=== PATIENT | female | born 1970 | race American Indian/Alaskan Native ===

== ENCOUNTER 2017-03-15 08:51 | Inpatient (IN) | payer SELFPAY ==
[2017-03-15 09:26] LABS: Mean Corpuscular HGB Conc 29 % (30-34); Platelet Count 208 K/mm3 (140-440); Red Blood Count 5.31 M/mm3 (3.65-5.03); White Blood Count 13.1 K/mm3 (4.5-11.0)
[2017-03-15 09:45] LABS: Hemoglobin 8.7 gm/dl (10.1-14.3)
[2017-03-15 09:46] LABS: Hematocrit 30.6 % (30.3-42.9); Mean Corpuscular Hemoglobin 17 pg (28-32); Mean Corpuscular Volume 58 fl (79-97)
[2017-03-15 09:49] LABS: Red Cell Distribution Width 23.9 % (13.2-15.2)
[2017-03-15 09:59] LABS: BUN/Creatinine Ratio 11.42; Blood Urea Nitrogen 8 mg/dL (7-17); Calcium 8.8 mg/dL (8.4-10.2); Carbon Dioxide 26 mmol/L (22-30); Glucose 108 mg/dL (65-100)
[2017-03-15 10:00] LABS: Anion Gap 17 mmol/L; Chloride 102.7 mmol/L (98-107); Potassium 4.4 mmol/L (3.6-5.0); Sodium 141 mmol/L (137-145)
[2017-03-15 11:16] LABS: Anisocytosis 2+; Basophils % (Manual) 0 % (0.0-1.8); Blastocytes % (Manual) 0 %; Eosinophils % (Manual) 0 % (0.0-4.3)
[2017-03-15 11:17] LABS: Elliptocytes 1+; Hypochromasia 2+; Microcytosis 2+; Ovalocytes 2+; Polychromasia 1+
[2017-03-15 11:18] LABS: Diff Status Complete
--- NOTE | 2017-03-15 11:28 | XRay Report ---
ROUTINE CHEST, TWO VIEWS: HISTORY: Shortness of breath. The trachea, heart, mediastinal contour, lung walter and bony thorax are unremarkable. No significant change since 03/05/16. IMPRESSION: Unremarkable chest x-ray.
--- NOTE | 2017-03-15 14:24 | Emergency Department Report ---
ED Shortness of Breath HPI - General Chief Complaint: Dyspnea/Respdistress Stated Complaint: ASTHMA/HERNÁN/SOB Time Seen by Provider: 03/15/17 13:21 Source: patient Mode of arrival: Ambulatory Limitations: No Limitations - History of Present Illness Initial Comments: 46-year-old female presents to the emergency department complaining of difficulty breathing and fluid buildup. Patient states symptoms have been present for the past 2 days. She states that her legs, abdomen, and arms are swelling. She denies pain. She states she is unable to lie flat due to difficulty breathing. There are no other complaints. MD Complaint: shortness of breath -: Gradual, days(s) (2) Pain Scale: 0 Consistency: constant Improves With: nothing Worsens With: lying flat Known History Of: asthma Associated Symptoms: lower abdominal swelling, other (leg swelling) Treatments Prior to Arrival: none - Related Data Home Medications Medication Instructions Recorded Confirmed Last Taken amLODIPine [Norvasc] 10 mg PO DAILY 03/15/17 03/15/17 03/15/17 Previous Rx's Medication Instructions Recorded Last Taken Type Levothyroxine [Synthroid] 50 mcg PO QAM #30 tablet 01/04/16 03/15/17 Rx ALBUTEROL NEB's [Proventil 0.083% 1 neb IH Q4H PRN #1 box 03/09/16 Unknown Rx NEBS] Allergies Allergy/AdvReac Type Severity Reaction Status Date / Time No Known Allergies Allergy Verified 01/04/16 10:42 ED Review of Systems ROS: Stated complaint: ASTHMA/HERNÁN/SOB Other details as noted in HPI Comment: All other systems reviewed and negative Respiratory: orthopnea, shortness of breath Cardiovascular: edema ED Past Medical Hx - Past Medical History Previous Medical History?: Yes Hx Hypertension: Yes Hx Heart Attack/AMI: No Hx Congestive Heart Failure: No Hx Diabetes: No Hx Deep Vein Thrombosis: No Hx Pulmonary Embolism: No Hx Liver Disease: No Hx Renal Disease: No Hx Sickle Cell Disease: No Hx Arthritis: No Hx Seizures: No Hx Kidney Stones: No Hx Asthma: Yes Hx COPD: No Hx Tuberculosis: No Hx Dementia: No Hx HIV: No Additional medical history: hypothyroid, herniated disc, obstructive sleep apnea. OBESITY. RIGHT ROTATOR CUFF TEAR - Surgical History Past Surgical History?: Yes Hx Coronary Stent: No Hx Open Heart Surgery: No Hx Pacemaker: No Hx Internal Defibrillator: No Hx Cholecystectomy: No Hx Appendectomy: No Hx Breast Surgery: No Additional Surgical History: x 3, right shoulder rotator cuff repair - Family History Family history: no significant - Social History Smoking Status: Current Every Day Smoker Substance Use Type: None - Medications Home Medications: Home Medications Medication Instructions Recorded Confirmed Last Taken Type Levothyroxine [Synthroid] 50 mcg PO QAM #30 tablet 01/04/16 03/15/17 03/15/17 Rx ALBUTEROL NEB's [Proventil 0.083% 1 neb IH Q4H PRN #1 box 03/09/16 03/15/17 Unknown Rx NEBS] amLODIPine [Norvasc] 10 mg PO DAILY 03/15/17 03/15/17 03/15/17 History ED Physical Exam - General Limitations: No Limitations General appearance: alert, in no apparent distress, obese - Head Head exam: Present: atraumatic, normocephalic - Eye Eye exam: Present: normal appearance, PERRL, EOMI - ENT ENT exam: Present: normal exam, normal orophraynx, mucous membranes moist - Neck Neck exam: Present: normal inspection, full ROM. Absent: tenderness - Respiratory Respiratory exam: Present: normal lung sounds bilaterally. Absent: respiratory distress - Cardiovascular Cardiovascular Exam: Present: normal rhythm, tachycardia, normal heart sounds - GI/Abdominal GI/Abdominal exam: Present: soft, normal bowel sounds. Absent: distended, tenderness - Extremities Exam Extremities exam: Present: normal inspection, full ROM, other (2+ pitting edema bilateral lower extremities to the mid thigh) - Back Exam Back exam: Present: normal inspection, full ROM. Absent: tenderness - Neurological Exam Neurological exam: Present: alert, oriented X3. Absent: motor sensory deficit - Skin Skin exam: Present: warm, dry, intact ED Course Vital Signs 03/15/17 09:06 Temperature 98.2 F Pulse Rate 100 H Respiratory 24 Rate Blood Pressure 184/110 O2 Sat by Pulse 100 Oximetry ED Medical Decision Making - Lab Data Result diagrams: 03/15/17 09:15 03/15/17 09:15 - EKG Data -: EKG Interpreted by Me EKG shows normal: sinus rhythm, axis, intervals, QRS complexes, ST-T waves Rate: tachycardia - EKG Data When compared to previous EKG there are: no significant change Interpretation: other (pulmonary disease pattern) - Radiology Data Radiology results: report reviewed, image reviewed Chest x-ray shows no acute abnormality. - Medical Decision Making Lab and imaging results reviewed and discussed with the patient. Patient is moderate risk for PE, although clinical gestalt is low. CTA of the chest has been ordered, but the patient is refusing stating that she cannot lie flat. There is concern that the patient does have pulmonary hypertension and is having symptoms from this. Giving IV Lasix. Patient is to be admitted by the hospitalist. - Differential Diagnosis CHF, pleural effusion, PE Critical care attestation.: If time is entered above; I have spent that time in minutes in the direct care of this critically ill patient, excluding procedure time. ED Disposition Clinical Impression: Morbid obesity with body mass index (BMI) of 40.0 to 44.9 in adult, Obstructive sleep apnea Dyspnea Qualifiers: Dyspnea type: orthopnea Qualified Code(s): R06.01 - Orthopnea Disposition: -09 OP ADMIT IP TO THIS HOSP Is pt being admited?: Yes Condition: Stable Referrals: PRIMARY CAREMD [Primary Care Provider] - 3-5 Days Time of Disposition: 16:06
[2017-03-15] MEDS ORDERED: LASIX IV ONE ×2 (15:52→17:36)
--- NOTE | 2017-03-15 16:25 | Admit Criteria Form ---
Admission Criteria Documentation: PULMONARY DISEASE GRG Clinical Indications for Admission to Inpatient Care ( Place 'X' for any and all applicable criteria): Hospital admission is needed for appropriate care of the patient because of ANY ONE of the following(1): [ ]I. Impending or actual respiratory arrest ( Use Respiratory Failure Criteria for severe respiratory disease and long-term mechanical ventilation patients) (4) [ ]II. Severe airflow or ventilation abnormalities (not responsive to emergency and observation care treatment as appropriate) as indicated by ANY ONE of the following(5)(6)(7)(8) : [ ]a) PCO2 > 42 mm Hg (5.6 kPa) and pH < 7.35 (new) [ ]b) Documented PCO2 increase > 5 mm Hg (0.7 kPa) from disease baseline [ ]c) Airflow measurements[A] < 60% of previous best or predicted ( e.g., PEF <300 L/minute) despite intensive emergent treatment[B] [ ]d) Required respiratory treatments that are performable only in acute inpatient setting [X]III. Severe respiratory findings (not responsive to emergency and observation care treatment as appropriate) including ANY ONE of the following(5)(8)(9): []a) Respiratory distress as indicated by ALL of the following(5)(10): [ X]i) Patient with ANY ONE of the following: [X]1) Dyspnea (difficulty breathing) [ ]2) Abnormal breathing pattern (eg, chest retractions) []3) Tachypnea []4) Other evidence of difficulty breathing [ ]ii) Evidence of respiratory compromise indicated by ANY ONE of the following: [ ]1) Hypoxemia [ ]2) Altered mental status [ ]3) Other evidence of respiratory compromise (eg, pulmonary edema on chest x-ray) [ ]b) Stridor [ ]c) Gross hemoptysis(11) [ ]d) Acute cyanosis [ ]IV. High-risk pulmonary infection as indicated by ANY ONE of the following( 19)(20)(21)(22): [ ]a) Temperature less than 95 degrees F(35 degrees C) or greater than 103.1 degrees F(39.5 degrees C) [ ]b) Hemodynamic instability that remains after emergency or observation level care (as appropriate) [ ]c) Immunocompromised patient (eg, AIDS, post transplant, neutropenic) [ ]d) History of severe COPD [ ]e) History of severely symptomatic congestive heart failure [ ]f) Other high-risk comorbidity (eg, poorly controlled diabetes, cirrhosis, chronic renal insufficiency) [ ]g) Hypoxemia (new) [ ]h) Outpatient, observation, or recovery facility therapy has failed, is not appropriate, or is not feasible [ ]V. Severe atelectasis or lung collapse(15)(16) [ ]. Tuberculosis requiring inpatient treatment as indicated by ANY ONE of the following(17)(18): [ ]a) New positive acid-fast bacilli sputum smear [ ]b) Positive acid-fast bacilli smear (under current treatment), with ANY ONE of the following: [ ]i) Unexposed household contacts [ ]ii) Infants or immunosuppressed household contacts [ ]iii) Patient unable or unwilling to avoid exposing others [ ]iv) Severe immunocompromised patient (eg, AIDS, post transplant, neutropenic) [ ]VII. Empyema or lung abscess(13)(14) [ ]VIII. Severe pulmonary arterial hypertension or pulmonary vascular disease requiring inpatient care indicated by ANY ONE of the following(24)(25): [ ]a) Initiation or change of vasodilators (IV, subcutaneous, or inhaled) or other vasoactive medications needed [ ]b) IV anticoagulation needed (eg, immediate anticoagulation necessary, alternatives not appropriate) [ ]c) Arterial or pulmonary artery catheter monitoring needed due to infusion or other treatment [ ]IX. Chronic lung disease with severe deterioration (not responsive to emergency and observation care treatment as appropriate) as indicated by ANY ONE of the following (6)(12): [ ]a) SaO2 5% below baseline in patient with chronic hypoxemia [ ]b) New requirement for supplemental oxygen to keep SaO2 at baseline or acceptable level [ ]c) Required supplemental oxygen performable only in acute inpatient setting [ ]d) Severe airflow or ventilation abnormalities [ ]e) Rapid rate of exacerbation onset [ ]f) Previously mobile patient unable to walk between rooms [ ]g) Inability to eat or sleep due to dyspnea [ ]h) Altered mental status [ ]X. Cystic fibrosis with severe deterioration as indicated by ANY ONE of the following(26)(27): [ ]a) Severe exacerbation that does not respond to intensified home therapy [ ]b) Pneumonia [ ]c) Hemoptysis [ ]d) Atelectasis [ ]e) Pneumothorax [ ]f) Respiratory failure [ ]g) Severe exacerbation with patient unable to perform prescribed treatments at home [ ]XI. Severe right heart failure as indicated by ANY ONE of the following(24) (25): [ ]a) Increasing organ failure (eg, liver congestion with significant and worsening or new elevation of transaminases) [ ]b) Anasarca [ ]c) Angina that requires inpatient care (eg, not treatable in emergency or observation level of care) [ ]d) Respiratory distress [ ]e) Syncope [ ]f) SBP < 90 mm Hg (new) [ ]XII. Injury requiring inpatient care (medical) as indicated by ANY ONE of the following(28): [ ]a) Significant inhalation injury (eg, smoke inhalation, other toxic inhalation) (29)(30)(31) [ ]b) Airway obstruction that remains or is unstable after emergency or observation level care(32) [ ]c) Severe pain requiring acute inpatient management [ ]d) Lung contusion [ ]e) Bronchial tree injury [ ]f) Air or fat emboli(33) [ ]g) Other injury not treatable in emergency or observation level care (eg, hemothorax) (34) [ ]XIII. Pulmonary hemorrhage or significant hemoptysis(11)(35)(36) [ ]XIV. Inpatient palliative care needed[C](37)(38)(39)(40) [ ]XV. Complications of lung transplant (eg, rejection, failure, respiratory infection) (23) [ ]XVI. Pulmonary Disease and ANY ONE of the following: [ ]a) General Admission Criteria [ ]b) Pediatric General Admission Criteria The original [facility] [employer] content created by [facility] [employer] has been revised. The portions of the content which have been revised are identified through the use of italic text or in bold, and [facility] has neither reviewed nor approved the modified material. All other unmodified content is copyright [facility]. Please see references footnoted in the [facility] Admission Criteria Met: Yes
[2017-03-15] MEDS ORDERED: PROVENTIL IH PRN (21:05)
--- NOTE | 2017-03-15 21:30 | History and Physical Report ---
History of Present Illness Date of examination: 03/15/17 Date of admission: 03/15/17 16:06 Chief complaint: Increasing SOB for 2 days History of present illness: MINA Well known to me from office for last 10 years 46-year-old female presents to the emergency department complaining of difficulty breathing and fluid buildup. Patient states symptoms have been present for the past 2 days. She states that her legs, abdomen, and arms are swelling. She denies pain. She states she is unable to lie flat due to difficulty breathing. There are no other complaints.Being treated for Asthmatic bronchitis MD Complaint: shortness of breath -: Gradual, days(s) (2) Pain Scale: 0 Consistency: constant Improves With: nothing Worsens With: lying flat Known History Of: asthma Associated Symptoms: lower abdominal swelling, other (leg swelling) Treatments Prior to Arrival: none - Related Data Home Medications Medication Instructions Recorded Confirmed Last Taken amLODIPine [Norvasc] 10 mg PO DAILY 03/15/17 03/15/17 03/15/17 Previous Rx's Medication Instructions Recorded Last Taken Type Levothyroxine [Synthroid] 50 mcg PO QAM #30 tablet 01/04/16 03/15/17 Rx ALBUTEROL NEB's [Proventil 0.083% 1 neb IH Q4H PRN #1 box 03/09/16 Unknown Rx NEBS] Allergies Allergy/AdvReac Type Severity Reaction Status Date / Time No Known Allergies Allergy Verified 01/04/16 10:42 ED Review of Systems ROS: Stated complaint: ASTHMA/HERNÁN/SOB Other details as noted in HPI Comment: All other systems reviewed and negative Respiratory: orthopnea, shortness of breath Cardiovascular: edema ED Past Medical Hx - Past Medical History Previous Medical History?: Yes Hx Hypertension: Yes Hx Heart Attack/AMI: No Hx Congestive Heart Failure: No Hx Diabetes: No Hx Deep Vein Thrombosis: No Hx Pulmonary Embolism: No Hx Liver Disease: No Hx Renal Disease: No Hx Sickle Cell Disease: No Hx Arthritis: No Hx Seizures: No Hx Kidney Stones: No Hx Asthma: Yes Hx COPD: No Hx Tuberculosis: No Hx Dementia: No Hx HIV: No Additional medical history: hypothyroid, herniated disc, obstructive sleep apnea. OBESITY. RIGHT ROTATOR CUFF TEAR - Surgical History Past Surgical History?: Yes Hx Coronary Stent: No Hx Open Heart Surgery: No Hx Pacemaker: No Hx Internal Defibrillator: No Hx Cholecystectomy: No Hx Appendectomy: No Hx Breast Surgery: No Additional Surgical History: x 3, right shoulder rotator cuff repair - Family History Family history: no significant - Social History Smoking Status: Current Every Day Smoker Substance Use Type: None - Medications Home Medications: Home Medications Medication Instructions Recorded Confirmed Last Taken Type Levothyroxine [Synthroid] 50 mcg PO QAM #30 tablet 01/04/16 03/15/17 03/15/17 Rx ALBUTEROL NEB's [Proventil 0.083% 1 neb IH Q4H PRN #1 box 03/09/16 03/15/17 Unknown Rx NEBS] amLODIPine [Norvasc] 10 mg PO DAILY 03/15/17 03/15/17 03/15/17 History Medications and Allergies Allergies Allergy/AdvReac Type Severity Reaction Status Date / Time No Known Allergies Allergy Verified 01/04/16 10:42 Home Medications Medication Instructions Recorded Confirmed Last Taken Type Levothyroxine [Synthroid] 50 mcg PO QAM #30 tablet 01/04/16 03/15/17 03/15/17 Rx ALBUTEROL NEB's [Proventil 0.083% 1 neb IH Q4H PRN #1 box 03/09/16 03/15/17 Unknown Rx NEBS] amLODIPine [Norvasc] 10 mg PO DAILY 03/15/17 03/15/17 03/15/17 History Active Meds: Active Medications Albuterol (Proventil) 2.5 mg IH Q4HRT PRN PRN Reason: Shortness Of Breath Last Admin: 03/15/17 21:11 Dose: 2.5 mg Exam - Physical Exam Narrative exam: In slight resp distress - Constitutional Vitals: Temp Pulse Resp BP Pulse Ox 98.4 F 110 H 18 134/87 100 03/15/17 19:56 03/15/17 21:19 03/15/17 21:19 03/15/17 19:56 03/15/17 19:56 General appearance: Present: mild distress, well-nourished - EENT Eyes: Present: PERRL ENT: hearing intact, clear oral mucosa - Neck Neck: Present: supple, normal ROM - Respiratory Respiratory effort: normal Respiratory: bilateral: CTA, diminished - Cardiovascular Heart rate: 80 Rhythm: regular Heart Sounds: Present: S1 & S2. Absent: rub, click - Extremities Extremities: pulses symmetrical Extremity abnormal: edema, other (3 plus edema) Peripheral Pulses: within normal limits - Abdominal General gastrointestinal: Present: soft, non-tender, non-distended, normal bowel sounds Female genitourinary: Present: normal - Integumentary Integumentary: Present: clear, warm, dry - Musculoskeletal Musculoskeletal: gait normal, strength equal bilaterally - Psychiatric Psychiatric: appropriate mood/affect, intact judgment & insight - Neurologic Neurologic: CNII-XII intact, moves all extremities Results - Labs CBC & Chem 7: 03/15/17 09:15 03/15/17 09:15 Labs: Laboratory Last Values WBC 13.1 K/mm3 (4.5-11.0) H 03/15/17 09:15 RBC 5.31 M/mm3 (3.65-5.03) H 03/15/17 09:15 Hgb 8.7 gm/dl (10.1-14.3) L 03/15/17 09:15 Hct 30.6 % (30.3-42.9) 03/15/17 09:15 MCV 58 fl (79-97) L 03/15/17 09:15 MCH 17 pg (28-32) L 03/15/17 09:15 MCHC 29 % (30-34) L 03/15/17 09:15 RDW 23.9 % (13.2-15.2) H 03/15/17 09:15 Plt Count 208 K/mm3 (140-440) 03/15/17 09:15 Add Manual Diff Complete 03/15/17 09:15 Total Counted 100 03/15/17 09:15 Seg Neuts % (Manual) 78.0 % (40.0-70.0) H 03/15/17 09:15 Band Neutrophils % 1.0 % 03/15/17 09:15 Lymphocytes % (Manual) 12.0 % (13.4-35.0) L 03/15/17 09:15 Reactive Lymphs % (Man) 0 % 03/15/17 09:15 Monocytes % (Manual) 8.0 % (0.0-7.3) H 03/15/17 09:15 Eosinophils % (Manual) 0 % (0.0-4.3) 03/15/17 09:15 Basophils % (Manual) 0 % (0.0-1.8) 03/15/17 09:15 Metamyelocytes % 1.0 % 03/15/17 09:15 Myelocytes % 0 % 03/15/17 09:15 Promyelocytes % 0 % 03/15/17 09:15 Blast Cells % 0 % 03/15/17 09:15 Nucleated RBC % Not Reportable 03/15/17 09:15 Seg Neutrophils # Man 10.2 K/mm3 (1.8-7.7) H 03/15/17 09:15 Band Neutrophils # 0.1 K/mm3 03/15/17 09:15 Lymphocytes # (Manual) 1.6 K/mm3 (1.2-5.4) 03/15/17 09:15 Abs React Lymphs (Man) 0.0 K/mm3 03/15/17 09:15 Monocytes # (Manual) 1.0 K/mm3 (0.0-0.8) H 03/15/17 09:15 Eosinophils # (Manual) 0.0 K/mm3 (0.0-0.4) 03/15/17 09:15 Basophils # (Manual) 0.0 K/mm3 (0.0-0.1) 03/15/17 09:15 Metamyelocytes # 0.1 K/mm3 03/15/17 09:15 Myelocytes # 0.0 K/mm3 03/15/17 09:15 Promyelocytes # 0.0 K/mm3 03/15/17 09:15 Blast Cells # 0.0 K/mm3 03/15/17 09:15 WBC Morphology Not Reportable 03/15/17 09:15 Hypersegmented Neuts Not Reportable 03/15/17 09:15 Hyposegmented Neuts Not Reportable 03/15/17 09:15 Hypogranular Neuts Not Reportable 03/15/17 09:15 Smudge Cells Not Reportable 03/15/17 09:15 Toxic Granulation Not Reportable 03/15/17 09:15 Toxic Vacuolation Not Reportable 03/15/17 09:15 Dohle Bodies Not Reportable 03/15/17 09:15 Pelger-Huet Anomaly Not Reportable 03/15/17 09:15 Genesis Rods Not Reportable 03/15/17 09:15 Platelet Estimate Appears normal 03/15/17 09:15 Clumped Platelets Not Reportable 03/15/17 09:15 Plt Clumps, EDTA Not Reportable 03/15/17 09:15 Large Platelets Not Reportable 03/15/17 09:15 Giant Platelets Not Reportable 03/15/17 09:15 Platelet Satelliting Not Reportable 03/15/17 09:15 Plt Morphology Comment Not Reportable 03/15/17 09:15 RBC Morphology Not Reportable 03/15/17 09:15 Dimorphic RBCs Not Reportable 03/15/17 09:15 Polychromasia 1+ 03/15/17 09:15 Hypochromasia 2+ 03/15/17 09:15 Poikilocytosis Not Reportable 03/15/17 09:15 Anisocytosis 2+ 03/15/17 09:15 Microcytosis 2+ 03/15/17 09:15 Macrocytosis Not Reportable 03/15/17 09:15 Spherocytes Not Reportable 03/15/17 09:15 Pappenheimer Bodies Not Reportable 03/15/17 09:15 Sickle Cells Not Reportable 03/15/17 09:15 Target Cells Not Reportable 03/15/17 09:15 Tear Drop Cells Not Reportable 03/15/17 09:15 Ovalocytes 2+ 03/15/17 09:15 Helmet Cells Not Reportable 03/15/17 09:15 Zambrano-[place] Bodies Not Reportable 03/15/17 09:15 [place] Rings Not Reportable 03/15/17 09:15 Kevin Cells Not Reportable 03/15/17 09:15 Bite Cells Not Reportable 03/15/17 09:15 Crenated Cell Not Reportable 03/15/17 09:15 Elliptocytes 1+ 03/15/17 09:15 Acanthocytes (Spur) Not Reportable 03/15/17 09:15 Rouleaux Not Reportable 03/15/17 09:15 Hemoglobin C Crystals Not Reportable 03/15/17 09:15 Schistocytes Not Reportable 03/15/17 09:15 Malaria parasites Not Reportable 03/15/17 09:15 Guero Bodies Not Reportable 03/15/17 09:15 Hem Pathologist Commnt No 03/15/17 09:15 Carbon Dioxide 26 mmol/L (22-30) 03/15/17 09:15 BUN 8 mg/dL (7-17) 03/15/17 09:15 Creatinine 0.7 mg/dL (0.7-1.2) 03/15/17 09:15 Estimated GFR > 60 ml/min 03/15/17 09:15 BUN/Creatinine Ratio 11.42 % 03/15/17 09:15 Glucose 108 mg/dL (65-100) H 03/15/17 09:15 Calcium 8.8 mg/dL (8.4-10.2) 03/15/17 09:15 Troponin T < 0.010 ng/mL (0.00-0.029) 03/15/17 09:15 NT-Pro-B Natriuret Pep 27.15 pg/mL (0-450) 03/15/17 09:15 Short CBC 03/15/17 Range/Units 09:15 WBC 13.1 H (4.5-11.0) K/mm3 Hgb 8.7 L (10.1-14.3) gm/dl Hct 30.6 (30.3-42.9) % Plt Count 208 (140-440) K/mm3 BMP 03/15/17 09:15 Carbon Dioxide 26 BUN 8 Creatinine 0.7 Glucose 108 H Calcium 8.8 Cardiac Enzymes 03/15/17 Range/Units 09:15 Troponin T < 0.010 (0.00-0.029) ng/mL - Imaging and Cardiology EKG: report reviewed (NSR 100/min) Chest x-ray: report reviewed (NAF) Assessment and Plan Advance Directives: Yes (Full code) VTE prophylaxis?: Chemical Plan of care discussed with patient/family: Yes - Patient Problems (1) Acute asthma exacerbation Current Visit: No Status: Acute Qualifiers: Asthma severity: moderate persistent Qualified Code(s): J45.41 - Moderate persistent asthma with (acute) exacerbation Plan to address problem: Cont neb tx Solumedrol and Levaquin (2) Acute exacerbation of CHF (congestive heart failure) Current Visit: Yes Status: Acute Qualifiers: Congestive heart failure type: C (3) Acute exacerbation of CHF (congestive heart failure) Current Visit: Yes Status: Acute Qualifiers: Congestive heart failure type: combined Qualified Code(s): I50.43 - Acute on chronic combined systolic (congestive) and diastolic (congestive) heart failure Plan to address problem: Check ECHO for EF No Hx of CHF (4) HTN (hypertension) Current Visit: Yes Status: Chronic Qualifiers: Hypertension type: essential hypertension Qualified Code(s): I10 - Essential (primary) hypertension Plan to address problem: Will hold Amlodipine b/c of pedal edema. Initiate Losartan 100 mg po qd (5) Hypothyroidism Current Visit: Yes Status: Chronic Qualifiers: Hypothyroidism type: acquired Qualified Code(s): E03.9 - Hypothyroidism, unspecified Plan to address problem: Cont Synthyroid 50 mcg po qd (6) Obstructive sleep apnea Current Visit: Yes Status: Chronic Plan to address problem: Highly possible causing Pul HTN and swelling of legs. Consult pulmonary and w/u as outpatient (7) DVT prophylaxis Current Visit: Yes Status: Acute Plan to address problem: Lovenox 40 mg sq qd
[2017-03-15] MEDS: K-DUR PO SCH (22:35)
[2017-03-16] MEDS ORDERED: SYNTHROID PO SCH (06:00)
[2017-03-16] MEDS ORDERED: LASIX IV SCH (06:00)
[2017-03-16] MEDS ORDERED: DUONEB 0.5 MG-3 MG/3 ML SOLN IH PRN (07:17)
[2017-03-16] MEDS ORDERED: DUONEB 0.5 MG-3 MG/3 ML SOLN IH SCH (08:00)
[2017-03-16 08:40] VITALS: BP 147/90
[2017-03-16] MEDS ORDERED: LEVAQUIN 750MG/150ML 750 MG/150 ML BAG IV SCH (10:00)
[2017-03-16] MEDS ORDERED: COZAAR PO SCH (10:00)
[2017-03-16] MEDS: K-DUR PO SCH (11:18)
--- NOTE | 2017-03-16 11:24 | Discharge Summary ---
Providers - Providers Date of Admission: 03/15/17 16:06 Date of discharge: 03/16/17 Attending physician: LYNDA SHANKS MD 03/16/17 07:20 Consult to Physician [CONS] Routine Consulting Provider: TETO GRAYSON Reason For Exam: NAYELY/Asthma exacebation Place consult to:: Dr. Perales Notified:: Andra IBANEZ Phone number called:: Was contact made?: Yes If yes, spoke with:: Luis Angel-answering service Time called:: 09:20 Primary care physician: [employer]BUTOR Hospitalization Reason for admission: CHF exacerbation Condition: Stable Hospital course: 46-year-old female presents to the emergency department complaining of difficulty breathing and fluid buildup. Patient states symptoms have been present for the past 2 days. She states that her legs, abdomen, and arms are swelling. She denies pain. She states she is unable to lie flat due to difficulty breathing. There are no other complaints. Being treated for Asthmatic bronchitis. Patient was admitted and started treatment for asthma exacerbation and acute and chronic diastolic CHF exacerbation. Patient was put on Solu-Medrol, IV antibiotics, IV Lasix and continued her home medications. This morning the patient is breathing well, swelling is markedly decreased. Echo was ordered yesterday but it was not done this morning and the plan is to do tomorrow. Patient doesn't want to stay till tomorrow, she stated her primary care is Dr. Rendon and we will see him on Saturday and wants to schedule echo as an outpatient. Patient was discharged with by mouth antibiotics, steroids, Lasix. Patient was hemodynamically stable at the time of discharge. Disposition: DC- TO HOME OR SELFCARE Time spent for discharge: 31 minutes - Discharge Diagnoses (1) Acute exacerbation of CHF (congestive heart failure) Status: Acute Qualifiers: Congestive heart failure type: C (2) HTN (hypertension) Status: Chronic Qualifiers: Hypertension type: essential hypertension Qualified Code(s): I10 - Essential (primary) hypertension (3) Obstructive sleep apnea Status: Chronic (4) Acute asthma exacerbation Status: Acute Qualifiers: Asthma severity: moderate persistent Qualified Code(s): J45.41 - Moderate persistent asthma with (acute) exacerbation Core Measure Documentation - Palliative Care Palliative Care/ Comfort Measures: Not Applicable - Core Measures Any of the following diagnoses?: none Exam - Physical Exam Narrative exam: Not in cardiopulmonary distress. The patient is morbidly obese. Vital signs as documented. Head exam is unremarkable. No scleral icterus . Neck is without jugular venous distension, thyromegaly, or carotid bruits. Lungs are clear to auscultation. Cardiac exam reveals regular rate and Rhythm. First and second heart sounds normal. No murmurs, rubs or gallops. Abdominal exam reveals normal bowel sounds, no masses, no organomegaly and no aortic enlargement. Extremities trace pedal edema. RECREATIONAL SPORTS DIRECTOR: Alert and oriented 3. No focal weakness. - Constitutional Vitals: Temp Pulse Resp BP Pulse Ox 98.8 F 87 18 147/90 92 03/16/17 08:39 03/16/17 08:39 03/16/17 08:39 03/16/17 08:39 03/16/17 08:39 Plan Activity: no restrictions Weight Bearing Status: Full Weight Bearing Diet: low fat, low cholesterol, low salt Follow up with: PRIMARY CARE, [Primary Care Provider] - 3-5 Days Prescriptions: Azithromycin [Zithromax TAB] 500 mg PO QDAY #5 tablet Furosemide [Lasix TAB] 40 mg PO QDAY #30 tablet Losartan [Cozaar] 100 mg PO QDAY #30 tablet Prednisone [predniSONE 5 mg (6-Day Pack, 21 Tabs)] 5 mg PO .TAPER #1 tab.ds.pk
== END 2017-03-16 12:35 | disposition home or self-care (01) | DRG 292 ==
LOC: ED 08:51 → 4A 16:06
PROVIDERS: ADMIT Internal Medicine; ATTEND Internal Medicine
PROC: 3E0234Z Introduction of Serum, Toxoid and Vaccine into Muscle, Percutaneous Approach (ICD-10-PCS; principal; 2017-03-15)
DX: I11.0 Hypertensive heart disease with heart failure (principal); Z68.43 Body mass index [BMI] 50.0-59.9, adult; J45.41 Moderate persistent asthma with (acute) exacerbation; G47.33 Obstructive sleep apnea (adult) (pediatric); E66.01 Morbid (severe) obesity due to excess calories; E03.9 Hypothyroidism, unspecified; I50.43 Acute on chronic combined systolic (congestive) and diastolic (congestive) heart failure; Z23 Encounter for immunization
CPT/HCPCS: 36415; 71020; 80048; 83880; 84484; 85007; 85025; 93005; 93010; 94640; 96374; J1940; J1956; J2930

== ENCOUNTER 2017-09-25 20:00 | Emergency (ER) | payer OTHER ==
--- NOTE | 2017-09-25 20:34 | Emergency Department Report ---
ED General Adult HPI - General Chief complaint: Dyspnea/Respdistress Stated complaint: HERNÁN Time Seen by Provider: 09/25/17 20:25 Source: patient, EMS (verbal report received from EMS.ems notes not available at time of chart dictation), RN notes reviewed, old records reviewed Mode of arrival: Stretcher Limitations: No Limitations - History of Present Illness Initial comments: Primary care DrDylan: Trena Rendon Past medical history: Hypothyroidism, obesity, hypertension, asthma, tobacco dependency, chronic pain, asthma, obstructive sleep apnea, noncompliant with treatment, reports 3 to 4M admissions for asthma, denies intubations This is a 47-year-old female. The patient is previously on known to this provider. Patient brought to the hospital by EMS for wheezing, cough, mucus production. Patient reports symptoms have been going on since . They're intermittent. They worse with physical exertion. They decrease with rest. There is no chest pain. There is no leg pain, leg swelling, patient reports not taking control tablets, she reports not having given for the past 20 years, there is no recent travel, no recent surgery. She reports tobacco consumption, and reports that multiple people at home are smoking tobacco as well. There is no chest pain. EMS gave the patient magnesium, 2 g, 125 mg of Solu-Medrol, and 5 mg of albuterol. These have improved her symptoms. -: Gradual, week(s) Consistency: intermittent Improves with: medication, rest Worsens with: movement Associated Symptoms: cough, malaise, shortness of breath, weakness. denies: confusion, chest pain - Related Data Previous Rx's Medication Instructions Recorded Last Taken Type ALBUTEROL NEB's [Proventil 0.083% 1 neb IH Q4H PRN #1 box 09/25/17 Unknown Rx NEBS] Albuterol Sulfate [Proair 90 mcg IH Q4HR PRN #2 aer.pow.ba 09/25/17 Unknown Rx Respiclick] Furosemide [Lasix TAB] 40 mg PO QDAY #30 tablet 09/25/17 Unknown Rx Levothyroxine [Synthroid] 50 mcg PO QAM #30 tablet 09/25/17 Unknown Rx Losartan [Cozaar] 100 mg PO QDAY #30 tablet 09/25/17 Unknown Rx Prednisone [predniSONE 5 mg (6-Day 5 mg PO .TAPER #1 tab.ds.pk 09/25/17 Unknown Rx Pack, 21 Tabs)] amLODIPine [Norvasc] 10 mg PO DAILY #30 tablet 09/25/17 Unknown Rx Allergies Allergy/AdvReac Type Severity Reaction Status Date / Time No Known Allergies Allergy Verified 01/04/16 10:42 ED Review of Systems ROS: Stated complaint: HERNÁN Other details as noted in HPI Constitutional: malaise. denies: fever Eyes: denies: eye discharge Respiratory: shortness of breath, wheezing Cardiovascular: denies: chest pain Gastrointestinal: denies: abdominal pain Genitourinary: as per HPI Musculoskeletal: as per HPI Skin: as per HPI Neurological: as per HPI Psychiatric: as per HPI ED Past Medical Hx - Past Medical History Previous Medical History?: Yes Hx Hypertension: Yes Hx Heart Attack/AMI: No Hx Congestive Heart Failure: Yes Hx Diabetes: No Hx Deep Vein Thrombosis: No Hx Pulmonary Embolism: No Hx Liver Disease: No Hx Renal Disease: No Hx Sickle Cell Disease: No Hx Arthritis: No Hx Seizures: No Hx Kidney Stones: No Hx Asthma: Yes Hx COPD: No Hx Tuberculosis: No Hx Dementia: No Hx HIV: No Additional medical history: hypothyroid, herniated disc, obstructive sleep apnea. OBESITY. RIGHT ROTATOR CUFF TEAR - Surgical History Past Surgical History?: Yes Hx Coronary Stent: No Hx Open Heart Surgery: No Hx Pacemaker: No Hx Internal Defibrillator: No Hx Cholecystectomy: No Hx Appendectomy: No Hx Breast Surgery: No Additional Surgical History: x 3, right shoulder rotator cuff repair - Social History Smoking Status: Current Some Day Smoker Substance Use Type: None - Medications Home Medications: Home Medications Medication Instructions Recorded Confirmed Last Taken Type ALBUTEROL NEB's [Proventil 0.083% 1 neb IH Q4H PRN #1 box 09/25/17 Unknown Rx NEBS] Albuterol Sulfate [Proair 90 mcg IH Q4HR PRN #2 aer.pow.ba 09/25/17 Unknown Rx Respiclick] Furosemide [Lasix TAB] 40 mg PO QDAY #30 tablet 09/25/17 Unknown Rx Levothyroxine [Synthroid] 50 mcg PO QAM #30 tablet 09/25/17 Unknown Rx Losartan [Cozaar] 100 mg PO QDAY #30 tablet 09/25/17 Unknown Rx Prednisone [predniSONE 5 mg (6-Day 5 mg PO .TAPER #1 tab.ds.pk 09/25/17 Unknown Rx Pack, 21 Tabs)] amLODIPine [Norvasc] 10 mg PO DAILY #30 tablet 09/25/17 Unknown Rx ED Physical Exam - General Limitations: No Limitations General appearance: alert, in no apparent distress - Head Head exam: Present: atraumatic, normocephalic - Eye Eye exam: Present: normal appearance - ENT ENT exam: Present: normal exam, normal orophraynx, mucous membranes moist - Neck Neck exam: Present: normal inspection - Respiratory Respiratory exam: Present: decreased breath sounds. Absent: respiratory distress - Cardiovascular Cardiovascular Exam: Present: normal rhythm, tachycardia, normal heart sounds. Absent: systolic murmur, diastolic murmur, rubs, gallop - GI/Abdominal GI/Abdominal exam: Present: soft, normal bowel sounds. Absent: distended, tenderness, guarding, rebound, rigid, pulsatile mass - Extremities Exam Extremities exam: Present: normal inspection, full ROM, normal capillary refill. Absent: pedal edema, joint swelling, calf tenderness - Back Exam Back exam: Present: normal inspection, full ROM. Absent: tenderness, CVA tenderness (R), paraspinal tenderness, vertebral tenderness - Neurological Exam Neurological exam: Present: alert, oriented X3, CN II-XII intact, normal gait, other (Extraocular movements intact. Tongue midline. No facial droop. Facial sensation intact to light touch in the V1, V2, V3 distribution bilaterally. 5 and 5 strength in 4 extremities.. Sensation is intact to light touch in 4 extremities.). Absent: motor sensory deficit - Psychiatric Psychiatric exam: Present: normal affect, normal mood - Skin Skin exam: Present: warm, dry, intact, normal color. Absent: rash ED Course Vital Signs 09/25/17 09/25/17 09/25/17 20:10 20:19 20:30 Temperature 97.7 F Pulse Rate 112 H 110 H Pulse Rate [ Posterior Bilateral Throughout] Respiratory 20 22 Rate Respiratory Rate [Posterior Bilateral Throughout] Blood Pressure 178/114 Blood Pressure 187/116 [Right] O2 Sat by Pulse 99 97 95 Oximetry 09/25/17 09/25/17 09/25/17 21:15 21:16 21:30 Temperature Pulse Rate 106 H Pulse Rate [ 104 H 108 H Posterior Bilateral Throughout] Respiratory 22 Rate Respiratory 18 20 Rate [Posterior Bilateral Throughout] Blood Pressure 185/108 Blood Pressure [Right] O2 Sat by Pulse 98 Oximetry 09/25/17 22:12 Temperature Pulse Rate Pulse Rate [ Posterior Bilateral Throughout] Respiratory Rate Respiratory Rate [Posterior Bilateral Throughout] Blood Pressure 185/108 Blood Pressure [Right] O2 Sat by Pulse 99 Oximetry - Reevaluation(s) Reevaluation #1: 09/25/17 21:13 Differential diagnosis, including without limited to: Asthma, COPD, bronchitis, pneumonia, obesity hypoventilation syndrome, obstructive sleep apnea, pulmonary hypertension Assessment and plan: 47-year-old female with cough, history of wheezing and mucus production and tobacco consumption. Head and ejection fraction of 60-65% last year. No pulmonary embolus or DVT risk factors, low risk by well's criteria. Patient is not wheezing at this time, and when resting is saturating at 96, 97% on room air. However, when the patient walks and is ambulated, she desaturates to 84, 86%, and becomes very symptomatic. I would expect some degree of VQ mismatch from her underlying lung pathology, therefore we we'll give the patient additional albuterol, Atrovent. Laboratory studies are pending, x-ray of the chest is pending, EKG appears grossly unchanged from prior. Reevaluation #2: 09/25/17 22:14 X-ray the chest is negative. Leukocytosis appreciated, this is most likely stress emargination reaction. Patient not in any obvious respiratory distress at this time, and is noted to be speaking in full sentences on a side with phone. Reevaluation #3: 09/25/17 22:47 Patient feels much improved. Patient able to walk, desaturates to 91, 92%. V/ Q mismatch is expected, wheezing resolved, reports that she feels improved. She is noted to be playing and speaking on a cellular phone. When not walking she is saturating at 96, 97%. Elevated blood pressure is appreciated, this is a chronic problem, I will refill her medications, and she is instructed to follow-up in outpatient primary care doctor for her elevated blood pressure. Patient will be discharged at this time, return precautions reviewed. Tachycardia appreciated, this is likely secondary to a quantity of albuterol the patient received. ED Medical Decision Making - Lab Data Result diagrams: 09/25/17 20:38 09/25/17 20:38 Vital Signs 09/25/17 20:19 Temperature 97.7 F Pulse Rate 112 H Respiratory 20 Rate Blood Pressure 187/116 [Right] O2 Sat by Pulse 97 Oximetry - EKG Data -: EKG Interpreted by Me Rate: tachycardia - EKG Data 09/25/17 21:15 Sinus tachycardia, 105 beats for minute, borderline left axis deviation, poor R- wave progression, abnormal EKG, motion artifact, not consistent with ST elevation myocardial infarction, appears unchanged from prior EKG from February 2017. - Radiology Data Radiology results: pending, report reviewed, image reviewed X-ray of the chest, interpreted by myself and radiology: Negative for acute disease Critical care attestation.: If time is entered above; I have spent that time in minutes in the direct care of this critically ill patient, excluding procedure time. ED Disposition Clinical Impression: HTN (hypertension), Dyspnea Disposition: DC-01 TO HOME OR SELFCARE Is pt being admited?: No Does the pt Need Aspirin: No Condition: Good Instructions: Hypertension (ED) Additional Instructions: Discontinue consumption of tobacco products. Tobacco products are not healthy for the patient, and they will exacerbate symptoms. Please note that blood pressure was elevated. This needs to be followed up by a primary care doctor within the next 2 weeks. Follow up with the primary care doctor within the next 2 weeks. Please note that long-term complications of hypertension and elevated blood pressure includes stroke, heart attack, disability, , paralysis, loss of quality of life. Therefore, it is very important to follow-up in outpatient primary care doctor as recommended. Take the medications and outpatient prescribed medications as directed/needed. Return to the ER right away with new pain, worsened pain, migration of pain, fevers, chills, lethargy, irritability, projectile vomiting, change in mental status, confusion, inability to tolerate liquid feeds. Prescriptions: ALBUTEROL NEB's [Proventil 0.083% NEBS] 1 neb IH Q4H PRN #1 box PRN Reason: Wheezing Albuterol Sulfate [Proair Respiclick] 90 mcg IH Q4HR PRN #2 aer.pow.ba PRN Reason: Wheezing amLODIPine [Norvasc] 10 mg PO DAILY #30 tablet Furosemide [Lasix TAB] 40 mg PO QDAY #30 tablet Levothyroxine [Synthroid] 50 mcg PO QAM #30 tablet Losartan [Cozaar] 100 mg PO QDAY #30 tablet Prednisone [predniSONE 5 mg (6-Day Pack, 21 Tabs)] 5 mg PO .TAPER #1 tab.ds.pk Referrals: PRIMARY CARE, [Primary Care Provider] - 3-5 Days KERI GONSALES MD [Staff Physician] - 3-5 Days MELINA JEREZ MD [Staff Physician] - 3-5 Days [facility] [Provider Group] - 3-5 Days
[2017-09-25] MEDS ORDERED: PROVENTIL IH ONE (20:54)
[2017-09-25] MEDS ORDERED: ATROVENT IH ONE (20:54)
[2017-09-25 21:07] LABS: Mean Corpuscular HGB Conc 30 % (30-34); Platelet Count 251 K/mm3 (140-440); Red Blood Count 5.03 M/mm3 (3.65-5.03); White Blood Count 18.4 K/mm3 (4.5-11.0)
[2017-09-25] MEDS ORDERED: NACL 0.9% 1000 ML 1,000 ML IV ONE (21:16)
[2017-09-25 21:24] LABS: Hematocrit 30.8 % (30.3-42.9); Hemoglobin 9.1 gm/dl (10.1-14.3); INR 0.89 (0.87-1.13); Mean Corpuscular Hemoglobin 18 pg (28-32); Mean Corpuscular Volume 61 fl (79-97); Partial Thromboplastin Time 27.1 Sec. (24.2-36.6)
[2017-09-25 21:28] LABS: Anion Gap 17 mmol/L; BUN/Creatinine Ratio 15; Blood Urea Nitrogen 9 mg/dL (7-17); Calcium 8.4 mg/dL (8.4-10.2); Carbon Dioxide 25 mmol/L (22-30); Chloride 96.8 mmol/L (98-107); Glucose 177 mg/dL (65-100); Potassium 3.9 mmol/L (3.6-5.0); Sodium 135 mmol/L (137-145)
--- NOTE | 2017-09-25 22:05 | XRay Report ---
FINAL REPORT EXAM: XR CHEST 1V AP HISTORY: Dyspnea TECHNIQUE: upright single view chest PRIORS: None. FINDINGS: Cardiac and mediastinal contours are unremarkable. No focal pulmonary infiltrate is identified. No pleural fluid collection seen. Pulmonary vasculature is unremarkable. IMPRESSION: Negative single-view chest
[2017-09-25 22:38] VITALS: BP 185/108
[2017-09-25 22:59] LABS: Anisocytosis 1+; Basophils % (Manual) 0 % (0.0-1.8); Blastocytes % (Manual) 0 %
[2017-09-25 23:00] LABS: Microcytosis 1+
[2017-09-25 23:01] LABS: Diff Status Complete; Elliptocytes 1+; Hypochromasia 1+; Platelet Estimate Consistent w Auto; Tear Drop Cells Few
== END 2017-09-25 23:15 | disposition home or self-care (01) ==
LOC: ED 20:00
DX: R06.00 Dyspnea, unspecified (principal); I10 Essential (primary) hypertension; I50.9 Heart failure, unspecified; J45.909 Unspecified asthma, uncomplicated; F17.200 Nicotine dependence, unspecified, uncomplicated; E03.9 Hypothyroidism, unspecified; G47.33 Obstructive sleep apnea (adult) (pediatric); R53.81 Other malaise
CPT/HCPCS: 36415; 71010; 80048; 82140; 83735; 83880; 84443; 84702; 85007; 85025; 85610; 85730; 93005; 93010; 94640; 96360; 99285; J7030

== ENCOUNTER 2018-06-19 14:52 | Emergency (ER) | payer SELFPAY ==
--- NOTE | 2018-06-19 16:45 | XRay Report ---
FINAL REPORT PROCEDURE: Left foot. TECHNIQUE: Three views. HISTORY: Sharp pain. COMPARISON: No prior studies are available for comparison. FINDINGS: The bones appear intact without fracture or dislocation. The joint spaces appear normal. The soft tissues are unremarkable. IMPRESSION: Normal study.
[2018-06-19] MEDS ORDERED: MOTRIN PO ONE (21:57)
--- NOTE | 2018-06-19 22:01 | Emergency Department Report ---
ED Lower Extremity HPI - General Chief Complaint: Extremity Problem,Nontraumatic Stated Complaint: LEFT FOOT PAIN Time Seen by Provider: 06/19/18 21:24 Source: patient Mode of arrival: Ambulatory Limitations: No Limitations - History of Present Illness Initial Comments: This is a 48-year-old female nontoxic, well nourished in appearance, no acute signs of distress presents to the ED with c/o of left foot pain 3 weeks. Patient stated that this pain is intermittent. Patient denies any trauma. Patient denies any numbness, tingling, fever, chills, nausea, vomiting, chest pain, shortness of breath, headache, stiff neck. Patient denies any joint swelling or joint redness. Patient denies decreased range of motion. Patient denies any decreased gait due to pain. Patient denies any allergies. PMH includes asthma, CHF, hypertension. MD Complaint: foot injury -: week(s) (3) Injury: Foot: Left Severity: mild Severity scale (0 -10): 8 Improves With: immobilization Worsens With: palpation Associated Symptoms: ambulatory. denies: snap/pop sensation, swelling, numbness , tingling, unable to bear weight, able to partially bear weight - Related Data Previous Rx's Medication Instructions Recorded Last Taken Type ALBUTEROL NEB's [Proventil 0.083% 1 neb IH Q4H PRN #1 box 09/25/17 Unknown Rx NEBS] Albuterol Sulfate [Proair 90 mcg IH Q4HR PRN #2 aer.pow.ba 09/25/17 Unknown Rx Respiclick] Furosemide [Lasix TAB] 40 mg PO QDAY #30 tablet 09/25/17 Unknown Rx Levothyroxine [Synthroid] 50 mcg PO QAM #30 tablet 09/25/17 Unknown Rx Losartan [Cozaar] 100 mg PO QDAY #30 tablet 09/25/17 Unknown Rx Prednisone [predniSONE 5 mg (6-Day 5 mg PO .TAPER #1 tab.ds.pk 09/25/17 Unknown Rx Pack, 21 Tabs)] amLODIPine [Norvasc] 10 mg PO DAILY #30 tablet 09/25/17 Unknown Rx Ibuprofen [Motrin] 600 mg PO Q8H PRN #30 tablet 06/19/18 Unknown Rx Allergies Allergy/AdvReac Type Severity Reaction Status Date / Time No Known Allergies Allergy Verified 01/04/16 10:42 ED Review of Systems ROS: Stated complaint: LEFT FOOT PAIN Other details as noted in HPI Constitutional: denies: chills, fever Eyes: denies: eye pain, eye discharge, vision change ENT: denies: ear pain, throat pain Respiratory: denies: cough, shortness of breath, wheezing Cardiovascular: denies: chest pain, palpitations Endocrine: no symptoms reported Gastrointestinal: denies: abdominal pain, nausea, diarrhea Genitourinary: denies: urgency, dysuria, discharge Musculoskeletal: arthralgia. denies: back pain, joint swelling Skin: denies: rash, lesions Neurological: denies: headache, weakness, paresthesias Psychiatric: denies: anxiety, depression Hematological/Lymphatic: denies: easy bleeding, easy bruising ED Past Medical Hx - Past Medical History Hx Hypertension: Yes Hx Heart Attack/AMI: No Hx Congestive Heart Failure: Yes Hx Diabetes: No Hx Deep Vein Thrombosis: No Hx Pulmonary Embolism: No Hx Liver Disease: No Hx Renal Disease: No Hx Sickle Cell Disease: No Hx Arthritis: No Hx Seizures: No Hx Kidney Stones: No Hx Asthma: Yes Hx COPD: No Hx Tuberculosis: No Hx Dementia: No Hx HIV: No Additional medical history: hypothyroid, herniated disc, obstructive sleep apnea. OBESITY. RIGHT ROTATOR CUFF TEAR - Surgical History Hx Coronary Stent: No Hx Open Heart Surgery: No Hx Pacemaker: No Hx Internal Defibrillator: No Hx Cholecystectomy: No Hx Appendectomy: No Hx Breast Surgery: No Additional Surgical History: x 3, right shoulder rotator cuff repair - Social History Smoking Status: Current Every Day Smoker Substance Use Type: None - Medications Home Medications: Home Medications Medication Instructions Recorded Confirmed Last Taken Type ALBUTEROL NEB's [Proventil 0.083% 1 neb IH Q4H PRN #1 box 09/25/17 Unknown Rx NEBS] Albuterol Sulfate [Proair 90 mcg IH Q4HR PRN #2 aer.pow.ba 09/25/17 Unknown Rx Respiclick] Furosemide [Lasix TAB] 40 mg PO QDAY #30 tablet 09/25/17 Unknown Rx Levothyroxine [Synthroid] 50 mcg PO QAM #30 tablet 09/25/17 Unknown Rx Losartan [Cozaar] 100 mg PO QDAY #30 tablet 09/25/17 Unknown Rx Prednisone [predniSONE 5 mg (6-Day 5 mg PO .TAPER #1 tab.ds.pk 09/25/17 Unknown Rx Pack, 21 Tabs)] amLODIPine [Norvasc] 10 mg PO DAILY #30 tablet 09/25/17 Unknown Rx Ibuprofen [Motrin] 600 mg PO Q8H PRN #30 tablet 06/19/18 Unknown Rx ED Physical Exam - General Limitations: No Limitations General appearance: alert, in no apparent distress - Head Head exam: Present: atraumatic, normocephalic - Eye Eye exam: Present: normal appearance Pupils: Present: normal accommodation - ENT ENT exam: Present: normal exam, mucous membranes moist - Neck Neck exam: Present: normal inspection, full ROM. Absent: tenderness, meningismus, lymphadenopathy - Respiratory Respiratory exam: Present: normal lung sounds bilaterally. Absent: respiratory distress, wheezes, rales, rhonchi, stridor, chest wall tenderness, accessory muscle use, decreased breath sounds, prolonged expiratory - Cardiovascular Cardiovascular Exam: Present: regular rate, normal rhythm, normal heart sounds. Absent: bradycardia, tachycardia, irregular rhythm, systolic murmur, diastolic murmur, rubs, gallop - GI/Abdominal GI/Abdominal exam: Present: soft, normal bowel sounds. Absent: distended, tenderness, guarding, rebound, rigid, diminished bowel sounds - Rectal Rectal exam: Present: deferred - Extremities Exam Extremities exam: Present: normal inspection, full ROM, tenderness, normal capillary refill. Absent: joint swelling, calf tenderness - Expanded Lower Extremity Exam Left Hip exam: Present: normal inspection, full ROM. Absent: tenderness, swelling Upper Leg exam: Present: normal inspection, full ROM. Absent: tenderness, swelling Knee exam: Present: normal inspection, full ROM, full knee extension. Absent: tenderness, swelling Lower Leg exam: Present: normal inspection, full ROM. Absent: tenderness, swelling, abrasion, laceration, ecchymosis, deformity, crepidus, dislocation, erythema, palpable cord, Vikram's sign Ankle exam: Present: normal inspection, full ROM. Absent: tenderness, swelling , abrasion, laceration, ecchymosis, deformity, crepidus, dislocation, erythema, anterior draw sign Foot/Toe exam: Present: normal inspection, full ROM, tenderness. Absent: swelling, abrasion, laceration, ecchymosis, deformity, crepidus, dislocation, erythema, amputation, puncture wound, foreign body, calcaneal tenderness, tenderness at base of 5th metatarsal, nail avulsion, subungual hematoma Neuro vascular tendon exam: Present: no vascular compromise. Absent: pulse deficit, abnormal cap refill, motor deficit, sensory deficit, tendon deficit, extremity cold to touch, pallor, abnormal 2-point discrimination, decreased fine /light touch, foot drop, peroneal nerve deficit, significant pain with passive ROM of distal joint Gait: Positive: observed and normal 1 - pain here - Back Exam Back exam: Present: normal inspection, full ROM - Neurological Exam Neurological exam: Present: alert, oriented X3, normal gait - Psychiatric Psychiatric exam: Present: normal affect, normal mood - Skin Skin exam: Present: warm, dry, intact, normal color. Absent: rash ED Course Vital Signs 06/19/18 15:34 Temperature 98.9 F Pulse Rate 86 Respiratory 20 Rate Blood Pressure 147/100 O2 Sat by Pulse 98 Oximetry - Reevaluation(s) Reevaluation #1: 06/19/18 22:06 Patient is speaking in full sentences with no signs of distress noted. ED Lower Extremity MDM - Medical Decision Making This is a 48-year-old female that presents with left foot strain. Patient is stable and was examined by me. I referred patient to an orthopedic doctor for further evaluation for possible MRI. X-ray has been obtained and dictated by the radiologist. Patient is notified of the x-ray report with noted by the patient. Patient does have normal gait with no tenderness and no joint swelling. No ecchymosis. no joint redness or swelling. Not warm to touch. No signs of cellulites present. Patient received radha wrap. Patient was instructed to RICE therapy. Patient received Motrin for pain. Patient is discharged with Motrin. At time of discharge, the patient does not seem toxic or ill in appearance. No acute signs of distress noted. Patient agrees to discharge treatment plan of care. No further questions noted by the patient. Critical care attestation.: If time is entered above; I have spent that time in minutes in the direct care of this critically ill patient, excluding procedure time. ED Disposition Clinical Impression: Strain of left foot Qualifiers: Encounter type: initial encounter Qualified Code(s): S96.912A - Strain of unspecified muscle and tendon at ankle and foot level, left foot, initial encounter Disposition: TO HOME OR SELFCARE Is pt being admited?: No Does the pt Need Aspirin: No Condition: Stable Instructions: RICE Therapy (ED), Ibuprofen (By mouth) Additional Instructions: Follow-up with a orthopedic doctor in 3-5 days or if symptoms worsen and continue return to emergency room as soon as possible. Prescriptions: Ibuprofen [Motrin] 600 mg PO Q8H PRN #30 tablet PRN Reason: Pain Referrals: PRIMARY CAREMD [Primary Care Provider] - 3-5 Days CLAUS MILLER MD [Staff Physician] - 3-5 Days [facility] [Outside] - 3-5 Days Forms: Work/School Release Form(ED)
[2018-06-19 22:24] VITALS: BP 152/96
== END 2018-06-19 22:24 | disposition home or self-care (01) ==
LOC: ED 14:52
DX: S96.912A Strain of unspecified muscle and tendon at ankle and foot level, left foot, initial encounter (principal); I10 Essential (primary) hypertension; I50.9 Heart failure, unspecified; J45.909 Unspecified asthma, uncomplicated; E03.9 Hypothyroidism, unspecified; F17.200 Nicotine dependence, unspecified, uncomplicated; X58.XXXA Exposure to other specified factors, initial encounter; Y93.89 Activity, other specified; Y92.89 Other specified places as the place of occurrence of the external cause; Y99.8 Other external cause status
CPT/HCPCS: 82962; 99284

== ENCOUNTER 2018-10-28 11:50 | Outpatient (CLI) | payer OTHER ==
[2018-10-28] MEDS ORDERED: PROVENTIL IH ONE (12:40)
== END 2018-10-28 11:51 | disposition home or self-care (01) ==
LOC: PF 11:50
PROVIDERS: ATTEND Internal Medicine
DX: G47.30 Sleep apnea, unspecified (principal); J44.9 Chronic obstructive pulmonary disease, unspecified; E66.01 Morbid (severe) obesity due to excess calories; I50.9 Heart failure, unspecified; F17.200 Nicotine dependence, unspecified, uncomplicated; E03.9 Hypothyroidism, unspecified
CPT/HCPCS: 94060; 94640; 94729

== ENCOUNTER 2019-11-30 16:04 | Emergency (ER) | payer SELFPAY ==
[2019-11-30] MEDS ORDERED: ALBUTEROL 2.5 MG/3 ML NEBU IH ONE (16:38)
[2019-11-30] MEDS ORDERED: IPRATROPIUM 0.02% NEBU 2.5 ML IH ONE (16:38)
[2019-11-30] MEDS ORDERED: dexAMETHasone 20 MG/5 ML VIAL IV ONE (16:38)
--- NOTE | 2019-11-30 16:38 | Event Note ---
ED Screening Note ED Screening Note: cold symptoms began a week ago +wheezing +dry cough +generalized body aches +chills today began having n/v/d PMHx CHF, HTN, COPD, hypothyroid +smoking does not have any medications for her COPD This initial assessment/diagnostic orders/clinical plan/treatment(s) is/are subject to change based on patients health status, clinical progression and re- assessment by fellow clinical providers in the ED. Further treatment and workup at subsequent clinical providers discretion. Patient/guardian urged not to elope from the ED as their condition may be serious if not clinically assessed and managed. Initial orders include: labs, CXR neb tx, steroids
[2019-11-30 17:18] LABS: Mean Corpuscular HGB Conc 30 % (30-34)
[2019-11-30 17:24] LABS: Hematocrit 34.1 % (30.3-42.9); Hemoglobin 10.1 gm/dl (10.1-14.3); Mean Corpuscular Volume 63 fl (79-97); Platelet Count 210 K/mm3 (140-440); Red Cell Distribution Width 21.7 % (13.2-15.2)
[2019-11-30 17:36] LABS: Alanine Aminotransferase 9 units/L (7-56); BUN/Creatinine Ratio 18; Blood Urea Nitrogen 11 mg/dL (7-17); Calcium 8.3 mg/dL (8.4-10.2); Hemolysis Index 3
--- NOTE | 2019-11-30 18:35 | XRay Report ---
CHEST 2 VIEWS INDICATION / CLINICAL INFORMATION: SOB, cough. COMPARISON: None available FINDINGS: SUPPORT DEVICES: None. HEART / MEDIASTINUM: No significant abnormality. LUNGS / PLEURA: No significant pulmonary or pleural abnormality. No pneumothorax. ADDITIONAL FINDINGS: No significant additional findings. IMPRESSION: 1. No acute findings. Signer Name: Bud Preston MD Signed: 11/30/2019 6:31 PM Workstation Name: [id number]
[2019-11-30] MEDS ORDERED: KETOROLAC 30 MG/1 ML INJ IV ONE (18:53)
[2019-11-30] MEDS ORDERED: ONDANSETRON 4 MG/2 ML INJ IV ONE (18:53)
[2019-11-30] MEDS ORDERED: diphenhydrAMINE 50 MG/ML VIAL IV ONE (18:54)
--- NOTE | 2019-11-30 19:35 | Emergency Department Report ---
Minor Respiratory - HPI Chief Complaint: Dyspnea/Respdistress Stated Complaint: ASTHMA Time Seen by Provider: 11/30/19 16:35 Minor Respiratory: Yes Able to Tolerate Fluids, Yes Cough, Yes Chest Pain, No Ear Pain, No Sick Contacts, No Hemoptysis, No Shortness of Breath, No Fever Other History: This is a 49-year-old female with a history of COPD and asthma who presents the ED complaining of ED Review of Systems ROS: Stated complaint: ASTHMA Other details as noted in HPI Comment: All other systems reviewed and negative ED Past Medical Hx - Past Medical History Previous Medical History?: Yes Hx Hypertension: Yes Hx Heart Attack/AMI: No Hx Congestive Heart Failure: Yes Hx Diabetes: No Hx Deep Vein Thrombosis: No Hx Pulmonary Embolism: No Hx Liver Disease: No Hx Renal Disease: No Hx Sickle Cell Disease: No Hx Arthritis: No Hx Seizures: No Hx Kidney Stones: No Hx Asthma: Yes Hx COPD: No Hx Tuberculosis: No Hx Dementia: No Hx HIV: No Additional medical history: hypothyroid, herniated disc, obstructive sleep apnea. OBESITY. RIGHT ROTATOR CUFF TEAR - Surgical History Hx Coronary Stent: No Hx Open Heart Surgery: No Hx Pacemaker: No Hx Internal Defibrillator: No Hx Cholecystectomy: No Hx Appendectomy: No Hx Breast Surgery: No Additional Surgical History: x 3, right shoulder rotator cuff repair - Social History Smoking Status: Never Smoker - Medications Home Medications: Home Medications Medication Instructions Recorded Confirmed Last Taken Type Levothyroxine [Synthroid] 50 mcg PO QAM #30 tablet 09/25/17 Unknown Rx Losartan [Cozaar] 100 mg PO QDAY #30 tablet 09/25/17 Unknown Rx Prednisone [predniSONE 5 mg (6-Day 5 mg PO .TAPER #1 tab.ds.pk 09/25/17 Unknown Rx Pack, 21 Tabs)] Ibuprofen [Motrin] 600 mg PO Q8H PRN #30 tablet 06/19/18 Unknown Rx HYDROcodone/APAP 5-325 [Elkin 1 each PO Q6HR PRN #10 tablet 07/31/18 Unknown Rx 5/325] Azithromycin [Zithromax Tri-Zuhair] 500 mg PO QDAY #3 tablet 01/19/19 Unknown Rx Furosemide [Lasix TAB] 40 mg PO QDAY #30 tablet 01/19/19 Unknown Rx predniSONE [Prednisone] 50 mg PO DAILY #5 tablet 01/19/19 Unknown Rx ALBUTEROL NEB's [Proventil 0.083% 1 neb IH Q4H PRN #1 box 11/30/19 Unknown Rx NEBS] Albuterol Sulfate [Proair 90 mcg IH Q4HR PRN #2 aer.pow.ba 11/30/19 Unknown Rx Respiclick] Benzonatate [Tessalon Perles] 100 mg PO Q8HR #20 capsule 11/30/19 Unknown Rx amLODIPine 10 mg PO DAILY #30 tablet 11/30/19 Unknown Rx predniSONE [Deltasone] 20 mg PO BID #10 tab 11/30/19 Unknown Rx Minor Respiratory Exam - Exam General: Vital signs noted. No distress. Alert and acting appropriately. HEENT: Yes Moist Mucous Membranes, No Pharyngeal Erythema, No Pharyngeal Exudates, No Rhinorrhea, No Conjuctival Injection, No Frontal Tenderness, No Maxillary Tenderness Ear: Neither TM Bulge, Neither TM Erythema, Neither EAC Pain, Neither EAC Discharge Neck: Yes Supple, No Adenopathy Lungs: Yes Good Air Exchange, No Wheezes, No Ronchi, No Stridor, No Cough, No Labored Respirations, No Retractions, No Use of Accessory Muscles, No Other Abnormal Lung Sounds Heart: Yes Regular, No Murmur Abdomen: Yes Normal Bowel Sounds, No Tenderness, No Peritoneal Signs Skin: No Rash, No Edema Neurologic: Alert and oriented, no deficits. Musculoskeletal: Unremarkable. ED Course Vital Signs 11/30/19 16:09 Temperature 99.3 F Pulse Rate 124 H Respiratory 24 Rate Blood Pressure 181/113 [Right] O2 Sat by Pulse 100 Oximetry ED Medical Decision Making - Lab Data Result diagrams: 11/30/19 16:55 11/30/19 16:55 Laboratory Last Values WBC 14.0 K/mm3 (4.5-11.0) H 11/30/19 16:55 RBC 5.40 M/mm3 (3.65-5.03) H 11/30/19 16:55 Hgb 10.1 gm/dl (10.1-14.3) 11/30/19 16:55 Hct 34.1 % (30.3-42.9) 11/30/19 16:55 MCV 63 fl (79-97) L 11/30/19 16:55 MCH 19 pg (28-32) L 11/30/19 16:55 MCHC 30 % (30-34) 11/30/19 16:55 RDW 21.7 % (13.2-15.2) H 11/30/19 16:55 Plt Count 210 K/mm3 (140-440) 11/30/19 16:55 Sodium 137 mmol/L (137-145) 11/30/19 16:55 Potassium 4.4 mmol/L (3.6-5.0) 11/30/19 16:55 Chloride 102.3 mmol/L (98-107) 11/30/19 16:55 Carbon Dioxide 19 mmol/L (22-30) L 11/30/19 16:55 Anion Gap 20 mmol/L 11/30/19 16:55 BUN 11 mg/dL (7-17) 11/30/19 16:55 Creatinine 0.6 mg/dL (0.7-1.2) L 11/30/19 16:55 Estimated GFR > 60 ml/min 11/30/19 16:55 BUN/Creatinine Ratio 18 % 11/30/19 16:55 Glucose 107 mg/dL (65-100) H 11/30/19 16:55 Calcium 8.3 mg/dL (8.4-10.2) L 11/30/19 16:55 Total Bilirubin 0.40 mg/dL (0.1-1.2) 11/30/19 16:55 AST 11 units/L (5-40) 11/30/19 16:55 ALT 9 units/L (7-56) 11/30/19 16:55 Alkaline Phosphatase 91 units/L (35-129) 11/30/19 16:55 Troponin T < 0.010 ng/mL (0.00-0.029) 11/30/19 16:55 NT-Pro-B Natriuret Pep 88.67 pg/mL (0-450) 11/30/19 16:55 Total Protein 7.8 g/dL (6.3-8.2) 11/30/19 16:55 Albumin 4.0 g/dL (3.9-5) 11/30/19 16:55 Albumin/Globulin Ratio 1.1 % 11/30/19 16:55 - EKG Data EKG shows normal: sinus rhythm Rate: tachycardia - EKG Data Interpretation: no acute changes - Radiology Data Radiology results: report reviewed, image reviewed Fluoro Time In Minutes: CHEST 2 VIEWS INDICATION / CLINICAL INFORMATION: SOB, cough. COMPARISON: None available FINDINGS: SUPPORT DEVICES: None. HEART / MEDIASTINUM: No significant abnormality. LUNGS / PLEURA: No significant pulmonary or pleural abnormality. No p neumothorax. ADDITIONAL FINDINGS: No significant additional findings. IMPRESSION: 1. No acute findings. Signer Name: Bud Preston MD Signed: 11/30/2019 6:31 PM Workstation Name: [id number] Transcribed By: GA Dictated By: Bud Preston MD Electronically Authenticated By: Bud Preston MD Signed Date/Time: 11/30/19 1831 Critical care attestation.: If time is entered above; I have spent that time in minutes in the direct care of this critically ill patient, excluding procedure time. ED Disposition Clinical Impression: Viral syndrome, Asthma exacerbation Is pt being admited?: No Does the pt Need Aspirin: No Condition: Stable Instructions: Asthma (ED), Viral Syndrome (ED) Additional Instructions: Make sure to follow up with the primary care physician as discussed. Take all your medications as you've been prescribed. If you have any worsening symptoms or develop new symptoms please return to ED immediately. Prescriptions: amLODIPine 10 mg PO DAILY #30 tablet predniSONE [Deltasone] 20 mg PO BID #10 tab Albuterol Sulfate [Proair Respiclick] 90 mcg IH Q4HR PRN #2 aer.pow.ba PRN Reason: Wheezing ALBUTEROL NEB's [Proventil 0.083% NEBS] 1 neb IH Q4H PRN #1 box PRN Reason: Wheezing Benzonatate [Tessalon Perles] 100 mg PO Q8HR #20 capsule Referrals: PRIMARY CARE, [Primary Care Provider] - 3-5 Days [facility] [Outside] - 3-5 Days [facility] [Outside] - 3-5 Days Forms: Accompanied Note, Work/School Release Form(ED) Time of Disposition: 19:57
[2019-11-30 19:57] VITALS: BP 156/96
[2019-11-30 20:02] LABS: Anisocytosis 2+; Basophils % (Manual) 0 % (0.0-1.8); Eosinophils % (Manual) 0 % (0.0-4.3); Hypochromasia 1+; Total Cells Counted 100
[2019-11-30 20:03] LABS: Ovalocytes 1+
== END 2019-11-30 20:05 | disposition home or self-care (01) ==
LOC: ED 16:04
DX: J45.901 Unspecified asthma with (acute) exacerbation (principal); B34.9 Viral infection, unspecified; I11.0 Hypertensive heart disease with heart failure; I50.9 Heart failure, unspecified; E03.9 Hypothyroidism, unspecified; M75.101 Unspecified rotator cuff tear or rupture of right shoulder, not specified as traumatic; G47.30 Sleep apnea, unspecified; E66.9 Obesity, unspecified; Z68.43 Body mass index [BMI] 50.0-59.9, adult; Z98.890 Other specified postprocedural states; Z79.1 Long term (current) use of non-steroidal anti-inflammatories (NSAID); Z79.899 Other long term (current) drug therapy
CPT/HCPCS: 36415; 71046; 80053; 83880; 84484; 85007; 85025; 93005; 93010; 94640; 96374; 96375; 99284; J1100; J1200; J1885; J2405

== ENCOUNTER 2019-12-08 07:17 | Inpatient (IN) | payer OTHER ==
[2019-12-08] MEDS ORDERED: IPRATROPIUM/ALBUTEROL SULFATE 3 ML AMPUL.NEB IH ONE (07:35)
--- NOTE | 2019-12-08 08:52 | XRay Report ---
CHEST 2 VIEWS INDICATION: SOB, CHF, asthma, dx flu. COMPARISON: 11/30/2019 FINDINGS: Support devices: None. Heart: Within normal limits. Pulmonary vasculature: Normal. Lungs/pleura: The lungs are normally expanded and clear. No pleural effusion. No pneumothorax. Additional findings: None. IMPRESSION: 1. Normal chest. 2. No CHF or pneumonia. Signer Name: Josh Bernal MD Signed: 12/08/2019 8:48 AM Workstation Name: [id number]
[2019-12-08] MEDS ORDERED: predniSONE 50 MG TAB PO STA (10:08)
[2019-12-08] MEDS ORDERED: ALBUTEROL 2.5 MG/3 ML NEBU IH ONE (10:08)
--- NOTE | 2019-12-08 11:59 | Emergency Department Report ---
ED Asthma HPI - General Chief Complaint: Dyspnea/Respdistress Stated Complaint: FLU, COUGH Time Seen by Provider: 12/08/19 09:48 Source: patient Mode of arrival: Wheelchair Limitations: No Limitations - History of Present Illness MD Complaint: "asthma attack", shortness of breath, wheezing -: Gradual, days(s) (5) Asthma History: history of prior ED visit Severity: mild, moderate Context: recent URI (Was recently diagnosed with influenza at this previous ER visit but reports worsening symptoms), ran out of meds, medication non- compliance Associated Symptoms: productive cough. denies: fever, chest pain, hemoptysis, syncope - Related Data Previous Rx's Medication Instructions Recorded Last Taken Type Levothyroxine [Synthroid] 50 mcg PO QAM #30 tablet 09/25/17 Unknown Rx Losartan [Cozaar] 100 mg PO QDAY #30 tablet 09/25/17 Unknown Rx Prednisone [predniSONE 5 mg (6-Day 5 mg PO .TAPER #1 tab.ds.pk 09/25/17 Unknown Rx Pack, 21 Tabs)] Ibuprofen [Motrin] 600 mg PO Q8H PRN #30 tablet 06/19/18 Unknown Rx HYDROcodone/APAP 5-325 [[place] 1 each PO Q6HR PRN #10 tablet 07/31/18 Unknown Rx 5/325] Azithromycin [Zithromax Tri-Zuhair] 500 mg PO QDAY #3 tablet 01/19/19 Unknown Rx Furosemide [Lasix TAB] 40 mg PO QDAY #30 tablet 01/19/19 Unknown Rx predniSONE [Prednisone] 50 mg PO DAILY #5 tablet 01/19/19 Unknown Rx ALBUTEROL NEB's [Proventil 0.083% 1 neb IH Q4H PRN #1 box 11/30/19 Unknown Rx NEBS] Albuterol Sulfate [Proair 90 mcg IH Q4HR PRN #2 aer.pow.ba 11/30/19 Unknown Rx Respiclick] Benzonatate [Tessalon Perles] 100 mg PO Q8HR #20 capsule 11/30/19 Unknown Rx amLODIPine 10 mg PO DAILY #30 tablet 11/30/19 Unknown Rx predniSONE [Deltasone] 20 mg PO BID #10 tab 11/30/19 Unknown Rx ALBUTEROL NEB's [Proventil 0.083% 2.5 mg IH Q4HR PRN #30 nebu 12/08/19 Unknown Rx NEBS] Albuterol INH(or & Nicu Only) 2 puff IH QID PRN #8.5 gram 12/08/19 Unknown Rx [ProAir HFA Inhaler] guaiFENesin/CODEINE [Robitussin AC] 5 ml PO Q6HR PRN #120 oral.liqd 12/08/19 Unknown Rx predniSONE [Deltasone] 50 mg PO QDAY #7 tab 12/08/19 Unknown Rx Allergies Allergy/AdvReac Type Severity Reaction Status Date / Time No Known Allergies Allergy Verified 07/31/18 10:17 ED Review of Systems ROS: Stated complaint: FLU, COUGH Other details as noted in HPI Comment: All other systems reviewed and negative ED Past Medical Hx - Past Medical History Previous Medical History?: Yes Hx Hypertension: Yes Hx Heart Attack/AMI: No Hx Congestive Heart Failure: Yes Hx Diabetes: No Hx Deep Vein Thrombosis: No Hx Pulmonary Embolism: No Hx Liver Disease: No Hx Renal Disease: No Hx Sickle Cell Disease: No Hx Arthritis: No Hx Seizures: No Hx Kidney Stones: No Hx Asthma: Yes Hx COPD: No Hx Tuberculosis: No Hx Dementia: No Hx HIV: No Additional medical history: hypothyroid, herniated disc, obstructive sleep apnea. OBESITY. RIGHT ROTATOR CUFF TEAR - Surgical History Past Surgical History?: Yes Hx Coronary Stent: No Hx Open Heart Surgery: No Hx Pacemaker: No Hx Internal Defibrillator: No Hx Cholecystectomy: No Hx Appendectomy: No Hx Breast Surgery: No Additional Surgical History: x 3, right shoulder rotator cuff repair - Social History Smoking Status: Never Smoker - Medications Home Medications: Home Medications Medication Instructions Recorded Confirmed Last Taken Type Levothyroxine [Synthroid] 50 mcg PO QAM #30 tablet 09/25/17 Unknown Rx Losartan [Cozaar] 100 mg PO QDAY #30 tablet 09/25/17 Unknown Rx Prednisone [predniSONE 5 mg (6-Day 5 mg PO .TAPER #1 tab.ds.pk 09/25/17 Unknown Rx Pack, 21 Tabs)] Ibuprofen [Motrin] 600 mg PO Q8H PRN #30 tablet 06/19/18 Unknown Rx HYDROcodone/APAP 5-325 [[place] 1 each PO Q6HR PRN #10 tablet 07/31/18 Unknown Rx 5/325] Azithromycin [Zithromax Tri-Zuhair] 500 mg PO QDAY #3 tablet 01/19/19 Unknown Rx Furosemide [Lasix TAB] 40 mg PO QDAY #30 tablet 01/19/19 Unknown Rx predniSONE [Prednisone] 50 mg PO DAILY #5 tablet 01/19/19 Unknown Rx ALBUTEROL NEB's [Proventil 0.083% 1 neb IH Q4H PRN #1 box 11/30/19 Unknown Rx NEBS] Albuterol Sulfate [Proair 90 mcg IH Q4HR PRN #2 aer.pow.ba 11/30/19 Unknown Rx Respiclick] Benzonatate [Tessalon Perles] 100 mg PO Q8HR #20 capsule 11/30/19 Unknown Rx amLODIPine 10 mg PO DAILY #30 tablet 11/30/19 Unknown Rx predniSONE [Deltasone] 20 mg PO BID #10 tab 11/30/19 Unknown Rx ALBUTEROL NEB's [Proventil 0.083% 2.5 mg IH Q4HR PRN #30 nebu 12/08/19 Unknown Rx NEBS] Albuterol INH(or & Nicu Only) 2 puff IH QID PRN #8.5 gram 12/08/19 Unknown Rx [ProAir HFA Inhaler] guaiFENesin/CODEINE [Robitussin AC] 5 ml PO Q6HR PRN #120 oral.liqd 12/08/19 Unknown Rx predniSONE [Deltasone] 50 mg PO QDAY #7 tab 12/08/19 Unknown Rx ED Physical Exam - General Limitations: No Limitations General appearance: alert, in no apparent distress - Head Head exam: Present: atraumatic, normocephalic - Eye Eye exam: Present: normal appearance, PERRL, EOMI Pupils: Present: normal accommodation - ENT ENT exam: Present: mucous membranes moist, other (Nasal congestion noted to the right nare. No sinus tenderness to percussion. Ears with no effusion.) - Neck Neck exam: Present: normal inspection - Respiratory Respiratory exam: Present: normal lung sounds bilaterally, wheezes, rhonchi. Absent: respiratory distress, chest wall tenderness, accessory muscle use - Cardiovascular Cardiovascular Exam: Present: regular rate, normal rhythm. Absent: systolic murmur, diastolic murmur, rubs, gallop - GI/Abdominal GI/Abdominal exam: Present: soft, normal bowel sounds - Extremities Exam Extremities exam: Present: normal inspection - Back Exam Back exam: Present: normal inspection - Neurological Exam Neurological exam: Present: alert, oriented X3, CN II-XII intact, normal gait - Psychiatric Psychiatric exam: Present: normal affect, normal mood - Skin Skin exam: Present: warm, dry, intact, normal color. Absent: rash ED Course Vital Signs 12/08/19 12/08/19 07:30 07:50 Temperature 98.9 F Pulse Rate 105 H Pulse Rate [ 18 L Bilateral] Respiratory 22 Rate Blood Pressure 150/81 O2 Sat by Pulse 94 Oximetry ED Medical Decision Making - Radiology Data Radiology results: report reviewed Referring Physician:ED DOCPatient Name:JOE BYERSPatient ID:[id number] of :[id number]:FemaleAccession:[id number] Date:[id number] Status:Finalized Findings [facility] [address] [place] [address] XRay Report Signed Patient: JOE BYERS MR#: [id number] : 1970 Acct:[id number] Age/Sex: 49 / F ADM Date: 12/08/19 Loc: ED Attending Dr: Ordering Physician: LEE MAYEN MD Date of Service: 12/08/19 Procedure(s): XR chest routine 2V Accession Number(s): [id number] cc: LEE MAYEN MD Fluoro Time In Minutes: CHEST 2 VIEWS INDICATION: SOB, CHF, asthma, dx flu. COMPARISON: 11/30/2019 FINDINGS: Support devices: None. Heart: Within normal limits. Pulmonary vasculature: Normal. Lungs/pleura: The lungs are normally expanded and clear. No pleural effusion. No pneumothorax. Additional findings: None. IMPRESSION: 1. Normal chest. 2. No CHF or pneumonia. Signer Name: Ollie Castillo MD Signed: 12/08/2019 8:48 AM Workstation Name: [id number] Transcribed By: REF Dictated By: OLLIE CASTILLO MD Electronically Authenticated By: OLLIE CASTILLO MD Signed Date/Time: 12/08/19847 DD/ 4 TD/TT: - Medical Decision Making This patient presents with acute cough, most consistent with asthma bronchitis. Differential diagnosis includes pneumonia/influenza/hyperreactive airway disease. Presentation is consistent but low probability with acute bacterial pneumonia, influenza, asthma, transient airway hyperresponsiveness. Presentation not consistent with chronic causes of cough (including GERD, medication side effect, CHF, lung cancer or mass). Plan: Normal CXR, supportive care, reassess Wheezing has improved with utilization of steroids and bronchodilators encourage patient to maintain her compliance with her home medications to avoid these exacerbations in the future Critical care attestation.: If time is entered above; I have spent that time in minutes in the direct care of this critically ill patient, excluding procedure time. ED Disposition Clinical Impression: Asthma exacerbation, Bronchitis Disposition: DC-01 TO HOME OR SELFCARE Is pt being admited?: No Does the pt Need Aspirin: No Condition: Stable Instructions: Acute Bronchitis (ED), Asthma (ED), Chronic Bronchitis (ED) Prescriptions: predniSONE [Deltasone] 50 mg PO QDAY #7 tab Albuterol INH(or & Nicu Only) [ProAir HFA Inhaler] 2 puff IH QID PRN #8.5 gram PRN Reason: Shortness Of Breath ALBUTEROL NEB's [Proventil 0.083% NEBS] 2.5 mg IH Q4HR PRN #30 nebu PRN Reason: Wheezing guaiFENesin/CODEINE [Robitussin AC] 5 ml PO Q6HR PRN #120 oral.liqd PRN Reason: Cough Referrals: LIDYA ROLON MD [Primary Care Provider] - 3-5 Days
[2019-12-08] MEDS ORDERED: EPINEPHrine/PF (1:1,000) 1 MG/1 ML INJ SUB-Q STA (12:17)
[2019-12-08] MEDS ORDERED: ALBUTEROL 2.5 MG/3 ML NEBU IH STA (12:17)
[2019-12-08] MEDS ORDERED: MAGNESIUM SULFATE 2 GM/50 ML BAG IV ONE (14:14)
[2019-12-08] MEDS ORDERED: ALBUTEROL 2.5 MG/3 ML NEBU IH PRN (19:59)
[2019-12-08] MEDS ORDERED: NON-FORMULARY EACH (Albuterol Sulfate [Proair Respiclick] 90 MCG) IH PRN (19:59)
[2019-12-08] MEDS: FUROSEMIDE 40 MG TAB PO SCH ×2 (20:00→21:46)
--- NOTE | 2019-12-08 20:11 | History and Physical Report ---
History of Present Illness Date of examination: 12/08/19 Date of admission: 12/08/19 16:05 Chief complaint: Severe wheezing with low sats in ED of 86 percent History of present illness: 49 y/o AAF with history of Asthma,Hypothyroidism and HTN comes in for increasing wheezing and SOB for one week.Not responding to outpatient treatment.NO fever or chills.Recently ran out of her [facility] [employer].No recent travel.Cough productive of Mucoid sputum.Did not respond to ED treatment.No exacerbating or relieving factors.Sats were in mid 80's without oxygen.Asked the ER staff to document . Past Medical History Previous Medical History?: Yes Hypertension: Yes Congestive Heart Failure Asthma: Yes Additional medical history: hypothyroid, herniated disc, obstructive sleep apnea. OBESITY. RIGHT ROTATOR CUFF TEAR - Surgical History Past Surgical History?: Yes Additional Surgical History: x 3, right shoulder rotator cuff repair Social History Smoking Status: Never Smoker FAmily History Htn - Medications Home Medications: Home Medications Medication Instructions Recorded Confirmed Last Taken Type Levothyroxine [Synthroid] 50 mcg PO QAM #30 tablet 09/25/17 Unknown Rx Losartan [Cozaar] 100 mg PO QDAY #30 tablet 09/25/17 Unknown Rx Prednisone [predniSONE 5 mg (6-Day 5 mg PO .TAPER #1 tab.ds.pk 09/25/17 Unknown Rx Pack, 21 Tabs)] Ibuprofen [Motrin] 600 mg PO Q8H PRN #30 tablet 06/19/18 Unknown Rx HYDROcodone/APAP 5-325 [[place] 1 each PO Q6HR PRN #10 tablet 07/31/18 Unknown Rx 5/325] Azithromycin [Zithromax Tri-Zuhair] 500 mg PO QDAY #3 tablet 01/19/19 Unknown Rx Furosemide [Lasix TAB] 40 mg PO QDAY #30 tablet 01/19/19 Unknown Rx predniSONE [Prednisone] 50 mg PO DAILY #5 tablet 01/19/19 Unknown Rx ALBUTEROL NEB's [Proventil 0.083% 1 neb IH Q4H PRN #1 box 11/30/19 Unknown Rx NEBS] Albuterol Sulfate [Proair 90 mcg IH Q4HR PRN #2 aer.pow.ba 11/30/19 Unknown Rx Respiclick] Benzonatate [Tessalon Perles] 100 mg PO Q8HR #20 capsule 11/30/19 Unknown Rx amLODIPine 10 mg PO DAILY #30 tablet 11/30/19 Unknown Rx predniSONE [Deltasone] 20 mg PO BID #10 tab 11/30/19 Unknown Rx ALBUTEROL NEB's [Proventil 0.083% 2.5 mg IH Q4HR PRN #30 nebu 12/08/19 Unknown Rx NEBS] Albuterol INH(or & Nicu Only) 2 puff IH QID PRN #8.5 gram 12/08/19 Unknown Rx [ProAir HFA Inhaler] guaiFENesin/CODEINE [Robitussin AC] 5 ml PO Q6HR PRN #120 oral.liqd 12/08/19 Unknown Rx predniSONE [Deltasone] 50 mg PO QDAY #7 tab 12/08/19 Unknown Rx Review of Systems ROS: Stated complaint: FLU, COUGH Other details as noted in HPI Comment: All other systems reviewed and negative Medications and Allergies Allergies Allergy/AdvReac Type Severity Reaction Status Date / Time No Known Allergies Allergy Verified 07/31/18 10:17 Home Medications Medication Instructions Recorded Confirmed Last Taken Type Levothyroxine [Synthroid] 50 mcg PO QAM #30 tablet 09/25/17 12/08/19 Unknown Rx HYDROcodone/APAP 5-325 [[place] 1 each PO Q6HR PRN #10 tablet 07/31/18 12/08/19 Unknown Rx 5/325] Furosemide [Lasix TAB] 40 mg PO QDAY #30 tablet 01/19/19 12/08/19 Unknown Rx predniSONE [Prednisone] 50 mg PO DAILY #5 tablet 01/19/19 12/08/19 Unknown Rx ALBUTEROL NEB's [Proventil 0.083% 1 neb IH Q4H PRN #1 box 11/30/19 12/08/19 Unknown Rx NEBS] Albuterol Sulfate [Proair 90 mcg IH Q4HR PRN #2 aer.pow.ba 11/30/19 12/08/19 Unknown Rx Respiclick] amLODIPine 10 mg PO DAILY #30 tablet 11/30/19 12/08/19 Unknown Rx ALBUTEROL NEB's [Proventil 0.083% 2.5 mg IH Q4HR PRN #30 nebu 12/08/19 Unknown Rx NEBS] Albuterol INH(or & Nicu Only) 2 puff IH QID PRN #8.5 gram 12/08/19 Unknown Rx [ProAir HFA Inhaler] guaiFENesin/CODEINE [Robitussin AC] 5 ml PO Q6HR PRN #120 oral.liqd 12/08/19 Unknown Rx predniSONE [Deltasone] 50 mg PO QDAY #7 tab 12/08/19 Unknown Rx Exam - Constitutional Vitals: Temp Pulse Resp BP Pulse Ox 97.6 F 89 20 124/91 95 12/08/19 19:18 12/08/19 19:18 12/08/19 19:34 12/08/19 19:18 12/08/19 19:34 General appearance: Present: severe distress - Cardiovascular Heart rate: 88 Rhythm: regular - Extremities Extremities: no ischemia, pulses intact Peripheral Pulses: within normal limits - Abdominal General gastrointestinal: Present: non-tender, non-distended - Rectal Rectal Exam: deferred - Integumentary Integumentary: Present: clear, warm, dry - Musculoskeletal Musculoskeletal: strength equal bilaterally - Neurologic Neurologic: CNII-XII intact - Allied Health Allied health notes reviewed: nursing, case management Results - Imaging and Cardiology EKG: report reviewed Assessment and Plan Advance Directives: Yes (Full abhijeet) VTE prophylaxis?: Chemical Plan of care discussed with patient/family: Yes - Patient Problems (1) Acute respiratory failure with hypoxia Current Visit: Yes Status: Acute Plan to address problem: patient was hypoxic without O2 IV abx IV SOlumedrol and Bronchodilators Bipap if necessary Intubation if necessary (2) Asthma exacerbation Current Visit: Yes Status: Acute Qualifiers: Asthma severity: severe Plan to address problem: patient was hypoxic without O2 IV abx IV SOlumedrol and Bronchodilators Bipap if necessary Intubation if necessary (3) Hypothyroidism Current Visit: No Status: Chronic Qualifiers: Hypothyroidism type: acquired Qualified Code(s): E03.9 - Hypothyroidism, unspecified Plan to address problem: Cont synthyroid Check TSH (4) Obstructive sleep apnea Current Visit: No Status: Chronic Plan to address problem: CPAP as necessary (5) HTN (hypertension) Current Visit: Yes Status: Chronic Qualifiers: Hypertension type: essential hypertension Qualified Code(s): I10 - Essential (primary) hypertension Plan to address problem: Cont antihypertensives Monitor BP (6) DVT prophylaxis Current Visit: No Status: Acute Plan to address problem: On Heparin and Gi prophylaxis
[2019-12-08] MEDS: amLODIPine 10 MG TAB PO SCH (21:41)
[2019-12-08] MEDS: methylPREDNISolone Sod Succinate 125 MG/2 ML INJ IV SCH (21:41)
[2019-12-08] MEDS: predniSONE 50 MG TAB PO SCH (21:46)
[2019-12-08] MEDS: HYDROcodone/ACETAMINOPHEN 5-325 MG TAB PO PRN (22:00)
[2019-12-09] MEDS: FUROSEMIDE 40 MG TAB PO SCH ×2 (01:34→06:21)
[2019-12-09] MEDS: methylPREDNISolone Sod Succinate 125 MG/2 ML INJ IV SCH ×3 (06:21→22:00)
[2019-12-09] MEDS: LEVOTHYROXINE 50 MCG TAB PO SCH (06:21)
[2019-12-09 07:31] LABS: Mean Corpuscular HGB Conc 30 % (30-34); Platelet Count 300 K/mm3 (140-440)
[2019-12-09 07:38] LABS: Hemoglobin 9.9 gm/dl (10.1-14.3); Mean Corpuscular Volume 62 fl (79-97); Red Cell Distribution Width 21.7 % (13.2-15.2)
[2019-12-09 07:53] LABS: Alanine Aminotransferase 12 units/L (7-56); BUN/Creatinine Ratio 24; Blood Urea Nitrogen 17 mg/dL (7-17); Calcium 8.9 mg/dL (8.4-10.2); Hemolysis Index 2
[2019-12-09 08:36] LABS: Band Neutrophils # (Manual) 0.4 K/mm3; Monocytes % (Manual) 0 % (0.0-7.3); Total Cells Counted 100
[2019-12-09 08:40] LABS: Basophils % (Manual) 0 % (0.0-1.8); Eosinophils % (Manual) 0 % (0.0-4.3)
[2019-12-09 08:41] LABS: Anisocytosis 2+; Hypochromasia 2+; Ovalocytes 2+; Poikilocytosis 3+
[2019-12-09 08:42] LABS: Tear Drop Cells Rare
[2019-12-09 08:43] LABS: Platelet Estimate Consistent w Auto
[2019-12-09] MEDS: IPRATROPIUM/ALBUTEROL SULFATE 3 ML AMPUL.NEB IH SCH ×4 (08:59→20:36)
--- NOTE | 2019-12-09 09:28 | Consultation ---
History of Present Illness Consult date: 12/09/19 Reason for consult: dyspnea, cough, asthma, COPD, obstructive sleep apnea History of present illness: PULMONARY AND CRITICAL CARE CONSULTATION. DR. ROLON THANK YOU FOR ASKING US TO PARTICIPATE IN THE CARE OF THIS PATIENT. 49 y/o AAF with history of Asthma,Hypothyroidism, NAYELY, CHF, and HTN comes in for increasing wheezing and SOB for one week.Not responding to outpatient treatment.NO fever or chills.Recently ran out of her [facility] [employer].No recent travel.Cough productive of Mucoid sputum.Did not respond to ED treatment.No exacerbating or relieving factors.Sats were in mid 80's without oxygen. Patient came in with Shortness of breath, wheezing, and cough nonproductive of sputum. SHe is a current smoker with 5 pack year history. 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 Patient denies any known drug allergies. Patient is not and has adult-aged children. Patient is alert and awake. She is in no acute respiratory distress. She is on 4L O2 per nasal cannula with an O2 saturation of 96%. She is afebrile with leukocytosis. Chest X ray 12/08/19 showed Normal chest without CHF or pneumonia. Past History Past Medical History: COPD, heart failure, hypertension, hypothyroidism, other (NAYELY, Asthma) Social history: smoking. denies: alcohol abuse, prescription drug abuse, IV drug use Medications and Allergies Allergies Allergy/AdvReac Type Severity Reaction Status Date / Time No Known Allergies Allergy Verified 07/31/18 10:17 Home Medications Medication Instructions Recorded Confirmed Last Taken Type Levothyroxine [Synthroid] 50 mcg PO QAM #30 tablet 09/25/17 12/08/19 Unknown Rx HYDROcodone/APAP 5-325 [[place] 1 each PO Q6HR PRN #10 tablet 07/31/18 12/08/19 Unknown Rx 5/325] Furosemide [Lasix TAB] 40 mg PO QDAY #30 tablet 01/19/19 12/08/19 Unknown Rx predniSONE [Prednisone] 50 mg PO DAILY #5 tablet 01/19/19 12/08/19 Unknown Rx ALBUTEROL NEB's [Proventil 0.083% 1 neb IH Q4H PRN #1 box 11/30/19 12/08/19 Unknown Rx NEBS] Albuterol Sulfate [Proair 90 mcg IH Q4HR PRN #2 aer.pow.ba 11/30/19 12/08/19 Unknown Rx Respiclick] amLODIPine 10 mg PO DAILY #30 tablet 11/30/19 12/08/19 Unknown Rx ALBUTEROL NEB's [Proventil 0.083% 2.5 mg IH Q4HR PRN #30 nebu 12/08/19 Unknown Rx NEBS] Albuterol INH(or & Nicu Only) 2 puff IH QID PRN #8.5 gram 12/08/19 Unknown Rx [ProAir HFA Inhaler] guaiFENesin/CODEINE [Robitussin AC] 5 ml PO Q6HR PRN #120 oral.liqd 12/08/19 Unknown Rx predniSONE [Deltasone] 50 mg PO QDAY #7 tab 12/08/19 Unknown Rx Active Meds: Active Medications Acetaminophen/Hydrocodone Bitart ([place] 5/325) 1 each PO Q6HR PRN PRN Reason: PAIN Last Admin: 12/08/19 22:00 Dose: 1 each Documented by: Albuterol (Proventil) 2.5 mg IH Q4H PRN PRN Reason: Wheezing Last Admin: 12/09/19 04:33 Dose: 2.5 mg Documented by: Albuterol/Ipratropium (Duoneb *Not For Prn Use*) 1 ampul IH QIDRT [facility] Last Admin: 12/09/19 08:59 Dose: 1 ampul Documented by: Amlodipine Besylate (Amlodipine) 10 mg PO DAILY [facility] Last Admin: 12/08/19 21:41 Dose: 10 mg Documented by: Furosemide (Lasix) 40 mg PO DAILY@0600 [facility] Last Admin: 12/09/19 06:21 Dose: 40 mg Documented by: Heparin Sodium (Porcine) (Heparin) 5,000 unit SUB-Q Q12HR [facility] Levofloxacin/Dextrose (Levaquin 750mg/150ml) 750 mg in 150 mls @ 100 mls/hr IV Q24HR [facility]; Protocol Last Infusion: 12/09/19 01:27 Dose: Infused Documented by: Levothyroxine Sodium (Synthroid) 50 mcg PO DAILY@0600 [facility] Last Admin: 12/09/19 06:21 Dose: 50 mcg Documented by: Methylprednisolone Sodium Succinate (Solu-Medrol) 80 mg IV Q8HR [facility] Last Admin: 12/09/19 06:21 Dose: 80 mg Documented by: Prednisone (Deltasone) 50 mg PO DAILY [facility] Last Admin: 12/08/19 21:46 Dose: 50 mg Documented by: Review of Systems All systems: negative Physical Examination Vital signs: Vital Signs Temp Pulse Resp BP Pulse Ox 98.9 F 105 H 22 150/81 94 12/08/19 07:30 12/08/19 07:30 12/08/19 07:30 12/08/19 07:30 12/08/19 07:30 General appearance: no acute distress, alert Eyes: non-icteric ENT: oropharynx moist Neck: supple, no lymphadenopathy Ascultation: Bilateral: wheezes, rhonchi Cardiovascular: regular rate and rhythm Gastrointestinal: normoactive bowel sounds Integumentary: normal Extremities: no cyanosis Musculoskeletal: no deformities normal mental status mood appropriate, affect normal Results - Laboratory Findings CBC and BMP: 12/09/19 06:42 12/09/19 06:42 Abnormal lab findings: Abnormal Labs 12/09/19 12/09/19 06:42 06:42 WBC 18.4 H RBC 5.30 H Hgb 9.9 L MCV 62 L MCH 19 L RDW 21.7 H Seg Neuts % (Manual) 88.0 H Lymphocytes % (Manual) 6.0 L Seg Neutrophils # Man 16.2 H Lymphocytes # (Manual) 1.1 L Sodium 136 L Carbon Dioxide 20 L Glucose 159 H - Diagnostic Findings Chest x-ray: report reviewed, image reviewed Additional studies: CHEST 2 VIEWS 11/1019 INDICATION: SOB, CHF, asthma, dx flu. COMPARISON: 11/30/2019 FINDINGS: Support devices: None. Heart: Within normal limits. Pulmonary vasculature: Normal. Lungs/pleura: The lungs are normally expanded and clear. No pleural effusion. No pneumothorax. Additional findings: None. IMPRESSION: 1. Normal chest. 2. No CHF or pneumonia. Assessment and Plan 49 y/o AAF with history of Asthma,Hypothyroidism, NAYELY, CHF, and HTN comes in for increasing wheezing and SOB for one week.Not responding to outpatient treatment.NO fever or chills.Recently ran out of her [employer].No recent travel.Cough productive of Mucoid sputum.Did not respond to ED treatment.No exacerbating or relieving factors.Sats were in mid 80's without oxygen. Patient came in with Shortness of breath, wheezing, and cough nonproductive of sputum. SHe is a current smoker with 5 pack year history. 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 Patient denies any known drug allergies. Patient is not and has adult-aged children. Patient is alert and awake. She is in no acute respiratory distress. She is on 4L O2 per nasal cannula with an O2 saturation of 96%. She is afebrile with leukocytosis. Chest X ray 12/08/19 showed Normal chest without CHF or pneumonia. Recommend ABG on room air. - Patient Problems (1) Acute respiratory failure with hypoxia Current Visit: Yes Status: Acute Plan to address problem: Continue O2 supplementation (4L) Continue Albuterol and Atrovent Aerosol treatments Q6 PRN for shortness of breath Continue Methylprednisolone Patient is on Subcutaneous Heparin Patient is on Levaquin Recommend GI Prophylaxis ABG on Room air (2) Asthma exacerbation Current Visit: Yes Status: Acute Qualifiers: Asthma severity: severe Plan to address problem: Continue O2 supplementation (4L) Continue Albuterol and Atrovent Aerosol treatments Q6 PRN for shortness of breath Continue Methylprednisolone Patient is on Subcutaneous Heparin Patient is on Levaquin Recommend GI Prophylaxis ABG on Room air (3) Bronchitis Current Visit: Yes Status: Acute Plan to address problem: Patient is on Levaquin (4) HTN (hypertension) Current Visit: Yes Status: Chronic Qualifiers: Hypertension type: essential hypertension Qualified Code(s): I10 - Essential (primary) hypertension Plan to address problem: management per Primary team (5) Morbid obesity with body mass index (BMI) of 40.0 to 44.9 in adult Current Visit: No Status: Acute Plan to address problem: Recommend to Lose weight Consult Dietitian for weight reduction diet (6) Hypothyroidism Current Visit: No Status: Chronic Qualifiers: Hypothyroidism type: acquired Qualified Code(s): E03.9 - Hypothyroidism, unspecified Plan to address problem: Management per primary care team (7) Obstructive sleep apnea Current Visit: No Status: Chronic Plan to address problem: use CPAP as she is using at home
--- NOTE | 2019-12-09 09:39 | Progress Note ---
Assessment and Plan Assessment and plan: -- Acute respiratory failure with hypoxia Current Visit: Yes Status: Acute patient was hypoxic without O2 IV abx IV SOlumedrol and Bronchodilators Bipap if necessary Intubation if necessary -- Asthma exacerbation Current Visit: Yes Status: Acute patient was hypoxic without O2 IV abx IV SOlumedrol and Bronchodilators Bipap if necessary Intubation if necessary -- Hypothyroidism Current Visit: No Status: Chronic Cont synthyroid Check TSH -- Obstructive sleep apnea Current Visit: No Status: Chronic CPAP as necessary -- HTN (hypertension) Current Visit: Yes Status: Chronic . Cont antihypertensives Monitor BP --Morbid obesity BMI 49.8 Advised diet modification exercise as tolerated and weight reduction when medically stable --Ongoing tobacco use; Smoking cessation counseling, nicotine patch as needed - DVT prophylaxis Current Visit: No Status: Acute. On Heparin and Gi prophylaxis Plan of care reviewed with the patient and her nurse Consults and recommendations noted and appreciated History Interval history: Patient seen and examined at the bedside this morning Patient's chart, medications and other documents reviewed Patient complains of severe shortness of breath and wheezing Cough productive, denies chest pain denies nausea vomiting Patient is alert and awake,In mild distress Vital signs reviewed Hospitalist Physical - Constitutional Vitals: Temp Pulse Resp BP Pulse Ox 97.9 F 108 H 20 149/92 97 12/09/19 04:19 12/09/19 08:59 12/09/19 08:59 12/09/19 04:19 12/09/19 09:03 General appearance: Present: mild distress, obese (Morbidly obese) - EENT Eyes: Present: PERRL, EOM intact - Neck Neck: Present: supple, normal ROM - Respiratory Respiratory effort: labored Respiratory: bilateral: diminished, rhonchi, wheezing, negative: rales - Cardiovascular Rhythm: regular Heart Sounds: Present: S1 & S2 - Extremities Extremities: no ischemia, No edema, abnormal (Obese) - Abdominal General gastrointestinal: soft, non-tender, non-distended, normal bowel sounds, other (Obese) - Integumentary Integumentary: Present: clear, warm - Psychiatric Psychiatric: appropriate mood/affect, cooperative - Neurologic Neurologic: CNII-XII intact, moves all extremities Results - Labs CBC & Chem 7: 12/09/19 06:42 12/09/19 06:42 Labs: Laboratory Last Values WBC 18.4 K/mm3 (4.5-11.0) H 12/09/19 06:42 RBC 5.30 M/mm3 (3.65-5.03) H 12/09/19 06:42 Hgb 9.9 gm/dl (10.1-14.3) L 12/09/19 06:42 Hct 33.0 % (30.3-42.9) 12/09/19 06:42 MCV 62 fl (79-97) L 12/09/19 06:42 MCH 19 pg (28-32) L 12/09/19 06:42 MCHC 30 % (30-34) 12/09/19 06:42 RDW 21.7 % (13.2-15.2) H 12/09/19 06:42 Plt Count 300 K/mm3 (140-440) 12/09/19 06:42 Add Manual Diff Complete 12/09/19 06:42 Total Counted 100 12/09/19 06:42 Seg Neutrophils % Agricultural Commodities Inspector 12/09/19 06:42 Seg Neuts % (Manual) 88.0 % (40.0-70.0) H 12/09/19 06:42 Band Neutrophils % 2.0 % 12/09/19 06:42 Lymphocytes % (Manual) 6.0 % (13.4-35.0) L 12/09/19 06:42 Reactive Lymphs % (Man) 0 % 12/09/19 06:42 Monocytes % (Manual) 0 % (0.0-7.3) 12/09/19 06:42 Eosinophils % (Manual) 0 % (0.0-4.3) 12/09/19 06:42 Basophils % (Manual) 0 % (0.0-1.8) 12/09/19 06:42 Metamyelocytes % 4.0 % 12/09/19 06:42 Myelocytes % 0 % 12/09/19 06:42 Promyelocytes % 0 % 12/09/19 06:42 Blast Cells % 0 % 12/09/19 06:42 Nucleated RBC % Not Reportable 12/09/19 06:42 Seg Neutrophils # Man 16.2 K/mm3 (1.8-7.7) H 12/09/19 06:42 Band Neutrophils # 0.4 K/mm3 12/09/19 06:42 Lymphocytes # (Manual) 1.1 K/mm3 (1.2-5.4) L 12/09/19 06:42 Abs React Lymphs (Man) 0.0 K/mm3 12/09/19 06:42 Monocytes # (Manual) 0.0 K/mm3 (0.0-0.8) 12/09/19 06:42 Eosinophils # (Manual) 0.0 K/mm3 (0.0-0.4) 12/09/19 06:42 Basophils # (Manual) 0.0 K/mm3 (0.0-0.1) 12/09/19 06:42 Metamyelocytes # 0.7 K/mm3 12/09/19 06:42 Myelocytes # 0.0 K/mm3 12/09/19 06:42 Promyelocytes # 0.0 K/mm3 12/09/19 06:42 Blast Cells # 0.0 K/mm3 12/09/19 06:42 WBC Morphology Not Reportable 12/09/19 06:42 Hypersegmented Neuts Not Reportable 12/09/19 06:42 Hyposegmented Neuts Not Reportable 12/09/19 06:42 Hypogranular Neuts Not Reportable 12/09/19 06:42 Smudge Cells Not Reportable 12/09/19 06:42 Toxic Granulation Not Reportable 12/09/19 06:42 Toxic Vacuolation Not Reportable 12/09/19 06:42 Dohle Bodies Not Reportable 12/09/19 06:42 Pelger-Huet Anomaly Not Reportable 12/09/19 06:42 Genesis Rods Not Reportable 12/09/19 06:42 Platelet Estimate Consistent w auto 12/09/19 06:42 Clumped Platelets Not Reportable 12/09/19 06:42 Plt Clumps, EDTA Not Reportable 12/09/19 06:42 Large Platelets Not Reportable 12/09/19 06:42 Giant Platelets Not Reportable 12/09/19 06:42 Platelet Satelliting Not Reportable 12/09/19 06:42 Plt Morphology Comment Not Reportable 12/09/19 06:42 RBC Morphology Not Reportable 12/09/19 06:42 Dimorphic RBCs Not Reportable 12/09/19 06:42 Polychromasia Not Reportable 12/09/19 06:42 Hypochromasia 2+ 12/09/19 06:42 Poikilocytosis 3+ 12/09/19 06:42 Anisocytosis 2+ 12/09/19 06:42 Microcytosis 2+ 12/09/19 06:42 Macrocytosis Not Reportable 12/09/19 06:42 Spherocytes Not Reportable 12/09/19 06:42 Pappenheimer Bodies Not Reportable 12/09/19 06:42 Sickle Cells Not Reportable 12/09/19 06:42 Target Cells Not Reportable 12/09/19 06:42 Tear Drop Cells Rare 12/09/19 06:42 Ovalocytes 2+ 12/09/19 06:42 Helmet Cells Not Reportable 12/09/19 06:42 Zambrano-[place] Bodies Not Reportable 12/09/19 06:42 [place] Rings Not Reportable 12/09/19 06:42 [place] Cells Not Reportable 12/09/19 06:42 Bite Cells Not Reportable 12/09/19 06:42 Crenated Cell Not Reportable 12/09/19 06:42 Elliptocytes 1+ 12/09/19 06:42 Acanthocytes (Spur) Not Reportable 12/09/19 06:42 Rouleaux Not Reportable 12/09/19 06:42 Hemoglobin C Crystals Not Reportable 12/09/19 06:42 Schistocytes Not Reportable 12/09/19 06:42 Malaria parasites Not Reportable 12/09/19 06:42 Guero Bodies Not Reportable 12/09/19 06:42 Hem Pathologist Commnt No 12/09/19 06:42 Sodium 136 mmol/L (137-145) L 12/09/19 06:42 Potassium 4.8 mmol/L (3.6-5.0) 12/09/19 06:42 Chloride 99.7 mmol/L (98-107) 12/09/19 06:42 Carbon Dioxide 20 mmol/L (22-30) L 12/09/19 06:42 Anion Gap 21 mmol/L 12/09/19 06:42 BUN 17 mg/dL (7-17) 12/09/19 06:42 Creatinine 0.7 mg/dL (0.7-1.2) 12/09/19 06:42 Estimated GFR > 60 ml/min 12/09/19 06:42 BUN/Creatinine Ratio 24 % 12/09/19 06:42 Glucose 159 mg/dL (65-100) H 12/09/19 06:42 Calcium 8.9 mg/dL (8.4-10.2) 12/09/19 06:42 Total Bilirubin 0.30 mg/dL (0.1-1.2) 12/09/19 06:42 AST 10 units/L (5-40) 12/09/19 06:42 ALT 12 units/L (7-56) 12/09/19 06:42 Alkaline Phosphatase 75 units/L (35-129) 12/09/19 06:42 Total Protein 7.6 g/dL (6.3-8.2) 12/09/19 06:42 Albumin 4.0 g/dL (3.9-5) 12/09/19 06:42 Albumin/Globulin Ratio 1.1 % 12/09/19 06:42 TSH 1.460 mlU/mL (0.270-4.200) 12/09/19 06:42 Active Medications - Current Medications Current Medications: Generic Name Dose Route Start Last Admin Trade Name Freq PRN Reason Stop Dose Admin Acetaminophen/Hydrocodone Bitart 1 each 12/08/19 19:59 12/08/19 22:00 [place] 5/325 PO 1 each Q6HR PRN Administration PAIN Albuterol 2.5 mg 12/08/19 19:59 12/09/19 04:33 Proventil IH 2.5 mg Q4H PRN Administration Wheezing Albuterol/Ipratropium 1 ampul 12/09/19 08:00 12/09/19 08:59 Duoneb *Not For Prn Use* IH 1 ampul QIDRT CASE Administration Amlodipine Besylate 10 mg 12/08/19 20:00 12/08/19 21:41 Amlodipine PO 10 mg DAILY CASE Administration Furosemide 40 mg 12/08/19 20:00 12/09/19 06:21 Lasix PO 40 mg DAILY@0600 CASE Administration Heparin Sodium (Porcine) 5,000 unit 12/09/19 10:00 Heparin SUB-Q Q12HR CASE Levofloxacin/Dextrose 750 mg in 150 mls @ 100 mls/hr 12/08/19 21:00 12/09/19 01:27 Levaquin 750mg/150ml IV Infused Q24HR CASE Infusion Protocol Levothyroxine Sodium 50 mcg 12/09/19 06:00 12/09/19 06:21 Synthroid PO 50 mcg DAILY@0600 CASE Administration Methylprednisolone Sodium Succinate 80 mg 12/08/19 22:00 12/09/19 06:21 Solu-Medrol IV 80 mg Q8HR CASE Administration Prednisone 50 mg 12/08/19 21:00 12/08/19 21:46 Deltasone PO 50 mg DAILY CASE Administration
[2019-12-09] MEDS: HYDROcodone/ACETAMINOPHEN 5-325 MG TAB PO PRN ×3 (10:24→22:33)
[2019-12-09] MEDS: predniSONE 50 MG TAB PO SCH (10:24)
[2019-12-09] MEDS: amLODIPine 10 MG TAB PO SCH (10:35)
[2019-12-09] MEDS: HEPARIN 5,000 UNIT/1 ML VIAL SUB-Q SCH ×2 (10:50→22:00)
[2019-12-09 21:07] LABS: Creatine Kinase MB < 1.0 ng/mL (0.0-4.0)
[2019-12-10] MEDS: HYDROcodone/ACETAMINOPHEN 5-325 MG TAB PO PRN ×2 (04:28→13:11)
[2019-12-10 05:55] LABS: Mean Corpuscular HGB Conc 29 % (30-34); Platelet Count 318 K/mm3 (140-440); Red Blood Count 5.16 M/mm3 (3.65-5.03)
[2019-12-10 06:01] LABS: Hematocrit 33.2 % (30.3-42.9); Hemoglobin 9.6 gm/dl (10.1-14.3); Mean Corpuscular Volume 64 fl (79-97)
[2019-12-10] MEDS: methylPREDNISolone Sod Succinate 125 MG/2 ML INJ IV SCH ×3 (06:09→22:53)
[2019-12-10] MEDS: FUROSEMIDE 40 MG TAB PO SCH (06:09)
[2019-12-10] MEDS: LEVOTHYROXINE 50 MCG TAB PO SCH (06:09)
[2019-12-10 06:12] LABS: BUN/Creatinine Ratio 26; Blood Urea Nitrogen 18 mg/dL (7-17); Calcium 8.8 mg/dL (8.4-10.2); Hemolysis Index 17
[2019-12-10 06:42] LABS: Anisocytosis 1+; Band Neutrophils # (Manual) 0.2 K/mm3; Basophils % (Manual) 0 % (0.0-1.8); Eosinophils % (Manual) 0 % (0.0-4.3); Monocytes % (Manual) 1.5 % (0.0-7.3); Nucleated Red Blood Cells 0.5 % (0.0-0.9); Total Cells Counted 200
[2019-12-10 06:43] LABS: Hypochromasia 1+; Ovalocytes 2+; Platelet Estimate Consistent w Auto
[2019-12-10] MEDS: IPRATROPIUM/ALBUTEROL SULFATE 3 ML AMPUL.NEB IH SCH ×4 (08:00→21:11)
--- NOTE | 2019-12-10 09:25 | Progress Note ---
Assessment and Plan Assessment and plan: -- Acute respiratory failure with hypoxia Current Visit: Yes Status: Acute patient was hypoxic without O2 Titrate O2 sats to more than 90% Bipap if necessary Treat the underlying cause of bronchial asthma exacerbation --Acute asthma exacerbation Current Visit: Yes Status: Acute patient was hypoxic without O2 IV abx IV SOlumedrol and Bronchodilators Supportive care --Leukocytosis; Partly secondary to steroid use, due to acute bronchitis - Hypothyroidism Current Visit: No Status: Chronic . Cont synthyroid -- Obstructive sleep apnea Current Visit: No Status: Chronic CPAP at bedtime, and during daytime as needed Patient needs outpatient sleep study to rule out NAYELY -- HTN (hypertension) Current Visit: Yes Status: Chronic . Cont antihypertensives, Monitor BP --Morbid obesity BMI 49.8 Advised diet modification exercise as tolerated and weight reduction when medically stable --Ongoing tobacco use; Smoking cessation counseling, nicotine patch as needed - DVT prophylaxis Current Visit: No Status: Acute. On Heparin and Gi prophylaxis Plan of care reviewed with the patient and her nurse Pulmonary consult and recommendations noted and appreciated Ambulate as tolerated Evaluation for home oxygen Possible discharge in 1 to 2 days if stable History Interval history: I have seen and examined the patient at bedside in her room this morning Patient's chart medications and medical records reviewed Patient feels slightly better continues to have diffuse wheeze And severe shortness of breath, In mild distress Vital signs reviewed Hospitalist Physical - Constitutional Vitals: Temp Pulse Resp BP Pulse Ox 98.2 F 88 18 157/92 96 12/10/19 04:42 12/10/19 04:42 12/10/19 04:42 12/10/19 04:42 12/10/19 08:00 General appearance: Present: mild distress, well-nourished, obese (Morbidly obese) - EENT Eyes: Present: PERRL, EOM intact - Neck Neck: Present: supple, normal ROM - Respiratory Respiratory effort: labored Respiratory: bilateral: diminished, wheezing, negative: rales, rhonchi - Cardiovascular Rhythm: regular Heart Sounds: Present: S1 & S2 - Extremities Extremities: no ischemia, No edema - Abdominal General gastrointestinal: soft, non-tender, non-distended, normal bowel sounds - Integumentary Integumentary: Present: clear, warm - Psychiatric Psychiatric: appropriate mood/affect, cooperative - Neurologic Neurologic: CNII-XII intact, moves all extremities Results - Labs CBC & Chem 7: 12/10/19 04:55 12/10/19 04:55 Labs: Laboratory Last Values WBC 21.3 K/mm3 (4.5-11.0) H 12/10/19 04:55 RBC 5.16 M/mm3 (3.65-5.03) H 12/10/19 04:55 Hgb 9.6 gm/dl (10.1-14.3) L 12/10/19 04:55 Hct 33.2 % (30.3-42.9) 12/10/19 04:55 MCV 64 fl (79-97) L 12/10/19 04:55 MCH 19 pg (28-32) L 12/10/19 04:55 MCHC 29 % (30-34) L 12/10/19 04:55 RDW 22.0 % (13.2-15.2) H 12/10/19 04:55 Plt Count 318 K/mm3 (140-440) 12/10/19 04:55 Add Manual Diff Complete 12/10/19 04:55 Total Counted 200 12/10/19 04:55 Seg Neutrophils % Loan Counselor 12/10/19 04:55 Seg Neuts % (Manual) 90.5 % (40.0-70.0) H 12/10/19 04:55 Band Neutrophils % 1.0 % 12/10/19 04:55 Lymphocytes % (Manual) 6.0 % (13.4-35.0) L 12/10/19 04:55 Reactive Lymphs % (Man) 1.0 % 12/10/19 04:55 Monocytes % (Manual) 1.5 % (0.0-7.3) 12/10/19 04:55 Eosinophils % (Manual) 0 % (0.0-4.3) 12/10/19 04:55 Basophils % (Manual) 0 % (0.0-1.8) 12/10/19 04:55 Metamyelocytes % 0 % 12/10/19 04:55 Myelocytes % 0 % 12/10/19 04:55 Promyelocytes % 0 % 12/10/19 04:55 Blast Cells % 0 % 12/10/19 04:55 Nucleated RBC % 0.5 % (0.0-0.9) 12/10/19 04:55 Seg Neutrophils # Man 19.3 K/mm3 (1.8-7.7) H 12/10/19 04:55 Band Neutrophils # 0.2 K/mm3 12/10/19 04:55 Lymphocytes # (Manual) 1.3 K/mm3 (1.2-5.4) 12/10/19 04:55 Abs React Lymphs (Man) 0.2 K/mm3 12/10/19 04:55 Monocytes # (Manual) 0.3 K/mm3 (0.0-0.8) 12/10/19 04:55 Eosinophils # (Manual) 0.0 K/mm3 (0.0-0.4) 12/10/19 04:55 Basophils # (Manual) 0.0 K/mm3 (0.0-0.1) 12/10/19 04:55 Metamyelocytes # 0.0 K/mm3 12/10/19 04:55 Myelocytes # 0.0 K/mm3 12/10/19 04:55 Promyelocytes # 0.0 K/mm3 12/10/19 04:55 Blast Cells # 0.0 K/mm3 12/10/19 04:55 WBC Morphology Not Reportable 12/10/19 04:55 Hypersegmented Neuts Not Reportable 12/10/19 04:55 Hyposegmented Neuts Not Reportable 12/10/19 04:55 Hypogranular Neuts Not Reportable 12/10/19 04:55 Smudge Cells Not Reportable 12/10/19 04:55 Toxic Granulation Not Reportable 12/10/19 04:55 Toxic Vacuolation Not Reportable 12/10/19 04:55 Dohle Bodies Not Reportable 12/10/19 04:55 Pelger-Huet Anomaly Not Reportable 12/10/19 04:55 Genesis Rods Not Reportable 12/10/19 04:55 Platelet Estimate Consistent w auto 12/10/19 04:55 Clumped Platelets Not Reportable 12/10/19 04:55 Plt Clumps, EDTA Not Reportable 12/10/19 04:55 Large Platelets Not Reportable 12/10/19 04:55 Giant Platelets Not Reportable 12/10/19 04:55 Platelet Satelliting Not Reportable 12/10/19 04:55 Plt Morphology Comment Not Reportable 12/10/19 04:55 RBC Morphology Not Reportable 12/10/19 04:55 Dimorphic RBCs Not Reportable 12/10/19 04:55 Polychromasia Not Reportable 12/10/19 04:55 Hypochromasia 1+ 12/10/19 04:55 Poikilocytosis Not Reportable 12/10/19 04:55 Anisocytosis 1+ 12/10/19 04:55 Microcytosis 1+ 12/10/19 04:55 Macrocytosis Not Reportable 12/10/19 04:55 Spherocytes Not Reportable 12/10/19 04:55 Pappenheimer Bodies Not Reportable 12/10/19 04:55 Sickle Cells Not Reportable 12/10/19 04:55 Target Cells Not Reportable 12/10/19 04:55 Tear Drop Cells Not Reportable 12/10/19 04:55 Ovalocytes 2+ 12/10/19 04:55 Helmet Cells Not Reportable 12/10/19 04:55 Zambrano-[place] Bodies Not Reportable 12/10/19 04:55 [place] Rings Not Reportable 12/10/19 04:55 [place] Cells Not Reportable 12/10/19 04:55 Bite Cells Not Reportable 12/10/19 04:55 Crenated Cell Not Reportable 12/10/19 04:55 Elliptocytes Not Reportable 12/10/19 04:55 Acanthocytes (Spur) Not Reportable 12/10/19 04:55 Rouleaux Not Reportable 12/10/19 04:55 Hemoglobin C Crystals Not Reportable 12/10/19 04:55 Schistocytes Not Reportable 12/10/19 04:55 Malaria parasites Not Reportable 12/10/19 04:55 Guero Bodies Not Reportable 12/10/19 04:55 Hem Pathologist Commnt No 12/10/19 04:55 Sodium 138 mmol/L (137-145) 12/10/19 04:55 Potassium 4.6 mmol/L (3.6-5.0) 12/10/19 04:55 Chloride 99.0 mmol/L (98-107) 12/10/19 04:55 Carbon Dioxide 24 mmol/L (22-30) 12/10/19 04:55 Anion Gap 20 mmol/L 12/10/19 04:55 BUN 18 mg/dL (7-17) H 12/10/19 04:55 Creatinine 0.7 mg/dL (0.7-1.2) 12/10/19 04:55 Estimated GFR > 60 ml/min 12/10/19 04:55 BUN/Creatinine Ratio 26 % 12/10/19 04:55 Glucose 235 mg/dL (65-100) H 12/10/19 04:55 Calcium 8.8 mg/dL (8.4-10.2) 12/10/19 04:55 Total Bilirubin 0.30 mg/dL (0.1-1.2) 12/09/19 06:42 AST 10 units/L (5-40) 12/09/19 06:42 ALT 12 units/L (7-56) 12/09/19 06:42 Alkaline Phosphatase 75 units/L (35-129) 12/09/19 06:42 Total Creatine Kinase 50 units/L (30-135) 12/09/19 20:23 CK-MB (CK-2) < 1.0 ng/mL (0.0-4.0) 12/09/19 20:23 CK-MB (CK-2) Rel Index 2.0 (0-4) 12/09/19 20:23 Total Protein 7.6 g/dL (6.3-8.2) 12/09/19 06:42 Albumin 4.0 g/dL (3.9-5) 12/09/19 06:42 Albumin/Globulin Ratio 1.1 % 12/09/19 06:42 TSH 1.460 mlU/mL (0.270-4.200) 12/09/19 06:42 Ware/IV: Voiding Method Toilet IV Catheter Type [Left Hand] INT / Saline Lock IV Catheter Type [Left Peripheral IV Antecubital] Active Medications - Current Medications Current Medications: Generic Name Dose Route Start Last Admin Trade Name Freq PRN Reason Stop Dose Admin Acetaminophen/Hydrocodone Bitart 1 each 12/08/19 19:59 12/10/19 04:28 [place] 5/325 PO 1 each Q6HR PRN Administration PAIN Albuterol 2.5 mg 12/08/19 19:59 12/09/19 04:33 Proventil IH 2.5 mg Q4H PRN Administration Wheezing Albuterol/Ipratropium 1 ampul 12/09/19 08:00 12/10/19 08:00 Duoneb *Not For Prn Use* IH 1 ampul QIDRT CASE Administration Amlodipine Besylate 10 mg 12/08/19 20:00 12/09/19 10:35 Amlodipine PO 10 mg DAILY CASE Administration Furosemide 40 mg 12/08/19 20:00 12/10/19 06:09 Lasix PO 40 mg DAILY@0600 CASE Administration Heparin Sodium (Porcine) 5,000 unit 12/09/19 10:00 12/09/19 22:00 Heparin SUB-Q 5,000 unit Q12HR CASE Administration Levofloxacin/Dextrose 750 mg in 150 mls @ 100 mls/hr 12/08/19 21:00 12/09/19 10:25 Levaquin 750mg/150ml IV 100 mls/hr Q24HR CASE Administration Protocol Levothyroxine Sodium 50 mcg 12/09/19 06:00 12/10/19 06:09 Synthroid PO 50 mcg DAILY@0600 CASE Administration Methylprednisolone Sodium Succinate 80 mg 12/08/19 22:00 12/10/19 06:09 Solu-Medrol IV 80 mg Q8HR CASE Administration Prednisone 50 mg 12/08/19 21:00 12/09/19 10:24 Deltasone PO 50 mg DAILY CASE Administration
[2019-12-10] MEDS: predniSONE 50 MG TAB PO SCH (09:26)
[2019-12-10] MEDS: HEPARIN 5,000 UNIT/1 ML VIAL SUB-Q SCH ×2 (09:26→22:53)
[2019-12-10] MEDS: amLODIPine 10 MG TAB PO SCH (09:30)
[2019-12-10] MEDS ORDERED: MAGNESIUM HYDROXIDE (MOM) ORAL LIQD UDC PO NR (10:00)
[2019-12-10 10:12] LABS: ABG Base Excess 1.7 mmol/L (-2.0-3.0); ABG HCO3 26.7 mmol/L (20.0-26.0); ABG Methemoglobin 0.6 % (0.0-1.5); ABG Oxygen Saturation 96.9 % (95.0-99.0); ABG PCO2 43.7 mm Hg; ABG PH 7.403 pH Units (7.350-7.450); ABG PO2 81.9 mm Hg (80.0-90.0)
[2019-12-10] MEDS: guaiFENesin DM 200/20 MG ORAL LIQD 10 ML PO PRN (10:41)
[2019-12-10] MEDS: INSULIN LISPRO 100 UNIT/ML SUB-Q SCH ×4 (13:06→23:01)
--- NOTE | 2019-12-10 13:36 | Progress Note ---
Assessment and Plan Acute hypoxemic respiratory failure Acute asthma exacerbation Leukocytosis Hypothyroidism Obstructive sleep apnea HTN (hypertension) Morbid obesity BMI 49.8 Ongoing tobacco use DVT prophylaxis (? steroid leuicocytosis) - get Procalcitonin - continue to wean supplemental oxygen to keep O2 sats > 90% - continue Bronchodilators (JORGE) with pulmonary hygiene per RT - continue systemic steroids with slow taper - continue inhaled corticosterooids - continue to avoid nephrotoxins, renally dose all medications - continue mobility protocols to prevent pressure ulcers - PT/OT as tolerated - accuchecks with glycemic control per SSI for target blood glucose < 180 mg/dL - Smoking cessation strongly counseled at the bedside - weight loss counseled at bedside - NIV qhs / while asleep for NAYELY - home oxygen evaluation at discharge - GI & VTE prophylaxis - Flu & pneumovax per protocol - Pulmonary out patient follow up for PFTs and optimization of respiratory status - continue other care per attending / other consultants - prn analgesia per pain score Subjective Date of service: 12/10/19 Principal diagnosis: Ac hypoxemic resp failure; AE-Asthma; NAYELY; HTN; Morbid obesity Interval history: Patient is seen today for: Acute hypoxemic respiratory failure; Acute asthma exacerbation; Leukocytosis; Hypothyroidism; Obstructive sleep apnea; HTN (hypertension); Morbid obesity BMI 49.8; Ongoing tobacco use Seen and examined at bedside; 24hour events reviewed; nursing and respiratory care staff consulted; no adverse overnight events reported to me; sitting up in bed; getting breathing treatment at time of my evaluation; less SOB; denies chest pains; No N/V/F/C Objective Vital Signs - 12hr 12/10/19 12/10/19 12/10/19 02:45 04:42 08:00 Temperature 98.2 F Pulse Rate 88 Pulse Rate [ Bilateral] Respiratory 18 Rate Respiratory Rate [Bilateral ] Blood Pressure 157/92 O2 Sat by Pulse 96 98 96 Oximetry 12/10/19 12/10/19 12/10/19 08:20 09:30 09:33 Temperature Pulse Rate 81 Pulse Rate [ 84 Bilateral] Respiratory Rate Respiratory 18 Rate [Bilateral ] Blood Pressure 149/88 O2 Sat by Pulse 96 Oximetry 12/10/19 12/10/19 12:43 12:46 Temperature 98.1 F Pulse Rate 97 H Pulse Rate [ Bilateral] Respiratory 16 Rate Respiratory Rate [Bilateral ] Blood Pressure 158/89 O2 Sat by Pulse 97 Oximetry Constitutional: no acute distress, alert, other (middle aged obese AAF, normocephalic with mildly increased respiratory effort at rest) Eyes: non-icteric ENT: oropharynx moist, other (Mallampati 3) Neck: supple, no lymphadenopathy, no JVD Effort: mildly labored Ascultation: Bilateral: diminished breath sounds, wheezes (faint expiratory), other (prolonged exp phase) Percussion: Bilateral: not dull Cardiovascular: regular rate and rhythm Gastrointestinal: normoactive bowel sounds, soft, non-tender, non-distended (protuberant) Integumentary: normal Extremities: no cyanosis, no edema, pulses normal, no ischemia or petechiae Neurologic: normal mental status, non-focal exam, pupils equal and round, motor strength normal and Psychiatric: mood appropriate, affect normal CBC and BMP: 12/11/19 08:07 12/10/19 04:55 ABG, PT/INR, D-dimer: ABG ABG pH 7.403 pH Units (7.350-7.450) 12/10/19 10:05 ABG pCO2 43.7 mm Hg 12/10/19 10:05 ABG pO2 81.9 mm Hg (80.0-90.0) 12/10/19 10:05 ABG O2 Saturation 96.9 % (95.0-99.0) 12/10/19 10:05 Abnormal lab findings: Abnormal Labs 12/09/19 12/09/19 12/10/19 06:42 06:42 04:55 WBC 18.4 H 21.3 H RBC 5.30 H 5.16 H Hgb 9.9 L 9.6 L MCV 62 L 64 L MCH 19 L 19 L MCHC 29 L RDW 21.7 H 22.0 H Seg Neuts % (Manual) 88.0 H 90.5 H Lymphocytes % (Manual) 6.0 L 6.0 L Seg Neutrophils # Man 16.2 H 19.3 H Lymphocytes # (Manual) 1.1 L ABG HCO3 ABG Hemoglobin Oxyhemoglobin Sodium 136 L Carbon Dioxide 20 L BUN Glucose 159 H POC Glucose 12/10/19 12/10/19 12/10/19 04:55 10:05 12:53 WBC RBC Hgb MCV MCH MCHC RDW Seg Neuts % (Manual) Lymphocytes % (Manual) Seg Neutrophils # Man Lymphocytes # (Manual) ABG HCO3 26.7 H ABG Hemoglobin 10.1 L Oxyhemoglobin 94.9 L Sodium Carbon Dioxide BUN 18 H Glucose 235 H POC Glucose 191 H Chest x-ray: image reviewed (no foical infiltrate) Allied health notes reviewed: nursing
[2019-12-11] MEDS: LEVOTHYROXINE 50 MCG TAB PO SCH (05:54)
[2019-12-11] MEDS: methylPREDNISolone Sod Succinate 125 MG/2 ML INJ IV SCH ×2 (05:54→15:43)
[2019-12-11] MEDS: FUROSEMIDE 40 MG TAB PO SCH (05:54)
[2019-12-11] MEDS: guaiFENesin DM 200/20 MG ORAL LIQD 10 ML PO PRN ×2 (06:04→21:26)
[2019-12-11] MEDS: HYDROcodone/ACETAMINOPHEN 5-325 MG TAB PO PRN ×2 (06:05→21:26)
[2019-12-11 08:33] LABS: Mean Corpuscular HGB Conc 29 % (30-34); Platelet Count 347 K/mm3 (140-440); Red Blood Count 5.14 M/mm3 (3.65-5.03)
[2019-12-11 08:42] LABS: Hematocrit 32.5 % (30.3-42.9); Hemoglobin 9.5 gm/dl (10.1-14.3); Mean Corpuscular Volume 63 fl (79-97); Red Cell Distribution Width 22.1 % (13.2-15.2)
[2019-12-11] MEDS: IPRATROPIUM/ALBUTEROL SULFATE 3 ML AMPUL.NEB IH SCH ×4 (08:45→20:05)
[2019-12-11] MEDS: INSULIN LISPRO 100 UNIT/ML SUB-Q SCH ×4 (08:47→21:22)
[2019-12-11 10:09] LABS: Basophils % (Manual) 0 % (0.0-1.8); Eosinophils % (Manual) 0 % (0.0-4.3); Total Cells Counted 100
[2019-12-11 10:10] LABS: Anisocytosis 1+; Hypochromasia 1+
[2019-12-11 10:11] LABS: Ovalocytes 2+; Platelet Estimate Consistent w Auto
[2019-12-11] MEDS: amLODIPine 10 MG TAB PO SCH (11:08)
[2019-12-11] MEDS: HEPARIN 5,000 UNIT/1 ML VIAL SUB-Q SCH ×2 (11:09→21:21)
[2019-12-11] MEDS ORDERED: MAGNESIUM HYDROXIDE (MOM) ORAL LIQD UDC PO ONE ×2 (12:00→16:00)
--- NOTE | 2019-12-11 13:42 | Progress Note ---
Assessment and Plan Acute hypoxemic respiratory failure Acute asthma exacerbation Leukocytosis Hypothyroidism Obstructive sleep apnea HTN (hypertension) Morbid obesity BMI 49.8 Ongoing tobacco use DVT prophylaxis - taper solumedrol to 40 mg IV q12h - de-escalate to p[.o. Levaquin - follow Procalcitonin - continue to wean supplemental oxygen to keep O2 sats > 90% - continue Bronchodilators (JORGE) with pulmonary hygiene per RT - continue systemic steroids with slow taper - continue inhaled corticosterooids - continue to avoid nephrotoxins, renally dose all medications - continue mobility protocols to prevent pressure ulcers - PT/OT as tolerated - accuchecks with glycemic control per SSI for target blood glucose < 180 mg/dL - Smoking cessation strongly counseled at the bedside - weight loss counseled at bedside - NIV qhs / while asleep for NAYELY - home oxygen evaluation at discharge - GI & VTE prophylaxis - Flu & pneumovax per protocol - Pulmonary out patient follow up for PFTs and optimization of respiratory statu s - continue other care per attending / other consultants - prn analgesia per pain score .... re-evaluate in am & prn Subjective Date of service: 12/11/19 Principal diagnosis: Ac hypoxemic resp failure; AE-Asthma; NAYELY; HTN; Morbid obesity Interval history: Patient is seen today for: Acute hypoxemic respiratory failure; Acute asthma exacerbation; Leukocytosis; Hypothyroidism; Obstructive sleep apnea; HTN (hypertension); Morbid obesity BMI 49.8; Ongoing tobacco use Seen and examined at bedside; 24hour events reviewed; nursing and respiratory care staff consulted; no adverse overnight events reported to me; sitting up in bed; Objective Vital Signs - 12hr 12/11/19 12/11/19 12/11/19 05:58 08:45 11:08 Temperature 97.8 F Pulse Rate 92 H 92 H Pulse Rate [ 82 Bilateral] Respiratory 22 Rate Respiratory 20 Rate [Bilateral ] Blood Pressure 144/87 144/87 O2 Sat by Pulse 95 99 Oximetry 12/11/19 12/11/19 11:30 12:06 Temperature 98.4 F Pulse Rate 94 H Pulse Rate [ 95 H Bilateral] Respiratory 22 Rate Respiratory 20 Rate [Bilateral ] Blood Pressure 163/97 O2 Sat by Pulse 98 Oximetry Constitutional: no acute distress, alert, other (middle aged obese AAF, normocephalic with mildly increased respiratory effort at rest) Eyes: non-icteric ENT: oropharynx moist, other (Mallampati 3) Neck: supple, no lymphadenopathy, no JVD Effort: mildly labored Ascultation: Bilateral: diminished breath sounds, wheezes (faint expiratory), rhonchi, other (prolonged exp phase) Percussion: Bilateral: not dull Cardiovascular: regular rate and rhythm Gastrointestinal: normoactive bowel sounds, soft, non-tender, non-distended (protuberant) Integumentary: normal Extremities: no cyanosis, no edema, pulses normal, no ischemia or petechiae Neurologic: normal mental status, non-focal exam, pupils equal and round, motor strength normal and Psychiatric: mood appropriate, affect normal CBC and BMP: 12/11/19 08:07 12/10/19 04:55 ABG, PT/INR, D-dimer: ABG ABG pH 7.403 pH Units (7.350-7.450) 12/10/19 10:05 ABG pCO2 43.7 mm Hg 12/10/19 10:05 ABG pO2 81.9 mm Hg (80.0-90.0) 12/10/19 10:05 ABG O2 Saturation 96.9 % (95.0-99.0) 12/10/19 10:05 Abnormal lab findings: Abnormal Labs 12/09/19 12/09/19 12/10/19 06:42 06:42 04:55 WBC 18.4 H 21.3 H RBC 5.30 H 5.16 H Hgb 9.9 L 9.6 L MCV 62 L 64 L MCH 19 L 19 L MCHC 29 L RDW 21.7 H 22.0 H Seg Neuts % (Manual) 88.0 H 90.5 H Lymphocytes % (Manual) 6.0 L 6.0 L Seg Neutrophils # Man 16.2 H 19.3 H Lymphocytes # (Manual) 1.1 L Monocytes # (Manual) ABG HCO3 ABG Hemoglobin Oxyhemoglobin Sodium 136 L Carbon Dioxide 20 L BUN Glucose 159 H POC Glucose 12/10/19 12/10/19 12/10/19 04:55 10:05 12:53 WBC RBC Hgb MCV MCH MCHC RDW Seg Neuts % (Manual) Lymphocytes % (Manual) Seg Neutrophils # Man Lymphocytes # (Manual) Monocytes # (Manual) ABG HCO3 26.7 H ABG Hemoglobin 10.1 L Oxyhemoglobin 94.9 L Sodium Carbon Dioxide BUN 18 H Glucose 235 H POC Glucose 191 H 12/10/19 12/10/19 12/11/19 17:47 22:14 08:07 WBC 29.5 H RBC 5.14 H Hgb 9.5 L MCV 63 L MCH 19 L MCHC 29 L RDW 22.1 H Seg Neuts % (Manual) 92.0 H Lymphocytes % (Manual) 4.0 L Seg Neutrophils # Man 27.1 H Lymphocytes # (Manual) Monocytes # (Manual) 1.2 H ABG HCO3 ABG Hemoglobin Oxyhemoglobin Sodium Carbon Dioxide BUN Glucose POC Glucose 214 H 178 H 12/11/19 12/11/19 08:46 12:18 WBC RBC Hgb MCV MCH MCHC RDW Seg Neuts % (Manual) Lymphocytes % (Manual) Seg Neutrophils # Man Lymphocytes # (Manual) Monocytes # (Manual) ABG HCO3 ABG Hemoglobin Oxyhemoglobin Sodium Carbon Dioxide BUN Glucose POC Glucose 126 H 146 H Allied health notes reviewed: nursing
--- NOTE | 2019-12-11 15:49 | Progress Note ---
Assessment and Plan Assessment and plan: -- Acute respiratory failure with hypoxia Current Visit: Yes Status: Acute patient was hypoxic without O2 Titrate O2 sats to more than 90% Bipap if necessary Treat the underlying cause of bronchial asthma exacerbation --Constipation; Current Visit: Yes Status: Acute MOM,Dulcolax Enema as needed --Acute asthma exacerbation Current Visit: Yes Status: Acute patient was hypoxic without O2 IV abx IV SOlumedrol and Bronchodilators. Supportive care --Leukocytosis; Partly secondary to steroid use, due to acute bronchitis - Hypothyroidism Current Visit: No Status: Chronic . Cont synthyroid -- Obstructive sleep apnea Current Visit: No Status: Chronic CPAP at bedtime, and during daytime as needed Patient needs outpatient sleep study to rule out NAYELY -- HTN (hypertension) Current Visit: Yes Status: Chronic . Cont antihypertensives, Monitor BP --Morbid obesity BMI 49.8 Advised diet modification exercise as tolerated and weight reduction when medically stable --Ongoing tobacco use; Smoking cessation counseling, nicotine patch as needed - DVT prophylaxis Current Visit: No Status: Acute. On Heparin and Gi prophylaxis Plan of care reviewed with the patient and her nurse Pulmonary consult and recommendations noted and appreciated Ambulate as tolerated Evaluation for home oxygen Possible discharge in 1 to 2 days if stable History Interval history: I have seen the patient this morning at the bedside and examined Patient's chart medications overnight events reviewed Patient feels slightly better complains of constipation Mild wheeze and in mild distress Alert awake oriented Morbidly obese Vital signs reviewed Hospitalist Physical - Constitutional Vitals: Temp Pulse Resp BP Pulse Ox 98.4 F 94 H 22 163/97 98 12/11/19 12:06 12/11/19 12:06 12/11/19 12:06 12/11/19 12:06 12/11/19 12:06 General appearance: Present: mild distress, well-nourished, obese (Morbidly obese) - EENT Eyes: Present: PERRL, EOM intact - Neck Neck: Present: supple, normal ROM - Respiratory Respiratory effort: normal Respiratory: bilateral: diminished, wheezing, negative: rales, rhonchi - Cardiovascular Rhythm: regular Heart Sounds: Present: S1 & S2 - Extremities Extremities: no ischemia, No edema - Abdominal General gastrointestinal: soft, non-tender, non-distended, normal bowel sounds - Integumentary Integumentary: Present: clear, warm - Psychiatric Psychiatric: appropriate mood/affect, cooperative - Neurologic Neurologic: moves all extremities Results - Labs CBC & Chem 7: 12/11/19 08:07 12/10/19 04:55 Labs: Laboratory Last Values WBC 29.5 K/mm3 (4.5-11.0) H 12/11/19 08:07 RBC 5.14 M/mm3 (3.65-5.03) H 12/11/19 08:07 Hgb 9.5 gm/dl (10.1-14.3) L 12/11/19 08:07 Hct 32.5 % (30.3-42.9) 12/11/19 08:07 MCV 63 fl (79-97) L 12/11/19 08:07 MCH 19 pg (28-32) L 12/11/19 08:07 MCHC 29 % (30-34) L 12/11/19 08:07 RDW 22.1 % (13.2-15.2) H 12/11/19 08:07 Plt Count 347 K/mm3 (140-440) 12/11/19 08:07 Add Manual Diff Complete 12/11/19 08:07 Total Counted 100 12/11/19 08:07 Seg Neutrophils % Reception 12/11/19 08:07 Seg Neuts % (Manual) 92.0 % (40.0-70.0) H 12/11/19 08:07 Band Neutrophils % 0 % 12/11/19 08:07 Lymphocytes % (Manual) 4.0 % (13.4-35.0) L 12/11/19 08:07 Reactive Lymphs % (Man) 0 % 12/11/19 08:07 Monocytes % (Manual) 4.0 % (0.0-7.3) 12/11/19 08:07 Eosinophils % (Manual) 0 % (0.0-4.3) 12/11/19 08:07 Basophils % (Manual) 0 % (0.0-1.8) 12/11/19 08:07 Metamyelocytes % 0 % 12/11/19 08:07 Myelocytes % 0 % 12/11/19 08:07 Promyelocytes % 0 % 12/11/19 08:07 Blast Cells % 0 % 12/11/19 08:07 Nucleated RBC % Not Reportable 12/11/19 08:07 Seg Neutrophils # Man 27.1 K/mm3 (1.8-7.7) H 12/11/19 08:07 Band Neutrophils # 0.0 K/mm3 12/11/19 08:07 Lymphocytes # (Manual) 1.2 K/mm3 (1.2-5.4) 12/11/19 08:07 Abs React Lymphs (Man) 0.0 K/mm3 12/11/19 08:07 Monocytes # (Manual) 1.2 K/mm3 (0.0-0.8) H 12/11/19 08:07 Eosinophils # (Manual) 0.0 K/mm3 (0.0-0.4) 12/11/19 08:07 Basophils # (Manual) 0.0 K/mm3 (0.0-0.1) 12/11/19 08:07 Metamyelocytes # 0.0 K/mm3 12/11/19 08:07 Myelocytes # 0.0 K/mm3 12/11/19 08:07 Promyelocytes # 0.0 K/mm3 12/11/19 08:07 Blast Cells # 0.0 K/mm3 12/11/19 08:07 WBC Morphology Not Reportable 12/11/19 08:07 Hypersegmented Neuts Not Reportable 12/11/19 08:07 Hyposegmented Neuts Not Reportable 12/11/19 08:07 Hypogranular Neuts Not Reportable 12/11/19 08:07 Smudge Cells Not Reportable 12/11/19 08:07 Toxic Granulation Not Reportable 12/11/19 08:07 Toxic Vacuolation Not Reportable 12/11/19 08:07 Dohle Bodies Not Reportable 12/11/19 08:07 Pelger-Huet Anomaly Not Reportable 12/11/19 08:07 Genesis Rods Not Reportable 12/11/19 08:07 Platelet Estimate Consistent w auto 12/11/19 08:07 Clumped Platelets Not Reportable 12/11/19 08:07 Plt Clumps, EDTA Not Reportable 12/11/19 08:07 Large Platelets Not Reportable 12/11/19 08:07 Giant Platelets Not Reportable 12/11/19 08:07 Platelet Satelliting Not Reportable 12/11/19 08:07 Plt Morphology Comment Not Reportable 12/11/19 08:07 RBC Morphology Not Reportable 12/11/19 08:07 Dimorphic RBCs Not Reportable 12/11/19 08:07 Polychromasia Not Reportable 12/11/19 08:07 Hypochromasia 1+ 12/11/19 08:07 Poikilocytosis Not Reportable 12/11/19 08:07 Anisocytosis 1+ 12/11/19 08:07 Microcytosis 2+ 12/11/19 08:07 Macrocytosis Not Reportable 12/11/19 08:07 Spherocytes Not Reportable 12/11/19 08:07 Pappenheimer Bodies Not Reportable 12/11/19 08:07 Sickle Cells Not Reportable 12/11/19 08:07 Target Cells Not Reportable 12/11/19 08:07 Tear Drop Cells Not Reportable 12/11/19 08:07 Ovalocytes 2+ 12/11/19 08:07 Helmet Cells Not Reportable 12/11/19 08:07 [place] Bodies Not Reportable 12/11/19 08:07 [place] Rings Not Reportable 12/11/19 08:07 Kevin Cells Not Reportable 12/11/19 08:07 Bite Cells Not Reportable 12/11/19 08:07 Crenated Cell Not Reportable 12/11/19 08:07 Elliptocytes Not Reportable 12/11/19 08:07 Acanthocytes (Spur) Not Reportable 12/11/19 08:07 Rouleaux Not Reportable 12/11/19 08:07 Hemoglobin C Crystals Not Reportable 12/11/19 08:07 Schistocytes Not Reportable 12/11/19 08:07 Malaria parasites Not Reportable 12/11/19 08:07 Guero Bodies Not Reportable 12/11/19 08:07 Hem Pathologist Commnt No 12/11/19 08:07 ABG pH 7.403 pH Units (7.350-7.450) 12/10/19 10:05 ABG pCO2 43.7 mm Hg 12/10/19 10:05 ABG pO2 81.9 mm Hg (80.0-90.0) 12/10/19 10:05 ABG HCO3 26.7 mmol/L (20.0-26.0) H 12/10/19 10:05 ABG O2 Saturation 96.9 % (95.0-99.0) 12/10/19 10:05 ABG O2 Content 13.5 (0.0-44) 12/10/19 10:05 ABG Base Excess 1.7 mmol/L (-2.0-3.0) 12/10/19 10:05 ABG Hemoglobin 10.1 gm/dl (12.0-16.0) L 12/10/19 10:05 ABG Carboxyhemoglobin 1.6 % (0.0-5.0) 12/10/19 10:05 ABG Methemoglobin 0.6 % (0.0-1.5) 12/10/19 10:05 Oxyhemoglobin 94.9 % (95.0-99.0) L 12/10/19 10:05 FiO2 28 % 12/10/19 10:05 Sodium 138 mmol/L (137-145) 12/10/19 04:55 Potassium 4.6 mmol/L (3.6-5.0) 12/10/19 04:55 Chloride 99.0 mmol/L (98-107) 12/10/19 04:55 Carbon Dioxide 24 mmol/L (22-30) 12/10/19 04:55 Anion Gap 20 mmol/L 12/10/19 04:55 BUN 18 mg/dL (7-17) H 12/10/19 04:55 Creatinine 0.7 mg/dL (0.7-1.2) 12/10/19 04:55 Estimated GFR > 60 ml/min 12/10/19 04:55 BUN/Creatinine Ratio 26 % 12/10/19 04:55 Glucose 235 mg/dL (65-100) H 12/10/19 04:55 POC Glucose 146 (70-105) H 12/11/19 12:18 Hemoglobin A1c 5.3 % (4-6) 12/10/19 09:30 Calcium 8.8 mg/dL (8.4-10.2) 12/10/19 04:55 Total Bilirubin 0.30 mg/dL (0.1-1.2) 12/09/19 06:42 AST 10 units/L (5-40) 12/09/19 06:42 ALT 12 units/L (7-56) 12/09/19 06:42 Alkaline Phosphatase 75 units/L (35-129) 12/09/19 06:42 Total Creatine Kinase 50 units/L (30-135) 12/09/19 20:23 CK-MB (CK-2) < 1.0 ng/mL (0.0-4.0) 12/09/19 20:23 CK-MB (CK-2) Rel Index 2.0 (0-4) 12/09/19 20:23 Total Protein 7.6 g/dL (6.3-8.2) 12/09/19 06:42 Albumin 4.0 g/dL (3.9-5) 12/09/19 06:42 Albumin/Globulin Ratio 1.1 % 12/09/19 06:42 TSH 1.460 mlU/mL (0.270-4.200) 12/09/19 06:42 Ware/IV: Voiding Method Toilet IV Catheter Type [Left Hand] INT / Saline Lock IV Catheter Type [Left Peripheral IV Antecubital] Active Medications - Current Medications Current Medications: Generic Name Dose Route Start Last Admin Trade Name Freq PRN Reason Stop Dose Admin Acetaminophen/Hydrocodone Bitart 1 each 12/08/19 19:59 12/11/19 06:05 [place] 5/325 PO 1 each Q6HR PRN Administration PAIN Albuterol 2.5 mg 12/08/19 19:59 12/09/19 04:33 Proventil IH 2.5 mg Q4H PRN Administration Wheezing Albuterol/Ipratropium 1 ampul 12/09/19 08:00 12/11/19 11:30 Duoneb *Not For Prn Use* IH 1 ampul QIDRT CASE Administration Amlodipine Besylate 10 mg 12/08/19 20:00 12/11/19 11:08 Amlodipine PO 10 mg DAILY CASE Administration Bisacodyl 10 mg 12/11/19 16:00 Dulcolax [place] 12/11/19 16:01 ONCE ONE Furosemide 40 mg 12/08/19 20:00 12/11/19 05:54 Lasix PO 40 mg DAILY@0600 CASE Administration Guaifenesin 10 ml 12/10/19 09:39 12/11/19 06:04 Guaifenesin Dm Syrup PO 10 ml Q4H PRN Administration Cough Heparin Sodium (Porcine) 5,000 unit 12/09/19 10:00 12/11/19 11:09 Heparin SUB-Q 5,000 unit Q12HR CASE Administration Insulin Human Lispro 0 unit 12/10/19 11:30 12/11/19 12:33 Humalog SUB-Q Not Given ACHS [facility] Protocol Levothyroxine Sodium 50 mcg 12/09/19 06:00 12/11/19 05:54 Synthroid PO 50 mcg DAILY@0600 CASE Administration Magnesium Hydroxide 30 ml 12/11/19 16:00 Milk Of Magnesia PO 12/11/19 16:01 ONCE ONE Methylprednisolone Sodium Succinate 40 mg 12/11/19 14:00 12/11/19 15:43 Solu-Medrol IV 40 mg Q12H CASE Administration
[2019-12-12] MEDS: methylPREDNISolone Sod Succinate 125 MG/2 ML INJ IV SCH (01:50)
[2019-12-12 05:02] LABS: Mean Corpuscular HGB Conc 30 % (30-34); Platelet Count 333 K/mm3 (140-440); Red Blood Count 5.24 M/mm3 (3.65-5.03)
[2019-12-12 05:16] LABS: Hematocrit 33.1 % (30.3-42.9); Hemoglobin 9.8 gm/dl (10.1-14.3); Mean Corpuscular Volume 63 fl (79-97); Red Cell Distribution Width 22.1 % (13.2-15.2)
[2019-12-12 05:53] VITALS: BP 170/95
[2019-12-12 05:57] LABS: Band Neutrophils # (Manual) 5.1 K/mm3; Basophils % (Manual) 0 % (0.0-1.8); Eosinophils % (Manual) 0 % (0.0-4.3); Ovalocytes 1+; Total Cells Counted 100
[2019-12-12 05:58] LABS: Anisocytosis 1+; Hypochromasia Few; Platelet Estimate Consistent w Auto
[2019-12-12] MEDS: FUROSEMIDE 40 MG TAB PO SCH (06:41)
[2019-12-12] MEDS: LEVOTHYROXINE 50 MCG TAB PO SCH (06:41)
[2019-12-12] MEDS: IPRATROPIUM/ALBUTEROL SULFATE 3 ML AMPUL.NEB IH SCH ×2 (08:47→11:23)
[2019-12-12] MEDS: INSULIN LISPRO 100 UNIT/ML SUB-Q SCH ×2 (09:56→12:19)
[2019-12-12] MEDS: amLODIPine 10 MG TAB PO SCH (09:57)
[2019-12-12] MEDS: HEPARIN 5,000 UNIT/1 ML VIAL SUB-Q SCH (09:57)
[2019-12-12] MEDS: guaiFENesin DM 200/20 MG ORAL LIQD 10 ML PO PRN (10:00)
--- NOTE | 2019-12-12 12:01 | Discharge Summary ---
Providers - Providers Date of Admission: 12/10/19 09:22 Date of discharge: 12/12/19 Attending physician: MATEO DELAROSA 12/09/19 06:27 Consult to Physician [CONS] Routine Comment: Consulting Provider: RAUL ATKINSON Physician Instructions: Reason For Exam: Asthma exacerbation Primary care physician: LIDYA ROLON Hospitalization Condition: Stable Disposition: DC-01 TO HOME OR SELFCARE Time spent for discharge: 32 min Core Measure Documentation - Palliative Care Palliative Care/ Comfort Measures: Not Applicable - Core Measures Any of the following diagnoses?: none Exam - Constitutional Vitals: Temp Pulse Resp BP Pulse Ox 97.1 F L 99 H 20 170/95 99 12/12/19 05:11 12/12/19 08:47 12/12/19 08:47 12/12/19 05:10 12/12/19 08:47 General appearance: Present: no acute distress, well-nourished - EENT Eyes: Present: PERRL, EOM intact - Neck Neck: Present: supple, normal ROM - Respiratory Respiratory effort: normal Respiratory: bilateral: diminished, negative: rales, rhonchi, wheezing - Cardiovascular Rhythm: regular Heart Sounds: Present: S1 & S2 - Extremities Extremities: no ischemia, No edema - Abdominal General gastrointestinal: Present: soft, non-tender, non-distended, normal bowel sounds - Integumentary Integumentary: Present: clear, warm - Musculoskeletal Musculoskeletal: strength equal bilaterally - Psychiatric Psychiatric: appropriate mood/affect, cooperative - Neurologic Neurologic: CNII-XII intact, moves all extremities Plan Activity: advance as tolerated Diet: regular Special Instructions: smoking cessation Additional Instructions: Advised weight reduction when medically stable. Advised smoking cessation. Follow primary care physician, match up worker per schedule. If you have worsening symptoms contact MD or go to emergency room Follow up with: LIDYA ROLON MD [Primary Care Provider] - 3-5 Days RAUL ATKINSON MD [Staff Physician] - 7 Days Prescriptions: amLODIPine 10 mg PO DAILY #30 tablet amLODIPine 10 mg PO DAILY #30 tablet guaiFENesin DM [Guaifenesin Dm Syrup] 10 ml PO Q4H PRN #1 bottle PRN Reason: Cough Furosemide [Lasix TAB] 40 mg PO QDAY #30 tablet HYDROcodone/APAP 5-325 [[place] 5-325 mg TAB] 1 each PO BID PRN #6 tablet PRN Reason: Pain Prednisone [predniSONE 10 mg (6-Day Pack, 21 Tabs)] 10 mg PO .TAPER #1 tab.ds.pk Albuterol INH(or & Nicu Only) [ProAir HFA Inhaler] 2 puff IH QID PRN #8.5 gram PRN Reason: Shortness Of Breath ALBUTEROL NEB's [Proventil 0.083% NEBS] 2.5 mg IH Q4HR PRN #30 nebu PRN Reason: Wheezing ALBUTEROL NEB's [Proventil 0.083% NEBS] 1 neb IH Q4H PRN #1 box PRN Reason: Wheezing guaiFENesin/CODEINE [Robitussin AC] 5 ml PO Q6HR PRN #120 oral.liqd PRN Reason: Cough Levothyroxine [Synthroid] 50 mcg PO QAM #30 tablet Azithromycin [Zithromax Z-CLAUDETTE] 0 mg PO DAILY #1 packet
[2019-12-12] MEDS: HYDROcodone/ACETAMINOPHEN 5-325 MG TAB PO PRN (12:20)
== END 2019-12-12 15:07 | disposition home or self-care (01) | DRG 189 ==
LOC: ED 07:17 → 3A 16:05 → OBSVTOIN 12-10 09:22
PROVIDERS: ADMIT Internal Medicine; ATTEND Internal Medicine
PROC: 4A033R1 Measurement of Arterial Saturation, Peripheral, Percutaneous Approach (ICD-10-PCS; principal; 2019-12-10)
DX: J96.01 Acute respiratory failure with hypoxia (principal); J45.901 Unspecified asthma with (acute) exacerbation; Z68.41 Body mass index [BMI] 40.0-44.9, adult; I50.9 Heart failure, unspecified; I11.0 Hypertensive heart disease with heart failure; E03.9 Hypothyroidism, unspecified; D72.829 Elevated white blood cell count, unspecified; E66.01 Morbid (severe) obesity due to excess calories; G47.33 Obstructive sleep apnea (adult) (pediatric); K59.00 Constipation, unspecified; F17.200 Nicotine dependence, unspecified, uncomplicated; Z71.6 Tobacco abuse counseling; Z71.3 Dietary counseling and surveillance
CPT/HCPCS: 36415; 36600; 71046; 80048; 80053; 82550; 82553; 82803; 82962; 83036; 84145; 84443; 85007; 85025; 93005; 93010; 94640; 94644; 94760; 96365; G0378; J0171; J1644; J1815; J1956; J2930; J3475; J7512

== ENCOUNTER 2020-05-24 12:41 | Inpatient (IN) | payer OTHER, SELFPAY ==
[2020-05-24] MEDS ORDERED: FUROSEMIDE 40 MG/4 ML INJ IV ONE (13:16)
[2020-05-24] MEDS ORDERED: MORPHINE 4 MG/1 ML INJ IV ONE ×2 (13:16→17:41)
[2020-05-24] MEDS ORDERED: ONDANSETRON 4 MG/2 ML INJ IV ONE (13:16)
[2020-05-24] MEDS ORDERED: ALBUTEROL 2.5 MG/3 ML NEBU IH ONE (13:16)
[2020-05-24] MEDS ORDERED: IPRATROPIUM 0.02% NEBU 2.5 ML IH ONE (13:16)
[2020-05-24] MEDS ORDERED: methylPREDNISolone Sod Succinate 125 MG/2 ML INJ IV ONE (13:16)
--- NOTE | 2020-05-24 13:20 | Emergency Department Report ---
ED Shortness of Breath HPI - General Chief Complaint: Dyspnea/Respdistress Stated Complaint: HERNÁN Time Seen by Provider: 05/24/20 13:06 Source: EMS Mode of arrival: Stretcher Limitations: No Limitations - History of Present Illness Initial Comments: Patient is 50 years old female with history of congestive heart failure, asthma and hypertension. Patient brought to the emergency room via EMS from home for evaluation of shortness of breath for the last few days. Patient stated that she is out of all her medication due to insurance issues. Patient presented with moderate respiratory distress slightly tachypneic with significantly swollen legs. Patient denied any chest pain, fever or chills. Patient also denied any nausea or vomiting. MD Complaint: shortness of breath, cough -: days(s) Known History Of: COPD, congestive heart failure - Related Data Previous Rx's Medication Instructions Recorded Last Taken Type ALBUTEROL NEB's [Proventil 0.083% 2.5 mg IH Q4HR PRN #30 nebu 12/08/19 Unknown Rx NEBS] Albuterol Mdi (or & Nicu Only) 2 puff IH QID PRN #8.5 gram 12/08/19 Unknown Rx [ProAir HFA Inhaler] guaiFENesin/CODEINE [Robitussin AC] 5 ml PO Q6HR PRN #120 oral.liqd 12/08/19 Unknown Rx ALBUTEROL NEB's [Proventil 0.083% 1 neb IH Q4H PRN #1 box 12/12/19 Unknown Rx NEBS] Azithromycin [Zithromax Z-CLAUDETTE] 0 mg PO DAILY #1 packet 12/12/19 Unknown Rx Furosemide [Lasix TAB] 40 mg PO QDAY #30 tablet 12/12/19 Unknown Rx HYDROcodone/APAP 5-325 [[place] 1 each PO BID PRN #6 tablet 12/12/19 Unknown Rx 5-325 mg TAB] Levothyroxine [Synthroid] 50 mcg PO QAM #30 tablet 12/12/19 Unknown Rx Prednisone [predniSONE 10 mg 10 mg PO .TAPER #1 tab.ds.pk 12/12/19 Unknown Rx (6-Day Pack, 21 Tabs)] amLODIPine 10 mg PO DAILY #30 tablet 12/12/19 Unknown Rx amLODIPine 10 mg PO DAILY #30 tablet 12/12/19 Unknown Rx guaiFENesin DM [Guaifenesin Dm 10 ml PO Q4H PRN #1 bottle 12/12/19 Unknown Rx Syrup] Allergies Allergy/AdvReac Type Severity Reaction Status Date / Time No Known Allergies Allergy Verified 07/31/18 10:17 ED Review of Systems ROS: Stated complaint: HERNÁN Other details as noted in HPI Comment: All other systems reviewed and negative Constitutional: denies: chills, fever Respiratory: cough, orthopnea, shortness of breath, SOB with exertion, SOB at rest, wheezing. denies: stridor Cardiovascular: dyspnea on exertion, orthopnea, paroxysmal nocturnal dyspnea. denies: chest pain, palpitations Gastrointestinal: denies: abdominal pain, nausea, vomiting Neurological: denies: headache, weakness ED Past Medical Hx - Past Medical History Hx Hypertension: Yes Hx Heart Attack/AMI: No Hx Congestive Heart Failure: Yes Hx Diabetes: No Hx Deep Vein Thrombosis: No Hx Pulmonary Embolism: No Hx Liver Disease: No Hx Renal Disease: No Hx Sickle Cell Disease: No Hx Arthritis: Yes Hx Seizures: No Hx Kidney Stones: No Hx Asthma: Yes Hx COPD: No Hx Tuberculosis: No Hx Dementia: No Hx HIV: No Additional medical history: hypothyroid, herniated disc, obstructive sleep apnea. OBESITY. RIGHT ROTATOR CUFF TEAR - Surgical History Hx Coronary Stent: No Hx Open Heart Surgery: No Hx Pacemaker: No Hx Internal Defibrillator: No Hx Cholecystectomy: No Hx Appendectomy: No Hx Breast Surgery: No Additional Surgical History: x 3, right shoulder rotator cuff repair - Social History Smoking Status: Unknown if ever smoked - Medications Home Medications: Home Medications Medication Instructions Recorded Confirmed Last Taken Type ALBUTEROL NEB's [Proventil 0.083% 2.5 mg IH Q4HR PRN #30 nebu 12/08/19 Unknown Rx NEBS] Albuterol Mdi (or & Nicu Only) 2 puff IH QID PRN #8.5 gram 12/08/19 Unknown Rx [ProAir HFA Inhaler] guaiFENesin/CODEINE [Robitussin AC] 5 ml PO Q6HR PRN #120 oral.liqd 12/08/19 Unknown Rx ALBUTEROL NEB's [Proventil 0.083% 1 neb IH Q4H PRN #1 box 12/12/19 Unknown Rx NEBS] Azithromycin [Zithromax Z-CLAUDETTE] 0 mg PO DAILY #1 packet 03/14/20 Unknown Rx Furosemide [Lasix TAB] 40 mg PO QDAY #30 tablet 12/12/19 Unknown Rx HYDROcodone/APAP 5-325 [[place] 1 each PO BID PRN #6 tablet 12/12/19 Unknown Rx 5-325 mg TAB] Levothyroxine [Synthroid] 50 mcg PO QAM #30 tablet 12/12/19 Unknown Rx Prednisone [predniSONE 10 mg 10 mg PO .TAPER #1 tab.ds.pk 12/12/19 Unknown Rx (6-Day Pack, 21 Tabs)] amLODIPine 10 mg PO DAILY #30 tablet 12/12/19 Unknown Rx amLODIPine 10 mg PO DAILY #30 tablet 12/12/19 Unknown Rx guaiFENesin DM [Guaifenesin Dm 10 ml PO Q4H PRN #1 bottle 12/12/19 Unknown Rx Syrup] ED Physical Exam - General Limitations: No Limitations General appearance: alert, in distress - Head Head exam: Present: atraumatic, normocephalic, normal inspection - Eye Eye exam: Present: normal appearance - ENT ENT exam: Present: normal exam, normal orophraynx, mucous membranes moist - Neck Neck exam: Present: normal inspection, full ROM. Absent: tenderness, meningismus, lymphadenopathy, thyromegaly - Respiratory Respiratory exam: Present: respiratory distress, wheezes, rales, rhonchi, decreased breath sounds, prolonged expiratory. Absent: stridor, accessory muscle use - Cardiovascular Cardiovascular Exam: Present: regular rate, normal rhythm, normal heart sounds - GI/Abdominal GI/Abdominal exam: Present: soft, normal bowel sounds. Absent: distended, tenderness, guarding, rebound, rigid, organomegaly, mass, bruit, pulsatile mass, hernia - Extremities Exam Extremities exam: Present: normal inspection, full ROM, normal capillary refill, pedal edema. Absent: calf tenderness - Back Exam Back exam: Present: normal inspection, full ROM. Absent: CVA tenderness (R), CVA tenderness (L) - Neurological Exam Neurological exam: Present: alert, oriented X3, CN II-XII intact, normal gait, reflexes normal - Psychiatric Psychiatric exam: Present: normal mood, anxious - Skin Skin exam: Present: warm, intact, normal color ED Course Vital Signs 05/24/20 05/24/20 05/24/20 12:48 12:54 13:01 Temperature 98.1 F Pulse Rate 103 H 101 H Pulse Rate [ Bilateral] Respiratory 22 21 Rate Respiratory Rate [Bilateral ] Blood Pressure Blood Pressure 139/99 [Left] O2 Sat by Pulse 95 93 98 Oximetry 05/24/20 05/24/20 05/24/20 13:05 13:15 13:31 Temperature Pulse Rate 101 H 101 H Pulse Rate [ Bilateral] Respiratory 26 H 22 16 Rate Respiratory Rate [Bilateral ] Blood Pressure 139/99 139/99 Blood Pressure [Left] O2 Sat by Pulse 95 100 100 Oximetry 05/24/20 05/24/20 05/24/20 13:33 13:38 13:45 Temperature Pulse Rate 97 H 94 H Pulse Rate [ 93 H Bilateral] Respiratory 26 H Rate Respiratory 20 Rate [Bilateral ] Blood Pressure 139/99 Blood Pressure [Left] O2 Sat by Pulse 97 Oximetry 05/24/20 05/24/20 05/24/20 14:01 14:31 15:01 Temperature Pulse Rate 99 H 102 H 102 H Pulse Rate [ Bilateral] Respiratory 14 16 14 Rate Respiratory Rate [Bilateral ] Blood Pressure 139/99 137/100 137/100 Blood Pressure [Left] O2 Sat by Pulse 100 98 99 Oximetry 05/24/20 05/24/20 05/24/20 15:18 15:24 15:55 Temperature Pulse Rate 103 H 107 H Pulse Rate [ Bilateral] Respiratory 20 21 Rate Respiratory Rate [Bilateral ] Blood Pressure 137/100 137/100 137/100 Blood Pressure [Left] O2 Sat by Pulse 95 96 79 L Oximetry 05/24/20 05/24/20 05/24/20 16:11 16:12 16:20 Temperature Pulse Rate Pulse Rate [ Bilateral] Respiratory Rate Respiratory Rate [Bilateral ] Blood Pressure 137/100 137/100 137/100 Blood Pressure [Left] O2 Sat by Pulse 80 L 79 L 79 L Oximetry 05/24/20 05/24/20 05/24/20 16:21 16:26 16:27 Temperature Pulse Rate Pulse Rate [ Bilateral] Respiratory Rate Respiratory Rate [Bilateral ] Blood Pressure 137/100 137/100 137/100 Blood Pressure [Left] O2 Sat by Pulse 80 L 79 L 79 L Oximetry 05/24/20 05/24/20 05/24/20 16:29 16:30 16:35 Temperature Pulse Rate Pulse Rate [ Bilateral] Respiratory Rate Respiratory Rate [Bilateral ] Blood Pressure 137/100 137/100 137/100 Blood Pressure [Left] O2 Sat by Pulse 78 L 80 L Oximetry 05/24/20 05/24/20 05/24/20 16:36 16:38 16:58 Temperature Pulse Rate Pulse Rate [ Bilateral] Respiratory Rate Respiratory Rate [Bilateral ] Blood Pressure 137/100 137/100 137/100 Blood Pressure [Left] O2 Sat by Pulse 81 L 80 L 80 L Oximetry 05/24/20 05/24/20 05/24/20 17:11 17:15 17:16 Temperature Pulse Rate Pulse Rate [ Bilateral] Respiratory Rate Respiratory Rate [Bilateral ] Blood Pressure 137/100 137/100 137/100 Blood Pressure [Left] O2 Sat by Pulse 79 L 80 L 78 L Oximetry 05/24/20 05/24/20 05/24/20 17:22 17:25 17:26 Temperature Pulse Rate 104 H 105 H Pulse Rate [ Bilateral] Respiratory 18 16 Rate Respiratory Rate [Bilateral ] Blood Pressure 137/100 134/87 134/87 Blood Pressure [Left] O2 Sat by Pulse 78 L 93 Oximetry 05/24/20 05/24/20 05/24/20 17:27 17:29 17:31 Temperature Pulse Rate 112 H 108 H 109 H Pulse Rate [ Bilateral] Respiratory 13 15 20 Rate Respiratory Rate [Bilateral ] Blood Pressure 134/87 134/87 134/87 Blood Pressure 134/87 [Left] O2 Sat by Pulse 98 95 95 Oximetry 05/24/20 05/24/20 05/24/20 17:33 17:35 17:37 Temperature Pulse Rate 108 H 107 H 104 H Pulse Rate [ Bilateral] Respiratory 24 22 17 Rate Respiratory Rate [Bilateral ] Blood Pressure 134/87 134/87 134/87 Blood Pressure [Left] O2 Sat by Pulse 90 99 95 Oximetry 05/24/20 05/24/20 05/24/20 17:39 17:41 17:43 Temperature Pulse Rate 106 H 104 H 105 H Pulse Rate [ Bilateral] Respiratory 16 13 15 Rate Respiratory Rate [Bilateral ] Blood Pressure 134/87 134/87 134/87 Blood Pressure [Left] O2 Sat by Pulse 97 94 98 Oximetry 05/24/20 05/24/20 05/24/20 17:45 17:47 17:49 Temperature Pulse Rate 109 H 101 H 106 H Pulse Rate [ Bilateral] Respiratory 15 12 12 Rate Respiratory Rate [Bilateral ] Blood Pressure 134/87 134/87 134/87 Blood Pressure [Left] O2 Sat by Pulse 98 98 91 Oximetry 05/24/20 05/24/20 05/24/20 17:51 17:53 17:55 Temperature Pulse Rate 108 H 120 H Pulse Rate [ Bilateral] Respiratory 11 L 12 Rate Respiratory Rate [Bilateral ] Blood Pressure 134/87 134/87 134/87 Blood Pressure [Left] O2 Sat by Pulse 97 98 95 Oximetry 05/24/20 05/24/20 05/24/20 17:57 17:59 18:01 Temperature Pulse Rate Pulse Rate [ Bilateral] Respiratory Rate Respiratory Rate [Bilateral ] Blood Pressure 134/87 134/87 134/87 Blood Pressure [Left] O2 Sat by Pulse 95 97 97 Oximetry 05/24/20 05/24/20 05/24/20 18:03 18:05 18:07 Temperature Pulse Rate Pulse Rate [ Bilateral] Respiratory Rate Respiratory Rate [Bilateral ] Blood Pressure 134/87 134/87 134/87 Blood Pressure [Left] O2 Sat by Pulse 97 94 95 Oximetry 05/24/20 05/24/20 05/24/20 18:09 18:11 18:13 Temperature Pulse Rate Pulse Rate [ Bilateral] Respiratory Rate Respiratory Rate [Bilateral ] Blood Pressure 134/87 134/87 134/87 Blood Pressure [Left] O2 Sat by Pulse 92 88 89 Oximetry 05/24/20 05/24/20 05/24/20 18:15 18:17 18:19 Temperature Pulse Rate Pulse Rate [ Bilateral] Respiratory Rate Respiratory Rate [Bilateral ] Blood Pressure 134/87 134/87 134/87 Blood Pressure [Left] O2 Sat by Pulse 87 97 92 Oximetry 05/24/20 18:21 Temperature Pulse Rate Pulse Rate [ Bilateral] Respiratory Rate Respiratory Rate [Bilateral ] Blood Pressure 134/87 Blood Pressure [Left] O2 Sat by Pulse 89 Oximetry ED Medical Decision Making - Lab Data Result diagrams: 05/24/20 13:08 05/24/20 14:59 - EKG Data -: EKG Interpreted by Me EKG shows normal: sinus rhythm - EKG Data Interpretation: no acute changes - Radiology Data Radiology results: report reviewed - Medical Decision Making Patient is 50 years old female with history of congestive heart failure, asthma and hypertension. Patient brought to the emergency room via EMS from home for evaluation of shortness of breath for the last few days. Patient stated that she is out of all her medication due to insurance issues. Patient presented with moderate respiratory distress slightly tachypneic with significantly swollen legs. Patient denied any chest pain, fever or chills. Patient also denied any nausea or vomiting. EKG shows sinus rhythm no ST elevation. Chest x-ray is unremarkable. CTA is negative for acute finding. Labs reviewed and showed a white count of 20,000. Patient abdomen is soft and nontender. UA still pending. Patient received Zosyn. I discussed the patient with Dr. Bonner, he agreed to admit the patient to medical service for further management. Critical Care Time: Yes Critical care time in (mins) excluding proc time.: 30 Critical care attestation.: If time is entered above; I have spent that time in minutes in the direct care of this critically ill patient, excluding procedure time. ED Disposition Clinical Impression: Acute respiratory distress, Acute exacerbation of CHF (congestive heart failure), Acute asthma exacerbation Disposition: OP ADMIT IP TO THIS HOSP Is pt being admited?: Yes Condition: Stable
[2020-05-24 13:37] LABS: Mean Corpuscular HGB Conc 30 % (30-34); Red Blood Count 5.44 M/mm3 (3.65-5.03)
[2020-05-24 13:40] LABS: Hematocrit 35.8 % (30.3-42.9); Hemoglobin 10.9 gm/dl (10.1-14.3); Mean Corpuscular Volume 66 fl (79-97); Red Cell Distribution Width 24.3 % (13.2-15.2)
[2020-05-24 13:50] LABS: Partial Thromboplastin Time 24.3 Sec. (24.2-36.6)
--- NOTE | 2020-05-24 13:57 | XRay Report ---
CHEST 1 VIEW 05/24/2020 1:30 PM INDICATION / CLINICAL INFORMATION: Dyspnea. COMPARISON: 2 views of the chest from 12/08/2019. FINDINGS: Portable technique limits this exam. SUPPORT DEVICES: None. HEART / MEDIASTINUM: No significant abnormality. LUNGS / PLEURA: No significant pulmonary or pleural abnormality. No pneumothorax. ADDITIONAL FINDINGS: No significant additional findings. IMPRESSION: Limited exam due to portable technique without an acute abnormality of the chest. Signer Name: Pepe Stephens MD Signed: 05/24/2020 1:53 PM Workstation Name: [id number]
[2020-05-24 14:01] LABS: Alanine Aminotransferase 12 units/L (7-56); Albumin 3.8 g/dL (3.9-5)
[2020-05-24] MEDS ORDERED: PIPERACILLIN/TAZOBACTAM 3.375 3.375 GM/50 ML BAG IV ONE (14:10)
[2020-05-24 14:14] LABS: BUN/Creatinine Ratio TNR
[2020-05-24 14:16] LABS: Bilirubin,Direct < 0.2 mg/dL (0-0.2)
[2020-05-24 14:27] LABS: Blood Urea Nitrogen TNR mg/dL (7-17); Calcium TNR mg/dL (8.4-10.2)
[2020-05-24 14:28] LABS: Hemolysis Index TNR
[2020-05-24 14:30] LABS: Anisocytosis 2+; Band Neutrophils # (Manual) 1.7 K/mm3; Hypochromasia 2+; Poikilocytosis 2+; Total Cells Counted 100
[2020-05-24 14:31] LABS: Ovalocytes 1+; Platelet Count 220 K/mm3 (140-440); Platelet Estimate Consistent w Auto
[2020-05-24 15:36] LABS: Alanine Aminotransferase 12 units/L (7-56); Albumin 4.2 g/dL (3.9-5); Blood Urea Nitrogen 12 mg/dL (7-17); Calcium 9.2 mg/dL (8.4-10.2); Hemolysis Index 8
[2020-05-24 15:37] LABS: BUN/Creatinine Ratio 17
[2020-05-24] MEDS ORDERED: MORPHINE 2 MG/1 ML INJ ONE (17:33)
--- NOTE | 2020-05-24 18:20 | Cat Scan Report ---
CT angio chest INDICATION / CLINICAL INFORMATION: SOB. TECHNIQUE: Axial CT images were obtained after injection of 100 cc of Omnipaque 350 IV contrast using CTA protoc ol. 3 plane MIP / 3D reconstructions were produced. All CT scans at this location are performed using CT dose reduction for ALARA by means of automated exposure control. COMPARISON: None available. FINDINGS: Following the injection of intravenous contrast, a suboptimal bolus was obtained. No definite filling defects are seen in the main pulmonary arteries or their branches. Mild diffuse interstitial disease is seen in both lungs. Mild cardiomegaly is present. No enlarged mediastinal or hilar lymph nodes ar e seen. No significant skeletal abnormality is present. IMPRESSION: 1. No evidence of pulmonary embolus. 2. Cardiomegaly with mild diffuse interstitial prominence Signer Name: Tip Parkinson MD FACR Signed: 05/24/2020 6:16 PM Workstation Name: [id number]
[2020-05-24] MEDS ORDERED: ACETAMINOPHEN 325 MG TAB PO PRN (19:43)
[2020-05-24] MEDS ORDERED: ONDANSETRON 4 MG/2 ML INJ IV PRN (19:43)
[2020-05-24] MEDS ORDERED: DEXTROSE 50% IN WATER (25GM) 50 ML SYRINGE IV PRN (19:43)
[2020-05-24] MEDS ORDERED: SODIUM CHLORIDE 0.9% 1000 ML 1,000 ML IV SCH (19:45)
[2020-05-24 20:02] LABS: C-Reactive Protein 1.6 mg/dL (0.00-1.30)
--- NOTE | 2020-05-24 21:20 | History and Physical Report ---
History of Present Illness Date of examination: 05/24/20 Date of admission: 05/24/20 19:44 Chief complaint: Complaints of increasing leg edema and shortness of breath for 2 weeks History of present illness: Patient is a 50-year-old morbidly obese -I[place]ian female with history of asthma, COPD, obstructive sleep apnea, hypertension and hypothyroidism presented to the ED with complaints of increasing shortness of breath and leg edema for the past 2 weeks. She states that she has not taken any medication for any of her medical conditions since November of this year as she has had no insurance. She is alert and oriented. She denies coming in contact with any COVID persons. She is a current smoker. She was found to be hypoxic. With mild leukocytosis although she denies any fever or chills. She does complain of dry cough for the past 2 weeks. Patient is being admitted for COPD exacerbation Past History Past Medical History: COPD, heart failure, hypertension, hypothyroidism Past Surgical History: Social history: smoking Family history: diabetes, hypertension Medications and Allergies Allergies Allergy/AdvReac Type Severity Reaction Status Date / Time No Known Allergies Allergy Verified 07/31/18 10:17 Home Medications Medication Instructions Recorded Confirmed Last Taken Type ALBUTEROL NEB's [Proventil 0.083% 2.5 mg IH Q4HR PRN #30 nebu 12/08/19 Unknown Rx NEBS] Albuterol Mdi (or & Nicu Only) 2 puff IH QID PRN #8.5 gram 12/08/19 Unknown Rx [ProAir HFA Inhaler] guaiFENesin/CODEINE [Robitussin AC] 5 ml PO Q6HR PRN #120 oral.liqd 12/08/19 Unknown Rx ALBUTEROL NEB's [Proventil 0.083% 1 neb IH Q4H PRN #1 box 12/12/19 Unknown Rx NEBS] Azithromycin [Zithromax Z-CLAUDETTE] 0 mg PO DAILY #1 packet 12/12/19 Unknown Rx Furosemide [Lasix TAB] 40 mg PO QDAY #30 tablet 12/12/19 Unknown Rx HYDROcodone/APAP 5-325 [[place] 1 each PO BID PRN #6 tablet 12/12/19 Unknown Rx 5-325 mg TAB] Levothyroxine [Synthroid] 50 mcg PO QAM #30 tablet 12/12/19 Unknown Rx Prednisone [predniSONE 10 mg 10 mg PO .TAPER #1 tab.ds.pk 12/12/19 Unknown Rx (6-Day Pack, 21 Tabs)] amLODIPine 10 mg PO DAILY #30 tablet 12/12/19 Unknown Rx amLODIPine 10 mg PO DAILY #30 tablet 12/12/19 Unknown Rx guaiFENesin DM [Guaifenesin Dm 10 ml PO Q4H PRN #1 bottle 12/12/19 Unknown Rx Syrup] Active Meds: Active Medications Acetaminophen (Tylenol) 650 mg PO Q4H PRN PRN Reason: Pain MILD(1-3)/Fever >100.5/DUFFY Acetaminophen/Hydrocodone Bitart ([place] 5/325) 1 each PO Q6H PRN PRN Reason: Pain, Moderate (4-6) Albuterol/Ipratropium (Duoneb *Not For Prn Use*) 1 ampul IH Q6HRT ON LICENSE OF [facility] Amlodipine Besylate (Amlodipine) 10 mg PO DAILY ON LICENSE OF [facility] Arformoterol Tartrate (Brovana Nebu) 15 mcg IH Q12HRT ON LICENSE OF [facility] Budesonide (Pulmicort) 0.5 mg IH Q12HRT ON LICENSE OF [facility] Dextrose (D50w (25gm) Syringe) 50 ml IV Q30MIN PRN; Protocol PRN Reason: Hypoglycemia Heparin Sodium (Porcine) (Heparin) 5,000 unit SUB-Q Q8HR ON LICENSE OF [facility] Ceftriaxone Sodium (Rocephin/Ns 1 Gm/50 Ml) 1 gm in 50 mls @ 100 mls/hr IV Q24H CASE; Protocol Insulin Human Lispro (Humalog) 0 unit SUB-Q ACHS CASE; Protocol Levothyroxine Sodium (Synthroid) 50 mcg PO DAILY@0600 ON LICENSE OF [facility] Methylprednisolone Sodium Succinate (Solu-Medrol) 40 mg IV Q8H ON LICENSE OF [facility] Ondansetron HCl (Zofran) 4 mg IV Q8H PRN PRN Reason: Nausea And Vomiting Sodium Chloride (Sodium Chloride Flush Syringe 10 Ml) 10 ml IV BID ON LICENSE OF [facility] Sodium Chloride (Sodium Chloride Flush Syringe 10 Ml) 10 ml IV PRN PRN PRN Reason: LINE FLUSH Review of Systems Constitutional: no weight loss, no weight gain, no fever, no chills, no fatigue Ears, nose, mouth and throat: no ear pain, no nasal congestion, no hoarseness, no sore throat Cardiovascular: shortness of breath, high blood pressure, no chest pain, no orthopnea, no syncope Respiratory: cough (Dry), shortness of breath, no congestion Gastrointestinal: no abdominal pain, no nausea, no vomiting, no diarrhea, no constipation, no melena Genitourinary Female: no dysuria Rectal: no pain Musculoskeletal: no neck stiffness Integumentary: no rash Neurological: no head injury, no vertigo Psychiatric: no anxiety, no depression Exam - Constitutional Vitals: Temp Pulse Resp BP Pulse Ox 98.1 F 77 22 132/90 96 05/24/20 12:54 05/24/20 20:06 05/24/20 20:06 05/24/20 20:06 05/24/20 20:06 General appearance: Present: no acute distress, well-nourished, obese - EENT Eyes: Present: PERRL, EOM intact ENT: hearing intact, clear oral mucosa - Neck Neck: Present: supple, normal ROM. Absent: masses or JVD - Respiratory Respiratory effort: normal Respiratory: bilateral: CTA, diminished, negative: rales, rhonchi - Cardiovascular Rhythm: regular Heart Sounds: Present: S1 & S2 - Extremities Extremity abnormal: edema (2-3+ bilateral leg edema) - Abdominal General gastrointestinal: Present: soft, non-tender. Absent: hepatomegaly, splenomegaly - Rectal Rectal Exam: deferred - Integumentary Integumentary: Present: clear - Musculoskeletal Musculoskeletal: strength equal bilaterally - Psychiatric Psychiatric: appropriate mood/affect - Neurologic Neurologic: no focal deficits HEART Score - HEART Score Troponin: Troponin T < 0.010 ng/mL (0.00-0.029) 05/24/20 14:59 Results - Labs CBC & Chem 7: 05/24/20 13:08 05/24/20 18:53 Labs: Abnormal lab results 05/24/20 05/24/20 05/24/20 Range/Units 13:08 13:09 14:59 WBC 20.7 H (4.5-11.0) K/mm3 RBC 5.44 H (3.65-5.03) M/mm3 MCV 66 L (79-97) fl MCH 20 L (28-32) pg RDW 24.3 H (13.2-15.2) % Lymphocytes % (Manual) 7.0 L (13.4-35.0) % Nucleated RBC % 2.0 H (0.0-0.9) % Seg Neutrophils # Man 14.3 H (1.8-7.7) K/mm3 Monocytes # (Manual) 1.2 H (0.0-0.8) K/mm3 Basophils # (Manual) 0.2 H (0.0-0.1) K/mm3 Chloride 97.3 L (98-107) mmol/L Glucose 169 H (65-100) mg/dL Lactate Dehydrogenase (91-180) units/L C-Reactive Protein (0.00-1.30) mg/dL Total Protein 8.6 H (6.3-8.2) g/dL Albumin 3.8 L (3.9-5) g/dL 05/24/20 Range/Units 18:53 WBC (4.5-11.0) K/mm3 RBC (3.65-5.03) M/mm3 MCV (79-97) fl MCH (28-32) pg RDW (13.2-15.2) % Lymphocytes % (Manual) (13.4-35.0) % Nucleated RBC % (0.0-0.9) % Seg Neutrophils # Man (1.8-7.7) K/mm3 Monocytes # (Manual) (0.0-0.8) K/mm3 Basophils # (Manual) (0.0-0.1) K/mm3 Chloride (98-107) mmol/L Glucose 191 H (65-100) mg/dL Lactate Dehydrogenase 311 H (91-180) units/L C-Reactive Protein 1.60 H (0.00-1.30) mg/dL Total Protein (6.3-8.2) g/dL Albumin (3.9-5) g/dL Assessment and Plan - Patient Problems (1) COPD exacerbation Current Visit: Yes Status: Acute Plan to address problem: start on aggressive neb treatments with duoneb solution, brovana and pulmicort solutions and IV solumedrol cont. Oxygen via [place] Pulmonary consult will order covid 19 test check d dimer (2) Hypoxia Current Visit: Yes Status: Acute Plan to address problem: ABG ordered but pending cont. O2 via nasal canula (3) Neutrophilic leukocytosis Current Visit: Yes Status: Acute Plan to address problem: unclear etiology blood cultures were obtained no focus of infection Reactive empiric IV antibiotics (4) Morbid obesity with body mass index (BMI) of 40.0 to 44.9 in adult Current Visit: No Status: Chronic Plan to address problem: due to excess calories counseling done reg. weight loss, diet control and exercise (5) HTN (hypertension) Current Visit: No Status: Chronic Qualifiers: Hypertension type: essential hypertension Qualified Code(s): I10 - Essential (primary) hypertension Plan to address problem: started on medication adjust medication as needed (6) Hypothyroidism Current Visit: No Status: Chronic Qualifiers: Hypothyroidism type: acquired Qualified Code(s): E03.9 - Hypothyroidism, unspecified Plan to address problem: check TSH she has not taken medication in 5 months (7) Obstructive sleep apnea Current Visit: No Status: Chronic Plan to address problem: await pulmonary consult out patient sleep study (8) Tobacco abuse Current Visit: Yes Status: Chronic Plan to address problem: cessation counseling was done
[2020-05-24] MEDS: methylPREDNISolone Sod Succinate 40 MG/1 ML INJ IV SCH (23:00)
[2020-05-24] MEDS: HEPARIN 5,000 UNIT/1 ML VIAL SUB-Q SCH (23:00)
[2020-05-24] MEDS: BUDESONIDE 0.5 MG/2 ML NEBU IH SCH (23:07)
[2020-05-24] MEDS: IPRATROPIUM/ALBUTEROL SULFATE 3 ML AMPUL.NEB IH SCH (23:07)
[2020-05-24] MEDS: ARFORMOTEROL 15 MCG/2 ML NEBU IH SCH (23:07)
[2020-05-24] MEDS: INSULIN LISPRO 100 UNIT/ML VIAL 3 mL SUB-Q SCH (23:15)
[2020-05-25] MEDS: HYDROcodone/ACETAMINOPHEN 5-325 MG TAB PO PRN ×4 (00:04→18:55)
[2020-05-25] MEDS: cefTRIAXone/NS 1 GM/50 ML 1 GM/50 ML BAG IV SCH ×2 (00:06→21:39)
[2020-05-25] MEDS: IPRATROPIUM/ALBUTEROL SULFATE 3 ML AMPUL.NEB IH SCH ×4 (03:00→21:33)
[2020-05-25] MEDS: methylPREDNISolone Sod Succinate 40 MG/1 ML INJ IV SCH ×3 (05:18→21:39)
[2020-05-25] MEDS: HEPARIN 5,000 UNIT/1 ML VIAL SUB-Q SCH ×3 (05:18→21:42)
[2020-05-25] MEDS: LEVOTHYROXINE 50 MCG TAB PO SCH (05:19)
[2020-05-25 08:02] LABS: Mean Corpuscular HGB Conc 30 % (30-34); Red Blood Count 5.58 M/mm3 (3.65-5.03)
[2020-05-25 08:04] LABS: Hematocrit 37.1 % (30.3-42.9); Hemoglobin 11.1 gm/dl (10.1-14.3)
[2020-05-25 08:05] LABS: Mean Corpuscular Volume 67 fl (79-97); Red Cell Distribution Width 23.7 % (13.2-15.2)
[2020-05-25] MEDS: INSULIN LISPRO 100 UNIT/ML VIAL 3 mL SUB-Q SCH ×4 (08:26→22:50)
[2020-05-25 08:28] LABS: Blood Urea Nitrogen 14 mg/dL (7-17); Calcium 9.1 mg/dL (8.4-10.2); Hemolysis Index 6
[2020-05-25 08:34] LABS: BUN/Creatinine Ratio 20
[2020-05-25] MEDS: BUDESONIDE 0.5 MG/2 ML NEBU IH SCH ×2 (08:46→21:19)
[2020-05-25] MEDS: ARFORMOTEROL 15 MCG/2 ML NEBU IH SCH ×2 (08:46→21:19)
[2020-05-25 09:32] LABS: Band Neutrophils # (Manual) 1.9 K/mm3; Basophils % (Manual) 0 % (0.0-1.8); Eosinophils % (Manual) 0 % (0.0-4.3); Total Cells Counted 100
[2020-05-25 09:33] LABS: Anisocytosis 2+; Ovalocytes 1+; Platelet Estimate Consistent w Auto; Poikilocytosis 2+
[2020-05-25] MEDS: amLODIPine 10 MG TAB PO SCH (09:38)
[2020-05-25 09:40] LABS: Platelet Count 240 K/mm3 (140-440)
--- NOTE | 2020-05-25 09:53 | Progress Note ---
Assessment and Plan Assessment and plan: --COPD acute exacerbation Current Visit: Yes Status: Acute Plan to address problem: start on aggressive neb treatments with duoneb solution, brovana and pulmicort solutions and IV solumedrol cont. Oxygen via NC, Pulmonary consult will order covid 19 test, check d dimer -- Hypoxia Current Visit: Yes Status: Acute Plan to address problem: Nebulizers IV steroids IV antibiotics, oxygen --Neutrophilic leukocytosis Current Visit: Yes Status: Acute Plan to address problem: unclear etiology blood cultures were obtained no focus of infection Reactive, empiric IV antibiotics -- Morbid obesity (BMI) of 59.8 Current Visit: No Status: Chronic Plan to address problem: s counseling diet modification, exercise as tolerated and weight reduction When medically stable -- HTN (hypertension) Current Visit: No Status: Chronic Plan to address problem: started on medication adjust medication as needed --Hypothyroidism Current Visit: No Status: Chronic Plan to address problem: check TSH she has not taken medication in 5 months --Obstructive sleep apnea Current Visit: No Status: Chronic Plan to address problem: await pulmonary consult out patient sleep study --Tobacco abuse Current Visit: Yes Status: Chronic Plan to address problem: cessation counseling was done We will closely monitor the patient and adjust management as needed. Plan of care reviewed with the patient and her nurse History Interval history: I have seen and examined the patient at the bedside Patient's chart and medications reviewed Complains of worsening shortness of breath Denies chest pain Patient in mild distress Vital signs noted Hospitalist Physical - Constitutional Vitals: Temp Pulse Resp BP Pulse Ox 98.8 F 110 H 20 118/89 91 05/25/20 04:16 05/25/20 04:16 05/25/20 07:20 05/25/20 04:16 05/25/20 04:16 General appearance: Present: no acute distress, well-nourished, obese - EENT Eyes: Present: PERRL, EOM intact - Neck Neck: Present: supple, normal ROM - Respiratory Respiratory effort: normal Respiratory: bilateral: diminished, negative: rales, rhonchi, wheezing - Cardiovascular Rhythm: regular Heart Sounds: Present: S1 & S2 - Extremities Extremities: no ischemia, No edema - Abdominal General gastrointestinal: soft, non-tender, non-distended, normal bowel sounds - Integumentary Integumentary: Present: clear, warm - Psychiatric Psychiatric: appropriate mood/affect - Neurologic Neurologic: CNII-XII intact HEART Score - HEART Score Troponin: Troponin T < 0.010 ng/mL (0.00-0.029) 05/24/20 14:59 Results - Labs CBC & Chem 7: 05/25/20 07:20 05/25/20 07:20 Labs: Laboratory Last Values WBC 31.5 K/mm3 (4.5-11.0) H 05/25/20 07:20 RBC 5.58 M/mm3 (3.65-5.03) H 05/25/20 07:20 Hgb 11.1 gm/dl (10.1-14.3) 05/25/20 07:20 Hct 37.1 % (30.3-42.9) 05/25/20 07:20 MCV 67 fl (79-97) L 05/25/20 07:20 MCH 20 pg (28-32) L 05/25/20 07:20 MCHC 30 % (30-34) 05/25/20 07:20 RDW 23.7 % (13.2-15.2) H 05/25/20 07:20 Plt Count 240 K/mm3 (140-440) 05/25/20 07:20 Add Manual Diff Complete 05/25/20 07:20 Total Counted 100 05/25/20 07:20 Seg Neutrophils % Agriculture Consultant 05/25/20 07:20 Seg Neuts % (Manual) 85.0 % (40.0-70.0) H 05/25/20 07:20 Band Neutrophils % 6.0 % 05/25/20 07:20 Lymphocytes % (Manual) 1.0 % (13.4-35.0) L 05/25/20 07:20 Reactive Lymphs % (Man) 0 % 05/25/20 07:20 Monocytes % (Manual) 3.0 % (0.0-7.3) 05/25/20 07:20 Eosinophils % (Manual) 0 % (0.0-4.3) 05/25/20 07:20 Basophils % (Manual) 0 % (0.0-1.8) 05/25/20 07:20 Metamyelocytes % 5.0 % 05/25/20 07:20 Myelocytes % 0 % 05/25/20 07:20 Promyelocytes % 0 % 05/25/20 07:20 Blast Cells % 0 % 05/25/20 07:20 Nucleated RBC % Not Reportable 05/25/20 07:20 Seg Neutrophils # Man 26.8 K/mm3 (1.8-7.7) H 05/25/20 07:20 Band Neutrophils # 1.9 K/mm3 05/25/20 07:20 Lymphocytes # (Manual) 0.3 K/mm3 (1.2-5.4) L 05/25/20 07:20 Abs React Lymphs (Man) 0.0 K/mm3 05/25/20 07:20 Monocytes # (Manual) 0.9 K/mm3 (0.0-0.8) H 05/25/20 07:20 Eosinophils # (Manual) 0.0 K/mm3 (0.0-0.4) 05/25/20 07:20 Basophils # (Manual) 0.0 K/mm3 (0.0-0.1) 05/25/20 07:20 Metamyelocytes # 1.6 K/mm3 05/25/20 07:20 Myelocytes # 0.0 K/mm3 05/25/20 07:20 Promyelocytes # 0.0 K/mm3 05/25/20 07:20 Blast Cells # 0.0 K/mm3 05/25/20 07:20 WBC Morphology Not Reportable 05/25/20 07:20 Hypersegmented Neuts Not Reportable 05/25/20 07:20 Hyposegmented Neuts Not Reportable 05/25/20 07:20 Hypogranular Neuts Not Reportable 05/25/20 07:20 Smudge Cells Not Reportable 05/25/20 07:20 Toxic Granulation Not Reportable 05/25/20 07:20 Toxic Vacuolation Not Reportable 05/25/20 07:20 Dohle Bodies Not Reportable 05/25/20 07:20 Pelger-Huet Anomaly Not Reportable 05/25/20 07:20 Genesis Rods Not Reportable 05/25/20 07:20 Platelet Estimate Consistent w auto 05/25/20 07:20 Clumped Platelets Not Reportable 05/25/20 07:20 Plt Clumps, EDTA Not Reportable 05/25/20 07:20 Large Platelets Not Reportable 05/25/20 07:20 Giant Platelets Not Reportable 05/25/20 07:20 Platelet Satelliting Not Reportable 05/25/20 07:20 Plt Morphology Comment Not Reportable 05/25/20 07:20 RBC Morphology Not Reportable 05/25/20 07:20 Dimorphic RBCs Not Reportable 05/25/20 07:20 Polychromasia Not Reportable 05/25/20 07:20 Hypochromasia Not Reportable 05/25/20 07:20 Poikilocytosis 2+ 05/25/20 07:20 Anisocytosis 2+ 05/25/20 07:20 Microcytosis Few 05/25/20 07:20 Macrocytosis Not Reportable 05/25/20 07:20 Spherocytes Not Reportable 05/25/20 07:20 Pappenheimer Bodies Not Reportable 05/25/20 07:20 Sickle Cells Not Reportable 05/25/20 07:20 Target Cells Not Reportable 05/25/20 07:20 Tear Drop Cells Not Reportable 05/25/20 07:20 Ovalocytes 1+ 05/25/20 07:20 Helmet Cells Not Reportable 05/25/20 07:20 [place] Bodies Not Reportable 05/25/20 07:20 [place] Rings Not Reportable 05/25/20 07:20 Kevin Cells Not Reportable 05/25/20 07:20 Bite Cells Not Reportable 05/25/20 07:20 Crenated Cell Not Reportable 05/25/20 07:20 Elliptocytes 2+ 05/25/20 07:20 Acanthocytes (Spur) Not Reportable 05/25/20 07:20 Rouleaux Not Reportable 05/25/20 07:20 Hemoglobin C Crystals Not Reportable 05/25/20 07:20 Schistocytes Not Reportable 05/25/20 07:20 Malaria parasites Not Reportable 05/25/20 07:20 Guero Bodies Not Reportable 05/25/20 07:20 Hem Pathologist Commnt No 05/25/20 07:20 PT 13.4 Sec. (12.2-14.9) 05/24/20 13:08 INR 1.00 (0.87-1.13) 05/24/20 13:08 APTT 24.3 Sec. (24.2-36.6) 05/24/20 13:08 D-Dimer 137.78 ng/mlDDU (0-234) 05/24/20 18:53 Sodium 138 mmol/L (137-145) 05/25/20 07:20 Potassium 4.9 mmol/L (3.6-5.0) 05/25/20 07:20 Chloride 95.8 mmol/L (98-107) L 05/25/20 07:20 Carbon Dioxide 27 mmol/L (22-30) 05/25/20 07:20 Anion Gap 20 mmol/L 05/25/20 07:20 BUN 14 mg/dL (7-17) 05/25/20 07:20 Creatinine 0.7 mg/dL (0.6-1.2) 05/25/20 07:20 Estimated GFR > 60 ml/min 05/25/20 07:20 BUN/Creatinine Ratio 20 % 05/25/20 07:20 Glucose 173 mg/dL (65-100) H 05/25/20 07:20 POC Glucose 154 (70-105) H 05/25/20 07:52 Hemoglobin A1c 5.9 % (4-6) 05/24/20 13:08 Calcium 9.1 mg/dL (8.4-10.2) 05/25/20 07:20 Ferritin 38.1 ng/mL (10.0-200.0) 05/24/20 18:53 Total Bilirubin 0.20 mg/dL (0.1-1.2) 05/24/20 14:59 Direct Bilirubin < 0.2 mg/dL (0-0.2) 05/24/20 13:09 Indirect Bilirubin 0.0 mg/dL 05/24/20 13:09 AST 15 units/L (5-40) 05/24/20 14:59 ALT 12 units/L (7-56) 05/24/20 14:59 Alkaline Phosphatase 106 units/L (35-129) 05/24/20 14:59 Lactate Dehydrogenase 311 units/L (91-180) H 05/24/20 18:53 Troponin T < 0.010 ng/mL (0.00-0.029) 05/24/20 14:59 C-Reactive Protein 1.60 mg/dL (0.00-1.30) H 05/24/20 18:53 NT-Pro-B Natriuret Pep 27.59 pg/mL (0-450) 05/24/20 13:09 Total Protein 8.6 g/dL (6.3-8.2) H 05/24/20 14:59 Albumin 4.2 g/dL (3.9-5) 05/24/20 14:59 Albumin/Globulin Ratio 1.0 % 05/24/20 14:59 TSH 12.710 mlU/mL (0.270-4.200) H 05/24/20 21:44 Microbiology: Microbiology 05/24/20 14:38 Peripheral/Venous Blood Culture - Preliminary Culture in Progress 05/24/20 14:38 Peripheral/Venous Blood Culture - Preliminary Culture in Progress [place]/IV: IV Catheter Type [Right INT / Saline Lock Antecubital] Active Medications - Current Medications Current Medications: Generic Name Dose Route Start Last Admin Trade Name Freq PRN Reason Stop Dose Admin Acetaminophen 650 mg 05/24/20 19:43 Tylenol PO Q4H PRN Pain MILD(1-3)/Fever >100.5/DUFFY Acetaminophen/Hydrocodone Bitart 1 each 05/24/20 19:43 05/25/20 06:20 [place] 5/325 PO 1 each Q6H PRN Administration Pain, Moderate (4-6) Albuterol/Ipratropium 1 ampul 05/24/20 20:00 05/25/20 08:46 Duoneb *Not For Prn Use* IH 1 ampul Q6HRT CASE Administration Amlodipine Besylate 10 mg 05/25/20 10:00 05/25/20 09:38 Amlodipine PO 10 mg DAILY CASE Administration Arformoterol Tartrate 15 mcg 05/24/20 20:00 05/25/20 08:46 Brovana Nebu IH 15 mcg Q12HRT CASE Administration Budesonide 0.5 mg 05/24/20 20:00 05/25/20 08:46 Pulmicort IH 0.5 mg Q12HRT CASE Administration Dextrose 50 ml 05/24/20 19:43 D50w (25gm) Syringe IV Q30MIN PRN Hypoglycemia Protocol Heparin Sodium (Porcine) 5,000 unit 05/24/20 22:00 05/25/20 05:18 Heparin SUB-Q 5,000 unit Q8HR CASE Administration Ceftriaxone Sodium 1 gm in 50 mls @ 100 mls/hr 05/24/20 21:00 05/25/20 00:06 Rocephin/Ns 1 Gm/50 Ml IV 100 mls/hr Q24H CASE Administration Protocol Insulin Human Lispro 0 unit 05/24/20 22:00 05/25/20 08:26 Humalog SUB-Q 2 unit ACHS CASE Administration Protocol Levothyroxine Sodium 50 mcg 05/25/20 06:00 05/25/20 05:19 Synthroid PO 50 mcg DAILY@0600 CASE Administration Methylprednisolone Sodium Succinate 40 mg 05/24/20 20:00 05/25/20 05:18 Solu-Medrol IV 40 mg Q8H CASE Administration Ondansetron HCl 4 mg 05/24/20 19:43 Zofran IV Q8H PRN Nausea And Vomiting Sodium Chloride 10 ml 05/24/20 22:00 05/25/20 09:38 Sodium Chloride Flush Syringe 10 Ml IV 10 ml BID CASE Administration Sodium Chloride 10 ml 05/24/20 19:43 Sodium Chloride Flush Syringe 10 Ml IV PRN PRN LINE FLUSH
--- NOTE | 2020-05-25 13:24 | Event Note ---
Date: 05/25/[address] Mcneil in November, please consult him.
[2020-05-25] MEDS ORDERED: FUROSEMIDE 40 MG/4 ML INJ IV ONE (16:47)
[2020-05-26] MEDS: HYDROcodone/ACETAMINOPHEN 5-325 MG TAB PO PRN ×4 (00:32→18:50)
[2020-05-26] MEDS: IPRATROPIUM/ALBUTEROL SULFATE 3 ML AMPUL.NEB IH SCH ×4 (01:55→21:43)
[2020-05-26] MEDS: methylPREDNISolone Sod Succinate 40 MG/1 ML INJ IV SCH ×3 (04:59→22:23)
[2020-05-26] MEDS: HEPARIN 5,000 UNIT/1 ML VIAL SUB-Q SCH ×3 (05:03→22:23)
[2020-05-26] MEDS: LEVOTHYROXINE 50 MCG TAB PO SCH (05:03)
[2020-05-26] MEDS: INSULIN LISPRO 100 UNIT/ML VIAL 3 mL SUB-Q SCH ×4 (07:40→22:27)
[2020-05-26] MEDS: amLODIPine 10 MG TAB PO SCH (09:33)
[2020-05-26] MEDS: FUROSEMIDE 40 MG TAB PO SCH (09:33)
[2020-05-26] MEDS: cefTRIAXone/NS 2 GM/100 ML 2 GM/100 ML BAG IV SCH (09:34)
[2020-05-26] MEDS: ARFORMOTEROL 15 MCG/2 ML NEBU IH SCH ×2 (10:01→21:40)
[2020-05-26] MEDS: BUDESONIDE 0.5 MG/2 ML NEBU IH SCH ×2 (10:06→21:40)
--- NOTE | 2020-05-26 11:38 | Consultation ---
History of Present Illness Consult date: 05/26/20 Requesting physician: MATEO DELAROSA Reason for consult: COPD, other (NAYELY; Morbid Obesity) [facility] (Full dictation # [id number]) Please see dictated notes for full details Past History Past Medical History: COPD, heart failure, hypertension, hypothyroidism Past Surgical History: Social history: smoking Family history: diabetes, hypertension Medications and Allergies Allergies Allergy/AdvReac Type Severity Reaction Status Date / Time No Known Allergies Allergy Verified 07/31/18 10:17 Home Medications Medication Instructions Recorded Confirmed Last Taken Type ALBUTEROL NEB's [Proventil 0.083% 2.5 mg IH Q4HR PRN #30 nebu 12/08/19 05/25/20 Unknown Rx NEBS] Albuterol Mdi (or & Nicu Only) 2 puff IH QID PRN #8.5 gram 12/08/19 05/25/20 U nknown Rx [ProAir HFA Inhaler] guaiFENesin/CODEINE [Robitussin AC] 5 ml PO Q6HR PRN #120 oral.liqd 12/08/19 05/25/20 Unknown Rx ALBUTEROL NEB's [Proventil 0.083% 1 neb IH Q4H PRN #1 box 12/12/19 05/25/20 Unknown Rx NEBS] Azithromycin [Zithromax Z-CLAUDETTE] 0 mg PO DAILY #1 packet 12/12/19 05/25/20 Unknown Rx Furosemide [Lasix TAB] 40 mg PO QDAY #30 tablet 12/12/19 05/25/20 Unknown Rx HYDROcodone/APAP 5-325 [[place] 1 each PO BID PRN #6 tablet 12/12/19 05/25/20 Unknown Rx 5-325 mg TAB] Levothyroxine [Synthroid] 50 mcg PO QAM #30 tablet 12/12/19 05/25/20 Unknown Rx Prednisone [predniSONE 10 mg 10 mg PO .TAPER #1 tab.ds.pk 12/12/19 05/25/20 Unknown Rx (6-Day Pack, 21 Tabs)] amLODIPine 10 mg PO DAILY #30 tablet 12/12/19 05/25/20 Unknown Rx amLODIPine 10 mg PO DAILY #30 tablet 12/12/19 05/25/20 Unknown Rx guaiFENesin DM [Guaifenesin Dm 10 ml PO Q4H PRN #1 bottle 12/12/19 05/25/20 Unknown Rx Syrup] Active Meds: Active Medications Acetaminophen (Tylenol) 650 mg PO Q4H PRN PRN Reason: Pain MILD(1-3)/Fever >100.5/DUFFY Acetaminophen/Hydrocodone Bitart ([place] 5/325) 1 each PO Q6H PRN PRN Reason: Pain, Moderate (4-6) Last Admin: 05/26/20 06:25 Dose: 1 each Documented by: Albuterol/Ipratropium (Duoneb *Not For Prn Use*) 1 ampul IH Q6HRT [facility] Last Admin: 05/26/20 10:01 Dose: 1 ampul Documented by: Amlodipine Besylate (Amlodipine) 10 mg PO DAILY [facility] Last Admin: 05/26/20 09:33 Dose: 10 mg Documented by: Arformoterol Tartrate (Brovana Nebu) 15 mcg IH Q12HRT [facility] Last Admin: 05/26/20 10:01 Dose: 15 mcg Documented by: Budesonide (Pulmicort) 0.5 mg IH Q12HRT [facility] Last Admin: 05/26/20 10:06 Dose: 0.5 mg Documented by: Dextrose (D50w (25gm) Syringe) 50 ml IV Q30MIN PRN; Protocol PRN Reason: Hypoglycemia Furosemide (Lasix) 40 mg PO QDAY [facility] Last Admin: 05/26/20 09:33 Dose: 40 mg Documented by: Heparin Sodium (Porcine) (Heparin) 5,000 unit SUB-Q Q8HR [facility] Last Admin: 05/26/20 05:03 Dose: 5,000 unit Documented by: Ceftriaxone Sodium (Rocephin/Ns 2 Gm/100 Ml) 2 gm in 100 mls @ 200 mls/hr IV Q24HR [facility] Stop: 05/30/20 12:00 Last Admin: 05/26/20 09:34 Dose: 200 mls/hr Documented by: Insulin Human Lispro (Humalog) 0 unit SUB-Q ACHS [facility]; Protocol Last Admin: 05/26/20 07:40 Dose: 8 unit Documented by: Levothyroxine Sodium (Synthroid) 50 mcg PO DAILY@0600 [facility] Last Admin: 08/27/20 05:03 Dose: 50 mcg Documented by: Methylprednisolone Sodium Succinate (Solu-Medrol) 40 mg IV Q8H [facility] Last Admin: 05/26/20 04:59 Dose: 40 mg Documented by: Ondansetron HCl (Zofran) 4 mg IV Q8H PRN PRN Reason: Nausea And Vomiting Sodium Chloride (Sodium Chloride Flush Syringe 10 Ml) 10 ml IV BID [facility] Last Admin: 05/25/20 21:45 Dose: 10 ml Documented by: Sodium Chloride (Sodium Chloride Flush Syringe 10 Ml) 10 ml IV PRN PRN PRN Reason: LINE FLUSH Physical Examination Vital signs: Vital Signs Pulse Ox 95 05/24/20 12:48 Results - Laboratory Findings CBC and BMP: 05/25/20 07:20 05/25/20 07:20 PT/INR, D-dimer PT 13.4 Sec. (12.2-14.9) 05/24/20 13:08 INR 1.00 (0.87-1.13) 05/24/20 13:08 D-Dimer 137.78 ng/mlDDU (0-234) 05/24/20 18:53 Abnormal lab findings: Abnormal Labs 05/24/20 05/24/20 05/24/20 13:08 13:09 14:59 WBC 20.7 H RBC 5.44 H MCV 66 L MCH 20 L RDW 24.3 H Seg Neuts % (Manual) Lymphocytes % (Manual) 7.0 L Nucleated RBC % 2.0 H Seg Neutrophils # Man 14.3 H Lymphocytes # (Manual) Monocytes # (Manual) 1.2 H Basophils # (Manual) 0.2 H Chloride 97.3 L Glucose 169 H POC Glucose Lactate Dehydrogenase C-Reactive Protein Total Protein 8.6 H Albumin 3.8 L TSH 05/24/20 05/24/20 05/25/20 18:53 21:44 00:26 WBC RBC MCV MCH RDW Seg Neuts % (Manual) Lymphocytes % (Manual) Nucleated RBC % Seg Neutrophils # Man Lymphocytes # (Manual) Monocytes # (Manual) Basophils # (Manual) Chloride Glucose 191 H POC Glucose 203 H Lactate Dehydrogenase 311 H C-Reactive Protein 1.60 H Total Protein Albumin TSH 12.710 H 05/25/20 05/25/20 05/25/20 07:20 07:20 07:52 WBC 31.5 H RBC 5.58 H MCV 67 L MCH 20 L RDW 23.7 H Seg Neuts % (Manual) 85.0 H Lymphocytes % (Manual) 1.0 L Nucleated RBC % Seg Neutrophils # Man 26.8 H Lymphocytes # (Manual) 0.3 L Monocytes # (Manual) 0.9 H Basophils # (Manual) Chloride 95.8 L Glucose 173 H POC Glucose 154 H Lactate Dehydrogenase C-Reactive Protein Total Protein Albumin TSH 05/25/20 05/25/20 05/25/20 12:20 17:06 22:38 WBC RBC MCV MCH RDW Seg Neuts % (Manual) Lymphocytes % (Manual) Nucleated RBC % Seg Neutrophils # Man Lymphocytes # (Manual) Monocytes # (Manual) Basophils # (Manual) Chloride Glucose POC Glucose 192 H 136 H 164 H Lactate Dehydrogenase C-Reactive Protein Total Protein Albumin TSH
--- NOTE | 2020-05-26 14:32 | Progress Note ---
Assessment and Plan Assessment and plan: -- Hypoxia Current Visit: Yes Status: Acute Plan to address problem: Nebulizers IV steroids IV antibiotics, oxygen --COPD acute exacerbation Current Visit: Yes Status: Acute Plan to address problem: start on aggressive neb treatments with duoneb solution, brovana and pulmicort solutions and IV solumedrol cont. Oxygen via NC, Pulmonary consult will order covid 19 test, check d dimer --Neutrophilic leukocytosis Current Visit: Yes Status: Acute Plan to address problem: unclear etiology blood cultures were obtained no focus of infection Reactive, empiric IV antibiotics -- Morbid obesity (BMI) of 59.8 Current Visit: No Status: Chronic Plan to address problem: s counseling diet modification, exercise as tolerated and weight reduction When medically stable -- HTN (hypertension) Current Visit: No Status: Chronic Plan to address problem: started on medication adjust medication as needed --Hypothyroidism Current Visit: No Status: Chronic Plan to address problem: check TSH she has not taken medication in 5 months --Obstructive sleep apnea Current Visit: No Status: Chronic Plan to address problem: await pulmonary consult out patient sleep study --Tobacco abuse Current Visit: Yes Status: Chronic Plan to address problem: cessation counseling was done We will closely monitor the patient and adjust management as needed. Plan of care reviewed with the patient and her nurse History Interval history: I have seen and examined the patient at the bedside in her room this morning Patient's chart and medications reviewed Patient feels slightly better still has shortness of breath Hospitalist Physical - Constitutional Vitals: Temp Pulse Resp BP Pulse Ox 98.4 F 110 H 22 137/86 97 05/26/20 11:32 05/26/20 11:32 05/26/20 11:32 05/26/20 11:32 05/26/20 11:32 General appearance: Present: no acute distress, well-nourished, obese HEART Score - HEART Score Troponin: Troponin T < 0.010 ng/mL (0.00-0.029) 05/24/20 14:59 Results - Labs CBC & Chem 7: 05/25/20 07:20 05/25/20 07:20 Labs: Laboratory Last Values WBC 31.5 K/mm3 (4.5-11.0) H 05/25/20 07:20 RBC 5.58 M/mm3 (3.65-5.03) H 05/25/20 07:20 Hgb 11.1 gm/dl (10.1-14.3) 05/25/20 07:20 Hct 37.1 % (30.3-42.9) 05/25/20 07:20 MCV 67 fl (79-97) L 05/25/20 07:20 MCH 20 pg (28-32) L 05/25/20 07:20 MCHC 30 % (30-34) 05/25/20 07:20 RDW 23.7 % (13.2-15.2) H 05/25/20 07:20 Plt Count 240 K/mm3 (140-440) 05/25/20 07:20 Add Manual Diff Complete 05/25/20 07:20 Total Counted 100 05/25/20 07:20 Seg Neutrophils % Balance Assembler 05/25/20 07:20 Seg Neuts % (Manual) 85.0 % (40.0-70.0) H 05/25/20 07:20 Band Neutrophils % 6.0 % 05/25/20 07:20 Lymphocytes % (Manual) 1.0 % (13.4-35.0) L 05/25/20 07:20 Reactive Lymphs % (Man) 0 % 05/25/20 07:20 Monocytes % (Manual) 3.0 % (0.0-7.3) 05/25/20 07:20 Eosinophils % (Manual) 0 % (0.0-4.3) 05/25/20 07:20 Basophils % (Manual) 0 % (0.0-1.8) 05/25/20 07:20 Metamyelocytes % 5.0 % 05/25/20 07:20 Myelocytes % 0 % 05/25/20 07:20 Promyelocytes % 0 % 05/25/20 07:20 Blast Cells % 0 % 05/25/20 07:20 Nucleated RBC % Not Reportable 05/25/20 07:20 Seg Neutrophils # Man 26.8 K/mm3 (1.8-7.7) H 05/25/20 07:20 Band Neutrophils # 1.9 K/mm3 05/25/20 07:20 Lymphocytes # (Manual) 0.3 K/mm3 (1.2-5.4) L 05/25/20 07:20 Abs React Lymphs (Man) 0.0 K/mm3 05/25/20 07:20 Monocytes # (Manual) 0.9 K/mm3 (0.0-0.8) H 05/25/20 07:20 Eosinophils # (Manual) 0.0 K/mm3 (0.0-0.4) 05/25/20 07:20 Basophils # (Manual) 0.0 K/mm3 (0.0-0.1) 05/25/20 07:20 Metamyelocytes # 1.6 K/mm3 05/25/20 07:20 Myelocytes # 0.0 K/mm3 05/25/20 07:20 Promyelocytes # 0.0 K/mm3 05/25/20 07:20 Blast Cells # 0.0 K/mm3 05/25/20 07:20 WBC Morphology Not Reportable 05/25/20 07:20 Hypersegmented Neuts Not Reportable 05/25/20 07:20 Hyposegmented Neuts Not Reportable 05/25/20 07:20 Hypogranular Neuts Not Reportable 05/25/20 07:20 Smudge Cells Not Reportable 05/25/20 07:20 Toxic Granulation Not Reportable 05/25/20 07:20 Toxic Vacuolation Not Reportable 05/25/20 07:20 Dohle Bodies Not Reportable 05/25/20 07:20 Pelger-Huet Anomaly Not Reportable 05/25/20 07:20 Genesis Rods Not Reportable 05/25/20 07:20 Platelet Estimate Consistent w auto 05/25/20 07:20 Clumped Platelets Not Reportable 05/25/20 07:20 Plt Clumps, EDTA Not Reportable 05/25/20 07:20 Large Platelets Not Reportable 05/25/20 07:20 Giant Platelets Not Reportable 05/25/20 07:20 Platelet Satelliting Not Reportable 05/25/20 07:20 Plt Morphology Comment Not Reportable 05/25/20 07:20 RBC Morphology Not Reportable 05/25/20 07:20 Dimorphic RBCs Not Reportable 05/25/20 07:20 Polychromasia Not Reportable 05/25/20 07:20 Hypochromasia Not Reportable 05/25/20 07:20 Poikilocytosis 2+ 05/25/20 07:20 Anisocytosis 2+ 05/25/20 07:20 Microcytosis Few 05/25/20 07:20 Macrocytosis Not Reportable 05/25/20 07:20 Spherocytes Not Reportable 05/25/20 07:20 Pappenheimer Bodies Not Reportable 05/25/20 07:20 Sickle Cells Not Reportable 05/25/20 07:20 Target Cells Not Reportable 05/25/20 07:20 Tear Drop Cells Not Reportable 05/25/20 07:20 Ovalocytes 1+ 05/25/20 07:20 Helmet Cells Not Reportable 05/25/20 07:20 Zambrano-Largo Bodies Not Reportable 05/25/20 07:20 [place] Rings Not Reportable 05/25/20 07:20 Kevin Cells Not Reportable 05/25/20 07:20 Bite Cells Not Reportable 05/25/20 07:20 Crenated Cell Not Reportable 05/25/20 07:20 Elliptocytes 2+ 05/25/20 07:20 Acanthocytes (Spur) Not Reportable 05/25/20 07:20 Rouleaux Not Reportable 05/25/20 07:20 Hemoglobin C Crystals Not Reportable 05/25/20 07:20 Schistocytes Not Reportable 05/25/20 07:20 Malaria parasites Not Reportable 05/25/20 07:20 Guero Bodies Not Reportable 05/25/20 07:20 Hem Pathologist Commnt No 05/25/20 07:20 PT 13.4 Sec. (12.2-14.9) 05/24/20 13:08 INR 1.00 (0.87-1.13) 05/24/20 13:08 APTT 24.3 Sec. (24.2-36.6) 05/24/20 13:08 D-Dimer 137.78 ng/mlDDU (0-234) 05/24/20 18:53 Sodium 138 mmol/L (137-145) 05/25/20 07:20 Potassium 4.9 mmol/L (3.6-5.0) 05/25/20 07:20 Chloride 95.8 mmol/L (98-107) L 05/25/20 07:20 Carbon Dioxide 27 mmol/L (22-30) 05/25/20 07:20 Anion Gap 20 mmol/L 05/25/20 07:20 BUN 14 mg/dL (7-17) 05/25/20 07:20 Creatinine 0.7 mg/dL (0.6-1.2) 05/25/20 07:20 Estimated GFR > 60 ml/min 05/25/20 07:20 BUN/Creatinine Ratio 20 % 05/25/20 07:20 Glucose 173 mg/dL (65-100) H 05/25/20 07:20 POC Glucose 177 (70-105) H 05/26/20 11:47 Hemoglobin A1c 5.9 % (4-6) 05/24/20 13:08 Calcium 9.1 mg/dL (8.4-10.2) 05/25/20 07:20 Ferritin 38.1 ng/mL (10.0-200.0) 05/24/20 18:53 Total Bilirubin 0.20 mg/dL (0.1-1.2) 05/24/20 14:59 Direct Bilirubin < 0.2 mg/dL (0-0.2) 05/24/20 13:09 Indirect Bilirubin 0.0 mg/dL 05/24/20 13:09 AST 15 units/L (5-40) 05/24/20 14:59 ALT 12 units/L (7-56) 05/24/20 14:59 Alkaline Phosphatase 106 units/L (35-129) 05/24/20 14:59 Lactate Dehydrogenase 311 units/L (91-180) H 05/24/20 18:53 Troponin T < 0.010 ng/mL (0.00-0.029) 05/24/20 14:59 C-Reactive Protein 1.60 mg/dL (0.00-1.30) H 05/24/20 18:53 NT-Pro-B Natriuret Pep 27.59 pg/mL (0-450) 05/24/20 13:09 Total Protein 8.6 g/dL (6.3-8.2) H 05/24/20 14:59 Albumin 4.2 g/dL (3.9-5) 05/24/20 14:59 Albumin/Globulin Ratio 1.0 % 05/24/20 14:59 Procalcitonin < 0.05 ng/mL (<0.15) 05/24/20 18:53 TSH 12.710 mlU/mL (0.270-4.200) H 05/24/20 21:44 Coronavirus (PCR) Negative (Negative) 05/24/20 18:44 Microbiology: Microbiology 05/24/20 14:38 Peripheral/Venous Blood Culture - Preliminary NO GROWTH AFTER 24 HOURS 05/24/20 14:38 Peripheral/Venous Blood Culture - Preliminary NO GROWTH AFTER 24 HOURS Ware/IV: Voiding Method Toilet IV Catheter Type [Right INT / Saline Lock Antecubital] Active Medications - Current Medications Current Medications: Generic Name Dose Route Start Last Admin Trade Name Freq PRN Reason Stop Dose Admin Acetaminophen 650 mg 05/24/20 19:43 Tylenol PO Q4H PRN Pain MILD(1-3)/Fever >100.5/DUFFY Acetaminophen/Hydrocodone Bitart 1 each 05/24/20 19:43 05/26/20 12:42 [place] 5/325 PO 1 each Q6H PRN Administration Pain, Moderate (4-6) Albuterol/Ipratropium 1 ampul 05/24/20 20:00 05/26/20 10:01 Duoneb *Not For Prn Use* IH 1 ampul Q6HRT CASE Administration Amlodipine Besylate 10 mg 05/25/20 10:00 05/26/20 09:33 Amlodipine PO 10 mg DAILY CASE Administration Arformoterol Tartrate 15 mcg 05/24/20 20:00 05/26/20 10:01 Brovana Nebu IH 15 mcg Q12HRT CASE Administration Budesonide 0.5 mg 05/24/20 20:00 05/26/20 10:06 Pulmicort IH 0.5 mg Q12HRT CASE Administration Dextrose 50 ml 05/24/20 19:43 D50w (25gm) Syringe IV Q30MIN PRN Hypoglycemia Protocol Furosemide 40 mg 05/26/20 10:00 05/26/20 09:33 Lasix PO 40 mg QDAY CASE Administration Heparin Sodium (Porcine) 5,000 unit 05/24/20 22:00 05/26/20 13:18 Heparin SUB-Q 5,000 unit Q8HR CASE Administration Ceftriaxone Sodium 2 gm in 100 mls @ 200 mls/hr 05/26/20 10:00 05/26/20 09:34 Rocephin/Ns 2 Gm/100 Ml IV 05/30/20 12:00 200 mls/hr Q24HR CASE Administration Insulin Human Lispro 0 unit 05/24/20 22:00 05/26/20 07:40 Humalog SUB-Q 8 unit ACHS CASE Administration Protocol Levothyroxine Sodium 50 mcg 05/25/20 06:00 05/26/20 05:03 Synthroid PO 50 mcg DAILY@0600 CASE Administration Methylprednisolone Sodium Succinate 40 mg 05/24/20 20:00 05/26/20 04:59 Solu-Medrol IV 40 mg Q8H CASE Administration Ondansetron HCl 4 mg 05/24/20 19:43 Zofran IV Q8H PRN Nausea And Vomiting Sodium Chloride 10 ml 05/24/20 22:00 05/25/20 21:45 Sodium Chloride Flush Syringe 10 Ml IV 10 ml BID CASE Administration Sodium Chloride 10 ml 05/24/20 19:43 Sodium Chloride Flush Syringe 10 Ml IV PRN PRN LINE FLUSH
--- NOTE | 2020-05-26 21:37 | Consultation ---
PULMONARY CRITICAL CARE CONSULTATION NOTE CONSULTING PHYSICIAN: Dr. Regan. REASON FOR CONSULTATION: Shortness of breath, COPD, obstructive sleep apnea. CHIEF COMPLAINT AND HISTORY OF PRESENT ILLNESS: The patient is a middle-aged 50-year-old morbidly obese female with past medical history significant amongst other things both for a diagnosis of obstructive sleep apnea, but also congestive heart failure for which she should be on diuretics at home. She states she ran out of her medications a few months ago. She uses inhalers whenever she finds any around her. She has not been able to keep up with outpatient followup secondary to logistics and I believe insurance/financial issues, came into the Emergency Room complaining of increasing shortness of breath including pedal edema in the preceding 2 weeks. She denied chest pain or palpitations. She states she does not have a CPAP machine and she does not really sleep at night for fear of dying in her sleep. She was evaluated in the Emergency Room, she had denied any contact with known COVID-19 positive patient. She does have about a definite 5+ pack year tobacco smoking history, but it was difficult to pin her down to exactly how much she smokes except to say that she continues to smoke. She was admitted with COPD exacerbation. We are asked to assist with management. When I stopped by to see her, she was sitting up in bed, feeling better. She stated that she had been urinating a lot more since she came in than while she was at home and that her swelling in her lower extremities, in particular and her feeling of bloating was much better. She denied nausea, vomiting, or overt aspiration. She denied any current fevers or chills. She denies any chest pain. She denies any hemoptysis streaky or otherwise. This really is as much of the history of presentation as I have. PAST MEDICAL HISTORY: COPD, congestive heart failure, hypertension, hypothyroidism and obstructive sleep apnea, morbid obesity. PAST SURGICAL HISTORY: She has had a section in the past. MEDICATIONS: She was on at the time I stopped by to see were reviewed, pertinent medications include the following: Tylenol 650 mg p.o. q. 4 hours p.r.n. mild pain or fevers, [place] 5/325 one tablet p.o. q. 6 hours p.r.n. moderate pain, DuoNeb nebulizer treatments scheduled q. 6 hours, amlodipine 10 mg p.o. daily, Brovana 15 mcg inhaled q. 12 hours, Pulmicort 0.5 mg nebulized q. 12 hours, Rocephin 2 g IV daily, Lasix 40 mg p.o. daily, heparin 5000 units subcutaneous q. 8 hours, insulin via sliding scale, Levoxyl 50 mcg p.o. daily, Solu-Medrol 40 mg IV q. 8 hours, Zofran 4 mg IV q. 8 hours p.r.n. nausea and vomiting. ALLERGIES: No known drug allergies. DIET: Morbidly obese, BMI 60. No significant weight loss or gain in the preceding few weeks to months. FAMILY AND SOCIAL HISTORY: Lives in the community, has a 5+ pack year tobacco smoking history. Denies alcohol or illicit drug use or abuse. Family history is otherwise significant for diabetes and hypertension. REVIEW OF SYSTEMS: No loss of consciousness. No new onset focal weakness. No new onset seizures. Denies gross hematochezia or melena. Denies gross hematuria or dysuria. Denies hematemesis. Denies hemoptysis. Denies periods of unexplained sadness and/or elation as may be consistent with psychiatric type disorders. Denies heat or cold intolerance. Denies polydipsia or polyuria. Complete 13-system review of systems was obtained. Pertinent positives and/or negatives as in body of history above, otherwise noncontributory. PHYSICAL EXAMINATION: VITAL SIGNS: At presentation, she was afebrile, temperature 98.1 degrees Fahrenheit. She has remained afebrile too. On presentation, pulse 103, respiratory rate 26, blood pressure 139/99, O2 sats were 95%, inspired oxygen concentration at that time was not recorded. GENERAL: Morbidly obese, middle-aged female, normocephalic, atraumatic, talking to me in full sentences with mildly increased respiratory effort at rest. HEAD, EYES, EARS, NOSE AND THROAT: Anicteric. No conjunctival erythema. Oropharynx was moist. Mallampati #4 oropharynx. No gross jugular venous distention, no thyromegaly. She does have a large neck circumference. Grossly, there were no palpable lymph nodes in the supraclavicular or submandibular lymph node chains. LUNGS: Auscultation of both lung walter significant for diminished bilateral breath sounds, prolonged expiratory phase. No active wheezing at the time of my evaluation. HEART: Heart sounds 1 and 2 are heard. They were regular in rate and rhythm without overt rubs or murmurs. ABDOMEN: Soft, full, protuberant. Bowel sounds are positive, nontender, no palpable hepatosplenomegaly. EXTREMITIES: Without overt digital clubbing, no cyanosis, no pedal edema. Pedal pulses were 2+ bilaterally. NEUROLOGIC: Pupils were equal, round, about 3 mm, reactive to light. Extraocular muscle movements were intact. She moved all 4 extremities spontaneously. SKIN: Normal turgor without overt cellulitis or rash in the areas examined. PSYCHIATRIC: Her mood was normal. Affect was appropriate. LABORATORY DATA: From my review were as follows: White cell count on admission 20,700, hemoglobin 10.9, hematocrit 35.8, platelet count 220, 8% band neutrophils. D-dimer was within normal limits. INR 1.0. Serum sodium was 137, potassium 4.3, chloride 97, bicarbonate 27, BUN 12, creatinine 0.7, glucose 169. Hemoglobin A1c within normal limits. Liver function tests essentially within normal limits. LDH was slightly elevated at 311. CRP slightly elevated at 1.6. TSH elevated at 12.71. Procalcitonin within normal limits. Coronavirus PCR was negative. Two sets of blood cultures are no growth to date at 48 hours. Chest x-ray shows gross cardiomegaly and some mediastinal widening. A CT angio; however, is without significant dissection and no gross or higher order filling defects consistent with central pulmonary emboli, contrast face timing was not the best. She does have evidence of increased interstitial edema with areas of ground glass opacification and some evidence of air trapping. ASSESSMENT: 1. Acute hypoxemic respiratory failure. 2. Acute chronic obstructive pulmonary disease exacerbation. 3. Acute congestive heart failure exacerbation. 4. Tobacco use disorder. 5. Morbid obesity. 6. Obstructive sleep apnea, untreated. 7. Hypertension. 8. Hypothyroidism. I have taken the time to counseling specialist her strongly about tobacco cessation and explained to her that is the major part of her treatment, especially with her not being able to get medications as prescribed. In the meantime, we will agree with gentle diuresis. Keep an eye on her electrolytes as well as inputs and outputs as well as BUN and creatinine, continue systemic steroids, but I will reduce the dose to 40 mg IV q. 12 and taper quickly to oral steroids. Continue long-acting bronchodilators with inhaled corticosteroids. I will reduce the frequency of short-acting bronchodilators to b.i.d. and ultimately p.r.n. Weight loss has been counseled. Again, tobacco abstinence has been suggested, counseled. I note the leukocytosis, CRP and procalcitonin levels are unremarkable. There is probably also a steroid leukocytosis component. She is appropriately on DVT prophylaxis. I will hydrate her on GI prophylaxis, especially with her on systemic steroids and anticoagulation. Flu and pneumonia vaccination will be addressed per protocol. Thank you very much for the consult. We will follow along and make further recommendations as picture progresses/becomes clearer. She will need home oxygen evaluation at discharge. JOB# [id number] DADA/WILDER
[2020-05-27] MEDS: HYDROcodone/ACETAMINOPHEN 5-325 MG TAB PO PRN ×3 (00:33→15:20)
[2020-05-27] MEDS: HEPARIN 5,000 UNIT/1 ML VIAL SUB-Q SCH ×2 (05:48→14:14)
[2020-05-27] MEDS: LEVOTHYROXINE 50 MCG TAB PO SCH (05:50)
[2020-05-27] MEDS: BUDESONIDE 0.5 MG/2 ML NEBU IH SCH (07:58)
[2020-05-27] MEDS: ARFORMOTEROL 15 MCG/2 ML NEBU IH SCH (07:58)
[2020-05-27] MEDS: IPRATROPIUM/ALBUTEROL SULFATE 3 ML AMPUL.NEB IH SCH ×2 (07:59→14:48)
[2020-05-27] MEDS: methylPREDNISolone Sod Succinate 40 MG/1 ML INJ IV SCH (08:49)
[2020-05-27] MEDS: amLODIPine 10 MG TAB PO SCH (09:04)
[2020-05-27] MEDS: FUROSEMIDE 40 MG TAB PO SCH (09:06)
[2020-05-27] MEDS: INSULIN LISPRO 100 UNIT/ML VIAL 3 mL SUB-Q SCH ×2 (09:07→12:05)
[2020-05-27] MEDS ORDERED: FAMOTIDINE 20 MG TAB PO SCH (10:00)
[2020-05-27] MEDS: cefTRIAXone/NS 2 GM/100 ML 2 GM/100 ML BAG IV SCH (10:05)
--- NOTE | 2020-05-27 11:35 | Progress Note ---
Assessment and Plan Acute hypoxemic respiratory failure Acute CHF exacerbation Leukocytosis Hypothyroidism Obstructive sleep apnea HTN (hypertension) Morbid obesity BMI 49.8 Ongoing tobacco use DVT prophylaxis - continue to wean supplemental oxygen to keep O2 sats > 90% - continue Bronchodilators (LABA & JORGE) with pulmonary hygiene per RT - continue systemic steroids with slow taper - continue inhaled corticosteroids - gentle diuresis - continue to avoid nephrotoxins, renally dose all medications - continue mobility protocols to prevent pressure ulcers - PT/OT as tolerated - accuchecks with glycemic control per SSI for target blood glucose < 180 mg/dL - Smoking cessation strongly counseled at the bedside - weight loss counseled at bedside - NIV qhs / while asleep for NAYELY - home oxygen evaluation at discharge - GI & VTE prophylaxis - Flu & pneumovax per protocol - Pulmonary out patient follow up for PFTs and optimization of respiratory status - continue other care per attending / other consultants - prn analgesia per pain score .... re-evaluate in am & prn Subjective Date of service: 05/27/20 Principal diagnosis: Ac hypoxemic resp failure; AE-Asthma; NAYELY; HTN; Morbid obesity Interval history: Patient is seen today for: Acute hypoxemic respiratory failure; Acute CHF exacerbation; Leukocytosis; Hypothyroidism; Obstructive sleep apnea; HTN (hypertension); Morbid obesity BMI 49.8; Ongoing tobacco use Seen and examined at bedside; 24hour events reviewed; nursing and respiratory care staff consulted; no adverse overnight events reported to me; sitting up in bed; Objective Vital Signs - 12hr 05/27/20 05/27/20 05/27/20 05:44 08:00 09:04 Temperature 98.4 F Pulse Rate 85 85 Pulse Rate [ 85 Bilateral] Respiratory 20 Rate Respiratory 20 Rate [Bilateral ] Blood Pressure 149/92 149/92 O2 Sat by Pulse 98 Oximetry Constitutional: no acute distress, other (middle aged morbidly obese female with mildly increased respiratory effort at rest) Eyes: non-icteric ENT: oropharynx moist, other (mallampati 4) Neck: supple, no lymphadenopathy, no JVD Effort: mildly labored Ascultation: Bilateral: clear, diminished breath sounds Percussion: Bilateral: not dull Cardiovascular: regular rate and rhythm Gastrointestinal: normoactive bowel sounds, soft, non-tender, non-distended Integumentary: normal Extremities: no cyanosis, no edema, pulses normal, no ischemia or petechiae Neurologic: normal mental status, non-focal exam, pupils equal and round, motor strength normal and Psychiatric: mood appropriate, affect normal CBC and BMP: 05/25/20 07:20 05/25/20 07:20 ABG, PT/INR, D-dimer: PT/INR, D-dimer PT 13.4 Sec. (12.2-14.9) 05/24/20 13:08 INR 1.00 (0.87-1.13) 05/24/20 13:08 D-Dimer 137.78 ng/mlDDU (0-234) 05/24/20 18:53 Abnormal lab findings: Abnormal Labs 05/24/20 05/24/20 05/24/20 13:08 13:09 14:59 WBC 20.7 H RBC 5.44 H MCV 66 L MCH 20 L RDW 24.3 H Seg Neuts % (Manual) Lymphocytes % (Manual) 7.0 L Nucleated RBC % 2.0 H Seg Neutrophils # Man 14.3 H Lymphocytes # (Manual) Monocytes # (Manual) 1.2 H Basophils # (Manual) 0.2 H Chloride 97.3 L Glucose 169 H POC Glucose Lactate Dehydrogenase C-Reactive Protein Total Protein 8.6 H Albumin 3.8 L TSH 05/24/20 05/24/20 05/25/20 18:53 21:44 00:26 WBC RBC MCV MCH RDW Seg Neuts % (Manual) Lymphocytes % (Manual) Nucleated RBC % Seg Neutrophils # Man Lymphocytes # (Manual) Monocytes # (Manual) Basophils # (Manual) Chloride Glucose 191 H POC Glucose 203 H Lactate Dehydrogenase 311 H C-Reactive Protein 1.60 H Total Protein Albumin TSH 12.710 H 05/25/20 05/25/20 05/25/20 07:20 07:20 07:52 WBC 31.5 H RBC 5.58 H MCV 67 L MCH 20 L RDW 23.7 H Seg Neuts % (Manual) 85.0 H Lymphocytes % (Manual) 1.0 L Nucleated RBC % Seg Neutrophils # Man 26.8 H Lymphocytes # (Manual) 0.3 L Monocytes # (Manual) 0.9 H Basophils # (Manual) Chloride 95.8 L Glucose 173 H POC Glucose 154 H Lactate Dehydrogenase C-Reactive Protein Total Protein Albumin TSH 05/25/20 05/25/20 05/25/20 12:20 17:06 22:38 WBC RBC MCV MCH RDW Seg Neuts % (Manual) Lymphocytes % (Manual) Nucleated RBC % Seg Neutrophils # Man Lymphocytes # (Manual) Monocytes # (Manual) Basophils # (Manual) Chloride Glucose POC Glucose 192 H 136 H 164 H Lactate Dehydrogenase C-Reactive Protein Total Protein Albumin TSH 05/26/20 05/26/20 05/26/20 08:07 11:47 16:57 WBC RBC MCV MCH RDW Seg Neuts % (Manual) Lymphocytes % (Manual) Nucleated RBC % Seg Neutrophils # Man Lymphocytes # (Manual) Monocytes # (Manual) Basophils # (Manual) Chloride Glucose POC Glucose 134 H 177 H 107 H Lactate Dehydrogenase C-Reactive Protein Total Protein Albumin TSH 05/27/20 07:51 WBC RBC MCV MCH RDW Seg Neuts % (Manual) Lymphocytes % (Manual) Nucleated RBC % Seg Neutrophils # Man Lymphocytes # (Manual) Monocytes # (Manual) Basophils # (Manual) Chloride Glucose POC Glucose 114 H Lactate Dehydrogenase C-Reactive Protein Total Protein Albumin TSH Chest x-ray: image reviewed Allied health notes reviewed: nursing
[2020-05-27 13:20] VITALS: BP 144/91
--- NOTE | 2020-05-27 15:29 | Discharge Summary ---
Providers - Providers Date of Admission: 05/24/20 19:44 Date of discharge: 05/27/20 Attending physician: MATEO DELAROSA 05/25/20 16:10 Consult to Physician [CONS] Routine Comment: Consulting Provider: TETO GRAYSON Physician Instructions: Reason For Exam: Acute exacerbation COPD/NAYELY/morbid obesity Primary care physician: ERLIN ROLON Hospitalization Condition: Stable Disposition: DC-01 TO HOME OR SELFCARE Time spent for discharge: 32 min Core Measure Documentation - Palliative Care Palliative Care/ Comfort Measures: Not Applicable - Core Measures Any of the following diagnoses?: none Exam - Constitutional Vitals: Temp Pulse Resp BP Pulse Ox 98.0 F 97 H 22 144/91 94 05/27/20 11:51 05/27/20 14:51 05/27/20 14:51 05/27/20 11:51 05/27/20 11:51 Plan Activity: advance as tolerated (cardiac) Diet: other (Cardiac diet) Additional Instructions: O2 sats resting room air, ambulatory room air more than 94%. No indication for home oxygen. If you have worsening symptoms contact MD or go to emergency room. Advise exercise as tolerated and weight reduction when you are medically stable Follow up with: ERLIN ROLON [Primary Care Provider] - 3-5 Days TETO GRAYSON MD [Staff Physician] - 7 Days Prescriptions: amLODIPine 10 mg PO DAILY #30 tablet amLODIPine 10 mg PO DAILY #30 tablet guaiFENesin DM [Guaifenesin Dm Syrup] 10 ml PO Q4H PRN #1 bottle PRN Reason: Cough Furosemide [Lasix TAB] 40 mg PO QDAY #30 tablet Prednisone [predniSONE 10 mg (6-Day Pack, 21 Tabs)] 10 mg PO .TAPER #1 tab.ds.pk Albuterol Mdi (or & Nicu Only) [ProAir HFA Inhaler] 2 puff IH QID PRN #8.5 gram PRN Reason: Shortness Of Breath Levothyroxine [Synthroid] 50 mcg PO QAM #30 tablet Azithromycin [Zithromax Z-CLAUDETTE] 0 mg PO DAILY #1 packet
== END 2020-05-27 17:25 | disposition home or self-care (01) | DRG 291 ==
LOC: ED 12:41 → 3A 19:44
PROVIDERS: ADMIT Internal Medicine; ATTEND Internal Medicine
DX: I11.0 Hypertensive heart disease with heart failure (principal); J96.01 Acute respiratory failure with hypoxia; Z68.43 Body mass index [BMI] 50.0-59.9, adult; J44.1 Chronic obstructive pulmonary disease with (acute) exacerbation; J45.901 Unspecified asthma with (acute) exacerbation; I50.9 Heart failure, unspecified; E03.9 Hypothyroidism, unspecified; G47.33 Obstructive sleep apnea (adult) (pediatric); E66.01 Morbid (severe) obesity due to excess calories; F17.200 Nicotine dependence, unspecified, uncomplicated; M19.90 Unspecified osteoarthritis, unspecified site; D72.828 Other elevated white blood cell count; Z03.818 Encounter for observation for suspected exposure to other biological agents ruled out; Z71.6 Tobacco abuse counseling; Z82.49 Family history of ischemic heart disease and other diseases of the circulatory system; Z83.3 Family history of diabetes mellitus; Z79.899 Other long term (current) drug therapy
CPT/HCPCS: 36415; 71045; 71275; 80048; 80053; 80076; 82728; 82947; 82962; 83036; 83615; 83880; 84145; 84443; 84484; 85007; 85025; 85379; 85610; 85730; 86140; 87040; 93005; 94640; 94644; 96374; 96375; 96376; 99406; G0378; J0696; J1644; J1940; J2270; J2405; J2543; J2920; J2930; Q9967; U0003-CS

== ENCOUNTER 2020-06-24 09:37 | Inpatient (IN) | payer OTHER, SELFPAY ==
[2020-06-24] MEDS ORDERED: IPRATROPIUM/ALBUTEROL SULFATE 3 ML AMPUL.NEB IH ONE (09:45)
[2020-06-24] MEDS ORDERED: ALBUTEROL 2.5 MG/3 ML NEBU IH ONE (10:06)
[2020-06-24] MEDS ORDERED: FUROSEMIDE 40 MG/4 ML INJ IV ONE (10:06)
[2020-06-24] MEDS ORDERED: MAGNESIUM SULFATE 2 GM/50 ML BAG IV ONE (10:06)
[2020-06-24] MEDS ORDERED: IPRATROPIUM 0.02% NEBU 2.5 ML IH ONE (10:06)
[2020-06-24] MEDS ORDERED: methylPREDNISolone Sod Succinate 125 MG/2 ML INJ IV ONE (10:06)
[2020-06-24] MEDS ORDERED: ACETAMINOPHEN 325 MG TAB PO STA (10:07)
--- NOTE | 2020-06-24 10:08 | Emergency Department Report ---
ED General Adult HPI - General Chief complaint: Dyspnea/Respdistress Stated complaint: DIFFICULTY BREATHING PUI?: No Time Seen by Provider: 06/24/20 09:54 Source: patient, EMS ( EMS documentation not available at time of chart dictation ), RN notes reviewed, old records reviewed Mode of arrival: Stretcher Limitations: No Limitations - History of Present Illness Initial comments: The patient was evaluated in the emergency department for symptoms described in the history of present illness. He/she was evaluated in the context of the global COVID-19 pandemic, which necessitated consideration that the patient might be at risk for infection with the virus that causes COVID-19. Institutional protocols and algorithms that pertain to the evaluation of patients at risk for COVID-19 are in a state of rapid change based on info rmation released by regulatory bodies including the CDC and federal and state organizations. These policies and algorithms were followed during the patient's care in the emergency department. Please note that these policies, procedures and recommendations changed on a rapid basis. During the entire history and physical examination, I am packaging engineer and escorted by nurse DAWIT HART The patient is a 50-year-old female. She has a history of morbid obesity, asthma, COPD, obstructive sleep apnea, hypertension and hypothyroidism, noncompliant with CPAP as she does not have a CPAP. The patient was admitted to this hospital last month for COPD exacerbation, and was found to have a leukocytosis, and was seen in consultation with pulmonology. 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 Lemus Today, the patient presents to the ER with a complaint shortness of breath, cough, wheezing, lower extremity swelling. This is similar to last month's presentation. The patient has not been entirely compliant with her medications. Denies headache, neck pain, chest pain, has mild abdominal tightness, denies , denies oral contraceptive use, denies travel. Her symptoms are improved in the emergency room with albuterol, Atrovent, st eroids and Lasix. -: Gradual, days(s) (7) Location: left, right, lower extremity Severity scale (0 -10): 7 Quality: aching Consistency: intermittent Improves with: rest Worsens with: movement - Related Data Previous Rx's Medication Instructions Recorded Last Taken Type ALBUTEROL NEB's [Proventil 0.083% 2.5 mg IH Q4HR PRN #30 nebu 12/08/19 Unknown Rx NEBS] Albuterol Mdi (or & Nicu Only) 2 puff IH QID PRN #8.5 gram 05/27/20 Unknown Rx [ProAir HFA Inhaler] Azithromycin [Zithromax Z-CLAUDETTE] 0 mg PO DAILY #1 packet 05/27/20 Unknown Rx Furosemide [Lasix TAB] 40 mg PO QDAY #30 tablet 05/27/20 Unknown Rx Levothyroxine [Synthroid] 50 mcg PO QAM #30 tablet 05/27/20 Unknown Rx Prednisone [predniSONE 10 mg 10 mg PO .TAPER #1 tab.ds.pk 05/27/20 Unknown Rx (6-Day Pack, 21 Tabs)] amLODIPine 10 mg PO DAILY #30 tablet 05/27/20 Unknown Rx guaiFENesin DM [Guaifenesin Dm 10 ml PO Q4H PRN #1 bottle 05/27/20 Unknown Rx Syrup] Allergies Allergy/AdvReac Type Severity Reaction Status Date / Time No Known Allergies Allergy Verified 07/31/18 10:17 ED Review of Systems ROS: Stated complaint: DIFFICULTY BREATHING Other details as noted in HPI Constitutional: malaise. denies: fever Eyes: denies: eye discharge ENT: congestion Respiratory: cough, shortness of breath, SOB with exertion, SOB at rest Cardiovascular: edema. denies: chest pain Gastrointestinal: denies: nausea, vomiting, diarrhea Genitourinary: denies: dysuria Musculoskeletal: arthralgia, myalgia Neurological: weakness ED Past Medical Hx - Past Medical History Previous Medical History?: Yes Hx Hypertension: Yes Hx Heart Attack/AMI: No Hx Congestive Heart Failure: Yes Hx Diabetes: No Hx Deep Vein Thrombosis: No Hx Pulmonary Embolism: No Hx Liver Disease: No Hx Renal Disease: No Hx Sickle Cell Disease: No Hx Arthritis: Yes Hx Seizures: No Hx Kidney Stones: No Hx Asthma: Yes Hx COPD: Yes Hx Tuberculosis: No Hx Dementia: No Hx HIV: No Additional medical history: hypothyroid, herniated disc, obstructive sleep apnea. OBESITY. RIGHT ROTATOR CUFF TEAR - Surgical History Past Surgical History?: No Hx Coronary Stent: No Hx Open Heart Surgery: No Hx Pacemaker: No Hx Internal Defibrillator: No Hx Cholecystectomy: No Hx Appendectomy: No Hx Breast Surgery: No Additional Surgical History: x 3, right shoulder rotator cuff repair - Social History Smoking Status: Current Every Day Smoker Substance Use Type: None - Medications Home Medications: Home Medications Medication Instructions Recorded Confirmed Last Taken Type ALBUTEROL NEB's [Proventil 0.083% 2.5 mg IH Q4HR PRN #30 nebu 12/08/19 05/25/20 Unknown Rx NEBS] Albuterol Mdi (or & Nicu Only) 2 puff IH QID PRN #8.5 gram 05/27/20 Unknown Rx [ProAir HFA Inhaler] Azithromycin [Zithromax Z-CLAUDETTE] 0 mg PO DAILY #1 packet 05/27/20 Unknown Rx Furosemide [Lasix TAB] 40 mg PO QDAY #30 tablet 05/27/20 Unknown Rx Levothyroxine [Synthroid] 50 mcg PO QAM #30 tablet 05/27/20 Unknown Rx Prednisone [predniSONE 10 mg 10 mg PO .TAPER #1 tab.ds.pk 05/27/20 Unknown Rx (6-Day Pack, 21 Tabs)] amLODIPine 10 mg PO DAILY #30 tablet 05/27/20 Unknown Rx guaiFENesin DM [Guaifenesin Dm 10 ml PO Q4H PRN #1 bottle 05/27/20 Unknown Rx Syrup] ED Physical Exam - General Limitations: No Limitations General appearance: alert, anxious, in distress, obese - Head Head exam: Present: atraumatic, normocephalic - Eye Eye exam: Present: normal appearance, EOMI. Absent: nystagmus - ENT ENT exam: Present: normal exam, normal orophraynx, mucous membranes moist, normal external ear exam - Neck Neck exam: Present: normal inspection, full ROM. Absent: tenderness, meningismus - Respiratory Respiratory exam: Present: rhonchi. Absent: respiratory distress, wheezes, rales, stridor - Cardiovascular Cardiovascular Exam: Present: regular rate, normal rhythm, normal heart sounds. Absent: bradycardia, tachycardia, irregular rhythm, systolic murmur, diastolic murmur, rubs, gallop - GI/Abdominal GI/Abdominal exam: Present: soft. Absent: distended, tenderness, guarding, rebound, rigid, pulsatile mass - Extremities Exam Extremities exam: Present: normal inspection, full ROM, pedal edema (3+ edema in the bilateral lower extremities), calf tenderness, other (2+ pulses noted in the bilateral upper and lower extremities. There is no palpable cord. negative Homans sign. Muscular compartments are soft. The pelvis is stable.) - Back Exam Back exam: Present: normal inspection, full ROM. Absent: tenderness, CVA tenderness (R), CVA tenderness (L), paraspinal tenderness, vertebral tenderness - Neurological Exam Neurological exam: Present: alert, other (No facial droop. Tongue midline. Extraocular movements intact bilaterally. Facial sensation intact to light touch in V1, V2, V3 distribution bilaterally. 5 and a 5 strength in 4 extre mities. Sensation intact to light touch in 4 extremities.) - Psychiatric Psychiatric exam: Present: anxious - Skin Skin exam: Present: warm, dry, intact, normal color. Absent: rash ED Course Vital Signs 06/24/20 06/24/20 06/24/20 09:46 09:48 09:50 Temperature 97.9 F Pulse Rate 97 H Respiratory 20 20 Rate Blood Pressure Blood Pressure 119/86 [Left] O2 Sat by Pulse 98 99 99 Oximetry 06/24/20 06/24/20 06/24/20 10:00 10:31 10:32 Temperature Pulse Rate 113 H 95 H Respiratory 14 19 20 Rate Blood Pressure 130/88 131/96 Blood Pressure [Left] O2 Sat by Pulse 92 99 Oximetry 06/24/20 11:26 Temperature Pulse Rate Respiratory 16 Rate Blood Pressure Blood Pressure [Left] O2 Sat by Pulse Oximetry - Reevaluation(s) Reevaluation #1: 06/24/20 11:25 Differential diagnosis, including but not limited to: COPD, CHF, asthma, react sharri airway disease, lower extremity DVT, fluid overload, noncompliance, obstructive sleep apnea, pulmonary hypertension Assessment and plan: 50-year-old female who is morbidly obese, known history of CHF and COPD, noncompliant with CPAP, presenting with 1 week of shortness of breath, lower extremity swelling and pain. Leukocytosis appears to be chronic, this is most likely a stress reaction. Lower extremity DVT studies obtained. EKG unchanged from prior, troponin negative x1, as per the [employer] clinical policy, myocardial infarction may be ruled out with 1 set of cardiac enzymes if symptoms present for greater than 8 hours. I suspect the patient's presentation is likely secondary to her multiple medical comorbidities, including obesity, COPD, noncompliance with CPAP, probable pulmonary hypertension, obstructive sleep apnea, and reported history of CHF. She is currently saturating at 99% on room air. X-ray of her chest is pending at this time, lower extremity DVT interpretation is pending at this time. Reevaluation #2: 06/24/20 12:25 DVT study negative for acute findings. Laboratory studies reviewed and appreciated. X-ray of the chest negative for acute findings, leukocytosis is chronic, this is likely a stress reaction. However, patient's arterial blood gas does demonstrate acute hypoxemic respiratory failure, likely secondary to obesity, sleep apnea, CHF and COPD. Thus, the patient meets criteria for hospitalization and admission. She does have evidence of fluid overload, manifest by her symptomatology and lower extremity findings, therefore, she will not benefit from aggressive fluid resuscitation. Supplemental oxygen will be ordered, patient is amenable to hospitalization, hospital physician, Dr. Ashley Pagan to admit ED Medical Decision Making - Lab Data Result diagrams: 06/24/20 10:28 06/24/20 10:28 Vital Signs 06/24/20 06/24/20 06/24/20 09:48 09:50 10:32 Temperature 97.9 F Pulse Rate 97 H Respiratory 20 20 20 Rate Blood Pressure 119/86 [Left] O2 Sat by Pulse 99 99 Oximetry Lab Results 06/24/20 06/24/20 06/24/20 Range/Units 10:28 10:28 10:28 WBC 20.1 H (4.5-11.0) K/mm3 RBC 5.58 H (3.65-5.03) M/mm3 Hgb 11.7 (10.1-14.3) gm/dl Hct 38.1 (30.3-42.9) % MCV 68 L (79-97) fl MCH 21 L (28-32) pg MCHC 31 (30-34) % RDW 25.6 H (13.2-15.2) % Plt Count 227 (140-440) K/mm3 PT 12.9 (12.2-14.9) Sec. INR 0.96 (0.87-1.13) Sodium 139 (137-145) mmol/L Potassium 4.4 (3.6-5.0) mmol/L Chloride 100.1 (98-107) mmol/L Carbon Dioxide 25 (22-30) mmol/L Anion Gap 18 mmol/L BUN 12 (7-17) mg/dL Creatinine 0.7 (0.6-1.2) mg/dL Estimated GFR > 60 ml/min BUN/Creatinine Ratio 17 % Glucose 121 H (65-100) mg/dL Calcium 8.9 (8.4-10.2) mg/dL Magnesium 2.00 (1.7-2.3) mg/dL Total Bilirubin 0.30 (0.1-1.2) mg/dL AST 13 (5-40) units/L ALT 10 (7-56) units/L Alkaline Phosphatase 98 (35-129) units/L Total Creatine Kinase (30-135) units/L Troponin T < 0.010 (0.00-0.029) ng/mL Total Protein 7.7 (6.3-8.2) g/dL Albumin 3.7 L (3.9-5) g/dL Albumin/Globulin Ratio 0.9 % HCG, Quant (0-4) mIU/mL 06/24/20 06/24/20 Range/Units 10:28 10:28 WBC (4.5-11.0) K/mm3 RBC (3.65-5.03) M/mm3 Hgb (10.1-14.3) gm/dl Hct (30.3-42.9) % MCV (79-97) fl MCH (28-32) pg MCHC (30-34) % RDW (13.2-15.2) % Plt Count (140-440) K/mm3 PT (12.2-14.9) Sec. INR (0.87-1.13) Sodium (137-145) mmol/L Potassium (3.6-5.0) mmol/L Chloride (98-107) mmol/L Carbon Dioxide (22-30) mmol/L Anion Gap mmol/L BUN (7-17) mg/dL Creatinine (0.6-1.2) mg/dL Estimated GFR ml/min BUN/Creatinine Ratio % Glucose (65-100) mg/dL Calcium (8.4-10.2) mg/dL Magnesium (1.7-2.3) mg/dL Total Bilirubin (0.1-1.2) mg/dL AST (5-40) units/L ALT (7-56) units/L Alkaline Phosphatase (35-129) units/L Total Creatine Kinase 58 (30-135) units/L Troponin T (0.00-0.029) ng/mL Total Protein (6.3-8.2) g/dL Albumin (3.9-5) g/dL Albumin/Globulin Ratio % HCG, Quant 1.10 (0-4) mIU/mL Vital Signs 06/24/20 06/24/20 06/24/20 09:46 09:48 09:50 Temperature 97.9 F Pulse Rate 97 H Respiratory 20 20 Rate Blood Pressure Blood Pressure 119/86 [Left] O2 Sat by Pulse 98 99 99 Oximetry 06/24/20 06/24/20 06/24/20 10:00 10:31 10:32 Temperature Pulse Rate 113 H 95 H Respiratory 14 19 20 Rate Blood Pressure 130/88 131/96 Blood Pressure [Left] O2 Sat by Pulse 92 99 Oximetry 06/24/20 11:26 Temperature Pulse Rate Respiratory 16 Rate Blood Pressure Blood Pressure [Left] O2 Sat by Pulse Oximetry Lab Results 06/24/20 06/24/20 06/24/20 Range/Units 10:28 10:28 10:28 WBC 20.1 H (4.5-11.0) K/mm3 RBC 5.58 H (3.65-5.03) M/mm3 Hgb 11.7 (10.1-14.3) gm/dl Hct 38.1 (30.3-42.9) % MCV 68 L (79-97) fl MCH 21 L (28-32) pg MCHC 31 (30-34) % RDW 25.6 H (13.2-15.2) % Plt Count 227 (140-440) K/mm3 Add Manual Diff Complete Total Counted 100 Seg Neuts % (Manual) 66.0 (40.0-70.0) % Band Neutrophils % 5.0 % Lymphocytes % (Manual) 12.0 L (13.4-35.0) % Reactive Lymphs % (Man) 0 % Monocytes % (Manual) 6.0 (0.0-7.3) % Eosinophils % (Manual) 3.0 (0.0-4.3) % Basophils % (Manual) 1.0 (0.0-1.8) % Metamyelocytes % 6.0 % Myelocytes % 1.0 % Promyelocytes % 0 % Blast Cells % 0 % Nucleated RBC % Not Reportable Seg Neutrophils # Man 13.3 H (1.8-7.7) K/mm3 Band Neutrophils # 1.0 K/mm3 Lymphocytes # (Manual) 2.4 (1.2-5.4) K/mm3 Abs React Lymphs (Man) 0.0 K/mm3 Monocytes # (Manual) 1.2 H (0.0-0.8) K/mm3 Eosinophils # (Manual) 0.6 H (0.0-0.4) K/mm3 Basophils # (Manual) 0.2 H (0.0-0.1) K/mm3 Metamyelocytes # 1.2 K/mm3 Myelocytes # 0.2 K/mm3 Promyelocytes # 0.0 K/mm3 Blast Cells # 0.0 K/mm3 WBC Morphology Not Reportable Hypersegmented Neuts Not Reportable Hyposegmented Neuts Not Reportable Hypogranular Neuts Not Reportable Smudge Cells Not Reportable Toxic Granulation Not Reportable Toxic Vacuolation Not Reportable Dohle Bodies Not Reportable Pelger-Huet Anomaly Not Reportable Genesis Rods Not Reportable Platelet Estimate Consistent w auto Clumped Platelets Not Reportable Plt Clumps, EDTA Not Reportable Large Platelets Not Reportable Giant Platelets Not Reportable Platelet Satelliting Not Reportable Plt Morphology Comment Not Reportable RBC Morphology Not Reportable Dimorphic RBCs Not Reportable Polychromasia Not Reportable Hypochromasia Few Poikilocytosis 2+ Anisocytosis 2+ Microcytosis 1+ Macrocytosis Not Reportable Spherocytes Not Reportable Pappenheimer Bodies Not Reportable Sickle Cells Not Reportable Target Cells Not Reportable Tear Drop Cells Not Reportable Ovalocytes 1+ Helmet Cells Not Reportable Zambrano-Stanberry Bodies Not Reportable [place] Rings Not Reportable Kevin Cells Not Reportable Bite Cells Not Reportable Crenated Cell Not Reportable Elliptocytes 2+ Acanthocytes (Spur) Not Reportable Rouleaux Not Reportable Hemoglobin C Crystals Not Reportable Schistocytes Not Reportable Malaria parasites Not Reportable Guero Bodies Not Reportable Hem Pathologist Commnt No PT 12.9 (12.2-14.9) Sec. INR 0.96 (0.87-1.13) ABG pH (7.350-7.450) pH Units ABG pCO2 mm Hg ABG pO2 (80.0-90.0) mm Hg ABG HCO3 (20.0-26.0) mmol/L ABG O2 Saturation (95.0-99.0) % ABG O2 Content (0.0-44) ABG Base Excess (-2.0-3.0) mmol/L ABG Hemoglobin (12.0-16.0) gm/dl ABG Carboxyhemoglobin (0.0-5.0) % ABG Methemoglobin (0.0-1.5) % Oxyhemoglobin (95.0-99.0) % FiO2 % Sodium 139 (137-145) mmol/L Potassium 4.4 (3.6-5.0) mmol/L Chloride 100.1 (98-107) mmol/L Carbon Dioxide 25 (22-30) mmol/L Anion Gap 18 mmol/L BUN 12 (7-17) mg/dL Creatinine 0.7 (0.6-1.2) mg/dL Estimated GFR > 60 ml/min BUN/Creatinine Ratio 17 % Glucose 121 H (65-100) mg/dL Calcium 8.9 (8.4-10.2) mg/dL Magnesium 2.00 (1.7-2.3) mg/dL Total Bilirubin 0.30 (0.1-1.2) mg/dL AST 13 (5-40) units/L ALT 10 (7-56) units/L Alkaline Phosphatase 98 (35-129) units/L Total Creatine Kinase (30-135) units/L Troponin T < 0.010 (0.00-0.029) ng/mL Total Protein 7.7 (6.3-8.2) g/dL Albumin 3.7 L (3.9-5) g/dL Albumin/Globulin Ratio 0.9 % HCG, Quant (0-4) mIU/mL 06/24/20 06/24/20 06/24/20 Range/Units 10:28 10:28 12:05 WBC (4.5-11.0) K/mm3 RBC (3.65-5.03) M/mm3 Hgb (10.1-14.3) gm/dl Hct (30.3-42.9) % MCV (79-97) fl MCH (28-32) pg MCHC (30-34) % RDW (13.2-15.2) % Plt Count (140-440) K/mm3 Add Manual Diff Total Counted Seg Neuts % (Manual) (40.0-70.0) % Band Neutrophils % % Lymphocytes % (Manual) (13.4-35.0) % Reactive Lymphs % (Man) % Monocytes % (Manual) (0.0-7.3) % Eosinophils % (Manual) (0.0-4.3) % Basophils % (Manual) (0.0-1.8) % Metamyelocytes % % Myelocytes % % Promyelocytes % % Blast Cells % % Nucleated RBC % Seg Neutrophils # Man (1.8-7.7) K/mm3 Band Neutrophils # K/mm3 Lymphocytes # (Manual) (1.2-5.4) K/mm3 Abs React Lymphs (Man) K/mm3 Monocytes # (Manual) (0.0-0.8) K/mm3 Eosinophils # (Manual) (0.0-0.4) K/mm3 Basophils # (Manual) (0.0-0.1) K/mm3 Metamyelocytes # K/mm3 Myelocytes # K/mm3 Promyelocytes # K/mm3 Blast Cells # K/mm3 WBC Morphology Hypersegmented Neuts Hyposegmented Neuts Hypogranular Neuts Smudge Cells Toxic Granulation Toxic Vacuolation Dohle Bodies Pelger-Huet Anomaly Genesis Rods Platelet Estimate Clumped Platelets Plt Clumps, EDTA Large Platelets Giant Platelets Platelet Satelliting Plt Morphology Comment RBC Morphology Dimorphic RBCs Polychromasia Hypochromasia Poikilocytosis Anisocytosis Microcytosis Macrocytosis Spherocytes Pappenheimer Bodies Sickle Cells Target Cells Tear Drop Cells Ovalocytes Helmet Cells Zambrano-Stanberry Bodies [place] Rings Alpine Cells Bite Cells Crenated Cell Elliptocytes Acanthocytes (Spur) Rouleaux Hemoglobin C Crystals Schistocytes Malaria parasites Guero Bodies Hem Pathologist Commnt PT (12.2-14.9) Sec. INR (0.87-1.13) ABG pH 7.396 (7.350-7.450) pH Units ABG pCO2 46.2 mm Hg ABG pO2 59.9 L (80.0-90.0) mm Hg ABG HCO3 27.7 H (20.0-26.0) mmol/L ABG O2 Saturation 91.8 L (95.0-99.0) % ABG O2 Content 14.2 (0.0-44) ABG Base Excess 2.4 (-2.0-3.0) mmol/L ABG Hemoglobin 11.4 L (12.0-16.0) gm/dl ABG Carboxyhemoglobin 3.3 (0.0-5.0) % ABG Methemoglobin 0.5 (0.0-1.5) % Oxyhemoglobin 88.3 L (95.0-99.0) % FiO2 21 % Sodium (137-145) mmol/L Potassium (3.6-5.0) mmol/L Chloride (98-107) mmol/L Carbon Dioxide (22-30) mmol/L Anion Gap mmol/L BUN (7-17) mg/dL Creatinine (0.6-1.2) mg/dL Estimated GFR ml/min BUN/Creatinine Ratio % Glucose (65-100) mg/dL Calcium (8.4-10.2) mg/dL Magnesium (1.7-2.3) mg/dL Total Bilirubin (0.1-1.2) mg/dL AST (5-40) units/L ALT (7-56) units/L Alkaline Phosphatase (35-129) units/L Total Creatine Kinase 58 (30-135) units/L Troponin T (0.00-0.029) ng/mL Total Protein (6.3-8.2) g/dL Albumin (3.9-5) g/dL Albumin/Globulin Ratio % HCG, Quant 1.10 (0-4) mIU/mL - EKG Data -: EKG Interpreted by Ms EKG shows normal: sinus rhythm - EKG Data When compared to previous EKG there are: no significant change Interpretation: unchanged when compared t 06/24/20 11:25 Sinus rhythm, 99 bpm, there is a left axis deviation, there are Q waves noted in the anteroseptal leads and lateral leads, this EKG is abnormal, the EKG is not a STEMI, the QTC is prolonged, the EKG is unchanged from prior EKG from April 2020 - Radiology Data Radiology results: pending, report reviewed, image reviewed Print Report Referring Physician: ALISA CHOPRA Patient Name: JOE BYERS Date of : 1970 Sex: Female Report Date: 2020-06-24 Report Status: Finalized Findings [facility] [address] [place] [address] Vascular Lab Report Signed Patient: JOE BYERS MR#: [id number] : 1970 Acct:[id number] Age/Sex: 50 / F ADM Date: 06/24/20 Loc: ED Attending Dr: Ordering Physician: ALISA CHOPRA MD Date of Service: 06/24/20 Procedure(s): VL venous duplex LE BILAT Accession Number(s): [id number] cc: ALISA CHOPRA MD DUPLEX DOPPLER LOWER EXTREMITY VEINS, BILATERAL INDICATION / CLINICAL INFORMATION: lower ext pain swelling. Bilateral lower extremity swelling TECHNIQUE: Duplex doppler imaging was performed through the veins of both lower extremities using venous compression and other maneuvers. COMPARISON: None available. FINDINGS: RIGHT COMMON FEMORAL VEIN: Negative. RIGHT FEMORAL VEIN: Negative. RIGHT POPLITEAL VEIN: Negative. RIGHT CALF VEINS: Negative. LEFT COMMON FEMORAL VEIN: Negative. LEFT FEMORAL VEIN: Negative. LEFT POPLITEAL VEIN: Negative. LEFT CALF VEINS: Negative. ADDITIONAL FINDINGS: None. IMPRESSION: 1. No sonographic evidence for DVT in either lower extremity. Signer Name: Ashley Gan MD Signed: 06/24/2020 11:21 AM Workstation Name: [id number] Transcribed By: DT Dictated By: Ronan Gan MD Electronically Authenticated By: Ronan Gan MD Signed Date/Time: 06/24/20 112 DD/ 1121 TD/TT: Print Report Referring Physician: ALISA CHOPRA Patient Name: JOE BYERS Date of : 1970 Sex: Female Report Date: 2020-06-24 Report Status: Finalized Findings [facility] [address] [place] [address] XRay Report Signed Patient: JOE BYERS MR#: [id number] : [birth year] Acct:[id number] Age/Sex: 50 / F ADM Date: 06/24/20 Loc: ED Attending Dr: Ordering Physician: ALISA CHOPRA MD Date of Service: 06/24/20 Procedure(s): XR chest 1V ap Accession Number(s): [id number] cc: ALISA CHOPRA MD Fluoro Time In Minutes: CHEST 1 VIEW INDICATION / CLINICAL INFORMATION: Dyspnea. COMPARISON: 05/24/2020 FINDINGS: SUPPORT DEVICES: None. HEART / MEDIASTINUM: No significant abnormality. LUNGS / PLEURA: No significant pulmonary or pleural abnormality.. No pneumothorax. ADDITIONAL FINDINGS: No significant additional findings. IMPRESSION: 1. No acute findings. Signer Name: Oskar Gomes MD Signed: 06/24/2020 11:43 AM Workstation Name: [id number] Transcribed By: SS Dictated By: Oskar Gomes MD Electronically Authenticated By: Oskar Gomes MD Signed Date/Time: 06/24/20 1143 DD/ 114 TD/TT: Critical care attestation.: If time is entered above; I have spent that time in minutes in the direct care of this critically ill patient, excluding procedure time. ED Disposition Clinical Impression: Acute respiratory failure with hypoxia, Morbid obesity with body mass index (BMI) of 40.0 to 44.9 in adult, COPD exacerbation, Acute exacerbation of CHF (congestive heart failure), Leukocytosis Disposition: OP ADMIT IP TO THIS HOSP Is pt being admited?: Yes Does the pt Need Aspirin: No Condition: Fair Instructions: Chronic Bronchitis (ED), Chronic Obstructive Pulmonary Disease (ED) Referrals: PRIMARY CARE, [Primary Care Provider] - 3-5 Days
[2020-06-24 10:59] LABS: Mean Corpuscular HGB Conc 31 % (30-34); Platelet Count 227 K/mm3 (140-440); Red Blood Count 5.58 M/mm3 (3.65-5.03)
[2020-06-24 11:00] LABS: Hematocrit 38.1 % (30.3-42.9); Hemoglobin 11.7 gm/dl (10.1-14.3); Mean Corpuscular Volume 68 fl (79-97); Red Cell Distribution Width 25.6 % (13.2-15.2)
[2020-06-24 11:09] LABS: INR 0.96 (0.87-1.13)
[2020-06-24 11:19] LABS: Alanine Aminotransferase 10 units/L (7-56); Albumin 3.7 g/dL (3.9-5); Blood Urea Nitrogen 12 mg/dL (7-17); Calcium 8.9 mg/dL (8.4-10.2); Hemolysis Index 12
[2020-06-24 11:20] LABS: BUN/Creatinine Ratio 17
--- NOTE | 2020-06-24 11:26 | Vascular Lab Report ---
DUPLEX DOPPLER LOWER EXTREMITY VEINS, BILATERAL INDICATION / CLINICAL INFORMATION: lower ext pain swelling. Bilateral lower extremity swelling TECHNIQUE: Duplex doppler imaging was performed through the veins of both lower extremities using venous tyrel quoc and other maneuvers. COMPARISON: None available. FINDINGS: RIGHT COMMON FEMORAL VEIN: Negative. RIGHT FEMORAL VEIN: Negative. RIGHT POPLITEAL VEIN: Negative. RIGHT CALF VEINS: Negative. LEFT COMMON FEMORAL VEIN: Negative. LEFT FEMORAL VEIN: Negative. LEFT POPLITEAL VEIN: Negative. LEFT CALF VEINS: Negative. ADDITIONAL FINDINGS: None. IMPRESSION: 1. No sonographic evidence for DVT in either lower extremity. Signer Name: Ashley Gan MD Signed: 06/24/2020 11:21 AM Workstation Name: [id number]
[2020-06-24 11:38] LABS: Myelocytes # (Manual) 0.2 K/mm3; Total Cells Counted 100
[2020-06-24 11:39] LABS: Anisocytosis 2+; Poikilocytosis 2+
[2020-06-24 11:40] LABS: Hypochromasia Few; Ovalocytes 1+; Platelet Estimate Consistent w Auto
--- NOTE | 2020-06-24 11:48 | XRay Report ---
CHEST 1 VIEW INDICATION / CLINICAL INFORMATION: Dyspnea. COMPARISON: 05/24/2020 FINDINGS: SUPPORT DEVICES: None. HEART / MEDIASTINUM: No significant abnormality. LUNGS / PLEURA: No significant pulmonary or pleural abnormality.. No pneumothorax. ADDITIONAL FINDINGS: No significant additional findings. IMPRESSION: 1. No acute findings. Signer Name: Oskar Gomes MD Signed: 06/24/2020 11:43 AM Workstation Name: [id number]
[2020-06-24 12:12] LABS: ABG Base Excess 2.4 mmol/L (-2.0-3.0); ABG HCO3 27.7 mmol/L (20.0-26.0); ABG Methemoglobin 0.5 % (0.0-1.5); ABG Oxygen Saturation 91.8 % (95.0-99.0); ABG PCO2 46.2 mm Hg; ABG PH 7.396 pH Units (7.350-7.450); ABG PO2 59.9 mm Hg (80.0-90.0)
[2020-06-24] MEDS ORDERED: DOXYCYCLINE 100 MG CAP PO ONE (12:27)
[2020-06-24] MEDS ORDERED: MORPHINE 4 MG/1 ML INJ IV ONE (13:01)
[2020-06-24 13:19] LABS: Bacteria,Urine 1+ /HPF (Negative); Bilirubin,Urine NEG (Negative); Blood,Urine NEG (Negative); Color,Urine Straw (Yellow); Protein,Urine <15 mg/dL mg/dL (Negative); Urobilinogen,Urine < 2.0 mg/dL (<2.0)
[2020-06-24] MEDS ORDERED: MORPHINE 2 MG/1 ML INJ ONE (14:25)
[2020-06-24] MEDS ORDERED: DOXYCYCLINE 100 MG CAP ONE (14:26)
[2020-06-24] MEDS ORDERED: ONDANSETRON 4 MG/2 ML INJ IV PRN (14:35)
[2020-06-24] MEDS ORDERED: ACETAMINOPHEN 325 MG TAB PO PRN (14:35)
--- NOTE | 2020-06-24 15:06 | History and Physical Report ---
History of Present Illness Date of examination: 06/24/20 Date of admission: 06/24/20 12:29 Chief complaint: Shortness of breath History of present illness: 50-year-old female with a medical history of hypertension, obstructive sleep apnea, congestive heart failure, COPD, hypothyroidism admitted with a chief complaint of shortness of breath. Patient was recently discharged from the hospital about a month ago after being hospitalized with CHF exacerbation. She states that for the past 2 weeks, she has been getting progressively short of breath on exertion and noted increased swelling of her legs. She also feels like her heart is beating irregularly. She denies any dietary noncompliance or medication noncompliance. She also complains of pain on bilateral lower extremities. She denies any cough, chest pain, contact with anyone with respiratory illness/COVID 19. For above problems, she presented to the hospital for evaluation. Past History Past Medical History: hypertension, hypothyroidism, other (NAYELY) Medications and Allergies Allergies Allergy/AdvReac Type Severity Reaction Status Date / Time No Known Allergies Allergy Verified 07/31/18 10:17 Home Medications Medication Instructions Recorded Confirmed Last Taken Type ALBUTEROL NEB's [Proventil 0.083% 2.5 mg IH Q4HR PRN #30 nebu 12/08/19 05/25/20 Unknown Rx NEBS] Albuterol Mdi (or & Nicu Only) 2 puff IH QID PRN #8.5 gram 05/27/20 Unknown Rx [ProAir HFA Inhaler] Azithromycin [Zithromax Z-CLAUDETTE] 0 mg PO DAILY #1 packet 05/27/20 Unknown Rx Furosemide [Lasix TAB] 40 mg PO QDAY #30 tablet 05/27/20 Unknown Rx Levothyroxine [Synthroid] 50 mcg PO QAM #30 tablet 05/27/20 Unknown Rx Prednisone [predniSONE 10 mg 10 mg PO .TAPER #1 tab.ds.pk 05/27/20 Unknown Rx (6-Day Pack, 21 Tabs)] amLODIPine 10 mg PO DAILY #30 tablet 05/27/20 Unknown Rx guaiFENesin DM [Guaifenesin Dm 10 ml PO Q4H PRN #1 bottle 05/27/20 Unknown Rx Syrup] Active Meds: Active Medications Acetaminophen (Tylenol) 650 mg PO Q4H PRN PRN Reason: Pain MILD(1-3)/Fever >100.5/DUFFY Albuterol (Proventil) 2.5 mg I[facility] Q6HRT [facility] Budesonide (Pulmicort) 0.5 mg IH Q12HRT [facility] Furosemide (Lasix) 40 mg IV 0600,1800 [facility] Methylprednisolone Sodium Succinate 40 mg/ Sodium Chloride 100 mls @ 200 mls/hr IV Q8HR [facility] Ceftriaxone Sodium (Rocephin/Ns 1 Gm/50 Ml) 1 gm in 50 mls @ 100 mls/hr IV Q24HR [facility]; Protocol Ondansetron HCl (Zofran) 4 mg IV Q8H PRN PRN Reason: Nausea And Vomiting Sodium Chloride (Sodium Chloride Flush Syringe 10 Ml) 10 ml IV BID CASE Sodium Chloride (Sodium Chloride Flush Syringe 10 Ml) 10 ml IV PRN PRN PRN Reason: LINE FLUSH Review of Systems Respiratory: other (Dyspnea on exertion) Exam - Constitutional Vitals: Temp Pulse Resp BP Pulse Ox 97.9 F 109 H 19 156/86 95 06/24/20 09:48 06/24/20 14:34 06/24/20 14:34 06/24/20 14:34 06/24/20 14:34 General appearance: Present: no acute distress, well-nourished - EENT Eyes: Present: PERRL ENT: hearing intact, clear oral mucosa - Neck Neck: Present: supple, normal ROM - Respiratory Respiratory effort: normal Respiratory: bilateral: rales, wheezing (Trace) - Cardiovascular Heart Sounds: Present: S1 & S2. Absent: rub, click - Extremities Extremities: pulses symmetrical Extremity abnormal: edema (Slight) Peripheral Pulses: within normal limits - Abdominal General gastrointestinal: Present: soft, non-tender, non-distended, normal bowel sounds Female genitourinary: Present: normal - Integumentary Integumentary: Present: clear, warm, dry - Musculoskeletal Musculoskeletal: gait normal, strength equal bilaterally - Psychiatric Psychiatric: appropriate mood/affect, intact judgment & insight - Neurologic Neurologic: CNII-XII intact, moves all extremities HEART Score - HEART Score Troponin: Troponin T < 0.010 ng/mL (0.00-0.029) 06/24/20 10:28 Results - Labs CBC & Chem 7: 06/24/20 10:28 06/24/20 10:28 Labs: Laboratory Last Values WBC 20.1 K/mm3 (4.5-11.0) H 06/24/20 10:28 RBC 5.58 M/mm3 (3.65-5.03) H 06/24/20 10:28 Hgb 11.7 gm/dl (10.1-14.3) 06/24/20 10: Hct 38.1 % (30.3-42.9) 06/24/20 10:28 MCV 68 fl (79-97) L 06/24/20 10: MCH 21 pg (28-32) L 06/24/20 10:28 MCHC 31 % (30-34) 06/24/20 10: RDW 25.6 % (13.2-15.2) H 06/24/20 10:28 Plt Count 227 K/mm3 (140-440) 06/24/20 10:28 Add Manual Diff Complete 06/24/20 10:28 Total Counted 100 06/24/20 10:28 Seg Neuts % (Manual) 66.0 % (40.0-70.0) 06/24/20 10:28 Band Neutrophils % 5.0 % 06/24/20 10:28 Lymphocytes % (Manual) 12.0 % (13.4-35.0) L 06/24/20 10:28 Reactive Lymphs % (Man) 0 % 06/24/20 10: Monocytes % (Manual) 6.0 % (0.0-7.3) 06/24/20 10: Eosinophils % (Manual) 3.0 % (0.0-4.3) 06/24/20 10:28 Basophils % (Manual) 1.0 % (0.0-1.8) 06/24/20 10:28 Metamyelocytes % 6.0 % 06/24/20 10:28 Myelocytes % 1.0 % 06/24/20 10:28 Promyelocytes % 0 % 06/24/20 10:28 Blast Cells % 0 % 06/24/20 10:28 Nucleated RBC % Not Reportable 06/24/20 10:28 Seg Neutrophils # Man 13.3 K/mm3 (1.8-7.7) H 06/24/20 10:28 Band Neutrophils # 1.0 K/mm3 06/24/20 10:28 Lymphocytes # (Manual) 2.4 K/mm3 (1.2-5.4) 06/24/20 10:28 Abs React Lymphs (Man) 0.0 K/mm3 06/24/20 10:28 Monocytes # (Manual) 1.2 K/mm3 (0.0-0.8) H 06/24/20 10:28 Eosinophils # (Manual) 0.6 K/mm3 (0.0-0.4) H 06/24/20 10:28 Basophils # (Manual) 0.2 K/mm3 (0.0-0.1) H 06/24/20 10:28 Metamyelocytes # 1.2 K/mm3 06/24/20 10:28 Myelocytes # 0.2 K/mm3 06/24/20 10:28 Promyelocytes # 0.0 K/mm3 06/24/20 10:28 Blast Cells # 0.0 K/mm3 06/24/20 10:28 WBC Morphology Not Reportable 06/24/20 10:28 Hypersegmented Neuts Not Reportable 06/24/20 10:28 Hyposegmented Neuts Not Reportable 06/24/20 10:28 Hypogranular Neuts Not Reportable 06/24/20 10:28 Smudge Cells Not Reportable 06/24/20 10:28 Toxic Granulation Not Reportable 06/24/20 10:28 Toxic Vacuolation Not Reportable 06/24/20 10:28 Dohle Bodies Not Reportable 06/24/20 10:28 Pelger-Huet Anomaly Not Reportable 06/24/20 10:28 Genesis Rods Not Reportable 06/24/20 10:28 Platelet Estimate Consistent w auto 06/24/20 10:28 Clumped Platelets Not Reportable 06/24/20 10:28 Plt Clumps, EDTA Not Reportable 06/24/20 10:28 Large Platelets Not Reportable 06/24/20 10:28 Giant Platelets Not Reportable 06/24/20 10:28 Platelet Satelliting Not Reportable 06/24/20 10:28 Plt Morphology Comment Not Reportable 06/24/20 10:28 RBC Morphology Not Reportable 06/24/20 10:28 Dimorphic RBCs Not Reportable 06/24/20 10:28 Polychromasia Not Reportable 06/24/20 10:28 Hypochromasia Few 06/24/20 10:28 Poikilocytosis 2+ 06/24/20 10:28 Anisocytosis 2+ 06/24/20 10:28 Microcytosis 1+ 06/24/20 10:28 Macrocytosis Not Reportable 06/24/20 10:28 Spherocytes Not Reportable 06/24/20 10:28 Pappenheimer Bodies Not Reportable 06/24/20 10:28 Sickle Cells Not Reportable 06/24/20 10:28 Target Cells Not Reportable 06/24/20 10:28 Tear Drop Cells Not Reportable 06/24/20 10:28 Ovalocytes 1+ 06/24/20 10:28 Helmet Cells Not Reportable 06/24/20 10:28 Zambrano-[place] Bodies Not Reportable 06/24/20 10:28 [place] Rings Not Reportable 06/24/20 10:28 [place] Cells Not Reportable 06/24/20 10:28 Bite Cells Not Reportable 06/24/20 10:28 Crenated Cell Not Reportable 06/24/20 10:28 Elliptocytes 2+ 06/24/20 10:28 Acanthocytes (Spur) Not Reportable 06/24/20 10:28 Rouleaux Not Reportable 06/24/20 10:28 Hemoglobin C Crystals Not Reportable 06/24/20 10:28 Schistocytes Not Reportable 06/24/20 10:28 Malaria parasites Not Reportable 06/24/20 10:28 Guero Bodies Not Reportable 06/24/20 10:28 Hem Pathologist Commnt No 06/24/20 10:28 PT 12.9 Sec. (12.2-14.9) 06/24/20 10:28 INR 0.96 (0.87-1.13) 06/24/20 10:28 ABG pH 7.396 pH Units (7.350-7.450) 06/24/20 12:05 ABG pCO2 46.2 mm Hg 06/24/20 12:05 ABG pO2 59.9 mm Hg (80.0-90.0) L 06/24/20 12:05 ABG HCO3 27.7 mmol/L (20.0-26.0) H 06/24/20 12:05 ABG O2 Saturation 91.8 % (95.0-99.0) L 06/24/20 12:05 ABG O2 Content 14.2 (0.0-44) 06/24/20 12:05 ABG Base Excess 2.4 mmol/L (-2.0-3.0) 06/24/20 12:05 ABG Hemoglobin 11.4 gm/dl (12.0-16.0) L 06/24/20 12:05 ABG Carboxyhemoglobin 3.3 % (0.0-5.0) 06/24/20 12:05 ABG Methemoglobin 0.5 % (0.0-1.5) 06/24/20 12:05 Oxyhemoglobin 88.3 % (95.0-99.0) L 06/24/20 12:05 FiO2 21 % 06/24/20 12:05 Sodium 139 mmol/L (137-145) 06/24/20 10:28 Potassium 4.4 mmol/L (3.6-5.0) 06/24/20 10:28 Chloride 100.1 mmol/L (98-107) 06/24/20 10:28 Carbon Dioxide 25 mmol/L (22-30) 06/24/20 10:28 Anion Gap 18 mmol/L 06/24/20 10:28 BUN 12 mg/dL (7-17) 06/24/20 10:28 Creatinine 0.7 mg/dL (0.6-1.2) 06/24/20 10:28 Estimated GFR > 60 ml/min 06/24/20 10:28 BUN/Creatinine Ratio 17 % 06/24/20 10:28 Glucose 121 mg/dL (65-100) H 06/24/20 10:28 Lactic Acid 2.40 mmol/L (0.7-2.0) H* 06/24/20 12:45 Calcium 8.9 mg/dL (8.4-10.2) 06/24/20 10:28 Magnesium 2.00 mg/dL (1.7-2.3) 06/24/20 10:28 Total Bilirubin 0.30 mg/dL (0.1-1.2) 06/24/20 10:28 AST 13 units/L (5-40) 06/24/20 10:28 ALT 10 units/L (7-56) 06/24/20 10:28 Alkaline Phosphatase 98 units/L (35-129) 06/24/20 10:28 Total Creatine Kinase 58 units/L (30-135) 06/24/20 10:28 Troponin T < 0.010 ng/mL (0.00-0.029) 06/24/20 10:28 Total Protein 7.7 g/dL (6.3-8.2) 06/24/20 10:28 Albumin 3.7 g/dL (3.9-5) L 06/24/20 10: Albumin/Globulin Ratio 0.9 % 06/24/20 10:28 HCG, Quant 1.10 mIU/mL (0-4) 06/24/20 10:28 Urine Color Straw (Yellow) 06/24/20 13:00 Urine Turbidity Clear (Clear) 06/24/20 13:00 Urine pH 6.0 (5.0-7.0) 06/24/20 13:00 Ur Specific [place] 1.008 (1.003-1.030) 06/24/20 13:00 Urine Protein <15 mg/dl mg/dL (Negative) 06/24/20 13:00 Urine Glucose (UA) Neg mg/dL (Negative) 06/24/20 13:00 Urine Ketones Neg mg/dL (Negative) 06/24/20 13:00 Urine Blood Neg (Negative) 06/24/20 13:00 Urine Nitrite Neg (Negative) 06/24/20 13:00 Urine Bilirubin Neg (Negative) 06/24/20 13:00 Urine Urobilinogen < 2.0 mg/dL (<2.0) 06/24/20 13:00 Ur Leukocyte Esterase Neg (Negative) 06/24/20 13:00 Urine WBC (Auto) 1.0 /HPF (0.0-6.0) 06/24/20 13:00 Urine RBC (Auto) 1.0 /HPF (0.0-6.0) 06/24/20 13:00 U Epithel Cells (Auto) 1.0 /HPF (0-13.0) 06/24/20 13:00 Urine Bacteria (Auto) 1+ /HPF (Negative) 06/24/20 13:00 Ware/IV: IV Catheter Type [Left INT / Saline Lock Antecubital] Assessment and Plan Assessment and plan: Assessment and plan: -Acute hypoxic respiratory failure Current Visit: Yes Status: Acute Plan to address problem: Nebulizers IV steroids Lasix -Acute on chronic diastolic CHF Current Visit: Yes Status: Acute Plan to address problem: Lasix twice daily for now Switch to oral tomorrow if improved Check proBNP --COPD acute exacerbation Current Visit: Yes Status: Acute Plan to address problem: Continue aggressive neb treatments with duoneb solution, Bronchodilators Cont. Oxygen via NC --Neutrophilic leukocytosis Current Visit: Yes Status: Acute Plan to address problem: unclear etiology no focus of infection Reactive, empiric IV antibiotics -- Morbid obesity (BMI) of 59.8 Current Visit: No Status: Chronic Plan to address problem: s counseling diet modification, exercise as tolerated and weight reduction When medically stable -- HTN (hypertension) Current Visit: No Status: Chronic Plan to address problem: Continue amlodipine adjust medication as needed --Hypothyroidism Current Visit: No Status: Chronic Plan to address problem: check TSH. Synthroid --Obstructive sleep apnea Current Visit: No Status: Chronic Plan to address problem: Pulmonary follow up as outpatient for a sleep study --Tobacco abuse Current Visit: Yes Status: Chronic Plan to address problem: cessation counseling was done We will closely monitor the patient and adjust management as needed. Plan of care reviewed with the patient and her nurse
[2020-06-24] MEDS ORDERED: HYDROmorphone 1 MG/1 ML INJ IV ONE (15:36)
[2020-06-24] MEDS ORDERED: cefTRIAXone/NS 1 GM/50 ML 1 GM/50 ML BAG IV ONE (15:37)
[2020-06-24] MEDS ORDERED: HYDROmorphone 1 MG/1 ML INJ ONE (15:39)
[2020-06-24] MEDS: cefTRIAXone/NS 1 GM/50 ML 1 GM/50 ML BAG IV SCH (16:01)
[2020-06-24] MEDS: HYDROmorphone 1 MG/1 ML INJ IV PRN ×3 (16:03→23:32)
[2020-06-24] MEDS: methylPREDNISolone Sod Suc 40 MG in SODIUM CHLORIDE 0.9% 100 ML IV SCH ×2 (18:46→21:31)
[2020-06-24] MEDS: BUDESONIDE 0.5 MG/2 ML NEBU IH SCH (19:26)
[2020-06-24] MEDS: ALBUTEROL 2.5 MG/3 ML NEBU IH SCH (19:26)
[2020-06-24] MEDS ORDERED: SODIUM CHLORIDE 0.9% 1000 ML 1,000 ML IV ONE (23:51)
[2020-06-25] MEDS: ALBUTEROL 2.5 MG/3 ML NEBU IH SCH ×4 (02:25→20:40)
[2020-06-25 06:24] LABS: Mean Corpuscular HGB Conc 30 % (30-34); Mean Corpuscular Volume 70 fl (79-97); Platelet Count 234 K/mm3 (140-440); Red Blood Count 5.32 M/mm3 (3.65-5.03)
[2020-06-25] MEDS: methylPREDNISolone Sod Suc 40 MG in SODIUM CHLORIDE 0.9% 100 ML IV SCH (06:25)
[2020-06-25 06:28] LABS: Hematocrit 37.4 % (30.3-42.9); Hemoglobin 11.2 gm/dl (10.1-14.3); Red Cell Distribution Width 24.7 % (13.2-15.2)
[2020-06-25] MEDS: HYDROmorphone 1 MG/1 ML INJ IV PRN ×3 (06:29→20:03)
[2020-06-25 06:37] LABS: Blood Urea Nitrogen 17 mg/dL (7-17); Calcium 8.8 mg/dL (8.4-10.2); Hemolysis Index 2
[2020-06-25 06:40] LABS: BUN/Creatinine Ratio 28
[2020-06-25 07:26] LABS: Anisocytosis 1+; Band Neutrophils # (Manual) 0.3 K/mm3; Basophils % (Manual) 0 % (0.0-1.8); Eosinophils % (Manual) 0.5 % (0.0-4.3); Nucleated Red Blood Cells 0.5 % (0.0-0.9); Total Cells Counted 200
[2020-06-25 07:27] LABS: Hypochromasia 1+; Platelet Estimate Consistent w Auto
[2020-06-25] MEDS ORDERED: FUROSEMIDE 40 MG/4 ML INJ IV SCH (08:00)
[2020-06-25 08:58] LABS: % Iron Saturation 9.32 %
[2020-06-25] MEDS: amLODIPine 10 MG TAB PO SCH (09:46)
[2020-06-25] MEDS: cefTRIAXone/NS 1 GM/50 ML 1 GM/50 ML BAG IV SCH (09:46)
--- NOTE | 2020-06-25 09:46 | Progress Note ---
Assessment and Plan Assessment and plan: Assessment and plan: -Acute hypoxic respiratory failure Current Visit: Yes Status: Acute Plan to address problem: Continue steroids Hold Lasix for now due to lactic acidosis -Acute on chronic diastolic CHF Current Visit: Yes Status: Acute Plan to address problem: proBNP less than 200 Hold Lasix for now --COPD acute exacerbation Current Visit: Yes Status: Acute Plan to address problem: Continue aggressive neb treatments with duoneb solution, Bronchodilators Cont. Oxygen via NC --Neutrophilic leukocytosis Current Visit: Yes Status: Acute Plan to address problem: Review of previous labs also showed Leukocytosis during previous hospitalization no focus of infection -UA negative for UTI, chest x-ray negative for pneumonia Reactive, continue empiric IV antibiotics --Lactic acidosis Current Visit: No Status: Chronic Plan to address problem: Unclear etiology Possible dehydration. Hold Lasix for now Trend lactic acid -- Morbid obesity (BMI) of 59.8 Current Visit: No Status: Chronic Plan to address problem: s counseling diet modification, exercise as tolerated and weight reduction When medically stable -- HTN (hypertension) Current Visit: No Status: Chronic Plan to address problem: Continue amlodipine adjust medication as needed --Hypothyroidism Current Visit: No Status: Chronic Plan to address problem: Continue Synthroid --Obstructive sleep apnea Current Visit: No Status: Chronic Plan to address problem: Pulmonary follow up as outpatient for a sleep study --Tobacco abuse Current Visit: Yes Status: Chronic Plan to address problem: cessation counseling was done. Spent more than 10 minutes counseling patient We will closely monitor the patient and adjust management as needed. Plan of care reviewed with the patient and her nurse History Interval history: Patient seen and examined at bedside this morning. States her breathing is much better. Urine output has dropped. Lactic acidosis still persists Hospitalist Physical - Constitutional Vitals: Temp Pulse Resp BP Pulse Ox 98.3 F 102 H 22 145/82 91 06/25/20 06:17 06/25/20 06:17 06/25/20 06:17 06/25/20 06:17 06/25/20 06:17 General appearance: Present: no acute distress, well-nourished - EENT Eyes: Present: PERRL - Respiratory Respiratory: bilateral: diminished, wheezing - Cardiovascular Heart Sounds: Present: S1 & S2 - Extremities Extremity abnormal: edema (Trace) - Abdominal General gastrointestinal: soft, non-tender, normal bowel sounds - Neurologic Neurologic: CNII-XII intact HEART Score - HEART Score Troponin: Troponin T < 0.010 ng/mL (0.00-0.029) 06/24/20 10:28 Results - Labs CBC & Chem 7: 06/25/20 05:07 06/25/20 05:07 Labs: Laboratory Last Values WBC 33.6 K/mm3 (4.5-11.0) H 06/25/20 05:07 RBC 5.32 M/mm3 (3.65-5.03) H 06/25/20 05:07 Hgb 11.2 gm/dl (10.1-14.3) 06/25/20 05:07 Hct 37.4 % (30.3-42.9) 06/25/20 05:07 MCV 70 fl (79-97) L 06/25/20 05:07 MCH 21 pg (28-32) L 06/25/20 05:07 MCHC 30 % (30-34) 06/25/20 05:07 RDW 24.7 % (13.2-15.2) H 06/25/20 05:07 Plt Count 234 K/mm3 (140-440) 06/25/20 05:07 Add Manual Diff Complete 06/25/20 05:07 Total Counted 200 06/25/20 05:07 Seg Neutrophils % Instructional Technology Coordinator 06/25/20 05:07 Seg Neuts % (Manual) 88.5 % (40.0-70.0) H 06/25/20 05:07 Band Neutrophils % 1.0 % 06/25/20 05:07 Lymphocytes % (Manual) 6.0 % (13.4-35.0) L 06/25/20 05:07 Reactive Lymphs % (Man) 0 % 06/25/20 05:07 Monocytes % (Manual) 4.0 % (0.0-7.3) 06/25/20 05:07 Eosinophils % (Manual) 0.5 % (0.0-4.3) 06/25/20 05:07 Basophils % (Manual) 0 % (0.0-1.8) 06/25/20 05:07 Metamyelocytes % 0 % 06/25/20 05:07 Myelocytes % 0 % 06/25/20 05:07 Promyelocytes % 0 % 06/25/20 05:07 Blast Cells % 0 % 06/25/20 05:07 Nucleated RBC % 0.5 % (0.0-0.9) 06/25/20 05:07 Seg Neutrophils # Man 29.7 K/mm3 (1.8-7.7) H 06/25/20 05:07 Band Neutrophils # 0.3 K/mm3 06/25/20 05:07 Lymphocytes # (Manual) 2.0 K/mm3 (1.2-5.4) 06/25/20 05:07 Abs React Lymphs (Man) 0.0 K/mm3 06/25/20 05:07 Monocytes # (Manual) 1.3 K/mm3 (0.0-0.8) H 06/25/20 05:07 Eosinophils # (Manual) 0.2 K/mm3 (0.0-0.4) 06/25/20 05:07 Basophils # (Manual) 0.0 K/mm3 (0.0-0.1) 06/25/20 05:07 Metamyelocytes # 0.0 K/mm3 06/25/20 05:07 Myelocytes # 0.0 K/mm3 06/25/20 05:07 Promyelocytes # 0.0 K/mm3 06/25/20 05:07 Blast Cells # 0.0 K/mm3 06/25/20 05:07 WBC Morphology Not Reportable 06/25/20 05:07 Hypersegmented Neuts Not Reportable 06/25/20 05:07 Hyposegmented Neuts Not Reportable 06/25/20 05:07 Hypogranular Neuts Not Reportable 06/25/20 05:07 Smudge Cells Not Reportable 06/25/20 05:07 Toxic Granulation Not Reportable 06/25/20 05:07 Toxic Vacuolation Not Reportable 06/25/20 05:07 Dohle Bodies Not Reportable 06/25/20 05:07 Pelger-Huet Anomaly Not Reportable 06/25/20 05:07 Genesis Rods Not Reportable 06/25/20 05:07 Platelet Estimate Consistent w auto 06/25/20 05:07 Clumped Platelets Not Reportable 06/25/20 05:07 Plt Clumps, EDTA Not Reportable 06/25/20 05:07 Large Platelets Not Reportable 06/25/20 05:07 Giant Platelets Not Reportable 06/25/20 05:07 Platelet Satelliting Not Reportable 06/25/20 05:07 Plt Morphology Comment Not Reportable 06/25/20 05:07 RBC Morphology Not Reportable 06/25/20 05:07 Dimorphic RBCs Not Reportable 06/25/20 05:07 Polychromasia Not Reportable 06/25/20 05:07 Hypochromasia 1+ 06/25/20 05:07 Poikilocytosis Not Reportable 06/25/20 05:07 Anisocytosis 1+ 06/25/20 05:07 Microcytosis 1+ 06/25/20 05:07 Macrocytosis Not Reportable 06/25/20 05:07 Spherocytes Not Reportable 06/25/20 05:07 Pappenheimer Bodies Not Reportable 06/25/20 05:07 Sickle Cells Not Reportable 06/25/20 05:07 Target Cells Not Reportable 06/25/20 05:07 Tear Drop Cells Not Reportable 06/25/20 05:07 Ovalocytes Not Reportable 06/25/20 05:07 Helmet Cells Not Reportable 06/25/20 05:07 Zambrano-[place] Bodies Not Reportable 06/25/20 05:07 [place] Rings Not Reportable 06/25/20 05:07 [place] Cells Not Reportable 06/25/20 05:07 Bite Cells Not Reportable 06/25/20 05:07 Crenated Cell Not Reportable 06/25/20 05:07 Elliptocytes Not Reportable 06/25/20 05:07 Acanthocytes (Spur) Not Reportable 06/25/20 05:07 Rouleaux Not Reportable 06/25/20 05:07 Hemoglobin C Crystals Not Reportable 06/25/20 05:07 Schistocytes Not Reportable 06/25/20 05:07 Malaria parasites Not Reportable 06/25/20 05:07 Guero Bodies Not Reportable 06/25/20 05:07 Hem Pathologist Commnt No 06/25/20 05:07 PT 12.9 Sec. (12.2-14.9) 06/24/20 10:28 INR 0.96 (0.87-1.13) 06/24/20 10:28 D-Dimer 316.05 ng/mlDDU (0-234) H 06/25/20 07:55 ABG pH 7.396 pH Units (7.350-7.450) 06/24/20 12:05 ABG pCO2 46.2 mm Hg 06/24/20 12:05 ABG pO2 59.9 mm Hg (80.0-90.0) L 06/24/20 12:05 ABG HCO3 27.7 mmol/L (20.0-26.0) H 06/24/20 12:05 ABG O2 Saturation 91.8 % (95.0-99.0) L 06/24/20 12:05 ABG O2 Content 14.2 (0.0-44) 06/24/20 12:05 ABG Base Excess 2.4 mmol/L (-2.0-3.0) 06/24/20 12:05 ABG Hemoglobin 11.4 gm/dl (12.0-16.0) L 06/24/20 12:05 ABG Carboxyhemoglobin 3.3 % (0.0-5.0) 06/24/20 12:05 ABG Methemoglobin 0.5 % (0.0-1.5) 06/24/20 12:05 Oxyhemoglobin 88.3 % (95.0-99.0) L 06/24/20 12:05 FiO2 21 % 06/24/20 12:05 Sodium 137 mmol/L (137-145) 06/25/20 05:07 Potassium 5.0 mmol/L (3.6-5.0) 06/25/20 05:07 Chloride 97.6 mmol/L (98-107) L 06/25/20 05:07 Carbon Dioxide 24 mmol/L (22-30) 06/25/20 05:07 Anion Gap 20 mmol/L 06/25/20 05:07 BUN 17 mg/dL (7-17) 06/25/20 05:07 Creatinine 0.6 mg/dL (0.6-1.2) 06/25/20 05:07 Estimated GFR > 60 ml/min 06/25/20 05:07 BUN/Creatinine Ratio 28 % 06/25/20 05:07 Glucose 229 mg/dL (65-100) H 06/25/20 05:07 Lactic Acid 3.30 mmol/L (0.7-2.0) H* 06/25/20 07:55 Calcium 8.8 mg/dL (8.4-10.2) 06/25/20 05:07 Magnesium 2.00 mg/dL (1.7-2.3) 06/24/20 10:28 Iron 37 ug/dL (37-170) 06/25/20 07:55 TIBC 397 mcg/dL (250-450) 06/25/20 07:55 % Saturation 9.32 % 06/25/20 07:55 Transferrin 334 mg/dl (192-382) 06/25/20 07:55 Ferritin 39.8 ng/mL (10.0-200.0) 06/25/20 07:55 Total Bilirubin 0.30 mg/dL (0.1-1.2) 06/24/20 10:28 AST 13 units/L (5-40) 06/24/20 10:28 ALT 10 units/L (7-56) 06/24/20 10:28 Alkaline Phosphatase 98 units/L (35-129) 06/24/20 10:28 Total Creatine Kinase 58 units/L (30-135) 06/24/20 10:28 Troponin T < 0.010 ng/mL (0.00-0.029) 06/24/20 10:28 NT-Pro-B Natriuret Pep 106.1 pg/mL (0-450) 06/25/20 07:55 Total Protein 7.7 g/dL (6.3-8.2) 06/24/20 10:28 Albumin 3.7 g/dL (3.9-5) L 06/24/20 10:28 Albumin/Globulin Ratio 0.9 % 06/24/20 10:28 HCG, Quant 1.10 mIU/mL (0-4) 06/24/20 10:28 Urine Color Straw (Yellow) 06/24/20 13:00 Urine Turbidity Clear (Clear) 06/24/20 13:00 Urine pH 6.0 (5.0-7.0) 06/24/20 13:00 Ur Specific [place] 1.008 (1.003-1.030) 06/24/20 13:00 Urine Protein <15 mg/dl mg/dL (Negative) 06/24/20 13:00 Urine Glucose (UA) Neg mg/dL (Negative) 06/24/20 13:00 Urine Ketones Neg mg/dL (Negative) 06/24/20 13:00 Urine Blood Neg (Negative) 06/24/20 13:00 Urine Nitrite Neg (Negative) 06/24/20 13:00 Urine Bilirubin Neg (Negative) 06/24/20 13:00 Urine Urobilinogen < 2.0 mg/dL (<2.0) 06/24/20 13:00 Ur Leukocyte Esterase Neg (Negative) 06/24/20 13:00 Urine WBC (Auto) 1.0 /HPF (0.0-6.0) 06/24/20 13:00 Urine RBC (Auto) 1.0 /HPF (0.0-6.0) 06/24/20 13:00 U Epithel Cells (Auto) 1.0 /HPF (0-13.0) 06/24/20 13:00 Urine Bacteria (Auto) 1+ /HPF (Negative) 06/24/20 13:00 Microbiology: Microbiology 06/24/20 12:45 Peripheral/Venous Blood Culture - Preliminary Culture in Progress 06/24/20 12:45 Peripheral/Venous Blood Culture - Preliminary Culture in Progress Ware/IV: Voiding Method Toilet IV Catheter Type [Left INT / Saline Lock Antecubital] Active Medications - Current Medications Current Medications: Generic Name Dose Route Start Last Admin Trade Name Freq PRN Reason Stop Dose Admin Acetaminophen 650 mg 06/24/20 14:35 Tylenol PO Q4H PRN Pain MILD(1-3)/Fever >100.5/DUFFY Albuterol 2.5 mg 06/24/20 20:00 06/25/20 02:25 Proventil IH 2.5 mg Q6HRT CASE Administration Amlodipine Besylate 10 mg 06/25/20 10:00 Amlodipine PO DAILY CASE Budesonide 0.5 mg 06/24/20 20:00 06/24/20 19:26 Pulmicort IH 0.5 mg Q12HRT CASE Administration Hydromorphone HCl 0.5 mg 06/24/20 16:00 06/25/20 06:29 Dilaudid IV 0.5 mg Q3H PRN Administration Pain , Severe (7-10) Ceftriaxone Sodium 1 gm in 50 mls @ 100 mls/hr 06/24/20 15:00 06/24/20 16:01 Rocephin/Ns 1 Gm/50 Ml IV 100 mls/hr Q24HR CASE Administration Protocol Azithromycin 500 mg/ Sodium 250 mls @ 250 mls/hr 06/25/20 10:00 Chloride IV Q24HR CASE Protocol Levothyroxine Sodium 50 mcg 06/25/20 10:00 Synthroid PO QAM [facility] Methylprednisolone Sodium Succinate 40 mg 06/25/20 14:00 Solu-Medrol IV Q8HR CASE Ondansetron HCl 4 mg 06/24/20 14:35 Zofran IV Q8H PRN Nausea And Vomiting Sodium Chloride 10 ml 06/24/20 22:00 06/24/20 21:31 Sodium Chloride Flush Syringe 10 Ml IV 10 ml BID CASE Administration Sodium Chloride 10 ml 06/24/20 14:35 Sodium Chloride Flush Syringe 10 Ml IV PRN PRN LINE FLUSH
[2020-06-25] MEDS: BUDESONIDE 0.5 MG/2 ML NEBU IH SCH ×2 (09:58→20:40)
[2020-06-25] MEDS ORDERED: LEVOTHYROXINE 50 MCG TAB PO SCH (10:00)
[2020-06-25] MEDS ORDERED: AZITHROMYCIN 500 MG in SODIUM CHLORIDE 0.9% 250ML 250 ML IV SCH (10:00)
[2020-06-25] MEDS ORDERED: LORazepam 2 MG/ML VIAL IV STA (14:13)
[2020-06-25] MEDS: methylPREDNISolone Sod Succinate 40 MG/1 ML INJ IV SCH ×2 (14:47→21:14)
[2020-06-25] MEDS: FERROUS SULFATE 325 MG TAB PO SCH (14:52)
--- NOTE | 2020-06-25 17:38 | Cat Scan Report ---
CTA CHEST WITH CONTRAST INDICATION / CLINICAL INFORMATION: MAIN. Chest pain and shortness of breath TECHNIQUE: Axial CT images were obtained through the chest after injection of IV contrast. 3 plane MIP and/or 3D reconstructions were produced. All CT scans at this location are performed using CT dose reduction f or ALARA by means of automated exposure control. COMPARISON: Prior CTA of the chest dated 05/24/2020. FINDINGS: PULMONARY ARTERIES: No pulmonary emboli. Turbulent filling artifact noted in the bilateral lower lobe subsegmental branches. THORACIC AORTA: Right-sided aortic arch again noted. HEART: No evidence of right heart strain. CORONARY ARTERIES: Calcifications are noted of coronary arteries. MEDIASTINUM / FLOWER: No significant abnormality. PLEURA: No pleural effusion. No pneumothorax. LUNGS: Interval development of linear atelectasis in the right middle lobe and lingula. ADDITIONAL FINDINGS: None. UPPER ABDOMEN: No acute findings. SKELETAL STRUCTURES: Multilevel degenerative changes are again noted of the visualized spine. IMPRESSION: 1. No CT evidence for pulmonary embolism or right heart strain. 2. Interval development of linear atelectasis in the right middle lobe and lingula. Signer Name: Tom Cowart MD Signed: 06/25/2020 5:34 PM Workstation Name: [id number]
[2020-06-26] MEDS: HYDROmorphone 1 MG/1 ML INJ IV PRN ×3 (00:58→13:01)
[2020-06-26] MEDS: ALBUTEROL 2.5 MG/3 ML NEBU IH SCH ×4 (02:56→21:13)
[2020-06-26] MEDS: methylPREDNISolone Sod Succinate 40 MG/1 ML INJ IV SCH (06:31)
[2020-06-26 07:45] LABS: Mean Corpuscular HGB Conc 30 % (30-34); Platelet Count 243 K/mm3 (140-440); Red Blood Count 5.19 M/mm3 (3.65-5.03)
[2020-06-26 07:51] LABS: Alanine Aminotransferase 14 units/L (7-56); Albumin 3.9 g/dL (3.9-5); Blood Urea Nitrogen 15 mg/dL (7-17); Hemolysis Index 2
[2020-06-26 08:03] LABS: BUN/Creatinine Ratio 30
[2020-06-26] MEDS ORDERED: SODIUM CHLORIDE 0.9% 1000 ML 1,000 ML IV ONE (08:36)
[2020-06-26 08:49] LABS: Hematocrit 35.8 % (30.3-42.9); Hemoglobin 10.6 gm/dl (10.1-14.3); Mean Corpuscular Volume 69 fl (79-97); Red Cell Distribution Width 24.8 % (13.2-15.2)
[2020-06-26 08:53] LABS: Basophils # (Auto) 0.1 K/mm3 (0.0-0.1); Eosinophils % (Auto) 0.1 % (0.0-4.3); Monocytes # (Auto) 2.5 K/mm3 (0.0-0.8); Monocytes % (Auto) 5.3 % (0.0-7.3)
[2020-06-26] MEDS ORDERED: SODIUM CHLORIDE 0.9% 1000 ML 500 ML IV ONE (09:00)
[2020-06-26] MEDS: BUDESONIDE 0.5 MG/2 ML NEBU IH SCH ×2 (09:32→21:14)
[2020-06-26] MEDS: cefTRIAXone/NS 1 GM/50 ML 1 GM/50 ML BAG IV SCH (09:43)
[2020-06-26] MEDS: amLODIPine 10 MG TAB PO SCH (09:44)
[2020-06-26] MEDS: FERROUS SULFATE 325 MG TAB PO SCH (09:44)
--- NOTE | 2020-06-26 09:53 | Progress Note ---
Assessment and Plan Assessment and plan: Assessment and plan: -Acute hypoxic respiratory failure Current Visit: Yes Status: Acute Plan to address problem: Continue steroids Hold Lasix for now due to lactic acidosis -Acute on chronic diastolic CHF Current Visit: Yes Status: Acute Plan to address problem: proBNP less than 200 Hold Lasix for now --COPD acute exacerbation Current Visit: Yes Status: Acute Plan to address problem: Bronchodilators Steroids held due to worsening leukocytosis Now in RA --Neutrophilic leukocytosis Current Visit: Yes Status: Acute Plan to address problem: Review of previous labs also showed Leukocytosis during previous hospitalization no focus of infection -UA negative for UTI, chest x-ray negative for pneumonia Reactive. Discontinue antibiotics as procalcitonin <0.05 --Lactic acidosis Current Visit: No Status: Chronic Plan to address problem: Unclear etiology Possible dehydration. Hold Lasix for now Trend lactic acid -- Morbid obesity (BMI) of 59.8 Current Visit: No Status: Chronic Plan to address problem: s counseling diet modification, exercise as tolerated and weight reduction When medically stable -- HTN (hypertension) Current Visit: No Status: Chronic Plan to address problem: Continue amlodipine adjust medication as needed --Hypothyroidism Current Visit: No Status: Chronic Plan to address problem: Continue Synthroid --Obstructive sleep apnea Current Visit: No Status: Chronic Plan to address problem: Pulmonary follow up as outpatient for a sleep study --Tobacco abuse Current Visit: Yes Status: Chronic Plan to address problem: cessation counseling was done. Spent more than 10 minutes counseling patient We will closely monitor the patient and adjust management as needed. Plan of care reviewed with the patient and her nurse History Interval history: Patient seen and examined at bedside this morning. States her breathing is much better. Urine output has dropped. Lactic acidosis still persists Hospitalist Physical - Constitutional Vitals: Temp Pulse Resp BP Pulse Ox 98.2 F 111 H 20 156/87 96 06/26/20 04:53 06/26/20 09:44 06/26/20 09:33 06/26/20 09:44 06/26/20 04:53 General appearance: Present: no acute distress, well-nourished - EENT Eyes: Present: PERRL - Neck Neck: Present: supple - Respiratory Respiratory: bilateral: diminished, wheezing (trace) - Cardiovascular Rhythm: regular Heart Sounds: Present: S1 & S2 - Extremities Extremities: No edema - Abdominal General gastrointestinal: soft, non-tender, non-distended, normal bowel sounds - Neurologic Neurologic: CNII-XII intact HEART Score - HEART Score Troponin: Troponin T < 0.010 ng/mL (0.00-0.029) 06/24/20 10:28 Results - Labs CBC & Chem 7: 06/26/20 07:13 06/26/20 07:13 Labs: Laboratory Last Values WBC 46.5 K/mm3 (4.5-11.0) H* 06/26/20 07:13 RBC 5.19 M/mm3 (3.65-5.03) H 06/26/20 07:13 Hgb 10.6 gm/dl (10.1-14.3) 06/26/20 07:13 Hct 35.8 % (30.3-42.9) 06/26/20 07:13 MCV 69 fl (79-97) L 06/26/20 07:13 MCH 20 pg (28-32) L 06/26/20 07:13 MCHC 30 % (30-34) 06/26/20 07:13 RDW 24.8 % (13.2-15.2) H 06/26/20 07:13 Plt Count 243 K/mm3 (140-440) 06/26/20 07:13 [place] % (Auto) 5.3 % (0.0-7.3) 06/26/20 07:13 Eos % (Auto) 0.1 % (0.0-4.3) 06/26/20 07:13 [place] # (Auto) 2.5 K/mm3 (0.0-0.8) H 06/26/20 07:13 Eos # (Auto) 0.0 K/mm3 (0.0-0.4) 06/26/20 07:13 Baso # (Auto) 0.1 K/mm3 (0.0-0.1) 06/26/20 07:13 Add Manual Diff Complete 06/25/20 05:07 Total Counted 200 06/25/20 05:07 Seg Neutrophils % [employer] Decorator 06/26/20 07:13 Seg Neuts % (Manual) 88.5 % (40.0-70.0) H 06/25/20 05:07 Band Neutrophils % 1.0 % 06/25/20 05:07 Lymphocytes % (Manual) 6.0 % (13.4-35.0) L 06/25/20 05:07 Reactive Lymphs % (Man) 0 % 06/25/20 05:07 Monocytes % (Manual) 4.0 % (0.0-7.3) 06/25/20 05:07 Eosinophils % (Manual) 0.5 % (0.0-4.3) 06/25/20 05:07 Basophils % (Manual) 0 % (0.0-1.8) 06/25/20 05:07 Metamyelocytes % 0 % 06/25/20 05:07 Myelocytes % 0 % 06/25/20 05:07 Promyelocytes % 0 % 06/25/20 05:07 Blast Cells % 0 % 06/25/20 05:07 Nucleated RBC % 0.5 % (0.0-0.9) 06/25/20 05:07 Seg Neutrophils # 42.8 K/mm3 (1.8-7.7) H 06/26/20 07:13 Seg Neutrophils # Man 29.7 K/mm3 (1.8-7.7) H 06/25/20 05:07 Band Neutrophils # 0.3 K/mm3 06/25/20 05:07 Lymphocytes # (Manual) 2.0 K/mm3 (1.2-5.4) 06/25/20 05:07 Abs React Lymphs (Man) 0.0 K/mm3 06/25/20 05:07 Monocytes # (Manual) 1.3 K/mm3 (0.0-0.8) H 06/25/20 05:07 Eosinophils # (Manual) 0.2 K/mm3 (0.0-0.4) 06/25/20 05:07 Basophils # (Manual) 0.0 K/mm3 (0.0-0.1) 06/25/20 05:07 Metamyelocytes # 0.0 K/mm3 06/25/20 05:07 Myelocytes # 0.0 K/mm3 06/25/20 05:07 Promyelocytes # 0.0 K/mm3 06/25/20 05:07 Blast Cells # 0.0 K/mm3 06/25/20 05:07 WBC Morphology TNR 06/26/20 07:13 Hypersegmented Neuts Not Reportable 06/25/20 05:07 Hyposegmented Neuts Not Reportable 06/25/20 05:07 Hypogranular Neuts Not Reportable 06/25/20 05:07 Smudge Cells Not Reportable 06/25/20 05:07 Toxic Granulation Not Reportable 06/25/20 05:07 Toxic Vacuolation Not Reportable 06/25/20 05:07 Dohle Bodies Not Reportable 06/25/20 05:07 Pelger-Huet Anomaly Not Reportable 06/25/20 05:07 Genesis Rods Not Reportable 06/25/20 05:07 Platelet Estimate Consistent w auto 06/25/20 05:07 Clumped Platelets Not Reportable 06/25/20 05:07 Plt Clumps, EDTA Not Reportable 06/25/20 05:07 Large Platelets Not Reportable 06/25/20 05:07 Giant Platelets Not Reportable 06/25/20 05:07 Platelet Satelliting Not Reportable 06/25/20 05:07 Plt Morphology Comment Not Reportable 06/25/20 05:07 RBC Morphology Not Reportable 06/25/20 05:07 Dimorphic RBCs Not Reportable 06/25/20 05:07 Polychromasia Not Reportable 06/25/20 05:07 Hypochromasia 1+ 06/25/20 05:07 Poikilocytosis Not Reportable 06/25/20 05:07 Anisocytosis 1+ 06/25/20 05:07 Microcytosis 1+ 06/25/20 05:07 Macrocytosis Not Reportable 06/25/20 05:07 Spherocytes Not Reportable 06/25/20 05:07 Pappenheimer Bodies Not Reportable 06/25/20 05:07 Sickle Cells Not Reportable 06/25/20 05:07 Target Cells Not Reportable 06/25/20 05:07 Tear Drop Cells Not Reportable 06/25/20 05:07 Ovalocytes Not Reportable 06/25/20 05:07 Helmet Cells Not Reportable 06/25/20 05:07 Zambrano-Wittmann Bodies Not Reportable 06/25/20 05:07 [place] Rings Not Reportable 06/25/20 05:07 [place] Cells Not Reportable 06/25/20 05:07 Bite Cells Not Reportable 06/25/20 05:07 Crenated Cell Not Reportable 06/25/20 05:07 Elliptocytes Not Reportable 06/25/20 05:07 Acanthocytes (Spur) Not Reportable 06/25/20 05:07 Rouleaux Not Reportable 06/25/20 05:07 Hemoglobin C Crystals Not Reportable 06/25/20 05:07 Schistocytes Not Reportable 06/25/20 05:07 Malaria parasites Not Reportable 06/25/20 05:07 Guero Bodies Not Reportable 06/25/20 05:07 Hem Pathologist Commnt No 06/25/20 05:07 PT 12.9 Sec. (12.2-14.9) 06/24/20 10:28 INR 0.96 (0.87-1.13) 06/24/20 10:28 D-Dimer 316.05 ng/mlDDU (0-234) H 06/25/20 07:55 ABG pH 7.396 pH Units (7.350-7.450) 06/24/20 12:05 ABG pCO2 46.2 mm Hg 06/24/20 12:05 ABG pO2 59.9 mm Hg (80.0-90.0) L 06/24/20 12:05 ABG HCO3 27.7 mmol/L (20.0-26.0) H 06/24/20 12:05 ABG O2 Saturation 91.8 % (95.0-99.0) L 06/24/20 12:05 ABG O2 Content 14.2 (0.0-44) 06/24/20 12:05 ABG Base Excess 2.4 mmol/L (-2.0-3.0) 06/24/20 12:05 ABG Hemoglobin 11.4 gm/dl (12.0-16.0) L 06/24/20 12:05 ABG Carboxyhemoglobin 3.3 % (0.0-5.0) 06/24/20 12:05 ABG Methemoglobin 0.5 % (0.0-1.5) 06/24/20 12:05 Oxyhemoglobin 88.3 % (95.0-99.0) L 06/24/20 12:05 FiO2 21 % 06/24/20 12:05 Sodium 136 mmol/L (137-145) L 06/26/20 07:13 Potassium 4.9 mmol/L (3.6-5.0) 06/26/20 07:13 Chloride 96.4 mmol/L (98-107) L 06/26/20 07:13 Carbon Dioxide 29 mmol/L (22-30) 06/26/20 07:13 Anion Gap 16 mmol/L 06/26/20 07:13 BUN 15 mg/dL (7-17) 06/26/20 07:13 Creatinine 0.5 mg/dL (0.6-1.2) L 06/26/20 07:13 Estimated GFR > 60 ml/min 06/26/20 07:13 BUN/Creatinine Ratio 30 % 06/26/20 07:13 Glucose 160 mg/dL (65-100) H 06/26/20 07:13 Lactic Acid 2.80 mmol/L (0.7-2.0) H* 06/26/20 07:13 Calcium 9.0 mg/dL (8.4-10.2) 06/26/20 07:13 Magnesium 2.00 mg/dL (1.7-2.3) 06/24/20 10:28 Iron 37 ug/dL (37-170) 06/25/20 07:55 TIBC 397 mcg/dL (250-450) 06/25/20 07:55 % Saturation 9.32 % 06/25/20 07:55 Transferrin 334 mg/dl (192-382) 06/25/20 07:55 Ferritin 39.8 ng/mL (10.0-200.0) 06/25/20 07:55 Total Bilirubin 0.30 mg/dL (0.1-1.2) 06/26/20 07:13 AST 16 units/L (5-40) 06/26/20 07:13 ALT 14 units/L (7-56) 06/26/20 07:13 Alkaline Phosphatase 83 units/L (35-129) 06/26/20 07:13 Total Creatine Kinase 58 units/L (30-135) 06/24/20 10:28 Troponin T < 0.010 ng/mL (0.00-0.029) 06/24/20 10:28 NT-Pro-B Natriuret Pep 106.1 pg/mL (0-450) 06/25/20 07:55 Total Protein 7.4 g/dL (6.3-8.2) 06/26/20 07:13 Albumin 3.9 g/dL (3.9-5) 06/26/20 07:13 Albumin/Globulin Ratio 1.1 % 06/26/20 07:13 Procalcitonin < 0.05 ng/mL (<0.15) 06/25/20 07:55 HCG, Quant 1.10 mIU/mL (0-4) 06/24/20 10:28 Urine Color Straw (Yellow) 06/24/20 13:00 Urine Turbidity Clear (Clear) 06/24/20 13:00 Urine pH 6.0 (5.0-7.0) 06/24/20 13:00 Ur Specific [place] 1.008 (1.003-1.030) 06/24/20 13:00 Urine Protein <15 mg/dl mg/dL (Negative) 06/24/20 13:00 Urine Glucose (UA) Neg mg/dL (Negative) 06/24/20 13:00 Urine Ketones Neg mg/dL (Negative) 06/24/20 13:00 Urine Blood Neg (Negative) 06/24/20 13:00 Urine Nitrite Neg (Negative) 06/24/20 13:00 Urine Bilirubin Neg (Negative) 06/24/20 13:00 Urine Urobilinogen < 2.0 mg/dL (<2.0) 06/24/20 13:00 Ur Leukocyte Esterase Neg (Negative) 06/24/20 13:00 Urine WBC (Auto) 1.0 /HPF (0.0-6.0) 06/24/20 13:00 Urine RBC (Auto) 1.0 /HPF (0.0-6.0) 06/24/20 13:00 U Epithel Cells (Auto) 1.0 /HPF (0-13.0) 06/24/20 13:00 Urine Bacteria (Auto) 1+ /HPF (Negative) 06/24/20 13:00 Microbiology: Microbiology 06/24/20 12:45 Peripheral/Venous Blood Culture - Preliminary NO GROWTH AFTER 24 HOURS 06/24/20 12:45 Peripheral/Venous Blood Culture - Preliminary NO GROWTH AFTER 24 HOURS Ware/IV: Voiding Method Toilet IV Catheter Type [Left INT / Saline Lock Antecubital] Active Medications - Current Medications Current Medications: Generic Name Dose Route Start Last Admin Trade Name Freq PRN Reason Stop Dose Admin Acetaminophen 650 mg 06/24/20 14:35 Tylenol PO Q4H PRN Pain MILD(1-3)/Fever >100.5/DUFFY Albuterol 2.5 mg 06/24/20 20:00 06/26/20 09:32 Proventil IH 2.5 mg Q6HRT CASE Administration Amlodipine Besylate 10 mg 06/25/20 10:00 06/26/20 09:44 Amlodipine PO 10 mg DAILY CASE Administration Budesonide 0.5 mg 06/24/20 20:00 06/26/20 09:32 Pulmicort IH 0.5 mg Q12HRT CASE Administration Ferrous Sulfate 325 mg 06/25/20 10:00 06/26/20 09:44 Feosol PO 325 mg QDAY [facility] Administration Hydromorphone HCl 0.5 mg 06/24/20 16:00 06/26/20 06:31 Dilaudid IV 0.5 mg Q3H PRN Administration Pain , Severe (7-10) Ceftriaxone Sodium 1 gm in 50 mls @ 100 mls/hr 06/24/20 15:00 06/26/20 09:43 Rocephin/Ns 1 Gm/50 Ml IV 100 mls/hr Q24HR CASE Administration Protocol Azithromycin 500 mg/ Sodium 250 mls @ 250 mls/hr 06/25/20 10:00 06/25/20 10:37 Chloride IV 250 mls/hr Q24HR [facility] Administration Protocol Sodium Chloride 500 mls @ 250 mls/hr 06/26/20 09:00 Nacl 0.9% 1000 Ml IV 06/26/20 10:59 BOLUS ONE Levothyroxine Sodium 50 mcg 06/26/20 08:58 Synthroid PO DAILY@0630 [facility] Ondansetron HCl 4 mg 06/24/20 14:35 Zofran IV Q8H PRN Nausea And Vomiting Sodium Chloride 10 ml 06/24/20 22:00 06/25/20 21:14 Sodium Chloride Flush Syringe 10 Ml IV 10 ml BID CASE Administration Sodium Chloride 10 ml 06/24/20 14:35 Sodium Chloride Flush Syringe 10 Ml IV PRN PRN LINE FLUSH
[2020-06-26 10:24] LABS: Band Neutrophils # (Manual) 0.5 K/mm3; Basophils % (Manual) 0 % (0.0-1.8); Eosinophils % (Manual) 0 % (0.0-4.3); Myelocytes # (Manual) 4.2 K/mm3; Total Cells Counted 100
[2020-06-26 10:26] LABS: Hypochromasia Few; Target Cells Few
[2020-06-26 10:27] LABS: Large Platelets Few; Platelet Estimate Consistent w Auto
[2020-06-26] MEDS: LEVOTHYROXINE 50 MCG TAB PO SCH (10:41)
--- NOTE | 2020-06-26 17:13 | Consultation ---
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--and either could be relavant to SOB iron defic could be due to chronic bleeding and/or malabsorption low MCV could be due to iron defic and alpha thalassemia REC/PLAN: labs to include BCR-ABL mutation and JAk2 mutation Hgb electrophoresis IV iron infusions no intervention for high WBC home meds: Previous Rx's Medication Instructions Recorded Last Taken Type ALBUTEROL NEB's [Proventil 0.083% 2.5 mg IH Q4HR PRN #30 nebu 12/08/19 Unknown Rx NEBS] Albuterol Mdi (or & Nicu Only) 2 puff IH QID PRN #8.5 gram 05/27/20 Unknown Rx [ProAir HFA Inhaler] Azithromycin [Zithromax Z-CLAUDETTE] 0 mg PO DAILY #1 packet 05/27/20 Unknown Rx Furosemide [Lasix TAB] 40 mg PO QDAY #30 tablet 05/27/20 Unknown Rx Levothyroxine [Synthroid] 50 mcg PO QAM #30 tablet 05/27/20 Unknown Rx Prednisone [predniSONE 10 mg 10 mg PO .TAPER #1 tab.ds.pk 05/27/20 Unknown Rx (6-Day Pack, 21 Tabs)] amLODIPine 10 mg PO DAILY #30 tablet 05/27/20 Unknown Rx guaiFENesin DM [Guaifenesin Dm 10 ml PO Q4H PRN #1 bottle 05/27/20 Unknown Rx Syrup] Laboratory Last Values WBC 46.5 K/mm3 (4.5-11.0) H* 06/26/20 07:13 Hgb 10.6 gm/dl (10.1-14.3) 06/26/20 07:13 Hct 35.8 % (30.3-42.9) 06/26/20 07:13 MCV 69 fl (79-97) L 06/26/20 07:13 Plt Count 243 K/mm3 (140-440) 06/26/20 07:13 Seg Neuts % (Manual) 77.0 % (40.0-70.0) H 06/26/20 07:13 Creatinine 0.5 mg/dL (0.6-1.2) L 06/26/20 07:13 Estimated GFR > 60 ml/min 06/26/20 07:13 BUN/Creatinine Ratio 30 % 06/26/20 07:13 Glucose 160 mg/dL (65-100) H 06/26/20 07:13 Lactic Acid TNR 06/26/20 10:51 Iron 37 ug/dL (37-170) 06/25/20 07:55 TIBC 397 mcg/dL (250-450) 06/25/20 07:55 % Saturation 9.32 % 06/25/20 07:55 Urine Bacteria (Auto) 1+ /HPF (Negative) 06/24/20 13:00 Past History Past Medical History: hypertension, hypothyroidism, other (NAYELY) Medications and Allergies Allergies Allergy/AdvReac Type Severity Reaction Status Date / Time No Known Allergies Allergy Verified 07/31/18 10:17 Home Medications Medication Instructions Recorded Confirmed Last Taken Type ALBUTEROL NEB's [Proventil 0.083% 2.5 mg IH Q4HR PRN #30 nebu 12/08/19 05/25/20 Unknown Rx NEBS] Albuterol Mdi (or & Nicu Only) 2 puff IH QID PRN #8.5 gram 05/27/20 Unknown Rx [ProAir HFA Inhaler] Azithromycin [Zithromax Z-CLAUDETTE] 0 mg PO DAILY #1 packet 05/27/20 Unknown Rx Furosemide [Lasix TAB] 40 mg PO QDAY #30 tablet 05/27/20 Unknown Rx Levothyroxine [Synthroid] 50 mcg PO QAM #30 tablet 05/27/20 Unknown Rx Prednisone [predniSONE 10 mg 10 mg PO .TAPER #1 tab.ds.pk 05/27/20 Unknown Rx (6-Day Pack, 21 Tabs)] amLODIPine 10 mg PO DAILY #30 tablet 05/27/20 Unknown Rx guaiFENesin DM [Guaifenesin Dm 10 ml PO Q4H PRN #1 bottle 05/27/20 Unknown Rx Syrup] Active Meds: Active Medications Acetaminophen (Tylenol) 650 mg PO Q4H PRN PRN Reason: Pain MILD(1-3)/Fever >100.5/DUFFY Albuterol (Proventil) 2.5 mg IH Q6HRT [facility] Last Admin: 06/26/20 16:37 Dose: 2.5 mg Documented by: Amlodipine Besylate (Amlodipine) 10 mg PO DAILY [facility] Last Admin: 06/26/20 09:44 Dose: 10 mg Documented by: Budesonide (Pulmicort) 0.5 mg IH Q12HRT [facility] Last Admin: 06/26/20 09:32 Dose: 0.5 mg Documented by: Ferrous Sulfate (Feosol) 325 mg PO QDAY [facility] Last Admin: 06/26/20 09:44 Dose: 325 mg Documented by: Hydromorphone HCl (Dilaudid) 0.5 mg IV Q3H PRN PRN Reason: Pain , Severe (7-10) Last Admin: 06/26/20 13:01 Dose: 0.5 mg Documented by: Levothyroxine Sodium (Synthroid) 50 mcg PO DAILY@0630 [facility] Last Admin: 06/26/20 10:41 Dose: 50 mcg Documented by: Ondansetron HCl (Zofran) 4 mg IV Q8H PRN PRN Reason: Nausea And Vomiting Sodium Chloride (Sodium Chloride Flush Syringe 10 Ml) 10 ml IV BID [facility] Last Admin: 06/26/20 10:42 Dose: 10 ml Documented by: Sodium Chloride (Sodium Chloride Flush Syringe 10 Ml) 10 ml IV PRN PRN PRN Reason: LINE FLUSH Exam - Constitutional Vitals: Temp Pulse Resp BP Pulse Ox 98.8 F 100 H 20 152/100 97 06/26/20 10:48 06/26/20 16:38 06/26/20 16:38 06/26/20 10:48 06/26/20 12:57 Results - Labs CBC & Chem 7: 06/26/20 07:13 06/26/20 07:13 Labs: Abnormal lab results 06/26/20 06/26/20 06/26/20 Range/Units 07:13 07:13 07:13 WBC 46.5 H* (4.5-11.0) K/mm3 RBC 5.19 H (3.65-5.03) M/mm3 MCV 69 L (79-97) fl MCH 20 L (28-32) pg RDW 24.8 H (13.2-15.2) % [place] # (Auto) 2.5 H (0.0-0.8) K/mm3 Seg Neuts % (Manual) 77.0 H (40.0-70.0) % Lymphocytes % (Manual) 2.0 L (13.4-35.0) % Seg Neutrophils # 42.8 H (1.8-7.7) K/mm3 Seg Neutrophils # Man 35.8 H (1.8-7.7) K/mm3 Lymphocytes # (Manual) 0.9 L (1.2-5.4) K/mm3 Monocytes # (Manual) 2.8 H (0.0-0.8) K/mm3 Sodium 136 L (137-145) mmol/L Chloride 96.4 L (98-107) mmol/L Creatinine 0.5 L (0.6-1.2) mg/dL Glucose 160 H (65-100) mg/dL Lactic Acid 2.80 H* (0.7-2.0) mmol/L
[2020-06-26] MEDS ORDERED: methylPREDNISolone Sod Succinate 40 MG/1 ML INJ IV SCH (18:00)
[2020-06-27] MEDS: HYDROmorphone 1 MG/1 ML INJ IV PRN ×4 (01:33→18:10)
[2020-06-27] MEDS: ALBUTEROL 2.5 MG/3 ML NEBU IH SCH ×4 (02:39→19:31)
[2020-06-27] MEDS: LEVOTHYROXINE 50 MCG TAB PO SCH (06:12)
[2020-06-27] MEDS: amLODIPine 10 MG TAB PO SCH (09:02)
[2020-06-27] MEDS: FERROUS SULFATE 325 MG TAB PO SCH (09:02)
[2020-06-27] MEDS: BUDESONIDE 0.5 MG/2 ML NEBU IH SCH ×2 (09:45→19:31)
[2020-06-27] MEDS ORDERED: SODIUM FERRIC GLUCON/SUCRO 125 MG in SODIUM CHLORIDE 0.9% 100 ML IV SCH (10:00)
--- NOTE | 2020-06-27 11:56 | Discharge Summary ---
Providers - Providers Date of Admission: 06/24/20 14:38 Date of discharge: 06/27/20 Attending physician: BEBA WATTS 06/26/20 09:46 Consult to Physician [CONS] Routine Comment: Consulting Provider: JORGE LUIS MASSEY Physician Instructions: Reason For Exam: Leucocytosis Primary care physician: SAFETY [employer] SECURITY OFFICER Hospitalization Condition: Fair Hospital course: 50-year-old female with a medical history of hypertension, obstructive sleep apnea, congestive heart failure, COPD, hypothyroidism admitted with a chief complaint of shortness of breath. Patient was recently discharged from the hospital about a month ago after being hospitalized with CHF exacerbation. She states that for the past 2 weeks, she has been getting progressively short of breath on exertion and noted increased swelling of her legs. She also feels like her heart is beating irregularly. She denies any dietary noncompliance or medication noncompliance. She also complains of pain on bilateral lower extremities. She denies any cough, chest pain, contact with anyone with respiratory illness/COVID 19. For above problems, she presented to the hospital for evaluation. Here she was found to have respiratory failure with CHF exacerbation and COPD exacerbation and she was placed on oxygen and started on Lasix and steroids. She was weaned off oxygen and she had a walk test and her sats remained in the 90s in room air. Hematology/oncology was consulted during this admission/hospitalization as patient had leukocytosis with WBC up to 45,000. Work-up for CML and polycythemia has been initiated by hematology oncology. Patient will need to follow-up with hematology/oncology but she has no insurance at this time. Dr. Massey will notify patient of results of the tests. 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 She agrees with management Disposition: DC-01 TO HOME OR SELFCARE - Discharge Diagnoses (1) Acute exacerbation of CHF (congestive heart failure) Status: Acute Qualifiers: (2) Acute respiratory failure with hypoxia Status: Acute (3) Bronchitis Status: Acute (4) COPD exacerbation Status: Acute (5) Leukocytosis Status: Acute Core Measure Documentation - Palliative Care Palliative Care/ Comfort Measures: Not Applicable - Core Measures Any of the following diagnoses?: none Exam - Constitutional Vitals: Temp Pulse Resp BP Pulse Ox 98.2 F 94 H 20 134/90 96 06/27/20 04:08 06/27/20 04:08 06/27/20 04:08 06/27/20 04:08 06/27/20 04:08 General appearance: Present: no acute distress, well-nourished - EENT Eyes: Present: PERRL ENT: hearing intact, clear oral mucosa - Neck Neck: Present: supple, normal ROM - Respiratory Respiratory effort: normal Respiratory: bilateral: CTA - Cardiovascular Heart Sounds: Present: S1 & S2. Absent: rub, click - Extremities Extremities: pulses symmetrical, No edema Peripheral Pulses: within normal limits - Abdominal General gastrointestinal: Present: soft, non-tender, non-distended, normal bowel sounds Female genitourinary: Present: normal - Integumentary Integumentary: Present: clear, warm, dry - Musculoskeletal Musculoskeletal: gait normal, strength equal bilaterally - Psychiatric Psychiatric: appropriate mood/affect, intact judgment & insight - Neurologic Neurologic: CNII-XII intact, moves all extremities Plan Activity: no restrictions Additional Instructions: Follow-up with primary medical doctor. Follow-up with pulmonology in the office. Follow-up with hematology oncology in the office Follow up with: PRIMARY MD GABI [Primary Care Provider] - 3-5 Days JASMIN DRAKE MD [Staff Physician] - 7 Days Prescriptions: predniSONE [Deltasone] 20 mg PO QDAY #5 tab Ferrous Sulfate [Feosol 325 MG tab] 325 mg PO QDAY #30 tablet
[2020-06-27 13:22] VITALS: BP 119/87
--- NOTE | 2020-06-27 14:47 | Progress Note ---
Subjective Principal diagnosis: high WBC, iron defic Interval history: seen by televisit through 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 admitted for SOB last month, now adm again for SOB and leg swelling review of historical lab data show2s chronic low MCV 60's without anemia and chronic high WBC 10-20 range for several years, now 20's, up to 40 this admission has been recieving steroid pulse solumedrol found her to have severe iron defic-->started IV iron doing better today-->considering discharge ROS: h/o heavy menstrual bleeding in the past no menstrual periods x 5 months ?menopause \ Soc: lives with her son, no health ins-denied disability EXAM: obeses woman, no resp distress, on [place] oxygen IMPRESSION: chronic high WBC could be due to myeloproliferative disorder this is important to investigate, but not urgent to keep her in hospital CML and polycythemia vera both possible--and either could be relevant to SOB iron defic could be due to chronic bleeding and/or malabsorption low MCV could be due to iron defic and alpha thalassemia REC/PLAN: labs to include BCR-ABL mutation and JAk2 mutation Hgb electrophoresis IV iron infusions-2nd today no intervention for high WBC d/w hospitalist-->OK to discharge pr from heme perspective I will communicate with her about lab testing results by email Objective - Constitutional Vitals: Vital Signs - 12hr 06/27/20 06/27/20 06/27/20 04:08 09:30 09:45 Temperature 98.2 F Pulse Rate 94 H Pulse Rate [ 90 Anterior Bilateral Throughout] Respiratory 20 Rate Respiratory 18 Rate [Anterior Bilateral Throughout] Blood Pressure 134/90 O2 Sat by Pulse 96 97 Oximetry 06/27/20 11:31 Temperature 98.1 F Pulse Rate 98 H Pulse Rate [ Anterior Bilateral Throughout] Respiratory 20 Rate Respiratory Rate [Anterior Bilateral Throughout] Blood Pressure 119/87 O2 Sat by Pulse 93 Oximetry - Labs CBC & Chem 7: 06/26/20 07:13 06/26/20 07:13 Labs: Abnormal lab results 06/26/20 Range/Units 23:49 Lactic Acid 2.80 H* (0.7-2.0) mmol/L Medications & Allergies - Medications Allergies/Adverse Reactions: Allergies No Known Allergies Allergy (Verified 07/31/18 10:17) Home Medications: Home Medications Medication Instructions Recorded Confirmed Last Taken Type ALBUTEROL NEB's [Proventil 0.083% 2.5 mg IH Q4HR PRN #30 nebu 12/08/19 05/25/20 Unknown Rx NEBS] Albuterol Mdi (or & Nicu Only) 2 puff IH QID PRN #8.5 gram 05/27/20 Unknown Rx [ProAir HFA Inhaler] Azithromycin [Zithromax Z-CLAUDETTE] 0 mg PO DAILY #1 packet 05/27/20 Unknown Rx Furosemide [Lasix TAB] 40 mg PO QDAY #30 tablet 05/27/20 Unknown Rx Levothyroxine [Synthroid] 50 mcg PO QAM #30 tablet 05/27/20 Unknown Rx Prednisone [predniSONE 10 mg 10 mg PO .TAPER #1 tab.ds.pk 05/27/20 Unknown Rx (6-Day Pack, 21 Tabs)] amLODIPine 10 mg PO DAILY #30 tablet 05/27/20 Unknown Rx guaiFENesin DM [Guaifenesin Dm 10 ml PO Q4H PRN #1 bottle 05/27/20 Unknown Rx Syrup] Active Medications: Generic Name Dose Route Start Last Admin Trade Name Freq PRN Reason Stop Dose Admin Acetaminophen 650 mg 06/24/20 14:35 Tylenol PO Q4H PRN Pain MILD(1-3)/Fever >100.5/DUFFY Albuterol 2.5 mg 06/24/20 20:00 06/27/20 13:58 Proventil IH 2.5 mg Q6HRT CASE Administration Amlodipine Besylate 10 mg 06/25/20 10:00 06/27/20 09:02 Amlodipine PO 10 mg DAILY CASE Administration Budesonide 0.5 mg 06/24/20 20:00 06/27/20 09:45 Pulmicort IH 0.5 mg Q12HRT CASE Administration Ferrous Sulfate 325 mg 06/30/20 10:00 Feosol PO QDAY CASE Hydromorphone HCl 0.5 mg 06/24/20 16:00 06/27/20 12:12 Dilaudid IV 0.5 mg Q3H PRN Administration Pain , Severe (7-10) Ferric Sodium Gluconate 110 mls @ 100 mls/hr 06/27/20 10:00 06/27/20 09:02 Complex 125 mg/ Sodium IV 06/29/20 11:05 100 mls/hr Chloride QDAY CASE Administration Levothyroxine Sodium 50 mcg 06/26/20 08:58 06/27/20 06:12 Synthroid PO 50 mcg DAILY@0630 CASE Administration Ondansetron HCl 4 mg 06/24/20 14:35 Zofran IV Q8H PRN Nausea And Vomiting Sodium Chloride 10 ml 06/24/20 22:00 06/27/20 09:03 Sodium Chloride Flush Syringe 10 Ml IV 10 ml BID CASE Administration Sodium Chloride 10 ml 06/24/20 14:35 06/26/20 19:43 Sodium Chloride Flush Syringe 10 Ml IV 10 ml PRN PRN Administration LINE FLUSH HEART Score - HEART Score Troponin: Troponin T < 0.010 ng/mL (0.00-0.029) 06/24/20 10:28
[2020-06-27] MEDS ORDERED: SODIUM FERRIC GLUCON/SUCRO 125 MG in SODIUM CHLORIDE 0.9% 100 ML IV ONE (18:00)
[2020-06-30] MEDS ORDERED: FERROUS SULFATE 325 MG TAB PO SCH (10:00)
== END 2020-06-27 20:58 | disposition home or self-care (01) | DRG 291 ==
LOC: ED 09:37 → 3A 12:29 → OBSVTOIN 14:38
PROVIDERS: ADMIT Internal Medicine; ATTEND Internal Medicine
PROC: 4A033R1 Measurement of Arterial Saturation, Peripheral, Percutaneous Approach (ICD-10-PCS; principal; 2020-06-24)
DX: I11.0 Hypertensive heart disease with heart failure (principal); J96.01 Acute respiratory failure with hypoxia; J44.1 Chronic obstructive pulmonary disease with (acute) exacerbation; E87.2 Acidosis; Z68.43 Body mass index [BMI] 50.0-59.9, adult; I50.33 Acute on chronic diastolic (congestive) heart failure; G47.33 Obstructive sleep apnea (adult) (pediatric); E66.01 Morbid (severe) obesity due to excess calories; E03.9 Hypothyroidism, unspecified; D72.829 Elevated white blood cell count, unspecified; F17.200 Nicotine dependence, unspecified, uncomplicated; Z71.6 Tobacco abuse counseling; Z79.899 Other long term (current) drug therapy
CPT/HCPCS: 36415; 71045; 71275; 80048; 80053; 81001; 82140; 82550; 82728; 82803; 83550; 83735; 83880; 84145; 84484; 84702; 85007; 85025; 85379; 85610; 87040; 93005; 93970; 94640; 94760; 96365; 96375; G0378; J0456; J0696; J1170; J1940; J2060; J2270; J2916; J2920; J2930; J3475; J7030; J7050; Q9967

== ENCOUNTER 2020-08-29 08:55 | Inpatient (IN) | payer SELFPAY ==
[2020-08-29 09:34] LABS: Hematocrit 36.6 % (30.3-42.9); Hemoglobin 11.7 gm/dl (10.1-14.3); Mean Corpuscular HGB Conc 32 % (30-34); Mean Corpuscular Volume 72 fl (79-97); Platelet Count 170 K/mm3 (140-440); Red Blood Count 5.09 M/mm3 (3.65-5.03)
[2020-08-29 09:36] LABS: Red Cell Distribution Width 23.5 % (13.2-15.2)
--- NOTE | 2020-08-29 09:37 | Emergency Department Report ---
ED General Adult HPI - General Chief complaint: Dyspnea/Respdistress Stated complaint: ASTHMA ATTACK Time Seen by Provider: 08/29/20 09:05 Source: patient, EMS Mode of arrival: Stretcher Limitations: Physical Limitation - History of Present Illness Initial comments: The patient presents to the emergency department via EMS for respiratory distress. Per EMS upon their arrival the patient's O2 sats were 82% on room air and the patient was tripoding. Patient has a history of COPD and CHF. Patient complains of chest tightness as well. Patient received 5 albuterol, 125 mg Solu-Medrol, and magnesium via IV prior to arrival to the ED. The patient was on CPAP upon arrival immediately placed on BiPAP in the ED -: Sudden Severity scale (0 -10): 0 Consistency: constant Improves with: none Worsens with: none Associated Symptoms: denies other symptoms Treatments Prior to Arrival: none - Related Data Previous Rx's Medication Instructions Recorded Last Taken Type ALBUTEROL NEB's [Proventil 0.083% 2.5 mg IH Q4HR PRN #30 nebu 12/08/19 Unknown Rx NEBS] Albuterol Mdi (or & Nicu Only) 2 puff IH QID PRN #8.5 gram 05/27/20 Unknown Rx [ProAir HFA Inhaler] Furosemide [Lasix TAB] 40 mg PO QDAY #30 tablet 05/27/20 Unknown Rx Levothyroxine [Synthroid] 50 mcg PO QAM #30 tablet 05/27/20 Unknown Rx amLODIPine 10 mg PO DAILY #30 tablet 05/27/20 Unknown Rx guaiFENesin DM [Guaifenesin Dm 10 ml PO Q4H PRN #1 bottle 05/27/20 Unknown Rx Syrup] Ferrous Sulfate [Feosol 325 MG tab] 325 mg PO QDAY #30 tablet 06/27/20 Unknown Rx predniSONE [Deltasone] 20 mg PO QDAY #5 tab 06/27/20 Unknown Rx Allergies Allergy/AdvReac Type Severity Reaction Status Date / Time No Known Allergies Allergy Verified 07/31/18 10:17 ED Review of Systems ROS: Stated complaint: ASTHMA ATTACK Other details as noted in HPI Comment: All other systems reviewed and negative Constitutional: denies: chills, fever Eyes: denies: eye pain, eye discharge, vision change ENT: denies: ear pain, throat pain Respiratory: shortness of breath. denies: cough, wheezing Cardiovascular: chest pain. denies: palpitations Endocrine: no symptoms reported Gastrointestinal: denies: abdominal pain, nausea, diarrhea Genitourinary: denies: urgency, dysuria, discharge Musculoskeletal: denies: back pain, joint swelling, arthralgia Skin: denies: rash, lesions Neurological: denies: headache, weakness, paresthesias Psychiatric: denies: anxiety, depression Hematological/Lymphatic: denies: easy bleeding, easy bruising ED Past Medical Hx - Past Medical History Previous Medical History?: Yes Hx Hypertension: Yes Hx Heart Attack/AMI: No Hx Congestive Heart Failure: Yes Hx Diabetes: No Hx Deep Vein Thrombosis: No Hx Pulmonary Embolism: No Hx Liver Disease: No Hx Renal Disease: No Hx Sickle Cell Disease: No Hx Arthritis: Yes Hx Seizures: No Hx Kidney Stones: No Hx Asthma: Yes Hx COPD: Yes Hx Tuberculosis: No Hx Dementia: No Hx HIV: No Additional medical history: hypothyroid, herniated disc, obstructive sleep apnea. OBESITY. RIGHT ROTATOR CUFF TEAR - Surgical History Past Surgical History?: Yes Hx Coronary Stent: No Hx Open Heart Surgery: No Hx Pacemaker: No Hx Internal Defibrillator: No Hx Cholecystectomy: No Hx Appendectomy: No Hx Breast Surgery: No Additional Surgical History: x 3, right shoulder rotator cuff repair - Social History Smoking Status: Current Every Day Smoker Substance Use Type: None - Medications Home Medications: Home Medications Medication Instructions Recorded Confirmed Last Taken Type ALBUTEROL NEB's [Proventil 0.083% 2.5 mg IH Q4HR PRN #30 nebu 12/08/19 05/25/20 Unknown Rx NEBS] Albuterol Mdi (or & Nicu Only) 2 puff IH QID PRN #8.5 gram 05/27/20 Unknown Rx [ProAir HFA Inhaler] Furosemide [Lasix TAB] 40 mg PO QDAY #30 tablet 05/27/20 Unknown Rx Levothyroxine [Synthroid] 50 mcg PO QAM #30 tablet 05/27/20 Unknown Rx amLODIPine 10 mg PO DAILY #30 tablet 05/27/20 Unknown Rx guaiFENesin DM [Guaifenesin Dm 10 ml PO Q4H PRN #1 bottle 05/27/20 Unknown Rx Syrup] Ferrous Sulfate [Feosol 325 MG tab] 325 mg PO QDAY #30 tablet 06/27/20 Unknown Rx predniSONE [Deltasone] 20 mg PO QDAY #5 tab 06/27/20 Unknown Rx ED Physical Exam - General Limitations: Physical Limitation General appearance: alert, in no apparent distress - Head Head exam: Present: atraumatic, normocephalic - Eye Eye exam: Present: normal appearance, PERRL, EOMI - ENT ENT exam: Present: mucous membranes moist - Neck Neck exam: Present: normal inspection - Respiratory Respiratory exam: Present: respiratory distress, wheezes - Cardiovascular Cardiovascular Exam: Present: regular rate, normal rhythm. Absent: systolic murmur, diastolic murmur, rubs, gallop - GI/Abdominal GI/Abdominal exam: Present: soft, normal bowel sounds. Absent: distended, tenderness - Extremities Exam Extremities exam: Present: normal inspection - Back Exam Back exam: Present: normal inspection - Neurological Exam Neurological exam: Present: alert, oriented X3, CN II-XII intact. Absent: motor sensory deficit - Psychiatric Psychiatric exam: Present: normal affect, normal mood - Skin Skin exam: Present: warm, dry, intact, normal color. Absent: rash ED Course Vital Signs 08/29/20 08/29/20 08/29/20 09:05 09:06 10:19 Temperature 98.3 F Pulse Rate 99 H 112 H Pulse Rate [ 77 Anterior Bilateral Throughout] Respiratory 18 24 Rate Respiratory 22 Rate [Anterior Bilateral Throughout] Blood Pressure 134/87 O2 Sat by Pulse 99 97 Oximetry ED Medical Decision Making - Lab Data Result diagrams: 08/29/20 09:24 08/29/20 09:24 Lab Results 08/29/20 08/29/20 08/29/20 Range/Units 09:24 09:24 09:24 WBC 20.9 H (4.5-11.0) K/mm3 RBC 5.09 H (3.65-5.03) M/mm3 Hgb 11.7 (10.1-14.3) gm/dl Hct 36.6 (30.3-42.9) % MCV 72 L (79-97) fl MCH 23 L (28-32) pg MCHC 32 (30-34) % RDW 23.5 H (13.2-15.2) % Plt Count 170 (140-440) K/mm3 Add Manual Diff Complete Total Counted 100 Seg Neuts % (Manual) 83.0 H (40.0-70.0) % Band Neutrophils % 5.0 % Lymphocytes % (Manual) 5.0 L (13.4-35.0) % Reactive Lymphs % (Man) 0 % Monocytes % (Manual) 2.0 (0.0-7.3) % Eosinophils % (Manual) 1.0 (0.0-4.3) % Basophils % (Manual) 0 (0.0-1.8) % Metamyelocytes % 4.0 % Myelocytes % 0 % Promyelocytes % 0 % Blast Cells % 0 % Nucleated RBC % 2.0 H (0.0-0.9) % Seg Neutrophils # Man 17.3 H (1.8-7.7) K/mm3 Band Neutrophils # 1.0 K/mm3 Lymphocytes # (Manual) 1.0 L (1.2-5.4) K/mm3 Abs React Lymphs (Man) 0.0 K/mm3 Monocytes # (Manual) 0.4 (0.0-0.8) K/mm3 Eosinophils # (Manual) 0.2 (0.0-0.4) K/mm3 Basophils # (Manual) 0.0 (0.0-0.1) K/mm3 Metamyelocytes # 0.8 K/mm3 Myelocytes # 0.0 K/mm3 Promyelocytes # 0.0 K/mm3 Blast Cells # 0.0 K/mm3 WBC Morphology Not Reportable Hypersegmented Neuts Not Reportable Hyposegmented Neuts Not Reportable Hypogranular Neuts Not Reportable Smudge Cells Not Reportable Toxic Granulation Not Reportable Toxic Vacuolation Not Reportable Dohle Bodies Not Reportable Pelger-Huet Anomaly Not Reportable Genesis Rods Not Reportable Platelet Estimate Consistent w auto Clumped Platelets Not Reportable Plt Clumps, EDTA Not Reportable Large Platelets Few Giant Platelets Not Reportable Platelet Satelliting Not Reportable Plt Morphology Comment Not Reportable RBC Morphology Not Reportable Dimorphic RBCs Not Reportable Polychromasia Few Hypochromasia 1+ Poikilocytosis 2+ Anisocytosis 2+ Microcytosis Not Reportable Macrocytosis Not Reportable Spherocytes Not Reportable Pappenheimer Bodies Not Reportable Sickle Cells Not Reportable Target Cells Not Reportable Tear Drop Cells Not Reportable Ovalocytes 2+ Helmet Cells Not Reportable Zambrano-Greenwood Bodies Not Reportable Coventry Rings Not Reportable [place] Cells Not Reportable Bite Cells Not Reportable Crenated Cell Not Reportable Elliptocytes 1+ Acanthocytes (Spur) Not Reportable Rouleaux Not Reportable Hemoglobin C Crystals Not Reportable Schistocytes Not Reportable Malaria parasites Not Reportable Guero Bodies Not Reportable Hem Pathologist Commnt No PT 13.6 (12.2-14.9) Sec. INR 1.06 (0.87-1.13) APTT 26.9 (24.2-36.6) Sec. ABG pH (7.350-7.450) pH Units ABG pCO2 mm Hg ABG pO2 (80.0-90.0) mm Hg ABG HCO3 (20.0-26.0) mmol/L ABG O2 Saturation (95.0-99.0) % ABG O2 Content (0.0-44) ABG Base Excess (-2.0-3.0) mmol/L ABG Hemoglobin (12.0-16.0) gm/dl ABG Carboxyhemoglobin (0.0-5.0) % ABG Methemoglobin (0.0-1.5) % Oxyhemoglobin (95.0-99.0) % FiO2 % Sodium 137 (137-145) mmol/L Potassium 4.2 (3.6-5.0) mmol/L Chloride 101.2 (98-107) mmol/L Carbon Dioxide 30 (22-30) mmol/L Anion Gap 10 mmol/L BUN 7 (7-17) mg/dL Creatinine 0.6 (0.6-1.2) mg/dL Estimated GFR > 60 ml/min BUN/Creatinine Ratio 12 % Glucose 169 H (65-100) mg/dL Calcium 9.0 (8.4-10.2) mg/dL Total Bilirubin 0.20 (0.1-1.2) mg/dL AST 10 (5-40) units/L ALT 9 (7-56) units/L Alkaline Phosphatase 82 (35-129) units/L Troponin T < 0.010 (0.00-0.029) ng/mL NT-Pro-B Natriuret Pep 22.49 (0-450) pg/mL Total Protein 7.0 (6.3-8.2) g/dL Albumin 3.6 L (3.9-5) g/dL Albumin/Globulin Ratio 1.1 % 08/29/20 Range/Units 09:36 WBC (4.5-11.0) K/mm3 RBC (3.65-5.03) M/mm3 Hgb (10.1-14.3) gm/dl Hct (30.3-42.9) % MCV (79-97) fl MCH (28-32) pg MCHC (30-34) % RDW (13.2-15.2) % Plt Count (140-440) K/mm3 Add Manual Diff Total Counted Seg Neuts % (Manual) (40.0-70.0) % Band Neutrophils % % Lymphocytes % (Manual) (13.4-35.0) % Reactive Lymphs % (Man) % Monocytes % (Manual) (0.0-7.3) % Eosinophils % (Manual) (0.0-4.3) % Basophils % (Manual) (0.0-1.8) % Metamyelocytes % % Myelocytes % % Promyelocytes % % Blast Cells % % Nucleated RBC % (0.0-0.9) % Seg Neutrophils # Man (1.8-7.7) K/mm3 Band Neutrophils # K/mm3 Lymphocytes # (Manual) (1.2-5.4) K/mm3 Abs React Lymphs (Man) K/mm3 Monocytes # (Manual) (0.0-0.8) K/mm3 Eosinophils # (Manual) (0.0-0.4) K/mm3 Basophils # (Manual) (0.0-0.1) K/mm3 Metamyelocytes # K/mm3 Myelocytes # K/mm3 Promyelocytes # K/mm3 Blast Cells # K/mm3 WBC Morphology Hypersegmented Neuts Hyposegmented Neuts Hypogranular Neuts Smudge Cells Toxic Granulation Toxic Vacuolation Dohle Bodies Pelger-Huet Anomaly Genesis Rods Platelet Estimate Clumped Platelets Plt Clumps, EDTA Large Platelets Giant Platelets Platelet Satelliting Plt Morphology Comment RBC Morphology Dimorphic RBCs Polychromasia Hypochromasia Poikilocytosis Anisocytosis Microcytosis Macrocytosis Spherocytes Pappenheimer Bodies Sickle Cells Target Cells Tear Drop Cells Ovalocytes Helmet Cells Zambrano-Greenwood Bodies Coventry Rings [place] Cells Bite Cells Crenated Cell Elliptocytes Acanthocytes (Spur) Rouleaux Hemoglobin C Crystals Schistocytes Malaria parasites Guero Bodies Hem Pathologist Commnt PT (12.2-14.9) Sec. INR (0.87-1.13) APTT (24.2-36.6) Sec. ABG pH 7.325 L (7.350-7.450) pH Units ABG pCO2 53.2 mm Hg ABG pO2 83.3 (80.0-90.0) mm Hg ABG HCO3 27.1 H (20.0-26.0) mmol/L ABG O2 Saturation 96.2 (95.0-99.0) % ABG O2 Content 15.4 (0.0-44) ABG Base Excess 0.4 (-2.0-3.0) mmol/L ABG Hemoglobin 11.8 L (12.0-16.0) gm/dl ABG Carboxyhemoglobin 3.5 (0.0-5.0) % ABG Methemoglobin 0.5 (0.0-1.5) % Oxyhemoglobin 92.4 L (95.0-99.0) % FiO2 30 % Sodium (137-145) mmol/L Potassium (3.6-5.0) mmol/L Chloride (98-107) mmol/L Carbon Dioxide (22-30) mmol/L Anion Gap mmol/L BUN (7-17) mg/dL Creatinine (0.6-1.2) mg/dL Estimated GFR ml/min BUN/Creatinine Ratio % Glucose (65-100) mg/dL Calcium (8.4-10.2) mg/dL Total Bilirubin (0.1-1.2) mg/dL AST (5-40) units/L ALT (7-56) units/L Alkaline Phosphatase (35-129) units/L Troponin T (0.00-0.029) ng/mL NT-Pro-B Natriuret Pep (0-450) pg/mL Total Protein (6.3-8.2) g/dL Albumin (3.9-5) g/dL Albumin/Globulin Ratio % - EKG Data -: EKG Interpreted by Nh EKG shows normal: sinus rhythm Rate: normal - Radiology Data Radiology results: report reviewed - Medical Decision Making Patient placed BiPAP upon arrival to the ED Patient given continuous breathing treatment with 10 mg albuterol and 1 mg of Atrovent Upon return of the patient's labs patient had a white count of 20,000 thus blood cultures, lactic acid, IV antibiotics were initiated due to leukocytosis Critical Care Time: Yes Critical care time in (mins) excluding proc time.: 35 Critical care attestation.: If time is entered above; I have spent that time in minutes in the direct care of this critically ill patient, excluding procedure time. ED Disposition Clinical Impression: Respiratory failure Disposition: OP ADMIT IP TO THIS HOSP Is pt being admited?: Yes Does the pt Need Aspirin: Yes Condition: Fair Referrals: PRIMARY CARE, [Primary Care Provider] - 3-5 Days
--- NOTE | 2020-08-29 09:42 | XRay Report ---
CHEST 1 VIEW INDICATION: sob. COMPARISON: 06/24/2020 FINDINGS: Support devices: None. Heart: Normal. Lungs/Pleura: No acute pulmonary or pleural findings. IMPRESSION: 1. No acute findings. Signer Name: Rafita Santos MD Signed: 08/29/2020 9:37 AM Workstation Name: [id number]
[2020-08-29 09:51] LABS: ABG Base Excess 0.4 mmol/L (-2.0-3.0); ABG HCO3 27.1 mmol/L (20.0-26.0); ABG Methemoglobin 0.5 % (0.0-1.5); ABG Oxygen Saturation 96.2 % (95.0-99.0); ABG PCO2 53.2 mm Hg; ABG PH 7.325 pH Units (7.350-7.450); ABG PO2 83.3 mm Hg (80.0-90.0)
[2020-08-29 09:53] LABS: INR 1.06 (0.87-1.13)
[2020-08-29 09:54] LABS: Partial Thromboplastin Time 26.9 Sec. (24.2-36.6)
[2020-08-29 10:02] LABS: Alanine Aminotransferase 9 units/L (7-56); Albumin 3.6 g/dL (3.9-5); Blood Urea Nitrogen 7 mg/dL (7-17); Hemolysis Index 4
[2020-08-29] MEDS ORDERED: IPRATROPIUM 0.02% NEBU 2.5 ML IH ONE (10:14)
[2020-08-29] MEDS ORDERED: ALBUTEROL 2.5 MG/3 ML NEBU IH ONE (10:14)
[2020-08-29 10:28] LABS: BUN/Creatinine Ratio 12
[2020-08-29 10:55] LABS: Basophils % (Manual) 0 % (0.0-1.8); Total Cells Counted 100
[2020-08-29 10:56] LABS: Anisocytosis 2+; Hypochromasia 1+; Ovalocytes 2+; Poikilocytosis 2+
[2020-08-29 10:57] LABS: Large Platelets Few; Platelet Estimate Consistent w Auto
[2020-08-29] MEDS ORDERED: ASPIRIN 81 MG TAB CHEW PO ONE (11:38)
--- NOTE | 2020-08-29 11:47 | History and Physical Report ---
History of Present Illness Chief complaint: I cannot breathe History of present illness: 50 YO Female with Obesity Hypoventilation Syndrome, Super Morbid Obesity, HTN, Hypothyroidism, Asthma, Nicotine Dependence, OA, COPD, LDD presents to ED for evaluation. Patient reports feeling short of breath over the past 1 day with persistently worsening symptoms over the same timeframe. EMS was notified and upon arrival the patient was found to be in distress and was found to have a pulse oximetry of 80%. The patient was placed on supplemental oxygen and transported to [facility] for further care and evaluation of the aforementioned symptoms. The patient was seen and evaluated in the emergency department. All lab and imaging studies reviewed. Patient was found to have a pulse oximetry of 82% on room air which is consistent with acute hypoxemic respiratory failure. The patient was also found to have sepsis and was admitted to medical floor due to increased risk of worsening symptoms. Patient initiated on coronavirus protocol. No further history is obtainable due to the patient respiratory distress. Patient is tripoding, using accessory muscles to breathe, and is unable to speak in complete sentences at the time of my evaluation. Patient has noninvasive positive pressure ventilation in place with mild improvement in symptoms. Prior admission on 06/24/2020 reviewed. All medication listed at time of admission has been reconciled. Past History Past Medical History: hypertension, hypothyroidism, other (See HPI) Past Surgical History: , Other (Right rotator cuff surgery) Social history: single, alcohol abuse Medications and Allergies Allergies Allergy/AdvReac Type Severity Reaction Status Date / Time No Known Allergies Allergy Verified 07/31/18 10:17 Home Medications Medication Instructions Recorded Confirmed Last Taken Type ALBUTEROL NEB's [Proventil 0.083% 2.5 mg IH Q4HR PRN #30 nebu 12/08/19 05/25/20 Unknown Rx NEBS] Albuterol Mdi (or & Nicu Only) 2 puff IH QID PRN #8.5 gram 05/27/20 Unknown Rx [ProAir HFA Inhaler] Furosemide [Lasix TAB] 40 mg PO QDAY #30 tablet 05/27/20 Unknown Rx Levothyroxine [Synthroid] 50 mcg PO QAM #30 tablet 05/27/20 Unknown Rx amLODIPine 10 mg PO DAILY #30 tablet 05/27/20 Unknown Rx guaiFENesin DM [Guaifenesin Dm 10 ml PO Q4H PRN #1 bottle 05/27/20 Unknown Rx Syrup] Ferrous Sulfate [Feosol 325 MG tab] 325 mg PO QDAY #30 tablet 06/27/20 Unknown Rx predniSONE [Deltasone] 20 mg PO QDAY #5 tab 06/27/20 Unknown Rx Review of Systems Constitutional: no weight loss, no weight gain, no fever, no chills Ears, nose, mouth and throat: no ear pain, no ear discharge, no tinnitis, no decreased hearing, no nose pain Breasts: no change in shape, no swelling Cardiovascular: shortness of breath, no chest pain, no orthopnea, no palpitations Respiratory: cough, shortness of breath, wheezing Gastrointestinal: no abdominal pain, no nausea, no vomiting, no diarrhea Genitourinary Female: no pelvic pain, no flank pain, no dysuria, no urinary frequency, no urgency Rectal: no pain, no incontinence, no bleeding Musculoskeletal: no neck stiffness, no neck pain, no shooting arm pain, no arm numbness/tingling Integumentary: no rash, no pruritis, no redness, no sores, no wounds Neurological: no paralysis, no weakness, no parathesias, no numbness, no ting ling Psychiatric: no anxiety, no memory loss, no change in sleep habits, no sleep disturbances, no insomnia Endocrine: no cold intolerance, no heat intolerance, no polyphagia, no polydipsia, no polyuria Hematologic/Lymphatic: no easy bruising Allergic/Immunologic: no urticaria, no allergic rhinitis, no wheezing Exam - Constitutional Vitals: Temp Pulse Resp BP Pulse Ox 98.3 F 77 22 134/87 97 08/29/20 09:05 08/29/20 10:19 08/29/20 10:19 08/29/20 09:05 08/29/20 09:06 General appearance: Present: mild distress - EENT Eyes: Present: PERRL ENT: hearing intact, clear oral mucosa - Neck Neck: Present: supple, normal ROM - Respiratory Respiratory effort: labored, accessory muscle use, stridor Respiratory: bilateral: diminished, rhonchi - Cardiovascular Heart Sounds: Present: S1 & S2. Absent: rub, click - Extremities Extremities: pulses symmetrical, No edema Peripheral Pulses: within normal limits - Abdominal General gastrointestinal: Present: soft, non-tender, non-distended, normal bowel sounds Female genitourinary: Present: normal - Integumentary Integumentary: Present: clear, warm, dry - Musculoskeletal Musculoskeletal: gait normal, strength equal bilaterally - Psychiatric Psychiatric: appropriate mood/affect, intact judgment & insight - Neurologic Neurologic: CNII-XII intact, moves all extremities HEART Score - HEART Score Troponin: Troponin T < 0.010 ng/mL (0.00-0.029) 08/29/20 09:24 Results - Labs CBC & Chem 7: 08/29/20 09:24 08/29/20 09:24 Labs: Abnormal lab results 08/29/20 08/29/20 08/29/20 Range/Units 09:24 09:24 09:36 WBC 20.9 H (4.5-11.0) K/mm3 RBC 5.09 H (3.65-5.03) M/mm3 MCV 72 L (79-97) fl MCH 23 L (28-32) pg RDW 23.5 H (13.2-15.2) % Seg Neuts % (Manual) 83.0 H (40.0-70.0) % Lymphocytes % (Manual) 5.0 L (13.4-35.0) % Nucleated RBC % 2.0 H (0.0-0.9) % Seg Neutrophils # Man 17.3 H (1.8-7.7) K/mm3 Lymphocytes # (Manual) 1.0 L (1.2-5.4) K/mm3 ABG pH 7.325 L (7.350-7.450) pH Units ABG HCO3 27.1 H (20.0-26.0) mmol/L ABG Hemoglobin 11.8 L (12.0-16.0) gm/dl Oxyhemoglobin 92.4 L (95.0-99.0) % Glucose 169 H (65-100) mg/dL Albumin 3.6 L (3.9-5) g/dL Assessment and Plan - Patient Problems (1) Acute respiratory failure with hypoxia Current Visit: No Status: Acute Plan to address problem: Chest x-ray, arterial blood gas, supplemental oxygen, nebulizer therapy, noninvasive positive pressure ventilation, repeat ABG, supportive care. (2) COPD (chronic obstructive pulmonary disease) Current Visit: Yes Status: Acute Qualifiers: Chronic bronchitis type: mixed simple and mucopurulent Plan to address problem: Supplemental oxygen, chest x-ray, nebulizer therapy, IV steroid therapy, supportive care. (3) Sepsis Current Visit: Yes Status: Acute Plan to address problem: Sepsis protocol, CBC, CMP, chest x-ray, urinalysis, IV antibiotic therapy, monitor urine output every shift, serial lactic acid level, monitor fluid balance, maintain mean arterial pressure greater than or equal to 65. (4) Suspected 2019 novel coronavirus infection Current Visit: Yes Status: Acute Plan to address problem: Coronavirus protocol: Chest x-ray, supplemental oxygen, contact precaution, isolation precaution, Tylenol as needed, positioning while in bed, early ambulation (5) CHF (congestive heart failure) Current Visit: Yes Status: Acute Qualifiers: Heart failure type: diastolic Heart failure chronicity: acute on chronic Qualified Code(s): I50.33 - Acute on chronic diastolic (congestive) heart failure Plan to address problem: Strict I's/O, monitor urine output every shift, daily weight, afterload reduction, blood pressure control. (6) Obesity hypoventilation syndrome Current Visit: Yes Status: Acute Plan to address problem: Supplemental oxygen, pulse oximetry, nebulizer therapy, noninvasive positive pressure ventilation as clinically indicated, increase physical activity at discharge, outpatient bariatric surgery evaluation, outpatient pulmonary consult for sleep study. (7) DVT prophylaxis Current Visit: Yes Status: Acute Plan to address problem: SCD to bilateral lower extremities while in bed, prophylactic anticoagulation.
[2020-08-29] MEDS ORDERED: ONDANSETRON 4 MG/2 ML INJ IV PRN (12:00)
[2020-08-29] MEDS ORDERED: ACETAMINOPHEN 325 MG TAB PO PRN ×2 (12:00→12:30)
[2020-08-29] MEDS ORDERED: guaiFENesin DM 200/20 MG ORAL LIQD 10 ML PO PRN (12:30)
[2020-08-29] MEDS ORDERED: FUROSEMIDE 20 MG TAB ONE (14:42)
[2020-08-29] MEDS ORDERED: methylPREDNISolone Sod Succinate 40 MG/1 ML INJ ONE ×2 (14:42→23:17)
[2020-08-29] MEDS ORDERED: HEPARIN 5,000 UNIT/1 ML VIAL ONE (14:42)
[2020-08-29] MEDS ORDERED: HYDROmorphone 1 MG/1 ML INJ ONE ×2 (14:46→21:56)
[2020-08-29] MEDS: HYDROmorphone 1 MG/1 ML INJ IV PRN ×2 (14:58→22:05)
[2020-08-29] MEDS: methylPREDNISolone Sod Succinate 40 MG/1 ML INJ IV SCH ×2 (14:58→23:22)
[2020-08-29] MEDS: HEPARIN 5,000 UNIT/1 ML VIAL SUB-Q SCH (14:58)
[2020-08-29] MEDS: FUROSEMIDE 40 MG TAB PO SCH (15:54)
[2020-08-29 16:34] LABS: C-Reactive Protein 1.5 mg/dL (0.00-1.30)
[2020-08-30] MEDS: HEPARIN 5,000 UNIT/1 ML VIAL SUB-Q SCH ×3 (01:49→22:20)
[2020-08-30] MEDS: HYDROmorphone 1 MG/1 ML INJ IV PRN ×4 (02:19→22:24)
[2020-08-30] MEDS: LEVOTHYROXINE 50 MCG TAB PO SCH (06:51)
[2020-08-30] MEDS: methylPREDNISolone Sod Succinate 40 MG/1 ML INJ IV SCH ×3 (06:51→22:20)
[2020-08-30 07:12] LABS: Mean Corpuscular HGB Conc 31 % (30-34); Mean Corpuscular Volume 73 fl (79-97); Platelet Count 209 K/mm3 (140-440)
[2020-08-30 07:18] LABS: Hematocrit 39.5 % (30.3-42.9); Hemoglobin 12.1 gm/dl (10.1-14.3); Red Cell Distribution Width 23.3 % (13.2-15.2)
[2020-08-30 09:21] LABS: Anisocytosis 2+; Band Neutrophils # (Manual) 1.6 K/mm3; Eosinophils % (Manual) 0 % (0.0-4.3); Myelocytes # (Manual) 0.3 K/mm3; Poikilocytosis 1+; Total Cells Counted 100
[2020-08-30 09:22] LABS: Hypochromasia 1+; Ovalocytes 2+; Platelet Estimate Consistent w Auto; Toxic Granulation 1+
[2020-08-30 09:23] LABS: Large Platelets Few
[2020-08-30 09:46] LABS: BUN/Creatinine Ratio 20; Blood Urea Nitrogen 12 mg/dL (7-17); Calcium 9.2 mg/dL (8.4-10.2); Hemolysis Index 3
[2020-08-30] MEDS: FERROUS SULFATE 325 MG TAB PO SCH (10:20)
[2020-08-30] MEDS: amLODIPine 10 MG TAB PO SCH (10:21)
[2020-08-30] MEDS: FUROSEMIDE 40 MG TAB PO SCH (10:21)
--- NOTE | 2020-08-30 10:55 | Progress Note ---
Assessment and Plan -- Acute respiratory failure with hypoxia patient was hypoxic without O2 Titrate O2 sats to more than 90% Bipap if necessary Treat the underlying cause of bronchial asthma exacerbation -- Suspected 2019 novel coronavirus infection Coronavirus protocol initiated, will follow the test result --Acute asthma/copd exacerbation patient was hypoxic without O2 Continue IV abx IV SOlumedrol and Bronchodilators. Supportive care --Leukocytosis with SIRS; Partly secondary to steroid use and underlying history of AML, Continue to follow inflammatory markers and treat for acute asthma exacerbation - Hypothyroidism. Cont synthyroid -- Obstructive sleep apnea CPAP at bedtime, and during daytime as needed Patient needs outpatient sleep study to rule out NAYELY -- HTN (hypertension) Cont antihypertensives, Monitor BP --Morbid obesity BMI 49.8 Advised diet modification exercise as tolerated and weight reduction when medically stable --Acute myeloid leukemia, diagnosed recently Patient has outpatient follow-up with air pollution auditor to start on chemotherapy as an outpatient --Ongoing tobacco use; Smoking cessation counseling, nicotine patch as needed - DVT prophylaxis On Heparin and Gi prophylaxis Brief history: 50 YO Female with morbid Obesity, HTN, Hypothyroidism, Asthma, Nicotine Dependence, AML presents to ED feeling short of breath over the past 1 day with persistently worsening symptoms. EMS was notified and was found to have a pulse oximetry of 80%. The patient was placed on supplemental oxygen and transported to [facility] . Patient initiated on coronavirus protocol, placed on noninvasive positive pressure ventilation and admitted for further evaluation and management. 08/30: Off BiPAP. Continue treatment for COPD/asthma exacerbation, counseled for tobacco cessation. Follow-up pending COVID-19 test Subjective Date of service: 08/30/20 Interval history: Patient seen and examined Covid test is currently pending Morbidly obese female complaining of difficulty breathing even on resting Also complains of back pain and generalized body ache Objective - Exam Narrative Exam: GENERAL: Morbidly obese -Colombian female sitting on bed appeared to be in mild discomfort. HEENT: Normocephalic. Atraumatic. No conjunctival congestion or icterus. Patient has moist mucous membranes. NECK: Supple. Trachea midline. CHEST/LUNGS: + Wheezes auscultated bilaterally, breathing nonlabored. HEART/CARDIOVASCULAR: Regular in rate and rhythm. S1 and S2 positive. ABDOMEN: Abdomen is soft, nontender. Patient has normal bowel sounds. SKIN: There is no rash. Warm and dry. NEURO: No focal motor deficit. Follows command. MUSCULOSKELETAL: No joint effusion or tenderness. EXTRIMITY: No edema, no cyanosis or clubbing. PSYCH: Cooperative. - Constitutional Vitals: Vital Signs - 12hr 08/29/20 08/29/20 08/29/20 23:00 23:10 23:20 Temperature Pulse Rate 107 H 107 H Respiratory 22 18 Rate Blood Pressure 140/93 140/93 140/93 O2 Sat by Pulse 94 95 94 Oximetry 08/29/20 08/30/20 08/30/20 23:30 05:39 08:36 Temperature 98.4 F Pulse Rate 100 H 103 H Respiratory 16 Rate Blood Pressure 140/93 144/99 153/96 O2 Sat by Pulse 95 97 93 Oximetry 08/30/20 10:21 Temperature Pulse Rate 103 H Respiratory Rate Blood Pressure 153/96 O2 Sat by Pulse Oximetry - Labs CBC & Chem 7: 08/31/20 11:08 08/30/20 06:20 Labs: Abnormal lab results 08/29/20 08/29/20 08/29/20 Range/Units 09:24 16:01 16:01 WBC (4.5-11.0) K/mm3 RBC (3.65-5.03) M/mm3 MCV (79-97) fl MCH (28-32) pg RDW (13.2-15.2) % Seg Neuts % (Manual) 83.0 H (40.0-70.0) % Lymphocytes % (Manual) 5.0 L (13.4-35.0) % Basophils % (Manual) (0.0-1.8) % Nucleated RBC % 2.0 H (0.0-0.9) % Seg Neutrophils # Man 17.3 H (1.8-7.7) K/mm3 Lymphocytes # (Manual) 1.0 L (1.2-5.4) K/mm3 Basophils # (Manual) (0.0-0.1) K/mm3 Sodium (137-145) mmol/L Carbon Dioxide (22-30) mmol/L Glucose 171 H (65-100) mg/dL Lactic Acid 3.50 H* (0.7-2.0) mmol/L Lactate Dehydrogenase 234 H (91-180) units/L C-Reactive Protein 1.50 H (0.00-1.30) mg/dL 08/29/20 08/29/20 08/30/20 Range/Units 19:56 22:31 06:20 WBC (4.5-11.0) K/mm3 RBC (3.65-5.03) M/mm3 MCV (79-97) fl MCH (28-32) pg RDW (13.2-15.2) % Seg Neuts % (Manual) (40.0-70.0) % Lymphocytes % (Manual) (13.4-35.0) % Basophils % (Manual) (0.0-1.8) % Nucleated RBC % (0.0-0.9) % Seg Neutrophils # Man (1.8-7.7) K/mm3 Lymphocytes # (Manual) (1.2-5.4) K/mm3 Basophils # (Manual) (0.0-0.1) K/mm3 Sodium (137-145) mmol/L Carbon Dioxide (22-30) mmol/L Glucose (65-100) mg/dL Lactic Acid 5.30 H* 3.30 H* 2.80 H* (0.7-2.0) mmol/L Lactate Dehydrogenase (91-180) units/L C-Reactive Protein (0.00-1.30) mg/dL 08/30/20 08/30/20 Range/Units 06:20 06:20 WBC 32.3 H (4.5-11.0) K/mm3 RBC 5.40 H (3.65-5.03) M/mm3 MCV 73 L (79-97) fl MCH 22 L (28-32) pg RDW 23.3 H (13.2-15.2) % Seg Neuts % (Manual) 75.0 H (40.0-70.0) % Lymphocytes % (Manual) 4.0 L (13.4-35.0) % Basophils % (Manual) 2.0 H (0.0-1.8) % Nucleated RBC % 1.0 H (0.0-0.9) % Seg Neutrophils # Man 24.2 H (1.8-7.7) K/mm3 Lymphocytes # (Manual) (1.2-5.4) K/mm3 Basophils # (Manual) 0.6 H (0.0-0.1) K/mm3 Sodium 136 L (137-145) mmol/L Carbon Dioxide 31 H (22-30) mmol/L Glucose 191 H (65-100) mg/dL Lactic Acid (0.7-2.0) mmol/L Lactate Dehydrogenase (91-180) units/L C-Reactive Protein (0.00-1.30) mg/dL HEART Score - HEART Score Troponin: Troponin T < 0.010 ng/mL (0.00-0.029) 08/29/20 11:18
[2020-08-31] MEDS: methylPREDNISolone Sod Succinate 40 MG/1 ML INJ IV SCH ×3 (04:26→23:21)
[2020-08-31] MEDS: HYDROmorphone 1 MG/1 ML INJ IV PRN ×4 (04:26→23:33)
[2020-08-31] MEDS: LEVOTHYROXINE 50 MCG TAB PO SCH (06:28)
[2020-08-31] MEDS: FUROSEMIDE 40 MG TAB PO SCH (10:21)
[2020-08-31] MEDS: amLODIPine 10 MG TAB PO SCH (10:21)
[2020-08-31] MEDS: HEPARIN 5,000 UNIT/1 ML VIAL SUB-Q SCH ×2 (10:22→23:20)
[2020-08-31] MEDS: FERROUS SULFATE 325 MG TAB PO SCH (10:22)
[2020-08-31 11:22] LABS: Mean Corpuscular HGB Conc 30 % (30-34); Mean Corpuscular Volume 75 fl (79-97); Platelet Count 203 K/mm3 (140-440); Red Blood Count 5.45 M/mm3 (3.65-5.03)
[2020-08-31 11:25] LABS: Hematocrit 40.6 % (30.3-42.9); Hemoglobin 12.3 gm/dl (10.1-14.3); Red Cell Distribution Width 23.9 % (13.2-15.2)
--- NOTE | 2020-08-31 19:17 | Progress Note ---
Assessment and Plan -- Acute respiratory failure with hypoxia patient was hypoxic without O2 Titrate O2 sats to more than 90% Bipap if necessary Treat the underlying cause of bronchial asthma exacerbation -- Suspected 2019 novel coronavirus infection, ruled out with negative COVID-19 test --Acute asthma/copd exacerbation patient was hypoxic without O2 Continue IV abx IV SOlumedrol and Bronchodilators. Supportive care --Leukocytosis with SIRS; Partly secondary to steroid use and underlying history of AML, Continue to follow inflammatory markers and treat for acute asthma exacerbation - Hypothyroidism. Cont synthyroid -- Obstructive sleep apnea CPAP at bedtime, and during daytime as needed Patient needs outpatient sleep study to rule out NAYELY -- HTN (hypertension) Cont antihypertensives, Monitor BP --Morbid obesity BMI 49.8 Advised diet modification exercise as tolerated and weight reduction when medically stable --Acute myeloid leukemia, diagnosed recently Patient has outpatient follow-up with lobsterman to start on chemotherapy as an outpatient --Ongoing tobacco use; Smoking cessation counseling, nicotine patch as needed - DVT prophylaxis On Heparin and Gi prophylaxis Brief history: 50 YO Female with morbid Obesity, HTN, Hypothyroidism, Asthma, Nicotine Dependence, AML presents to ED feeling short of breath over the past 1 day with persistently worsening symptoms. EMS was notified and was found to have a pulse oximetry of 80%. The patient was placed on supplemental oxygen and transported to [facility] . Patient initiated on coronavirus protocol, placed on noninvasive positive pressure ventilation and admitted for further evaluation and management. 08/30: Off BiPAP. Continue treatment for COPD/asthma exacerbation, counseled for tobacco cessation. Follow-up pending COVID-19 test 08/31: Patient is negative for COVID-19. Continue to treat for underlying asthma/COPD. Patient becoming hypoxic on ambulation dropping oxygen saturation to 83%. May need home O2 on discharge, consulted correctional case manager. Subjective Date of service: 08/31/20 Interval history: Patient seen and examined Covid test is currently pending Morbidly obese female complaining of difficulty breathing even on resting Also complains of back pain and generalized body ache Objective - Exam Narrative Exam: GENERAL: Morbidly obese -Thai female sitting on bed appeared to be in mild discomfort. HEENT: Normocephalic. Atraumatic. No conjunctival congestion or icterus. Patient has moist mucous membranes. NECK: Supple. Trachea midline. CHEST/LUNGS: + Wheezes auscultated bilaterally, breathing nonlabored. HEART/CARDIOVASCULAR: Regular in rate and rhythm. S1 and S2 positive. ABDOMEN: Abdomen is soft, nontender. Patient has normal bowel sounds. SKIN: There is no rash. Warm and dry. NEURO: No focal motor deficit. Follows command. MUSCULOSKELETAL: No joint effusion or tenderness. EXTRIMITY: No edema, no cyanosis or clubbing. PSYCH: Cooperative. - Constitutional Vitals: Vital Signs - 12hr 08/31/20 08/31/20 08/31/20 10:21 11:55 12:25 Temperature 97.7 F Pulse Rate 92 H 72 Respiratory 24 Rate Blood Pressure 150/80 138/87 O2 Sat by Pulse 98 91 Oximetry - Labs CBC & Chem 7: 08/31/20 11:08 08/30/20 06:20 Labs: Abnormal lab results 08/31/20 08/31/20 08/31/20 Range/Units 11:08 11:08 13:12 WBC 39.9 H (4.5-11.0) K/mm3 RBC 5.45 H (3.65-5.03) M/mm3 MCV 75 L (79-97) fl MCH 23 L (28-32) pg RDW 23.9 H (13.2-15.2) % Lactic Acid 2.90 H* 2.50 H* (0.7-2.0) mmol/L HEART Score - HEART Score Troponin: Troponin T < 0.010 ng/mL (0.00-0.029) 08/29/20 11:18
[2020-09-01] MEDS: methylPREDNISolone Sod Succinate 40 MG/1 ML INJ IV SCH ×2 (05:33→11:49)
[2020-09-01] MEDS: HYDROmorphone 1 MG/1 ML INJ IV PRN (05:33)
[2020-09-01] MEDS: LEVOTHYROXINE 50 MCG TAB PO SCH (05:36)
[2020-09-01] MEDS: amLODIPine 10 MG TAB PO SCH (09:41)
[2020-09-01] MEDS: FERROUS SULFATE 325 MG TAB PO SCH (09:41)
[2020-09-01] MEDS: HEPARIN 5,000 UNIT/1 ML VIAL SUB-Q SCH (09:43)
[2020-09-01] MEDS: FUROSEMIDE 40 MG TAB PO SCH (09:43)
[2020-09-01] MEDS: oxyCODONE /ACETAMINOPHEN 5-325MG TAB PO PRN ×2 (11:45→17:52)
--- NOTE | 2020-09-01 16:34 | Discharge Summary ---
Providers - Providers Date of Admission: 08/29/20 11:49 Date of discharge: 09/01/20 Attending physician: MICKIE MORENO Primary care physician: SENIOR MEDICAL BILLING SPECIALIST Hospitalization Condition: Fair Hospital course: Brief history: 50 YO Female with morbid Obesity, HTN, Hypothyroidism, Asthma, Nicotine Dependence, AML presents to ED feeling short of breath over the past 1 day with persistently worsening symptoms. EMS was notified and was found to have a pulse oximetry of 80%. The patient was placed on supplemental oxygen and transported to [facility] . Patient initiated on coronavirus protocol, placed on noninvasive positive pressure ventilation and admitted for further evaluation and management. 08/30: Off BiPAP. Continue treatment for COPD/asthma exacerbation, counseled for tobacco cessation. Follow-up pending COVID-19 test 08/31: Patient is negative for COVID-19. Continue to treat for underlying asthma/COPD. Patient becoming hypoxic on ambulation dropping oxygen saturation to 83%. May need home O2 on discharge, consulted special education case manager. 09/01: Clinically stable, no need for home O2, DC home with outpt followup Discharge diagnosis: -- Acute respiratory failure with hypoxia patient was hypoxic without O2 Titrate O2 sats to more than 90% Bipap if necessary Treat the underlying cause of bronchial asthma exacerbation -- Suspected 2019 novel coronavirus infection, ruled out with negative COVID-19 test --Acute asthma/copd exacerbation patient was hypoxic without O2 Continue IV abx IV SOlumedrol and Bronchodilators. Supportive care --Leukocytosis with SIRS; Partly secondary to steroid use and underlying history of AML, Continue to follow inflammatory markers and treat for acute asthma exacerbation - Hypothyroidism. Cont synthyroid -- Obstructive sleep apnea CPAP at bedtime, and during daytime as needed Patient needs outpatient sleep study to rule out NAYELY -- HTN (hypertension) Cont antihypertensives, Monitor BP --Morbid obesity BMI 49.8 Advised diet modification exercise as tolerated and weight reduction when medically stable --Acute myeloid leukemia, diagnosed recently Patient has outpatient follow-up with [facility] specialist to start on chemotherapy as an outpatient --Ongoing tobacco use; Smoking cessation counseling, nicotine patch as needed - DVT prophylaxis On Heparin and Gi prophylaxis Disposition: [id number] HOME UNDER [facility] Time spent for discharge: 34 minutes Core Measure Documentation - Palliative Care Palliative Care/ Comfort Measures: Not Applicable - Core Measures Any of the following diagnoses?: none Exam - Physical Exam Narrative exam: GENERAL: Morbidly obese -Kosovan female sitting on bed appeared to be in mild discomfort. HEENT: Normocephalic. Atraumatic. No conjunctival congestion or icterus. Patient has moist mucous membranes. NECK: Supple. Trachea midline. CHEST/LUNGS: + Wheezes auscultated bilaterally, breathing nonlabored. HEART/CARDIOVASCULAR: Regular in rate and rhythm. S1 and S2 positive. ABDOMEN: Abdomen is soft, nontender. Patient has normal bowel sounds. SKIN: There is no rash. Warm and dry. NEURO: No focal motor deficit. Follows command. MUSCULOSKELETAL: No joint effusion or tenderness. EXTRIMITY: No edema, no cyanosis or clubbing. PSYCH: Cooperative. - Constitutional Vitals: Temp Pulse Resp BP Pulse Ox 98.2 F 85 20 150/102 92 09/01/20 10:53 09/01/20 10:53 09/01/20 10:53 09/01/20 10:53 09/01/20 10:53 Plan Activity: advance as tolerated Weight Bearing Status: Weight Bear as Tolerated Diet: low fat, low salt Follow up with: PRIMARY CARE, [Primary Care Provider] - 3-5 Days LIDYA ROLON MD [Staff Physician] - 7 Days Prescriptions: predniSONE [Deltasone] 20 mg PO QDAY #5 tab guaiFENesin DM [Guaifenesin Dm Syrup] 10 ml PO Q4H PRN #1 bottle PRN Reason: Cough Albuterol Mdi (or & Nicu Only) [ProAir HFA Inhaler] 2 puff IH QID PRN #8.5 gram PRN Reason: Shortness Of Breath ALBUTEROL NEB's [Proventil 0.083% NEBS] 2.5 mg IH Q4HR PRN #30 nebu PRN Reason: Wheezing
[2020-09-01 18:19] VITALS: BP 136/77
== END 2020-09-01 18:42 | disposition home or self-care (01) | DRG 871 ==
LOC: ED 08:55 → 3A 11:49
PROVIDERS: ADMIT Internal Medicine; ATTEND Internal Medicine
PROC: 4A033R1 Measurement of Arterial Saturation, Peripheral, Percutaneous Approach (ICD-10-PCS; principal; 2020-08-29)
PROC: 5A09357 Assistance with Respiratory Ventilation, Less than 24 Consecutive Hours, Continuous Positive Airway Pressure (ICD-10-PCS; 2020-08-29)
DX: A41.9 Sepsis, unspecified organism (principal); J96.01 Acute respiratory failure with hypoxia; I50.33 Acute on chronic diastolic (congestive) heart failure; E66.2 Morbid (severe) obesity with alveolar hypoventilation; Z68.43 Body mass index [BMI] 50.0-59.9, adult; J44.1 Chronic obstructive pulmonary disease with (acute) exacerbation; J45.901 Unspecified asthma with (acute) exacerbation; C92.00 Acute myeloblastic leukemia, not having achieved remission; Z20.828 Contact with and (suspected) exposure to other viral communicable diseases; I11.0 Hypertensive heart disease with heart failure; E03.9 Hypothyroidism, unspecified; F17.200 Nicotine dependence, unspecified, uncomplicated; Z71.3 Dietary counseling and surveillance
CPT/HCPCS: 36415; 71045; 80048; 80053; 82140; 82728; 82803; 82947; 83615; 83880; 84145; 84484; 85007; 85025; 85027; 85379; 85610; 85730; 86140; 87040; 93005; 94644; 94760; 96365; 96375; G0378; J1170; J1644; J1956; J2405; J2920; U0003